=== PATIENT | female | born 1965 | race Two or more races ===

== ENCOUNTER → 2018-06-10 11:04 | Outpatient (CLI) | payer MEDICARE, BC, SELFPAY ==
[2018-06-10 11:26] LABS: Absolute Basophil Count 0.03 k/cumm (0.0-0.2); Absolute Eosinophil Count 0.08 k/cumm (0.0-0.7); Absolute Lymphocyte Count 1.63 k/cumm (1.2-3.4); Absolute Monocyte Count 0.35 k/cumm (0.11-0.7); Absolute Neutrophil Count 4.89 k/cumm (1.2-6.7); Basophils % 0.4; Eosinophils % 1.1; HGB 13.9 g/dL (12.0-15.5); Lymphocytes % 23.4; Mean Corp. HGB Concentration 33.1 g/dL (32.0-36.0); Mean Corpuscular Hemoglobin 28.9 pg (27.0-33.0); Mean Corpuscular Volume 87.3 fL (80-95); Mean Platelet Volume 11.4 fL (8.0-11.0); Neutrophils % 70.1; Platelet Count 198 x1000/uL (130-400); RBC 4.81 m/cumm (4.00-5.20); RBC Distribution Width 14.1 % (11.7-14.6); White Blood Cell Count 6.98 k/cumm (4.4-10.8)
== END ==
PROVIDERS: Visit Provider Nurse Practitioner Psychiatric/Mental Health
DX: F20.9 Schizophrenia, unspecified (principal); Z79.899 Other long term (current) drug therapy
CPT/HCPCS: 36415; 85025

== ENCOUNTER → 2018-06-21 17:38 | Outpatient (REF) | payer MEDICARE, BC, SELFPAY ==
[2018-06-21 22:21] LABS: Anion Gap 10.3 mmol/L (3-11); BUN 14 mg/dL (7-18); CO2 27.7 mmol/L (21.0-32.0); CREATININE 1.06 mg/dL (0.55-1.02); Calcium 8.4 mg/dL (8.5-10.1); Chloride 105 mmol/L (98-107); Cholesterol 243 mg/dL (50-200); Estimated GFR 54.23 (mL/min/1.73m2); Glucose 129 mg/dL (70-100); HDL Cholesterol 50 mg/dL (40-60); LDL CHOLESTEROL 166 mg/dL (<100); Potassium 3.7 mmol/L (3.5-5.1); Sodium 143 mmol/L (136-145); TSH (W/Ref FT4) 1.62 uIU/mL (0.358-3.74); Triglyceride 121 mg/dL (30-150)
[2018-06-23 19:17] LABS: FSH 88.5 mIU/ml
== END ==
LOC: NCHCN 17:38
PROVIDERS: Visit Provider Specialist/Technologist Athletic Trainer
DX: Z00.00 Encounter for general adult medical examination without abnormal findings (principal); Z79.899 Other long term (current) drug therapy
CPT/HCPCS: 80048; 80061; 83721; 83001; 84443

== ENCOUNTER 2018-07-06 00:33 | Outpatient (CLI) | payer MEDICARE, SELFPAY ==
--- NOTE | 2018-07-06 15:45 | DI.MAMMO_ITS ---
SYMPTOMS/DIAGNOSIS: SCREENING, Z12.31, PREVENTATIVE CARE, Z00.00 MAMMOGRAM: Mammograms were interpreted according to the usual protocol including computer analysis with CAD system, tomosynthesis and C view imaging. Comparison with prior examinations. Breast density B. No masses or microcalcifications are seen. There is nothing to suggest malignancy. IMPRESSION: Negative mammogram. Routine screening is recommended. Category I. MQSA ASSESSMENT OF FINDINGS: Negative. Category 1. Patient will receive a letter notifying them of these results. BI-RADS category B. There are scattered areas of fibroglandular density.
== END 2018-07-06 00:53 ==
PROVIDERS: PCP Specialist/Technologist Athletic Trainer; Visit Provider Specialist/Technologist Athletic Trainer
DX: Z12.31 Encounter for screening mammogram for malignant neoplasm of breast (principal)
CPT/HCPCS: 77063; 77067

== ENCOUNTER 2018-07-08 10:27 | Outpatient (CLI) | payer MEDICARE, SELFPAY ==
[2018-07-08 10:47] LABS: Abs Immature Grans 0.01 k/cumm (0.0-0.09); Absolute Basophil Count 0.03 k/cumm (0.0-0.2); Absolute Eosinophil Count 0.13 k/cumm (0.0-0.7); Absolute Lymphocyte Count 1.65 k/cumm (1.2-3.4); Absolute Monocyte Count 0.36 k/cumm (0.11-0.7); Absolute Neutrophil Count 4.51 k/cumm (1.2-6.7); Basophils % 0.4; Eosinophils % 1.9; HCT 41.5 % (36.0-46.0); HGB 13.7 g/dL (12.0-15.5); Immature Grans % 0.1; Lymphocytes % 24.7; Mean Corpuscular Hemoglobin 28.7 pg (27.0-33.0); Mean Platelet Volume 11.5 fL (8.0-11.0); Monocytes % 5.4; Neutrophils % 67.5; Platelet Count 167 x1000/uL (130-400); RBC 4.77 m/cumm (4.00-5.20); RBC Distribution Width 14.1 % (11.7-14.6); White Blood Cell Count 6.69 k/cumm (4.4-10.8)
== END 2018-07-08 10:47 ==
PROVIDERS: PCP Specialist/Technologist Athletic Trainer; Visit Provider Nurse Practitioner Psychiatric/Mental Health
DX: F20.9 Schizophrenia, unspecified (principal); Z79.899 Other long term (current) drug therapy
CPT/HCPCS: 36415; 85025

== ENCOUNTER 2018-07-26 12:20 | Outpatient (REF) | payer MEDICARE, BC, SELFPAY ==
--- NOTE | 2018-07-26 08:30 | PAPFT_PTH ---
PATIENT: Aubree Katz LOC: [facility] U#:[id number] AGE/SX: 52/F ROOM: RE07/26/[address]: ZACHERY Cervantes : 1965 BED: DIS: 07/26/2018 SPEC #: [id number] RECD: 07/26/18 13:06 STATUS: RAMESH REMichelle #: [id number] CHUY: 07/26/18 08:[address]: Krysta Yan DEPT: [facility] Cytology RECD BY: Amberly George ENTERED: 07/26/18 13:06 SP TYPE: PAPFT OTHR DR: Fernando Lakhani Tissues: 1 - CX/ENDOCX FOR PAP SMEARS Procedures: PAP THIN PREP/UVM Screening HPV DNA PROBE Comments: [id number]
== END 2018-07-26 12:40 ==
LOC: LBN 12:20
PROVIDERS: PCP Specialist/Technologist Athletic Trainer; Visit Provider Nurse Practitioner Family
DX: Z12.4 Encounter for screening for malignant neoplasm of cervix (principal); Z11.51 Encounter for screening for human papillomavirus (HPV)
CPT/HCPCS: 88142; 87624

== ENCOUNTER 2018-08-11 12:25 | Outpatient (CLI) | payer MEDICARE, BC, SELFPAY ==
[2018-08-11 12:45] LABS: Abs Immature Grans 0.01 k/cumm (0.0-0.09); Absolute Basophil Count 0.03 k/cumm (0.0-0.2); Absolute Eosinophil Count 0.11 k/cumm (0.0-0.7); Absolute Lymphocyte Count 1.41 k/cumm (1.2-3.4); Absolute Monocyte Count 0.42 k/cumm (0.11-0.7); Absolute Neutrophil Count 7.03 k/cumm (1.2-6.7); Basophils % 0.3; Eosinophils % 1.2; HCT 40.4 % (36.0-46.0); HGB 13.3 g/dL (12.0-15.5); Immature Grans % 0.1; Lymphocytes % 15.6; Mean Corp. HGB Concentration 32.9 g/dL (32.0-36.0); Mean Corpuscular Hemoglobin 28.8 pg (27.0-33.0); Mean Corpuscular Volume 87.4 fL (80-95); Mean Platelet Volume 11.4 fL (8.0-11.0); Monocytes % 4.7; Neutrophils % 78.1; Platelet Count 187 x1000/uL (130-400); RBC 4.62 m/cumm (4.00-5.20); RBC Distribution Width 13.8 % (11.7-14.6); White Blood Cell Count 9.01 k/cumm (4.4-10.8)
== END 2018-08-11 12:45 ==
PROVIDERS: PCP Specialist/Technologist Athletic Trainer; Visit Provider Nurse Practitioner Psychiatric/Mental Health
DX: F20.9 Schizophrenia, unspecified (principal); Z79.899 Other long term (current) drug therapy
CPT/HCPCS: 36415; 85025

== ENCOUNTER 2018-09-09 08:46 | Outpatient (CLI) | payer MEDICARE, BC, SELFPAY ==
[2018-09-09 09:11] LABS: Abs Immature Grans 0.01 k/cumm (0.0-0.09); Absolute Basophil Count 0.02 k/cumm (0.0-0.2); Absolute Eosinophil Count 0.16 k/cumm (0.0-0.7); Absolute Lymphocyte Count 1.47 k/cumm (1.2-3.4); Absolute Neutrophil Count 3.89 k/cumm (1.2-6.7); Basophils % 0.3; Eosinophils % 2.7; HCT 42.8 % (36.0-46.0); Immature Grans % 0.2; Lymphocytes % 24.7; Mean Corp. HGB Concentration 32.7 g/dL (32.0-36.0); Mean Corpuscular Hemoglobin 28.9 pg (27.0-33.0); Mean Corpuscular Volume 88.4 fL (80-95); Mean Platelet Volume 11.4 fL (8.0-11.0); Monocytes % 6.7; Neutrophils % 65.4; Platelet Count 185 x1000/uL (130-400); RBC 4.84 m/cumm (4.00-5.20); RBC Distribution Width 14.2 % (11.7-14.6); White Blood Cell Count 5.95 k/cumm (4.4-10.8)
== END 2018-09-09 09:06 ==
PROVIDERS: PCP Specialist/Technologist Athletic Trainer; Visit Provider Nurse Practitioner Psychiatric/Mental Health
DX: F20.9 Schizophrenia, unspecified (principal); Z79.899 Other long term (current) drug therapy
CPT/HCPCS: 36415; 85025

== ENCOUNTER 2018-10-08 13:15 | Outpatient (CLI) | payer MEDICARE, BC, SELFPAY ==
[2018-10-08 13:57] LABS: Abs Immature Grans 0.02 k/cumm (0.0-0.09); Absolute Basophil Count 0.02 k/cumm (0.0-0.2); Absolute Eosinophil Count 0.11 k/cumm (0.0-0.7); Absolute Lymphocyte Count 1.55 k/cumm (1.2-3.4); Absolute Monocyte Count 0.29 k/cumm (0.11-0.7); Absolute Neutrophil Count 5.87 k/cumm (1.2-6.7); Basophils % 0.3; Eosinophils % 1.4; HCT 41.9 % (36.0-46.0); HGB 13.7 g/dL (12.0-15.5); Immature Grans % 0.3; Lymphocytes % 19.7; Mean Corp. HGB Concentration 32.7 g/dL (32.0-36.0); Mean Corpuscular Hemoglobin 28.9 pg (27.0-33.0); Mean Corpuscular Volume 88.4 fL (80-95); Mean Platelet Volume 11.3 fL (8.0-11.0); Monocytes % 3.7; Neutrophils % 74.6; Platelet Count 201 x1000/uL (130-400); RBC 4.74 m/cumm (4.00-5.20); RBC Distribution Width 14.1 % (11.7-14.6); White Blood Cell Count 7.86 k/cumm (4.4-10.8)
== END 2018-10-08 13:35 ==
PROVIDERS: PCP Specialist/Technologist Athletic Trainer; Visit Provider Nurse Practitioner Psychiatric/Mental Health
DX: F20.9 Schizophrenia, unspecified (principal); Z79.899 Other long term (current) drug therapy
CPT/HCPCS: 36415; 85025

== ENCOUNTER 2018-11-08 10:57 | Outpatient (CLI) | payer MEDICARE, BC, SELFPAY ==
[2018-11-08 11:28] LABS: Abs Immature Grans 0.02 k/cumm (0.0-0.09); Absolute Basophil Count 0.02 k/cumm (0.0-0.2); Absolute Eosinophil Count 0.09 k/cumm (0.0-0.7); Absolute Lymphocyte Count 1.71 k/cumm (1.2-3.4); Absolute Monocyte Count 0.46 k/cumm (0.11-0.7); Absolute Neutrophil Count 5.15 k/cumm (1.2-6.7); Basophils % 0.3; Eosinophils % 1.2; HCT 40.8 % (36.0-46.0); HGB 13.4 g/dL (12.0-15.5); Immature Grans % 0.3; Mean Corp. HGB Concentration 32.8 g/dL (32.0-36.0); Mean Corpuscular Hemoglobin 29.1 pg (27.0-33.0); Mean Corpuscular Volume 88.5 fL (80-95); Mean Platelet Volume 11.3 fL (8.0-11.0); Monocytes % 6.2; Platelet Count 191 x1000/uL (130-400); RBC 4.61 m/cumm (4.00-5.20); RBC Distribution Width 13.9 % (11.7-14.6); White Blood Cell Count 7.45 k/cumm (4.4-10.8)
== END 2018-11-08 11:17 ==
PROVIDERS: PCP Specialist/Technologist Athletic Trainer; Visit Provider Nurse Practitioner Psychiatric/Mental Health
DX: F20.9 Schizophrenia, unspecified (principal); Z79.899 Other long term (current) drug therapy
CPT/HCPCS: 36415; 85025

== ENCOUNTER 2018-12-06 10:28 | Outpatient (CLI) | payer MEDICARE, BC, SELFPAY ==
[2018-12-06 11:58] LABS: Abs Immature Grans 0.01 k/cumm (0.0-0.09); Absolute Basophil Count 0.02 k/cumm (0.0-0.2); Absolute Lymphocyte Count 1.74 k/cumm (1.2-3.4); Absolute Monocyte Count 0.34 k/cumm (0.11-0.7); Basophils % 0.3; Eosinophils % 1.6; HCT 41.9 % (36.0-46.0); HGB 13.6 g/dL (12.0-15.5); Immature Grans % 0.2; Lymphocytes % 27.6; Mean Corp. HGB Concentration 32.5 g/dL (32.0-36.0); Mean Corpuscular Hemoglobin 28.6 pg (27.0-33.0); Mean Corpuscular Volume 88.2 fL (80-95); Mean Platelet Volume 11.7 fL (8.0-11.0); Monocytes % 5.4; Neutrophils % 64.9; Platelet Count 198 x1000/uL (130-400); RBC 4.75 m/cumm (4.00-5.20); RBC Distribution Width 14.1 % (11.7-14.6); White Blood Cell Count 6.31 k/cumm (4.4-10.8)
== END 2018-12-06 10:48 ==
PROVIDERS: PCP Specialist/Technologist Athletic Trainer; Visit Provider Nurse Practitioner Psychiatric/Mental Health
DX: F20.9 Schizophrenia, unspecified (principal); Z79.899 Other long term (current) drug therapy
CPT/HCPCS: 36415; 85025

== ENCOUNTER 2019-01-03 10:48 | Outpatient (CLI) | payer MEDICARE, BC, SELFPAY ==
[2019-01-03 11:33] LABS: Abs Immature Grans 0.02 k/cumm (0.0-0.09); Absolute Basophil Count 0.02 k/cumm (0.0-0.2); Absolute Eosinophil Count 0.05 k/cumm (0.0-0.7); Absolute Lymphocyte Count 1.94 k/cumm (1.2-3.4); Absolute Monocyte Count 0.47 k/cumm (0.11-0.7); Absolute Neutrophil Count 4.74 k/cumm (1.2-6.7); Basophils % 0.3; Eosinophils % 0.7; HCT 42.2 % (36.0-46.0); HGB 13.7 g/dL (12.0-15.5); Immature Grans % 0.3; Lymphocytes % 26.8; Mean Corp. HGB Concentration 32.5 g/dL (32.0-36.0); Mean Corpuscular Hemoglobin 28.4 pg (27.0-33.0); Mean Corpuscular Volume 87.4 fL (80-95); Mean Platelet Volume 11.7 fL (8.0-11.0); Monocytes % 6.5; Neutrophils % 65.4; Platelet Count 227 x1000/uL (130-400); RBC 4.83 m/cumm (4.00-5.20); RBC Distribution Width 13.6 % (11.7-14.6); White Blood Cell Count 7.24 k/cumm (4.4-10.8)
== END 2019-01-03 11:08 ==
PROVIDERS: PCP Specialist/Technologist Athletic Trainer; Visit Provider Nurse Practitioner Psychiatric/Mental Health
DX: F20.9 Schizophrenia, unspecified (principal); Z79.899 Other long term (current) drug therapy
CPT/HCPCS: 36415; 85025

== ENCOUNTER 2019-02-01 11:09 | Outpatient (CLI) | payer MEDICARE, BC, SELFPAY ==
[2019-02-01 11:55] LABS: Abs Immature Grans 0.01 k/cumm (0.0-0.09); Absolute Basophil Count 0.02 k/cumm (0.0-0.2); Absolute Eosinophil Count 0.06 k/cumm (0.0-0.7); Absolute Lymphocyte Count 1.56 k/cumm (1.2-3.4); Absolute Monocyte Count 0.42 k/cumm (0.11-0.7); Basophils % 0.3; Eosinophils % 0.9; HCT 42.4 % (36.0-46.0); HGB 13.7 g/dL (12.0-15.5); Immature Grans % 0.1; Lymphocytes % 22.4; Mean Corp. HGB Concentration 32.3 g/dL (32.0-36.0); Mean Corpuscular Hemoglobin 28.4 pg (27.0-33.0); Mean Platelet Volume 11.8 fL (8.0-11.0); Neutrophils % 70.3; Platelet Count 206 x1000/uL (130-400); RBC 4.82 m/cumm (4.00-5.20); RBC Distribution Width 13.9 % (11.7-14.6); White Blood Cell Count 6.97 k/cumm (4.4-10.8)
== END 2019-02-01 11:29 ==
PROVIDERS: PCP Family Medicine; Visit Provider Nurse Practitioner Psychiatric/Mental Health
DX: F20.9 Schizophrenia, unspecified (principal); Z79.899 Other long term (current) drug therapy
CPT/HCPCS: 36415; 85025

== ENCOUNTER 2019-03-01 12:17 | Outpatient (CLI) | payer MEDICARE, BC, SELFPAY ==
[2019-03-01 12:51] LABS: Abs Immature Grans 0.02 k/cumm (0.0-0.09); Absolute Basophil Count 0.02 k/cumm (0.0-0.2); Absolute Eosinophil Count 0.03 k/cumm (0.0-0.7); Absolute Lymphocyte Count 1.57 k/cumm (1.2-3.4); Absolute Monocyte Count 0.31 k/cumm (0.11-0.7); Absolute Neutrophil Count 6.18 k/cumm (1.2-6.7); Basophils % 0.2; Eosinophils % 0.4; HCT 43.1 % (36.0-46.0); HGB 14.1 g/dL (12.0-15.5); Immature Grans % 0.2; Lymphocytes % 19.3; Mean Corp. HGB Concentration 32.7 g/dL (32.0-36.0); Mean Corpuscular Hemoglobin 28.1 pg (27.0-33.0); Mean Platelet Volume 11.6 fL (8.0-11.0); Monocytes % 3.8; Neutrophils % 76.1; Platelet Count 208 x1000/uL (130-400); RBC 5.01 m/cumm (4.00-5.20); RBC Distribution Width 13.9 % (11.7-14.6); White Blood Cell Count 8.13 k/cumm (4.4-10.8)
== END 2019-03-01 12:37 ==
PROVIDERS: PCP Family Medicine; Visit Provider Nurse Practitioner Psychiatric/Mental Health
DX: F20.9 Schizophrenia, unspecified (principal); Z79.899 Other long term (current) drug therapy
CPT/HCPCS: 36415; 85025

== ENCOUNTER 2019-03-29 09:59 | Outpatient (CLI) | payer MEDICARE, BC, SELFPAY ==
[2019-03-29 10:33] LABS: Abs Immature Grans 0.02 k/cumm (0.0-0.09); Absolute Basophil Count 0.01 k/cumm (0.0-0.2); Absolute Eosinophil Count 0.01 k/cumm (0.0-0.7); Absolute Lymphocyte Count 1.36 k/cumm (1.2-3.4); Absolute Neutrophil Count 3.73 k/cumm (1.2-6.7); Basophils % 0.2; Eosinophils % 0.2; HCT 43.3 % (36.0-46.0); HGB 13.9 g/dL (12.0-15.5); Immature Grans % 0.4; Mean Corp. HGB Concentration 32.1 g/dL (32.0-36.0); Mean Corpuscular Hemoglobin 27.6 pg (27.0-33.0); Mean Corpuscular Volume 86.1 fL (80-95); Mean Platelet Volume 11.3 fL (8.0-11.0); Monocytes % 5.5; Neutrophils % 68.7; Platelet Count 185 x1000/uL (130-400); RBC 5.03 m/cumm (4.00-5.20); RBC Distribution Width 14.4 % (11.7-14.6); White Blood Cell Count 5.43 k/cumm (4.4-10.8)
== END 2019-03-29 10:19 ==
PROVIDERS: PCP Family Medicine; Visit Provider Nurse Practitioner Psychiatric/Mental Health
DX: F20.9 Schizophrenia, unspecified (principal); Z79.899 Other long term (current) drug therapy
CPT/HCPCS: 36415; 85025

== ENCOUNTER 2019-04-25 09:15 | Outpatient (CLI) | payer MEDICARE, BC, SELFPAY ==
[2019-04-25 09:55] LABS: Abs Immature Grans 0.01 k/cumm (0.0-0.09); Absolute Basophil Count 0.01 k/cumm (0.0-0.2); Absolute Lymphocyte Count 1.53 k/cumm (1.2-3.4); Absolute Neutrophil Count 3.51 k/cumm (1.2-6.7); Basophils % 0.2; HCT 42.8 % (36.0-46.0); Immature Grans % 0.2; Lymphocytes % 28.5; Mean Corp. HGB Concentration 32.7 g/dL (32.0-36.0); Mean Corpuscular Hemoglobin 27.9 pg (27.0-33.0); Mean Corpuscular Volume 85.4 fL (80-95); Mean Platelet Volume 11.6 fL (8.0-11.0); Monocytes % 5.6; Neutrophils % 65.5; Platelet Count 185 x1000/uL (130-400); RBC 5.01 m/cumm (4.00-5.20); RBC Distribution Width 14.7 % (11.7-14.6); White Blood Cell Count 5.36 k/cumm (4.4-10.8)
== END 2019-04-25 09:35 ==
PROVIDERS: PCP Family Medicine; Visit Provider Nurse Practitioner Psychiatric/Mental Health
DX: F20.9 Schizophrenia, unspecified (principal); Z79.899 Other long term (current) drug therapy
CPT/HCPCS: 36415; 85025

== ENCOUNTER 2019-05-23 09:27 | Outpatient (CLI) | payer MEDICARE, BC, SELFPAY ==
[2019-05-23 09:58] LABS: Abs Immature Grans 0.01 k/cumm (0.0-0.09); Absolute Basophil Count 0.02 k/cumm (0.0-0.2); Absolute Eosinophil Count 0.01 k/cumm (0.0-0.7); Absolute Lymphocyte Count 1.64 k/cumm (1.2-3.4); Absolute Monocyte Count 0.37 k/cumm (0.11-0.7); Absolute Neutrophil Count 4.23 k/cumm (1.2-6.7); Basophils % 0.3; Eosinophils % 0.2; HCT 42.4 % (36.0-46.0); HGB 13.9 g/dL (12.0-15.5); Immature Grans % 0.2; Lymphocytes % 26.1; Mean Corp. HGB Concentration 32.8 g/dL (32.0-36.0); Mean Corpuscular Hemoglobin 28.1 pg (27.0-33.0); Mean Corpuscular Volume 85.7 fL (80-95); Mean Platelet Volume 11.7 fL (8.0-11.0); Monocytes % 5.9; Neutrophils % 67.3; Platelet Count 189 x1000/uL (130-400); RBC 4.95 m/cumm (4.00-5.20); RBC Distribution Width 14.8 % (11.7-14.6); White Blood Cell Count 6.28 k/cumm (4.4-10.8)
== END 2019-05-23 09:47 ==
PROVIDERS: PCP Family Medicine; Visit Provider Nurse Practitioner Psychiatric/Mental Health
DX: F20.9 Schizophrenia, unspecified (principal); Z79.899 Other long term (current) drug therapy
CPT/HCPCS: 36415; 85025

== ENCOUNTER 2019-06-20 10:38 | Outpatient (CLI) | payer MEDICARE, BC, SELFPAY ==
[2019-06-20 11:19] LABS: Abs Immature Grans 0.01 k/cumm (0.0-0.09); Absolute Basophil Count 0.02 k/cumm (0.0-0.2); Absolute Lymphocyte Count 1.75 k/cumm (1.2-3.4); Absolute Monocyte Count 0.38 k/cumm (0.11-0.7); Absolute Neutrophil Count 4.99 k/cumm (1.2-6.7); Basophils % 0.3; HGB 13.8 g/dL (12.0-15.5); Immature Grans % 0.1; Lymphocytes % 24.5; Mean Corp. HGB Concentration 32.9 g/dL (32.0-36.0); Mean Corpuscular Hemoglobin 28.3 pg (27.0-33.0); Mean Corpuscular Volume 86.2 fL (80-95); Mean Platelet Volume 11.8 fL (8.0-11.0); Monocytes % 5.3; Neutrophils % 69.8; Platelet Count 220 x1000/uL (130-400); RBC 4.87 m/cumm (4.00-5.20); RBC Distribution Width 14.8 % (11.7-14.6); White Blood Cell Count 7.15 k/cumm (4.4-10.8)
== END 2019-06-20 10:58 ==
PROVIDERS: PCP Family Medicine; Visit Provider Nurse Practitioner Psychiatric/Mental Health
DX: F20.9 Schizophrenia, unspecified (principal); Z79.899 Other long term (current) drug therapy
CPT/HCPCS: 36415; 85025

== ENCOUNTER 2019-07-18 08:40 | Outpatient (CLI) | payer MEDICARE, BC, SELFPAY ==
[2019-07-18 09:13] LABS: Abs Immature Grans 0.01 k/cumm (0.0-0.09); Absolute Basophil Count 0.01 k/cumm (0.0-0.2); Absolute Eosinophil Count 0.01 k/cumm (0.0-0.7); Absolute Lymphocyte Count 1.64 k/cumm (1.2-3.4); Absolute Monocyte Count 0.39 k/cumm (0.11-0.7); Absolute Neutrophil Count 3.74 k/cumm (1.2-6.7); Basophils % 0.2; Eosinophils % 0.2; HCT 41.7 % (36.0-46.0); HGB 13.5 g/dL (12.0-15.5); Immature Grans % 0.2; Lymphocytes % 28.3; Mean Corp. HGB Concentration 32.4 g/dL (32.0-36.0); Mean Corpuscular Hemoglobin 28.2 pg (27.0-33.0); Mean Corpuscular Volume 87.1 fL (80-95); Mean Platelet Volume 11.7 fL (8.0-11.0); Monocytes % 6.7; Neutrophils % 64.4; Platelet Count 195 x1000/uL (130-400); RBC 4.79 m/cumm (4.00-5.20); RBC Distribution Width 14.4 % (11.7-14.6)
== END 2019-07-18 09:00 ==
PROVIDERS: PCP Family Medicine; Visit Provider Nurse Practitioner Psychiatric/Mental Health
DX: F20.9 Schizophrenia, unspecified (principal); Z79.899 Other long term (current) drug therapy
CPT/HCPCS: 36415; 85025

== ENCOUNTER 2019-08-19 12:43 | Outpatient (CLI) | payer MEDICARE, BC, SELFPAY ==
[2019-08-19 13:15] LABS: Abs Immature Grans 0.02 k/cumm (0.0-0.09); Absolute Basophil Count 0.01 k/cumm (0.0-0.2); Absolute Monocyte Count 0.34 k/cumm (0.11-0.7); Basophils % 0.1; HCT 42.3 % (36.0-46.0); HGB 13.9 g/dL (12.0-15.5); Immature Grans % 0.3; Lymphocytes % 21.6; Mean Corp. HGB Concentration 32.9 g/dL (32.0-36.0); Mean Corpuscular Hemoglobin 28.6 pg (27.0-33.0); Mean Platelet Volume 11.5 fL (8.0-11.0); Monocytes % 4.3; Neutrophils % 73.7; Platelet Count 215 x1000/uL (130-400); RBC 4.86 m/cumm (4.00-5.20); RBC Distribution Width 14.4 % (11.7-14.6); White Blood Cell Count 7.87 k/cumm (4.4-10.8)
== END 2019-08-19 13:03 ==
PROVIDERS: PCP Family Medicine; Visit Provider Nurse Practitioner Psychiatric/Mental Health
DX: F20.9 Schizophrenia, unspecified (principal); Z79.899 Other long term (current) drug therapy
CPT/HCPCS: 36415; 85025

== ENCOUNTER 2019-09-14 09:31 | Outpatient (CLI) | payer MEDICARE, BC, SELFPAY ==
[2019-09-14 10:07] LABS: Abs Immature Grans 0.01 k/cumm (0.0-0.09); Absolute Basophil Count 0.01 k/cumm (0.0-0.2); Absolute Lymphocyte Count 1.34 k/cumm (1.2-3.4); Absolute Monocyte Count 0.28 k/cumm (0.11-0.7); Absolute Neutrophil Count 4.47 k/cumm (1.2-6.7); Basophils % 0.2; HCT 42.6 % (36.0-46.0); HGB 13.7 g/dL (12.0-15.5); Immature Grans % 0.2; Lymphocytes % 21.9; Mean Corp. HGB Concentration 32.2 g/dL (32.0-36.0); Mean Corpuscular Hemoglobin 27.8 pg (27.0-33.0); Mean Corpuscular Volume 86.6 fL (80-95); Mean Platelet Volume 11.3 fL (8.0-11.0); Monocytes % 4.6; Neutrophils % 73.1; Platelet Count 191 x1000/uL (130-400); RBC 4.92 m/cumm (4.00-5.20); White Blood Cell Count 6.11 k/cumm (4.4-10.8)
== END 2019-09-14 09:51 ==
PROVIDERS: PCP Family Medicine; Visit Provider Nurse Practitioner Psychiatric/Mental Health
DX: F20.9 Schizophrenia, unspecified (principal); Z79.899 Other long term (current) drug therapy
CPT/HCPCS: 36415; 85025

== ENCOUNTER 2019-10-14 10:08 | Outpatient (CLI) | payer MEDICARE, BC, SELFPAY ==
[2019-10-14 10:42] LABS: Abs Immature Grans 0.01 k/cumm (0.0-0.09); Absolute Basophil Count 0.01 k/cumm (0.0-0.2); Absolute Eosinophil Count 0.01 k/cumm (0.0-0.7); Absolute Lymphocyte Count 1.31 k/cumm (1.2-3.4); Absolute Monocyte Count 0.41 k/cumm (0.11-0.7); Absolute Neutrophil Count 4.73 k/cumm (1.2-6.7); Basophils % 0.2; Eosinophils % 0.2; HCT 42.4 % (36.0-46.0); HGB 13.6 g/dL (12.0-15.5); Immature Grans % 0.2; Lymphocytes % 20.2; Mean Corp. HGB Concentration 32.1 g/dL (32.0-36.0); Mean Corpuscular Hemoglobin 27.8 pg (27.0-33.0); Mean Corpuscular Volume 86.7 fL (80-95); Monocytes % 6.3; Neutrophils % 72.9; Platelet Count 220 x1000/uL (130-400); RBC 4.89 m/cumm (4.00-5.20); White Blood Cell Count 6.48 k/cumm (4.4-10.8)
== END 2019-10-14 10:28 ==
LOC: NCHCO 10:10 → LBO 10:17
PROVIDERS: PCP Family Medicine; Visit Provider Nurse Practitioner Psychiatric/Mental Health
DX: F20.9 Schizophrenia, unspecified (principal); Z79.899 Other long term (current) drug therapy
CPT/HCPCS: 36415; 85025

== ENCOUNTER 2019-10-28 13:24 | Outpatient (REF) | payer MEDICARE, BC, SELFPAY ==
[2019-10-28 19:11] LABS: ALT 19 U/L (14-59); AST 12 U/L (15-37); Alkaline Phosphatase 133 U/L (46-116); Anion Gap 8.2 mmol/L (3-11); BUN 16 mg/dL (7-18); Bilirubin, Total 0.3 mg/dL (0.2-1.0); CO2 30.8 mmol/L (21.0-32.0); Calculated LDL 162 mg/dL; Chloride 103 mmol/L (98-107); Cholesterol 233 mg/dL (<200); Glucose 89 mg/dL (74-106); HDL Cholesterol 52 mg/dL (40-60); Potassium 4.5 mmol/L (3.5-5.1); Sodium 142 mmol/L (136-145); Total Protein 7.2 g/dL (6.4-8.2); Triglyceride 98 mg/dL (<150)
[2019-10-28 19:31] LABS: Hemoglobin A1C 5.7 % (3.8-5.6)
== END 2019-10-28 13:44 ==
LOC: NCHCN 13:24
PROVIDERS: PCP Family Medicine; Visit Provider Specialist/Technologist Athletic Trainer
DX: E78.5 Hyperlipidemia, unspecified; R73.9 Hyperglycemia, unspecified
CPT/HCPCS: 80053; 80061; 83036; 83735

== ENCOUNTER 2019-11-14 08:59 | Outpatient (CLI) | payer MEDICARE, BC, SELFPAY ==
[2019-11-14 09:42] LABS: Abs Immature Grans 0.01 k/cumm (0.0-0.09); Absolute Basophil Count 0.02 k/cumm (0.0-0.2); Absolute Eosinophil Count 0.01 k/cumm (0.0-0.7); Absolute Lymphocyte Count 1.77 k/cumm (1.2-3.4); Absolute Monocyte Count 0.38 k/cumm (0.11-0.7); Absolute Neutrophil Count 3.97 k/cumm (1.2-6.7); Basophils % 0.3; Eosinophils % 0.2; HCT 43.9 % (36.0-46.0); Immature Grans % 0.2 %; Lymphocytes % 28.7; Mean Corp. HGB Concentration 31.9 g/dL (32.0-36.0); Mean Corpuscular Hemoglobin 27.6 pg (27.0-33.0); Mean Corpuscular Volume 86.6 fL (80-95); Mean Platelet Volume 11.5 fL (8.0-11.0); Monocytes % 6.2; Neutrophils % 64.4; Platelet Count 215 x1000/uL (130-400); RBC 5.07 m/cumm (4.00-5.20); RBC Distribution Width 14.2 % (11.7-14.6); White Blood Cell Count 6.16 k/cumm (4.4-10.8)
== END 2019-11-14 09:19 ==
PROVIDERS: PCP Family Medicine; Visit Provider Nurse Practitioner Psychiatric/Mental Health
DX: F20.9 Schizophrenia, unspecified (principal); Z79.899 Other long term (current) drug therapy
CPT/HCPCS: 36415; 85025

== ENCOUNTER 2019-11-28 01:44 | Outpatient (CLI) | payer MEDICARE, BC, SELFPAY ==
--- NOTE | 2019-11-28 12:17 | DI.MAMMO_ITS ---
EXAM: MAMMO SCREENING CLINICAL HISTORY: SCREENING, Z12.31, PREVENTATIVE HEALTH CARE, Z00.00. TECHNIQUE: Full field digital CC and MLO mammographic images were obtained with 3D tomosynthesis and utilizing computer aided detection (CAD). COMPARISON: 2018 FINDINGS: Breast Density - Category B - Scattered areas of fibroglandular density Masses/Architectural Distortion: None seen. Microcalcifications: No suspicious pleomorphic-type calcifications are seen. Skin Thickening/Nipple Retraction: None. Axilla: Unremarkable. IMPRESSION: 1. BI-RADS category 1, negative. No significant interval change with no specific features of maligna ncy noted. 2. Unless there is more urgent need, screening mammography is recommended, as per [employer] guidelines. A negative radiographic report should not delay biopsy if a dominant or clinically suspicious mass is present. Up to ten percent of cancers are not identified on mammography. A negative report may reinforce clinical impression. Adenosis and dense breasts may obscure an underlying neoplasm. False positive reports average 6 to 10%. Patient will receive a letter notifying them of these results.
== END 2019-11-28 02:04 ==
PROVIDERS: PCP Family Medicine; Visit Provider Specialist/Technologist Athletic Trainer
DX: Z12.31 Encounter for screening mammogram for malignant neoplasm of breast (principal)
CPT/HCPCS: 77063; 77067

== ENCOUNTER 2019-12-13 12:27 | Outpatient (CLI) | payer MEDICARE, BC, SELFPAY ==
[2019-12-13 12:53] LABS: Abs Immature Grans 0.01 k/cumm (0.0-0.09); Absolute Basophil Count 0.01 k/cumm (0.0-0.2); Absolute Lymphocyte Count 1.44 k/cumm (1.2-3.4); Absolute Monocyte Count 0.36 k/cumm (0.11-0.7); Absolute Neutrophil Count 6.41 k/cumm (1.2-6.7); Basophils % 0.1; HGB 13.7 g/dL (12.0-15.5); Immature Grans % 0.1 %; Lymphocytes % 17.5; Mean Corp. HGB Concentration 32.6 g/dL (32.0-36.0); Mean Corpuscular Hemoglobin 28.1 pg (27.0-33.0); Mean Corpuscular Volume 86.2 fL (80-95); Mean Platelet Volume 10.8 fL (8.0-11.0); Monocytes % 4.4; Neutrophils % 77.9; Platelet Count 206 x1000/uL (130-400); RBC 4.87 m/cumm (4.00-5.20); RBC Distribution Width 14.3 % (11.7-14.6); White Blood Cell Count 8.23 k/cumm (4.4-10.8)
== END 2019-12-13 12:47 ==
PROVIDERS: PCP Family Medicine; Visit Provider Nurse Practitioner Psychiatric/Mental Health
DX: F20.9 Schizophrenia, unspecified (principal); Z79.899 Other long term (current) drug therapy
CPT/HCPCS: 36415; 85025

== ENCOUNTER 2020-01-10 09:34 | Outpatient (CLI) | payer MEDICARE, BC, SELFPAY ==
[2020-01-10 10:01] LABS: Abs Immature Grans 0.02 k/cumm (0.0-0.09); Absolute Basophil Count 0.02 k/cumm (0.0-0.2); Absolute Lymphocyte Count 1.83 k/cumm (1.2-3.4); Absolute Monocyte Count 0.42 k/cumm (0.11-0.7); Absolute Neutrophil Count 3.95 k/cumm (1.2-6.7); Basophils % 0.3; HCT 42.7 % (36.0-46.0); HGB 13.9 g/dL (12.0-15.5); Immature Grans % 0.3 %; Lymphocytes % 29.3; Mean Corp. HGB Concentration 32.6 g/dL (32.0-36.0); Mean Corpuscular Hemoglobin 28.1 pg (27.0-33.0); Mean Corpuscular Volume 86.3 fL (80-95); Monocytes % 6.7; Neutrophils % 63.4; Platelet Count 213 x1000/uL (130-400); RBC 4.95 m/cumm (4.00-5.20); RBC Distribution Width 14.6 % (11.7-14.6); White Blood Cell Count 6.24 k/cumm (4.4-10.8)
== END 2020-01-10 09:54 ==
PROVIDERS: PCP Family Medicine; Visit Provider Nurse Practitioner Psychiatric/Mental Health
DX: F20.9 Schizophrenia, unspecified (principal); Z79.899 Other long term (current) drug therapy
CPT/HCPCS: 36415; 85025

== ENCOUNTER 2020-03-15 07:53 | Outpatient (CLI) | payer MEDICARE, BC, SELFPAY ==
[2020-03-15 11:40] LABS: Abs Immature Grans 0.01 k/cumm (0.0-0.09); Absolute Basophil Count 0.01 k/cumm (0.0-0.2); Absolute Lymphocyte Count 1.57 k/cumm (1.2-3.4); Absolute Monocyte Count 0.41 k/cumm (0.11-0.7); Absolute Neutrophil Count 7.64 k/cumm (1.2-6.7); Basophils % 0.1; HCT 42.3 % (36.0-46.0); HGB 13.9 g/dL (12.0-15.5); Immature Grans % 0.1 %; Lymphocytes % 16.3; Mean Corp. HGB Concentration 32.9 g/dL (32.0-36.0); Mean Corpuscular Hemoglobin 28.3 pg (27.0-33.0); Mean Corpuscular Volume 86.2 fL (80-95); Mean Platelet Volume 11.2 fL (8.0-11.0); Monocytes % 4.3; Neutrophils % 79.2; Platelet Count 218 x1000/uL (130-400); RBC 4.91 m/cumm (4.00-5.20); RBC Distribution Width 14.2 % (11.7-14.6); White Blood Cell Count 9.64 k/cumm (4.4-10.8)
== END 2020-03-15 08:13 ==
PROVIDERS: PCP Family Medicine; Visit Provider Nurse Practitioner Psychiatric/Mental Health
DX: F20.9 Schizophrenia, unspecified (principal); Z79.899 Other long term (current) drug therapy
CPT/HCPCS: 36415; 85025

== ENCOUNTER 2020-04-05 04:11 | Outpatient (CLI) | payer MEDICARE, BC, SELFPAY ==
[2020-04-05 13:03] LABS: Abs Immature Grans 0.01 k/cumm (0.0-0.09); Absolute Basophil Count 0.01 k/cumm (0.0-0.2); Absolute Lymphocyte Count 1.93 k/cumm (1.2-3.4); Absolute Monocyte Count 0.34 k/cumm (0.11-0.7); Basophils % 0.1; HCT 42.3 % (36.0-46.0); HGB 13.8 g/dL (12.0-15.5); Immature Grans % 0.1 %; Lymphocytes % 25.8; Mean Corp. HGB Concentration 32.6 g/dL (32.0-36.0); Mean Corpuscular Hemoglobin 28.2 pg (27.0-33.0); Mean Corpuscular Volume 86.5 fL (80-95); Mean Platelet Volume 11.2 fL (8.0-11.0); Monocytes % 4.5; Neutrophils % 69.5; Platelet Count 216 x1000/uL (130-400); RBC 4.89 m/cumm (4.00-5.20); RBC Distribution Width 14.1 % (11.7-14.6); White Blood Cell Count 7.49 k/cumm (4.4-10.8)
== END 2020-04-05 04:31 ==
PROVIDERS: PCP Family Medicine; Visit Provider Nurse Practitioner Psychiatric/Mental Health
DX: F20.9 Schizophrenia, unspecified (principal); Z79.899 Other long term (current) drug therapy
CPT/HCPCS: 36415; 85025

== ENCOUNTER 2020-05-02 04:17 | Outpatient (CLI) | payer MEDICARE, BC, SELFPAY ==
[2020-05-02 11:14] LABS: Abs Immature Grans 0.02 k/cumm (0.0-0.09); Absolute Basophil Count 0.02 k/cumm (0.0-0.2); Absolute Eosinophil Count 0.01 k/cumm (0.0-0.7); Absolute Lymphocyte Count 1.87 k/cumm (1.2-3.4); Absolute Monocyte Count 0.32 k/cumm (0.11-0.7); Absolute Neutrophil Count 5.09 k/cumm (1.2-6.7); Basophils % 0.3; Eosinophils % 0.1; HCT 43.4 % (36.0-46.0); HGB 14.1 g/dL (12.0-15.5); Immature Grans % 0.3 %; Lymphocytes % 25.5; Mean Corp. HGB Concentration 32.5 g/dL (32.0-36.0); Mean Corpuscular Hemoglobin 28.2 pg (27.0-33.0); Mean Corpuscular Volume 86.8 fL (80-95); Mean Platelet Volume 11.3 fL (8.0-11.0); Monocytes % 4.4; Neutrophils % 69.4; Platelet Count 229 x1000/uL (130-400); RBC Distribution Width 14.7 % (11.7-14.6); White Blood Cell Count 7.33 k/cumm (4.4-10.8)
== END 2020-05-02 04:37 ==
PROVIDERS: PCP Family Medicine; Visit Provider Nurse Practitioner Family
DX: F20.9 Schizophrenia, unspecified (principal); Z79.899 Other long term (current) drug therapy
CPT/HCPCS: 36415; 85025

== ENCOUNTER 2020-05-31 03:05 | Outpatient (CLI) | payer MEDICARE, BC, SELFPAY ==
[2020-05-31 10:37] LABS: Abs Immature Grans 0.03 10^3/uL (0.0-0.06); Absolute Basophil Count 0.02 10^3/uL (0.0-0.2); Absolute Eosinophil Count 0.19 10^3/uL (0.0-0.7); Absolute Lymphocyte Count 1.47 10^3/uL (1.2-3.4); Absolute Monocyte Count 0.51 10^3/uL (0.1-0.8); Absolute Neutrophil Count 4.96 10^3/uL (1.2-6.7); Basophils % 0.3; Eosinophils % 2.6; HGB 13.5 g/dL (11.2-15.7); Immature Grans % 0.4; Lymphocytes % 20.5; MCH 27.8 pg (27.0-33.0); MCHC 32.1 % (32.0-36.0); MCV 86.6 fL (80-95); Monocytes % 7.1; Neutrophils % 69.1; Platelet Count 210 10^3/uL (130-400); RBC 4.85 10^6/uL (3.93-5.22); RDW 13.7 % (11.7-14.6); RDW-SD 43.8 fL; WBC 7.18 10^3/uL (4.4-10.8)
== END 2020-05-31 03:25 ==
PROVIDERS: PCP Family Medicine; Visit Provider Nurse Practitioner Family
DX: F20.9 Schizophrenia, unspecified (principal); Z79.899 Other long term (current) drug therapy
CPT/HCPCS: 36415; 85025

== ENCOUNTER 2020-06-26 03:23 | Outpatient (CLI) | payer MEDICARE, BC, SELFPAY ==
[2020-06-26 10:10] LABS: Abs Immature Grans 0.02 10^3/uL (0.0-0.06); Absolute Basophil Count 0.03 10^3/uL (0.0-0.2); Absolute Monocyte Count 0.42 10^3/uL (0.1-0.8); Absolute Neutrophil Count 4.13 10^3/uL (1.2-6.7); Basophils % 0.5; HCT 41.1 % (36.0-46.0); HGB 13.4 g/dL (11.2-15.7); Immature Grans % 0.3; Lymphocytes % 28.1; MCH 28.3 pg (27.0-33.0); MCHC 32.6 % (32.0-36.0); MCV 86.7 fL (80-95); MPV 11.2 fL (8.0-11.0); Monocytes % 6.6; Neutrophils % 64.5; Nucleated RBC 0 %; Platelet Count 195 10^3/uL (130-400); RBC 4.74 10^6/uL (3.93-5.22); RDW 13.9 % (11.7-14.6); RDW-SD 44.8 fL
== END 2020-06-26 03:43 ==
PROVIDERS: Nurse Practitioner Family; PCP Family Medicine; Visit Provider Nurse Practitioner Psychiatric/Mental Health
DX: F20.9 Schizophrenia, unspecified (principal); Z79.899 Other long term (current) drug therapy
CPT/HCPCS: 36415; 85025

== ENCOUNTER 2020-07-26 04:40 | Outpatient (CLI) | payer MEDICARE, BC, SELFPAY ==
[2020-07-26 10:17] LABS: Abs Immature Grans 0.02 10^3/uL (0.0-0.06); Absolute Basophil Count 0.02 10^3/uL (0.0-0.2); Absolute Eosinophil Count 0.01 10^3/uL (0.0-0.7); Absolute Lymphocyte Count 1.71 10^3/uL (1.2-3.4); Absolute Monocyte Count 0.43 10^3/uL (0.1-0.8); Absolute Neutrophil Count 4.29 10^3/uL (1.2-6.7); Basophils % 0.3; Eosinophils % 0.2; HCT 42.9 % (36.0-46.0); HGB 13.7 g/dL (11.2-15.7); Immature Grans % 0.3; Lymphocytes % 26.4; MCH 28.1 pg (27.0-33.0); MCHC 31.9 % (32.0-36.0); MCV 87.9 fL (80-95); MPV 11.3 fL (8.0-11.0); Monocytes % 6.6; Neutrophils % 66.2; Nucleated RBC 0 %; Platelet Count 184 10^3/uL (130-400); RBC 4.88 10^6/uL (3.93-5.22); RDW 13.7 % (11.7-14.6); RDW-SD 44.1 fL; WBC 6.48 10^3/uL (4.4-10.8)
== END 2020-07-26 05:00 ==
PROVIDERS: PCP Family Medicine; Visit Provider Nurse Practitioner Family
DX: F20.9 Schizophrenia, unspecified (principal); Z79.899 Other long term (current) drug therapy
CPT/HCPCS: 36415; 85025

== ENCOUNTER 2020-08-22 03:12 | Outpatient (CLI) | payer MEDICARE, BC, SELFPAY ==
[2020-08-22 10:22] LABS: Abs Immature Grans 0.02 10^3/uL (0.0-0.06); Absolute Basophil Count 0.02 10^3/uL (0.0-0.2); Absolute Eosinophil Count 0.16 10^3/uL (0.0-0.7); Absolute Lymphocyte Count 1.46 10^3/uL (1.2-3.4); Absolute Neutrophil Count 4.75 10^3/uL (1.2-6.7); Basophils % 0.3; Eosinophils % 2.3; HCT 41.4 % (36.0-46.0); HGB 13.5 g/dL (11.2-15.7); Immature Grans % 0.3; Lymphocytes % 21.4; MCH 28.8 pg (27.0-33.0); MCHC 32.6 % (32.0-36.0); MCV 88.3 fL (80-95); MPV 11.2 fL (8.0-11.0); Monocytes % 5.9; Neutrophils % 69.8; Nucleated RBC 0 %; Platelet Count 193 10^3/uL (130-400); RBC 4.69 10^6/uL (3.93-5.22); RDW 13.9 % (11.7-14.6); RDW-SD 44.7 fL; WBC 6.81 10^3/uL (4.4-10.8)
== END 2020-08-22 03:32 ==
PROVIDERS: PCP Family Medicine; Visit Provider Family Medicine
DX: F20.9 Schizophrenia, unspecified (principal); Z79.899 Other long term (current) drug therapy
CPT/HCPCS: 36415; 85025

== ENCOUNTER 2020-09-19 02:55 | Outpatient (CLI) | payer MEDICARE, BC, SELFPAY ==
[2020-09-19 10:37] LABS: Abs Immature Grans 0.02 10^3/uL (0.0-0.06); Absolute Basophil Count 0.03 10^3/uL (0.0-0.2); Absolute Eosinophil Count 0.01 10^3/uL (0.0-0.7); Absolute Lymphocyte Count 1.69 10^3/uL (1.2-3.4); Absolute Monocyte Count 0.46 10^3/uL (0.1-0.8); Absolute Neutrophil Count 5.67 10^3/uL (1.2-6.7); Basophils % 0.4; Eosinophils % 0.1; HGB 13.6 g/dL (11.2-15.7); Immature Grans % 0.3; Lymphocytes % 21.4; MCH 28.3 pg (27.0-33.0); MCHC 32.4 % (32.0-36.0); MCV 87.3 fL (80-95); MPV 11.6 fL (8.0-11.0); Monocytes % 5.8; Nucleated RBC 0 %; Platelet Count 210 10^3/uL (130-400); RBC 4.81 10^6/uL (3.93-5.22); RDW 13.8 % (11.7-14.6); RDW-SD 44.4 fL; WBC 7.88 10^3/uL (4.4-10.8)
== END 2020-09-19 03:15 ==
PROVIDERS: PCP Family Medicine; Visit Provider Nurse Practitioner Psychiatric/Mental Health
DX: F20.9 Schizophrenia, unspecified (principal); Z79.899 Other long term (current) drug therapy
CPT/HCPCS: 36415; 85025

== ENCOUNTER 2020-10-19 03:03 | Outpatient (CLI) | payer MEDICARE, BC, SELFPAY ==
[2020-10-19 08:57] LABS: Abs Immature Grans 0.02 10^3/uL (0.0-0.06); Absolute Basophil Count 0.03 10^3/uL (0.0-0.2); Absolute Monocyte Count 0.45 10^3/uL (0.1-0.8); Absolute Neutrophil Count 4.92 10^3/uL (1.2-6.7); Basophils % 0.4; HCT 43.4 % (36.0-46.0); HGB 13.8 g/dL (11.2-15.7); Immature Grans % 0.3; Lymphocytes % 23.9; MCH 27.9 pg (27.0-33.0); MCHC 31.8 % (32.0-36.0); MCV 87.9 fL (80-95); MPV 11.2 fL (8.0-11.0); Monocytes % 6.3; Neutrophils % 69.1; Nucleated RBC 0 %; Platelet Count 199 10^3/uL (130-400); RBC 4.94 10^6/uL (3.93-5.22); RDW 13.8 % (11.7-14.6); RDW-SD 44.4 fL; WBC 7.12 10^3/uL (4.4-10.8)
== END 2020-10-19 03:23 ==
PROVIDERS: PCP Family Medicine; Visit Provider Nurse Practitioner Family
DX: F20.9 Schizophrenia, unspecified (principal); Z79.899 Other long term (current) drug therapy
CPT/HCPCS: 36415; 85025

== ENCOUNTER 2020-11-05 16:08 | Outpatient (REF) | payer MEDICARE, BC, SELFPAY ==
[2020-11-05 17:32] LABS: Anion Gap 7.6 mmol/L (3-11); BUN 18 mg/dL (7-18); CO2 27.4 mmol/L (21.0-32.0); CREATININE 0.95 mg/dL (0.55-1.02); Calcium 8.4 mg/dL (8.5-10.1); Calculated LDL 140 mg/dL (<100); Chloride 106 mmol/L (98-107); Cholesterol 213 mg/dL (<200); Glucose 104 mg/dL (74-106); HDL Cholesterol 55 mg/dL (40-60); Sodium 141 mmol/L (136-145); Triglyceride 93 mg/dL (<150)
== END 2020-11-05 16:28 ==
LOC: NCHCN 16:08
PROVIDERS: PCP Family Medicine; Visit Provider Nurse Practitioner Family
DX: E78.5 Hyperlipidemia, unspecified (principal); Z51.81 Encounter for therapeutic drug level monitoring
CPT/HCPCS: 80048; 80061; 83735

== ENCOUNTER 2020-11-20 03:33 | Outpatient (CLI) | payer MEDICARE, BC, SELFPAY ==
[2020-11-20 10:25] LABS: Abs Immature Grans 0.04 10^3/uL (0.0-0.06); Absolute Basophil Count 0.04 10^3/uL (0.0-0.2); Absolute Lymphocyte Count 1.59 10^3/uL (1.2-3.4); Absolute Monocyte Count 0.42 10^3/uL (0.1-0.8); Absolute Neutrophil Count 5.57 10^3/uL (1.2-6.7); Basophils % 0.5; HCT 44.1 % (36.0-46.0); Immature Grans % 0.5; Lymphocytes % 20.8; MCH 27.9 pg (27.0-33.0); MCHC 31.7 % (32.0-36.0); MCV 87.8 fL (80-95); Monocytes % 5.5; Neutrophils % 72.7; Nucleated RBC 0 %; Platelet Count 206 10^3/uL (130-400); RBC 5.02 10^6/uL (3.93-5.22); RDW 13.7 % (11.7-14.6); RDW-SD 44.2 fL; WBC 7.66 10^3/uL (4.4-10.8)
== END 2020-11-20 03:53 ==
PROVIDERS: PCP Family Medicine; Visit Provider Nurse Practitioner Family
DX: F20.9 Schizophrenia, unspecified (principal); Z79.899 Other long term (current) drug therapy
CPT/HCPCS: 36415; 85025

== ENCOUNTER 2020-12-17 01:52 | Outpatient (CLI) | payer MEDICARE, BC, SELFPAY ==
[2020-12-17 09:50] LABS: Abs Immature Grans 0.04 10^3/uL (0.0-0.06); Absolute Basophil Count 0.04 10^3/uL (0.0-0.2); Absolute Eosinophil Count 0.01 10^3/uL (0.0-0.7); Absolute Lymphocyte Count 2.11 10^3/uL (1.2-3.4); Absolute Neutrophil Count 4.75 10^3/uL (1.2-6.7); Basophils % 0.5; Eosinophils % 0.1; HCT 42.8 % (36.0-46.0); HGB 13.8 g/dL (11.2-15.7); Immature Grans % 0.5; Lymphocytes % 28.3; MCH 28.5 pg (27.0-33.0); MCHC 32.2 % (32.0-36.0); MCV 88.2 fL (80-95); MPV 11.8 fL (8.0-11.0); Monocytes % 6.7; Neutrophils % 63.9; Nucleated RBC 0 %; Platelet Count 214 10^3/uL (130-400); RBC 4.85 10^6/uL (3.93-5.22); RDW 13.8 % (11.7-14.6); RDW-SD 44.8 fL; WBC 7.45 10^3/uL (4.4-10.8)
== END 2020-12-17 01:53 | disposition home or self-care (01) ==
PROVIDERS: Psychiatry & Neurology Psychiatry; PCP Family Medicine; Visit Provider Family Medicine
DX: F25.0 Schizoaffective disorder, bipolar type (principal); Z79.899 Other long term (current) drug therapy
CPT/HCPCS: 36415; 85025

== ENCOUNTER 2021-01-14 03:16 | Outpatient (CLI) | payer MEDICARE, BC, SELFPAY ==
[2021-01-14 12:02] LABS: Abs Immature Grans 0.02 10^3/uL (0.0-0.06); Absolute Basophil Count 0.03 10^3/uL (0.0-0.2); Absolute Neutrophil Count 3.36 10^3/uL (1.2-6.7); Basophils % 0.6; HGB 13.1 g/dL (11.2-15.7); Immature Grans % 0.4; Lymphocytes % 28.8; MCH 27.9 pg (27.0-33.0); MCV 87.4 fL (80-95); MPV 11.3 fL (8.0-11.0); Monocytes % 5.8; Neutrophils % 64.4; Nucleated RBC 0 %; Platelet Count 197 10^3/uL (130-400); RBC 4.69 10^6/uL (3.93-5.22); RDW 14.1 % (11.7-14.6); RDW-SD 45.1 fL; WBC 5.21 10^3/uL (4.4-10.8)
== END 2021-01-14 03:17 | disposition home or self-care (01) ==
LOC: LBO 03:16
PROVIDERS: PCP Family Medicine; Visit Provider Psychiatry & Neurology Psychiatry
DX: F20.9 Schizophrenia, unspecified (principal); Z79.899 Other long term (current) drug therapy
CPT/HCPCS: 36415; 85025

== ENCOUNTER 2021-02-12 03:41 | Outpatient (CLI) | payer MEDICARE, BC, SELFPAY ==
[2021-02-12 09:24] LABS: Abs Immature Grans 0.02 10^3/uL (0.0-0.06); Absolute Basophil Count 0.04 10^3/uL (0.0-0.2); Absolute Eosinophil Count 0.01 10^3/uL (0.0-0.7); Absolute Lymphocyte Count 1.88 10^3/uL (1.2-3.4); Absolute Monocyte Count 0.49 10^3/uL (0.1-0.8); Absolute Neutrophil Count 5.04 10^3/uL (1.2-6.7); Basophils % 0.5; Eosinophils % 0.1; HCT 42.9 % (36.0-46.0); HGB 13.7 g/dL (11.2-15.7); Immature Grans % 0.3; Lymphocytes % 25.1; MCH 28.2 pg (27.0-33.0); MCHC 31.9 % (32.0-36.0); MCV 88.5 fL (80-95); MPV 11.4 fL (8.0-11.0); Monocytes % 6.6; Neutrophils % 67.4; Nucleated RBC 0 %; Platelet Count 199 10^3/uL (130-400); RBC 4.85 10^6/uL (3.93-5.22); RDW 13.6 % (11.7-14.6); RDW-SD 44.1 fL; WBC 7.48 10^3/uL (4.4-10.8)
== END 2021-02-12 03:42 | disposition home or self-care (01) ==
LOC: LBO 03:41
PROVIDERS: PCP Family Medicine; Visit Provider Psychiatry & Neurology Psychiatry
DX: F20.9 Schizophrenia, unspecified (principal); Z79.899 Other long term (current) drug therapy
CPT/HCPCS: 36415; 85025

== ENCOUNTER 2021-03-08 01:17 | Outpatient (CLI) | payer MEDICARE, BC, SELFPAY ==
[2021-03-08 10:12] LABS: Abs Immature Grans 0.01 10^3/uL (0.0-0.06); Absolute Basophil Count 0.02 10^3/uL (0.0-0.2); Absolute Eosinophil Count 0.01 10^3/uL (0.0-0.7); Absolute Lymphocyte Count 1.48 10^3/uL (1.2-3.4); Absolute Monocyte Count 0.47 10^3/uL (0.1-0.8); Absolute Neutrophil Count 4.44 10^3/uL (1.2-6.7); Basophils % 0.3; Eosinophils % 0.2; HCT 41.8 % (36.0-46.0); HGB 13.4 g/dL (11.2-15.7); Immature Grans % 0.2; MCH 28.1 pg (27.0-33.0); MCHC 32.1 % (32.0-36.0); MCV 87.6 fL (80-95); MPV 11.5 fL (8.0-11.0); Monocytes % 7.3; Nucleated RBC 0 %; Platelet Count 187 10^3/uL (130-400); RBC 4.77 10^6/uL (3.93-5.22); RDW 13.5 % (11.7-14.6); RDW-SD 43.2 fL; WBC 6.43 10^3/uL (4.4-10.8)
== END 2021-03-08 01:18 | disposition home or self-care (01) ==
LOC: LBO 01:17
PROVIDERS: PCP Family Medicine; Visit Provider Psychiatry & Neurology Psychiatry
DX: F20.9 Schizophrenia, unspecified (principal); Z79.899 Other long term (current) drug therapy
CPT/HCPCS: 36415; 85025

== ENCOUNTER 2021-04-03 03:26 | Outpatient (CLI) | payer MEDICARE, BC, SELFPAY ==
[2021-04-03 10:18] LABS: Abs Immature Grans 0.05 10^3/uL (0.0-0.06); Absolute Basophil Count 0.04 10^3/uL (0.0-0.2); Absolute Eosinophil Count 0.21 10^3/uL (0.0-0.7); Absolute Lymphocyte Count 2.03 10^3/uL (1.2-3.4); Absolute Monocyte Count 0.43 10^3/uL (0.1-0.8); Absolute Neutrophil Count 5.01 10^3/uL (1.2-6.7); Basophils % 0.5; Eosinophils % 2.7; HCT 41.2 % (36.0-46.0); HGB 13.3 g/dL (11.2-15.7); Immature Grans % 0.6; Lymphocytes % 26.1; MCH 27.8 pg (27.0-33.0); MCHC 32.3 % (32.0-36.0); MPV 10.9 fL (8.0-11.0); Monocytes % 5.5; Neutrophils % 64.6; Nucleated RBC 0 %; Platelet Count 242 10^3/uL (130-400); RBC 4.79 10^6/uL (3.93-5.22); RDW 13.5 % (11.7-14.6); RDW-SD 42.8 fL; WBC 7.77 10^3/uL (4.4-10.8)
== END 2021-04-03 03:27 | disposition home or self-care (01) ==
LOC: LBO 03:26
PROVIDERS: PCP Family Medicine; Visit Provider Psychiatry & Neurology Psychiatry
DX: F20.9 Schizophrenia, unspecified (principal); Z79.899 Other long term (current) drug therapy
CPT/HCPCS: 36415; 85025

== ENCOUNTER 2021-04-29 03:39 | Outpatient (CLI) | payer MEDICARE, BC, SELFPAY ==
[2021-04-29 12:12] LABS: Abs Immature Grans 0.01 10^3/uL (0.0-0.06); Absolute Basophil Count 0.04 10^3/uL (0.0-0.2); Absolute Monocyte Count 0.42 10^3/uL (0.1-0.8); Absolute Neutrophil Count 4.84 10^3/uL (1.2-6.7); Basophils % 0.6; HCT 41.1 % (36.0-46.0); HGB 13.2 g/dL (11.2-15.7); Immature Grans % 0.1; Lymphocytes % 25.3; MCH 27.4 pg (27.0-33.0); MCHC 32.1 % (32.0-36.0); MCV 85.4 fL (80-95); MPV 11.1 fL (8.0-11.0); Monocytes % 5.9; Neutrophils % 68.1; Nucleated RBC 0 %; Platelet Count 198 10^3/uL (130-400); RBC 4.81 10^6/uL (3.93-5.22); RDW 14.3 % (11.7-14.6); RDW-SD 45.1 fL; WBC 7.11 10^3/uL (4.4-10.8)
== END 2021-04-29 03:40 | disposition home or self-care (01) ==
LOC: LBO 03:42
PROVIDERS: PCP Family Medicine; Visit Provider Psychiatry & Neurology Psychiatry
DX: F20.9 Schizophrenia, unspecified (principal); Z79.899 Other long term (current) drug therapy
CPT/HCPCS: 36415; 85025

== ENCOUNTER 2021-05-29 09:03 | Outpatient (CLI) | payer MEDICARE, BC, SELFPAY ==
[2021-05-29 12:09] LABS: Abs Immature Grans 0.03 10^3/uL (0.0-0.06); Absolute Basophil Count 0.04 10^3/uL (0.0-0.2); Absolute Eosinophil Count 0.01 10^3/uL (0.0-0.7); Absolute Lymphocyte Count 1.92 10^3/uL (1.2-3.4); Absolute Monocyte Count 0.42 10^3/uL (0.1-0.8); Absolute Neutrophil Count 5.74 10^3/uL (1.2-6.7); Basophils % 0.5; Eosinophils % 0.1; HCT 42.3 % (36.0-46.0); HGB 13.5 g/dL (11.2-15.7); Immature Grans % 0.4; Lymphocytes % 23.5; MCH 27.4 pg (27.0-33.0); MCHC 31.9 % (32.0-36.0); MPV 11.1 fL (8.0-11.0); Monocytes % 5.1; Neutrophils % 70.4; Nucleated RBC 0 %; Platelet Count 227 10^3/uL (130-400); RBC 4.92 10^6/uL (3.93-5.22); RDW 14.2 % (11.7-14.6); RDW-SD 45.5 fL; WBC 8.16 10^3/uL (4.4-10.8)
== END 2021-05-29 09:04 | disposition home or self-care (01) ==
PROVIDERS: PCP Family Medicine; Visit Provider Psychiatry & Neurology Psychiatry
DX: F20.9 Schizophrenia, unspecified (principal); Z79.899 Other long term (current) drug therapy
CPT/HCPCS: 36415; 85025

== ENCOUNTER 2021-06-28 02:05 | Outpatient (CLI) | payer MEDICARE, BC, SELFPAY ==
[2021-06-28 14:18] LABS: Abs Immature Grans 0.02 10^3/uL (0.0-0.06); Absolute Basophil Count 0.02 10^3/uL (0.0-0.2); Absolute Eosinophil Count 0.01 10^3/uL (0.0-0.7); Absolute Lymphocyte Count 2.24 10^3/uL (1.2-3.4); Absolute Monocyte Count 0.46 10^3/uL (0.1-0.8); Basophils % 0.3; Eosinophils % 0.1; HCT 40.3 % (36.0-46.0); HGB 12.9 g/dL (11.2-15.7); Immature Grans % 0.3; Lymphocytes % 28.9; MCH 27.6 pg (27.0-33.0); MCV 86.3 fL (80-95); MPV 11.4 fL (8.0-11.0); Monocytes % 5.9; Neutrophils % 64.5; Nucleated RBC 0 %; Platelet Count 223 10^3/uL (130-400); RBC 4.67 10^6/uL (3.93-5.22); RDW 14.3 % (11.7-14.6); RDW-SD 45.1 fL; WBC 7.75 10^3/uL (4.4-10.8)
== END 2021-06-28 02:06 | disposition home or self-care (01) ==
LOC: LBO 02:05
PROVIDERS: PCP Family Medicine; Visit Provider Psychiatry & Neurology Psychiatry
DX: F20.9 Schizophrenia, unspecified (principal); Z79.899 Other long term (current) drug therapy
CPT/HCPCS: 36415; 85025

== ENCOUNTER 2021-07-29 03:29 | Outpatient (CLI) | payer MEDICARE, BC, SELFPAY ==
[2021-07-29 09:25] LABS: Abs Immature Grans 0.02 10^3/uL (0.0-0.06); Absolute Basophil Count 0.03 10^3/uL (0.0-0.2); Absolute Lymphocyte Count 1.98 10^3/uL (1.2-3.4); Absolute Neutrophil Count 4.44 10^3/uL (1.2-6.7); Basophils % 0.4; HCT 42.8 % (36.0-46.0); HGB 13.6 g/dL (11.2-15.7); Immature Grans % 0.3; Lymphocytes % 28.8; MCH 27.5 pg (27.0-33.0); MCHC 31.8 % (32.0-36.0); MCV 86.5 fL (80-95); MPV 11.5 fL (8.0-11.0); Monocytes % 5.8; Neutrophils % 64.7; Nucleated RBC 0 %; Platelet Count 189 10^3/uL (130-400); RBC 4.95 10^6/uL (3.93-5.22); RDW 14.1 % (11.7-14.6); RDW-SD 45.3 fL; WBC 6.87 10^3/uL (4.4-10.8)
== END 2021-07-29 03:30 | disposition home or self-care (01) ==
LOC: LBO 03:29
PROVIDERS: PCP Family Medicine; Visit Provider Psychiatry & Neurology Psychiatry
DX: F20.9 Schizophrenia, unspecified (principal); Z79.899 Other long term (current) drug therapy
CPT/HCPCS: 36415; 85025

== ENCOUNTER 2021-09-03 02:06 | Outpatient (CLI) | payer MEDICARE, BC, SELFPAY ==
[2021-09-03 12:14] LABS: Abs Immature Grans 0.02 10^3/uL (0.0-0.06); Absolute Basophil Count 0.03 10^3/uL (0.0-0.2); Absolute Lymphocyte Count 1.42 10^3/uL (1.2-3.4); Absolute Monocyte Count 0.39 10^3/uL (0.1-0.8); Absolute Neutrophil Count 5.12 10^3/uL (1.2-6.7); Basophils % 0.4; HCT 42.1 % (36.0-46.0); HGB 13.3 g/dL (11.2-15.7); Immature Grans % 0.3; Lymphocytes % 20.3; MCH 27.4 pg (27.0-33.0); MCHC 31.6 % (32.0-36.0); MCV 86.8 fL (80-95); Monocytes % 5.6; Neutrophils % 73.4; Nucleated RBC 0 %; Platelet Count 197 10^3/uL (130-400); RBC 4.85 10^6/uL (3.93-5.22); WBC 6.98 10^3/uL (4.4-10.8)
[2021-09-03 12:37] LABS: Hemoglobin A1C 5.5 % (<5.7)
[2021-09-03 12:52] LABS: ALT 29 U/L (14-59); AST 18 U/L (15-37); Alkaline Phosphatase 126 U/L (46-116); Anion Gap 6.3 mmol/L (3-11); BUN 13 mg/dL (7-18); Bilirubin, Total 0.4 mg/dL (0.2-1.0); CO2 29.7 mmol/L (21.0-32.0); CREATININE 0.9 mg/dL (0.55-1.02); Calcium 8.6 mg/dL (8.5-10.1); Calculated LDL 148 mg/dL (<100); Chloride 105 mmol/L (98-107); Cholesterol 230 mg/dL (<200); Ferritin 49 ng/mL (8-252); Folate 17.6 ng/mL (8.6-20.0); Glucose 86 mg/dL (74-106); HDL Cholesterol 51 mg/dL (40-60); Magnesium 2.1 mg/dL (1.8-2.4); Potassium 4.2 mmol/L (3.5-5.1); Sodium 141 mmol/L (136-145); TSH 1.53 uIU/mL (0.36-3.74); Total Protein 6.9 g/dL (6.4-8.2); Triglyceride 157 mg/dL (<150); Vitamin B12 632 pg/mL (193-986)
[2021-09-03 13:12] LABS: C-Reactive Protein 0.87 mg/dL (0.0-0.3); FREE T4 0.94 ng/dL (0.76-1.46)
[2021-09-03 17:15] LABS: T3,Free 2.9 pg/mL (2.8-5.3)
[2021-09-05 01:34] LABS: Vitamin D 25 Total 20.2 ng/mL (30-100)
== END 2021-09-03 02:07 | disposition home or self-care (01) ==
LOC: LOS 02:07
PROVIDERS: PCP Family Medicine; Visit Provider Psychiatry & Neurology Psychiatry
DX: Z79.899 Other long term (current) drug therapy (principal); F20.9 Schizophrenia, unspecified
CPT/HCPCS: 36415; 80053; 80061; 82306; 82607; 82728; 82746; 83036; 83735; 84439; 84443; 84481; 85025; 86140

== ENCOUNTER 2021-09-25 02:29 | Outpatient (CLI) | payer MEDICARE, BC, SELFPAY ==
[2021-09-25 10:18] LABS: Abs Immature Grans 0.02 10^3/uL (0.0-0.06); Absolute Basophil Count 0.03 10^3/uL (0.0-0.2); Absolute Lymphocyte Count 1.49 10^3/uL (1.2-3.4); Absolute Monocyte Count 0.39 10^3/uL (0.1-0.8); Basophils % 0.5; HCT 42.6 % (36.0-46.0); HGB 13.5 g/dL (11.2-15.7); Immature Grans % 0.3; Lymphocytes % 23.5; MCH 27.7 pg (27.0-33.0); MCHC 31.7 % (32.0-36.0); MCV 87.5 fL (80-95); MPV 11.5 fL (8.0-11.0); Monocytes % 6.2; Neutrophils % 69.5; Nucleated RBC 0 %; Platelet Count 201 10^3/uL (130-400); RBC 4.87 10^6/uL (3.93-5.22); RDW 13.9 % (11.7-14.6); RDW-SD 44.9 fL; WBC 6.33 10^3/uL (4.4-10.8)
== END 2021-09-25 02:30 | disposition home or self-care (01) ==
PROVIDERS: PCP Family Medicine; Visit Provider Psychiatry & Neurology Psychiatry
DX: Z79.899 Other long term (current) drug therapy (principal); F20.9 Schizophrenia, unspecified
CPT/HCPCS: 36415; 85025

== ENCOUNTER 2021-10-21 03:27 | Outpatient (CLI) | payer MEDICARE, BC, SELFPAY ==
[2021-10-21 11:19] LABS: Abs Immature Grans 0.02 10^3/uL (0.0-0.06); Absolute Basophil Count 0.03 10^3/uL (0.0-0.2); Absolute Lymphocyte Count 1.79 10^3/uL (1.2-3.4); Absolute Monocyte Count 0.48 10^3/uL (0.1-0.8); Absolute Neutrophil Count 6.44 10^3/uL (1.2-6.7); Basophils % 0.3; HCT 42.8 % (36.0-46.0); HGB 13.6 g/dL (11.2-15.7); Immature Grans % 0.2; Lymphocytes % 20.4; MCHC 31.8 % (32.0-36.0); MCV 88.2 fL (80-95); MPV 10.9 fL (8.0-11.0); Monocytes % 5.5; Neutrophils % 73.6; Nucleated RBC 0 %; Platelet Count 220 10^3/uL (130-400); RBC 4.85 10^6/uL (3.93-5.22); RDW 13.6 % (11.7-14.6); RDW-SD 44.6 fL; WBC 8.76 10^3/uL (4.4-10.8)
== END 2021-10-21 03:28 | disposition home or self-care (01) ==
LOC: LBO 03:27
PROVIDERS: PCP Family Medicine; Visit Provider Psychiatry & Neurology Psychiatry
DX: F20.9 Schizophrenia, unspecified (principal); Z79.899 Other long term (current) drug therapy
CPT/HCPCS: 36415; 85025

== ENCOUNTER 2021-11-22 02:04 | Outpatient (CLI) | payer MEDICARE, BC, SELFPAY ==
[2021-11-22 11:55] LABS: Abs Immature Grans 0.02 10^3/uL (0.0-0.06); Absolute Basophil Count 0.02 10^3/uL (0.0-0.2); Absolute Lymphocyte Count 1.52 10^3/uL (1.2-3.4); Absolute Monocyte Count 0.35 10^3/uL (0.1-0.8); Absolute Neutrophil Count 4.57 10^3/uL (1.2-6.7); Basophils % 0.3; HCT 43.2 % (36.0-46.0); HGB 13.8 g/dL (11.2-15.7); Immature Grans % 0.3; Lymphocytes % 23.5; MCH 27.6 pg (27.0-33.0); MCHC 31.9 % (32.0-36.0); MCV 86.4 fL (80-95); MPV 11.6 fL (8.0-11.0); Monocytes % 5.4; Neutrophils % 70.5; Nucleated RBC 0 %; Platelet Count 212 10^3/uL (130-400); RDW 13.4 % (11.7-14.6); RDW-SD 42.2 fL; WBC 6.48 10^3/uL (4.4-10.8)
== END 2021-11-22 02:05 | disposition home or self-care (01) ==
LOC: LBO 02:04
PROVIDERS: PCP Family Medicine; Visit Provider Psychiatry & Neurology Psychiatry
DX: Z79.899 Other long term (current) drug therapy (principal); F20.9 Schizophrenia, unspecified
CPT/HCPCS: 36415; 85025

== ENCOUNTER 2021-12-17 02:21 | Outpatient (CLI) | payer MEDICARE, BC, SELFPAY ==
[2021-12-17 09:40] LABS: Abs Immature Grans 0.02 10^3/uL (0.0-0.06); Absolute Basophil Count 0.04 10^3/uL (0.0-0.2); Absolute Eosinophil Count 0.01 10^3/uL (0.0-0.7); Absolute Lymphocyte Count 1.86 10^3/uL (1.2-3.4); Absolute Monocyte Count 0.38 10^3/uL (0.1-0.8); Basophils % 0.6; Eosinophils % 0.1; HCT 43.1 % (36.0-46.0); HGB 13.7 g/dL (11.2-15.7); Immature Grans % 0.3; Lymphocytes % 27.3; MCH 27.5 pg (27.0-33.0); MCHC 31.8 % (32.0-36.0); MCV 86.5 fL (80-95); MPV 11.3 fL (8.0-11.0); Monocytes % 5.6; Neutrophils % 66.1; Nucleated RBC 0 %; Platelet Count 202 10^3/uL (130-400); RBC 4.98 10^6/uL (3.93-5.22); RDW 13.7 % (11.7-14.6); RDW-SD 43.4 fL; WBC 6.81 10^3/uL (4.4-10.8)
== END 2021-12-17 02:22 | disposition home or self-care (01) ==
LOC: LBO 02:21
PROVIDERS: PCP Family Medicine; Visit Provider Psychiatry & Neurology Psychiatry
DX: Z79.899 Other long term (current) drug therapy (principal); F20.9 Schizophrenia, unspecified
CPT/HCPCS: 36415; 85025

== ENCOUNTER 2022-01-15 02:42 | Outpatient (CLI) | payer MEDICARE, BC, SELFPAY ==
[2022-01-15 13:29] LABS: Abs Immature Grans 0.02 10^3/uL (0.0-0.06); Absolute Basophil Count 0.04 10^3/uL (0.0-0.2); Absolute Eosinophil Count 0.01 10^3/uL (0.0-0.7); Absolute Lymphocyte Count 2.07 10^3/uL (1.2-3.4); Absolute Monocyte Count 0.47 10^3/uL (0.1-0.8); Absolute Neutrophil Count 5.59 10^3/uL (1.2-6.7); Basophils % 0.5; Eosinophils % 0.1; HCT 41.5 % (36.0-46.0); HGB 13.3 g/dL (11.2-15.7); Immature Grans % 0.2; Lymphocytes % 25.2; MCH 27.9 pg (27.0-33.0); MPV 11.5 fL (8.0-11.0); Monocytes % 5.7; Neutrophils % 68.3; Nucleated RBC 0 %; Platelet Count 205 10^3/uL (130-400); RBC 4.77 10^6/uL (3.93-5.22); RDW 13.7 % (11.7-14.6)
== END 2022-01-15 02:43 | disposition home or self-care (01) ==
LOC: LBO 02:42
PROVIDERS: PCP Family Medicine; Visit Provider Psychiatry & Neurology Psychiatry
DX: F20.9 Schizophrenia, unspecified (principal); Z79.899 Other long term (current) drug therapy
CPT/HCPCS: 36415; 85025

== ENCOUNTER 2022-02-13 01:41 | Outpatient (CLI) | payer MEDICARE, BC, SELFPAY ==
--- NOTE | 2022-02-13 | DI.DEXA_ITS ---
Exam(s) XR DEXA BONE DENSITY W/WO MARU EXAM: XR DEXA BONE DENSITY W/WO MARU CLINICAL HISTORY: POSTMENOPAUSAL, Z78.0 TECHNIQUE: COMPARISON: No exams were available for comparison FINDINGS: DEXA scan was performed according to the usual protocol. Please see the accompanying data sheets. Findings for left hip scanning are T-score 0.5 with left femoral neck T-score 0.8. Findings for lumbar spine scanning are T-score 0.5. Findings for left forearm scanning are T-score -0.2. IMPRESSION: Findings are consistent with normal bone density according to the WHO criteria. The lateral vertebra l scanogram shows no evidence of vertebral compression fracture. RADIATION DOSE DELIVERED: Total DLP
== END 2022-02-13 02:01 ==
PROVIDERS: PCP Family Medicine; Visit Provider Nurse Practitioner Family
DX: Z78.0 Asymptomatic menopausal state (principal)
CPT/HCPCS: 77080

== ENCOUNTER 2022-02-14 02:09 | Outpatient (CLI) | payer MEDICARE, BC, SELFPAY ==
[2022-02-14 09:44] LABS: Abs Immature Grans 0.02 10^3/uL (0.0-0.06); Absolute Basophil Count 0.04 10^3/uL (0.0-0.2); Absolute Eosinophil Count 0.01 10^3/uL (0.0-0.7); Absolute Lymphocyte Count 1.76 10^3/uL (1.2-3.4); Absolute Monocyte Count 0.44 10^3/uL (0.1-0.8); Absolute Neutrophil Count 4.73 10^3/uL (1.2-6.7); Basophils % 0.6; Eosinophils % 0.1; HCT 43.9 % (36.0-46.0); Immature Grans % 0.3; Lymphocytes % 25.1; MCH 27.8 pg (27.0-33.0); MCHC 31.9 % (32.0-36.0); MCV 87.3 fL (80-95); MPV 11.3 fL (8.0-11.0); Monocytes % 6.3; Neutrophils % 67.6; Platelet Count 189 10^3/uL (130-400); RBC 5.03 10^6/uL (3.93-5.22); RDW 13.9 % (11.7-14.6)
== END 2022-02-14 02:10 | disposition home or self-care (01) ==
LOC: LBO 02:09
PROVIDERS: PCP Family Medicine; Visit Provider Psychiatry & Neurology Psychiatry
DX: F20.9 Schizophrenia, unspecified (principal); Z79.899 Other long term (current) drug therapy
CPT/HCPCS: 36415; 85025

== ENCOUNTER 2022-03-11 01:35 | Outpatient (CLI) | payer MEDICARE, BC, SELFPAY ==
[2022-03-11 10:14] LABS: Abs Immature Grans 0.02 10^3/uL (0.0-0.06); Absolute Basophil Count 0.04 10^3/uL (0.0-0.2); Absolute Eosinophil Count 0.01 10^3/uL (0.0-0.7); Absolute Lymphocyte Count 1.76 10^3/uL (1.2-3.4); Absolute Monocyte Count 0.44 10^3/uL (0.1-0.8); Absolute Neutrophil Count 4.89 10^3/uL (1.2-6.7); Basophils % 0.6; Eosinophils % 0.1; HCT 43.4 % (36.0-46.0); HGB 13.6 g/dL (11.2-15.7); Immature Grans % 0.3; Lymphocytes % 24.6; MCH 27.6 pg (27.0-33.0); MCHC 31.3 % (32.0-36.0); MCV 88 fL (80-95); MPV 11.7 fL (8.0-11.0); Monocytes % 6.1; Neutrophils % 68.3; Platelet Count 213 10^3/uL (130-400); RBC 4.93 10^6/uL (3.93-5.22); RDW 14.1 % (11.7-14.6); RDW-SD 45.5 fL; WBC 7.16 10^3/uL (4.4-10.8)
== END 2022-03-11 01:36 | disposition home or self-care (01) ==
PROVIDERS: PCP Family Medicine; Visit Provider Psychiatry & Neurology Psychiatry
DX: F20.9 Schizophrenia, unspecified (principal); Z79.899 Other long term (current) drug therapy
CPT/HCPCS: 36415; 85025

== ENCOUNTER 2022-04-11 01:48 | Outpatient (CLI) | payer MEDICARE, BC, SELFPAY ==
[2022-04-11 11:28] LABS: Abs Immature Grans 0.03 10^3/uL (0.0-0.06); Absolute Basophil Count 0.04 10^3/uL (0.0-0.2); Absolute Eosinophil Count 0.02 10^3/uL (0.0-0.7); Absolute Monocyte Count 0.41 10^3/uL (0.1-0.8); Absolute Neutrophil Count 5.33 10^3/uL (1.2-6.7); Basophils % 0.5; Eosinophils % 0.3; HCT 42.6 % (36.0-46.0); Immature Grans % 0.4; Lymphocytes % 22.6; MCH 28.4 pg (27.0-33.0); MCHC 32.9 % (32.0-36.0); MCV 86 fL (80-95); MPV 11.4 fL (8.0-11.0); Monocytes % 5.4; Neutrophils % 70.8; Platelet Count 206 10^3/uL (130-400); RBC 4.93 10^6/uL (3.93-5.22); RDW 13.7 % (11.7-14.6); RDW-SD 43.3 fL; WBC 7.53 10^3/uL (4.4-10.8)
== END 2022-04-11 01:49 | disposition home or self-care (01) ==
LOC: LBO 01:48
PROVIDERS: PCP Family Medicine; Visit Provider Psychiatry & Neurology Psychiatry
DX: F20.9 Schizophrenia, unspecified (principal); Z79.899 Other long term (current) drug therapy
CPT/HCPCS: 36415; 85025

== ENCOUNTER 2022-05-12 03:00 | Outpatient (CLI) | payer MEDICARE, BC, SELFPAY ==
[2022-05-12 12:42] LABS: Abs Immature Grans 0.01 10^3/uL (0.0-0.06); Absolute Basophil Count 0.03 10^3/uL (0.0-0.2); Absolute Lymphocyte Count 1.65 10^3/uL (1.2-3.4); Absolute Monocyte Count 0.28 10^3/uL (0.1-0.8); Basophils % 0.4; HCT 41.4 % (36.0-46.0); HGB 13.8 g/dL (11.2-15.7); Immature Grans % 0.1; Lymphocytes % 24.7; MCH 28.3 pg (27.0-33.0); MCHC 33.3 % (32.0-36.0); MCV 85 fL (80-95); MPV 11.4 fL (8.0-11.0); Monocytes % 4.2; Neutrophils % 70.6; Platelet Count 213 10^3/uL (130-400); RBC 4.87 10^6/uL (3.93-5.22); RDW 13.9 % (11.7-14.6); RDW-SD 43.1 fL; WBC 6.67 10^3/uL (4.4-10.8)
== END 2022-05-12 03:01 | disposition home or self-care (01) ==
LOC: LBO 03:00
PROVIDERS: PCP Family Medicine; Visit Provider Psychiatry & Neurology Psychiatry
DX: F20.9 Schizophrenia, unspecified (principal); Z79.899 Other long term (current) drug therapy
CPT/HCPCS: 36415; 85025

== ENCOUNTER 2022-06-11 03:21 | Outpatient (CLI) | payer MEDICARE, BC, SELFPAY ==
[2022-06-11 10:30] LABS: Abs Immature Grans 0.02 10^3/uL (0.0-0.06); Absolute Basophil Count 0.04 10^3/uL (0.0-0.2); Absolute Lymphocyte Count 1.62 10^3/uL (1.2-3.4); Absolute Monocyte Count 0.37 10^3/uL (0.1-0.8); Absolute Neutrophil Count 5.16 10^3/uL (1.2-6.7); Basophils % 0.6; HCT 42.4 % (36.0-46.0); HGB 13.8 g/dL (11.2-15.7); Immature Grans % 0.3; Lymphocytes % 22.5; MCH 28.1 pg (27.0-33.0); MCHC 32.5 % (32.0-36.0); MCV 86 fL (80-95); MPV 11.4 fL (8.0-11.0); Monocytes % 5.1; Neutrophils % 71.5; Platelet Count 200 10^3/uL (130-400); RBC 4.91 10^6/uL (3.93-5.22); RDW 13.7 % (11.7-14.6); RDW-SD 43.7 fL; WBC 7.21 10^3/uL (4.4-10.8)
== END 2022-06-11 03:22 | disposition home or self-care (01) ==
LOC: LBO 03:21
PROVIDERS: PCP Family Medicine; Visit Provider Psychiatry & Neurology Psychiatry
DX: F20.9 Schizophrenia, unspecified (principal); Z79.899 Other long term (current) drug therapy
CPT/HCPCS: 36415; 85025

== ENCOUNTER 2022-07-11 01:50 | Outpatient (CLI) | payer MEDICARE, BC, SELFPAY ==
--- OUTSIDE RECORDS SUMMARY | 2022-07-11 01:58 | XMS_ITS | Encounter Summary ---
:1965 Author Organization [facility] Address [address] [place] [address] Care Team Providers Name Role Phone Unavailable Primary Care Provider Unavailable Encounter Details Date Type Department Care Team Description 11/21/2009 Orders Only [facility] Jeancarlos Ely MD Laboratory Services - [facility] [address] [place] [address] [place], [place] [id number] [phone] Social History Tobacco Use Types Packs/Day Years Used Date Never Assessed Sex Assigned at Date Recorded Not on file documented as of this encounter Plan of Treatment Not on filedocumented as of this encounter Procedures Procedure Name Priority Date/Time Associated Comments Diagnosis HPV DETECTION, HIGH Routine 11/21/2009 14:52 Resu lts for this RISK TYPES EST procedure are i n the results section. CYTOPATHOLOGY Routine 11/21/2009 0:00 Results for this EST procedure are i n the results section. documented in this encounter Results HUMAN PAPILLOMA VIRUS DNA TEST (11/21/2009 14:52 EST) Specimen Description Cervix, ThinPrep [facility] AB vial Result Negative for HPV [facility] types 16, 18, 31, 33, 35, 39, 45, 51, 52, 56, 58, 59, and 68. Report Status Final [facility] 11/27/2009 Specimen Performing Organization Address City/State/ZIP Code Phon e Number [facility] [address] [place] [address] SERVICES [facility] [address] [place] [address] CYTOPATHOLOGY (11/21/2009 0:00 EST) Pathology Report: CYTOPATHOLOGY REPORT ? PAN ALL EN ? LAB Reports generated via electr [employer] interface contain original data; ? however they are lacking the format of the original report. ? Caution should be taken when reading/interpreting unformatted reports. ? Name: ? MCHARG, MAYCO ? Accession #: ? [id number] ? : ? 1965 (Age: 44) ??F ?Collect Date: ? 11/21/2009 ? Location: ? [facility] ? Receive Date: ? 11/22/2009 ? Provider: ?JEANCARLOS READY MD ? Copy to: ? Specimen/Source: ? Pap Test, Cervix/Endocervix, ThinPrep Imaging System ? with manual evaluation ? Last Menstrual Period: ? 12/20/09 ? Hormonal/Contraceptive Statu s: ? Tubal ligation ? Other: ? HPVDX - HPV testing requeste d regardless of diagnosis on current ThinPrep Pap ?? test. ? SPECIMEN ADEQUACY ? Satisfactory for Eval uation ? - transformation zone compon ent present ? GENERAL CATEGORIZATION ? Negative for Intraepi thelial Lesion or Malignancy ? Document reviewed and electr onically signed by: ? Lynan Rob, CT(ASCP) ? Report Date: ??01/22/ 2010 11:40 ? End of Report ? Specimen Performing Organization Address City/State/ZIP Code Phon e Number [facility] [address] [place] [phone] SERVICES [facility] [address] [place] [address] documented in this encounter Visit Diagnoses Not on filedocumented in this encounter
--- OUTSIDE RECORDS SUMMARY | 2022-07-11 01:58 | XMS_ITS | Clinical Summary ---
:1965 Author Organization [facility] Address [address] [place] [address] Care Team Providers Name Role Phone Sara Ely MD Primary Care Provider Social History Tobacco Use Types Packs/Day Years Used Date Never Assessed Sex Assigned at Date Recorded Not on file Plan of Treatment Health Maintenance Due Date Last Done Comments Hepatitis C Screen 1965 COVID-19 Vaccine (1) 1976 Care Teams Payroll Examiner Relationship Specialty Start Date End Date Sara Ely MD PCP - General 09/05/15 [facility] [address] [place], [place] [address]
--- OUTSIDE RECORDS SUMMARY | 2022-07-11 01:59 | XMS_ITS | Encounter Summary ---
:1965 Author Organization [facility] Address [address] [place] [address] Care Team Providers Name Role Phone Unavailable Primary Care Provider Unavailable Encounter Details Date Type Department Care Team Description 03/20/2006 Results Only [facility] - Shelbie Arce, Chr istopher, conversion DO [address] [facility] [address] [facility] SUZANNE CURTIS [address] [place] [address] [place] [address] (Wo rk) Social History Tobacco Use Types Packs/Day Years Used Date Never Assessed Sex Assigned at Date Recorded Not on file documented as of this encounter Plan of Treatment Not on filedocumented as of this encounter Procedures Procedure Name Priority Date/Time Associated Diagnosis Comme [facility] SURGICAL PATHOLOGY Routine 03/20/2006 0:00 EDT Re sults for this procedure are i n the results section. documented in this encounter Results SURGICAL PATHOLOGY (03/20/2006 0:00 EDT) Pathology Report: SURGICAL PATHOLOGY REPORT [facility] Reports generated via electronic interface contain bryant ginal data; LAB however they are lacking the format of the original re port. Caution should be taken when reading/interpreting unfo rmatted reports. Name: ? MAYCO NEWBY ? Accession #: ? [id number] ? : ? 1965 (Age: 40) ??F ? Collect Date: ? 03/20/2006 ? Location: ? [facility] ? Receive Date: ? 006 ? Provider: GEORGI ARCE DO Copy to: MARIO INGRAM MD ? Final Pathologic Diagnosis: A. ?Colon, ascending, biopsy: 1. ?Melanosis coli. B. ?Colon, transverse, biopsy: 1. ?Melanosis coli. C. ?Colon, sigmoid, biopsies: 1. ?Melanosis coli. D. ?Colon, rectum, biopsy: 1. ?Melanosis coli. Document reviewed and electronically signed by: CHANO ABDALLA MD Report ??Date: 03/24/2006 16:04 By the signature above, the attending physician certif ies that he/she has personally conducted a gross and/or microscopic examin ation of the described specimens and rendered or confirmed the above diagnosi s. Specimen(s) Received: ? A. Bx ascending colon (#1) B. Bx transverse colon (#2) C. Bx sigmoid (#3) D. Bx rectum (#4) Clinical History: ? Change in bowel habits. Gross Description: ? Received in [employer]' s labelled Mc[place]arg and 1. Bx ascending colon is an irregular piece of soft tissue measuring 0.3 x 0.2 x 0.2 cm, which is entirely submitted as (A). Received in [employer]'s label led McHarg and 2. Bx transverse colon is a 0.3 x 0.3 x 0.2 cm fragment of soft tissue, which is entirel y submitted as (B). Received in [employer]'s label led Mc[place]arg and 3. Bx sigmoid are three fragments of soft tissue ranging in size from 0.3 x 0.2 x 0.2 cm to less than 0.1 cm in all dimensions. ??They are entirely submitted as (C). Received in [employer]'s label led Gianna and Enmanuel. Bx rectum is a 0.3 x 0.3 x 0.3 cm fragment of soft tissue, which is entirely submitte d as (D). ??(Stephy Bruno/minal End of Report Specimen Performing Organization Address City/State/ZIP Code Phon e Number [facility] [address] [place] [address] SERVICES [facility] [address] [place] [address] documented in this encounter Visit Diagnoses Not on filedocumented in this encounter
--- OUTSIDE RECORDS SUMMARY | 2022-07-11 01:59 | XMS_ITS | Encounter Summary ---
:1965 Author Organization [facility] Address [address] [place] [address] Care Team Providers Name Role Phone Unavailable Primary Care Provider Unavailable Encounter Details Date Type Department Care Team Description 10/21/1999 - Hospital Encounter [facility] - Mayra Toro MD 10/31/1999 [facility] [address] [facility] [address] [place] [address] [place] [address] (Wo rk) Social History Tobacco Use Types Packs/Day Years Used Date Never Assessed Sex Assigned at Date Recorded Not on file documented as of this encounter Discharge Disposition Disposition Code Departure Means Destination Left Against Medical Advice documented in this encounter Plan of Treatment Not on filedocumented as of this encounter Procedures Procedure Name Priority Date/Time Associated Comments Diagnosis CARBAMAZEPINE Routine 10/30/1999 8:30 Results for this EST procedure are i n the results section. URINALYSIS WITH Routine 10/24/1999 10:10 Results for this MICROSCOPIC IF EST procedure are in POSITIVE the results section. DRUG SCREEN 6 Routine 10/24/1999 10:10 Results fo r this EST procedure are i n the results section. TEST, URINE Routine 10/24/1999 10:10 Re sults for this EST procedure are i n the results section. CREATININE Routine 10/22/1999 7:30 Results for this EST procedure are i n the results section. HEMAGRAM & DIFF Routine 10/22/1999 7:30 Results f or this EST procedure are i n the results section. GLUCOSE, PLASMA Routine 10/22/1999 7:30 Results f or this EST procedure are i n the results section. BUN Routine 10/22/1999 7:30 Results for this EST procedure are i n the results section. TSH Routine 10/22/1999 7:30 Results for this EST procedure are i n the results section. T4 FREE Routine 10/22/1999 7:30 Results for this EST procedure are i n the results section. ELECTROLYTES Routine 10/22/1999 7:30 Results for this EST procedure are i n the results section. documented in this encounter Results CARBAMAZEPINE (10/30/1999 8:30 EST) Pathologist Sig nature Carbamazepine 4.1 4.0 - 10.0 ug/ml [facility] Specimen Performing Organization Address [facility] Phon e Number [facility] [address] [place] [address] SERVICES [facility] [address] [place] [address] TEST, URINE (10/24/1999 10:10 EST) Pathologist Sig nature Result- Test, Ur Neg [facility] Specific [place] 1.010 [facility] Specimen Performing Organization Address [facility] Phon e Number [facility] [address] [place] [address] SERVICES [facility] [address] [place] [address] (ABNORMAL) URINALYSIS (10/24/1999 10:10 EST) Pathologist Sig nature Color, UA Yellow [facility] Clarity, UA Clear [facility] Glucose, UA Norm NORM [facility] Bilirubin, UA Neg NEG [facility] Ketones, UA Neg NEG [facility] Specific [place], 1.010 1.005 - 1.02 [facility] Urine Blood, UA Neg NEG [facility] pH, UA 7.0 5.0 - 9.0 [facility] Protein, UA Trace (A) NEG [facility] Urobilinogen, UA Norm NORM mg/dL [facility] Nitrite, UA Neg NEG [facility] Leuk Esterase Neg NEG [facility] Specimen Performing Organization Address [facility] Phon e Number [facility] [address] [place] [address] SERVICES [facility] [address] [place] [address] DRUG SCREEN 6 (10/24/1999 10:10 EST) Amphetamine Screen, Negative drug screen reporting FLE T[facility] Urine Suitable for medical purposes only. LAB Will not detect all drugs within class. Cutoff = 1000 ng/ml Barbiturate Screen, Negative drug screen reporting FLE TCHER [facility] Urine Suitable for medical purposes only. LAB Will not detect all drugs within class. Cutoff = 200 ng/ml Benzodiazepine Screen, Negative drug screen reporting [facility] Urine Suitable for medical purposes only. LAB Will not detect all drugs within class. Cutoff = 200 ng/ml Cannabinoid Scrn, Ur Negative drug screen reporting FL ETCHER [facility] Suitable for medical purposes only. LAB Will not detect all drugs within class. Cutoff = 50 ng/ml Cocaine Metabolites, Negative drug screen reporting FL ETCHER [facility] Ur Suitable for medical purposes only. LAB Will not detect all drugs within class. Cutoff = 300 ng/ml Opiate Scrn, Ur Negative drug screen reporting FLETCHE R [facility] Suitable for medical purposes only. LAB Will not detect all drugs within class. Cutoff = 2000 ng/ml Specimen Performing Organization Address [facility] e Number [facility] [address] [place] [address] SERVICES [facility] [address] [place] [address] TSH (10/22/1999 7:30 EST) Pathologist Sig nature TSH 0.95 0.35 - 5.50 uIU/ml [facility] Specimen Performing Organization Address [facility] e Number [facility] [address] [place] [address] SERVICES [facility] [address] [place] [address] ELECTROLYTES (10/22/1999 7:30 EST) Pathologist Sig nature Sodium 142 136 - 145 mEq/L [facility] Potassium 4.4 3.5 - 5.0 mEq/L [facility] Chloride 107 96 - 110 mEq/L [facility] CO2 28 24 - 30 mEq/L [facility] Specimen Performing Organization Address [facility] e Number [facility] [address] [place] [address] SERVICES [facility] [address] [place] [address] GLUCOSE, PLASMA (10/22/1999 7:30 EST) Pathologist Sig nature Glucose, Plasma 89 70 - 110 mg/dl [facility] Specimen Performing Organization Address [facility] e Number [facility] [address] [place] [address] SERVICES [facility] [address] [place] [address] (ABNORMAL) T4 FREE (10/22/1999 7:30 EST) Pathologist Sig nature Free T4 0.7 (L) 0.8 - 1.8 ng/dl [facility] Specimen Performing Organization Address City/[facility]/ZIP Code Phon e Number [facility] [address] [place] [address] SERVICES [facility] [address] [place] [address] CREATININE (10/22/1999 7:30 EST) Pathologist Sig nature Creatinine 0.8 0.7 - 1.5 mg/dl [facility] Specimen Performing Organization Address City/[facility] Code Phon e Number [facility] [address] [place] [address] SERVICES [facility] [address] [place] [address] (ABNORMAL) HEMAGRAM & DIFF (10/22/1999 7:30 EST) Pathologist Sig nature WBC 4.02 4.0 - 12.4 K/cmm [facility] RBC 4.13 3.86 - 5.04 M/cmm [facility] Hemoglobin 13.1 11.6 - 15.2 gm/dl [facility] HCT 37.9 34.9 - 44.4 % [facility] MCV 92 81 - 98 fl [facility] MCH 31.7 26.7 - 33.3 pg [facility] MCHC 34.6 32.1 - 35.9 gm/dl [facility] PLT 123 (L) 141 - 320 K/cmm [facility] RDW-CV 11.8 11.7 - 14.6 % [facility] Neutrophils 50.6 45.5 - 79.7 % [facility] Lymphocytes 36.4 15.0 - 46.8 % [facility] Monocytes 7.9 1.8 - 12.0 % [facility] Eosinophils 4.6 0.6 - 6.9 % [facility] Basophils 0.5 0.2 - 1.4 % [facility] ABS Neutrophils 2.03 (L) 2.20 - 8.85 K/cmm [facility] ABS Lymphs 1.46 1.09 - 3.30 K/cmm [facility] ABS Monocytes 0.32 0.1 - 0.8 K/cmm [facility] ABS Eosinophils 0.19 0.03 - 0.61 K/cmm [facility] ABS Basophils 0.02 0.01 - 0.11 K/cmm [facility] Type of Diff: Automated [facility] Specimen Performing Organization Address City/State/ZIP Code Phon e Number [facility] [address] [place] [address] SERVICES [facility] [address] [place] [address] BUN (10/22/1999 7:30 EST) Pathologist Sig nature BUN 17 10 - 26 mg/dl [facility] Specimen Performing Organization Address City/[facility]/ZIP Code Phon e Number [facility] [address] [place] [address] SERVICES [facility] [address] [place] [address] documented in this encounter Visit Diagnoses Not on filedocumented in this encounter
--- OUTSIDE RECORDS SUMMARY | 2022-07-11 01:59 | XMS_ITS | Encounter Summary ---
:1965 Author Organization [facility] Address [address] [place] [address] Care Team Providers Name Role Phone Unavailable Primary Care Provider Unavailable Encounter Details Date Type Department Care Team Description 08/22/1999 - Hospital Encounter [facility] - Mayra Toro MD 09/19/1999 Maple conversion [facility] [address] [place] [address] [place] [address] (Wo rk) Social History Tobacco Use Types Packs/Day Years Used Date Never Assessed Sex Assigned at Date Recorded Not on file documented as of this encounter Discharge Disposition Disposition Code Departure Means Destination Left Against Medical Advice documented in this encounter Plan of Treatment Not on filedocumented as of this encounter Procedures Procedure Name Priority Date/Time Associated Comments Diagnosis HEMAGRAM & DIFF Routine 09/13/1999 7:35 Results f or this EST procedure are i n the results section. CARBAMAZEPINE Routine 09/13/1999 7:35 Results for this EST procedure are i n the results section. URINALYSIS WITH Routine 08/27/1999 15:00 Results for this MICROSCOPIC IF EDT procedure are in POSITIVE the results section. DRUG SCREEN 6 Routine 08/27/1999 15:00 Results fo r this EDT procedure are i n the results section. TEST, URINE Routine 08/27/1999 15:00 Re sults for this EDT procedure are i n the results section. BACTERIAL CULTURE, Routine 08/27/1999 15:00 Resul ts for this URINE EDT procedure are i n the results section. CREATININE Routine 08/23/1999 12:10 Results for this EDT procedure are i n the results section. HEMAGRAM & DIFF Routine 08/23/1999 12:10 Results for this EDT procedure are i n the results section. GLUCOSE, PLASMA Routine 08/23/1999 12:10 Results for this EDT procedure are i n the results section. BUN Routine 08/23/1999 12:10 Results for this EDT procedure are i n the results section. TSH Routine 08/23/1999 12:10 Results for this EDT procedure are i n the results section. T4 FREE Routine 08/23/1999 12:10 Results for this EDT procedure are i n the results section. MAGNESIUM Routine 08/23/1999 12:10 Results for this EDT procedure are i n the results section. CALCIUM Routine 08/23/1999 12:10 Results for this EDT procedure are i n the results section. CARBAMAZEPINE Routine 08/23/1999 12:10 Results fo r this EDT procedure are i n the results section. HEPATIC FUNCTION PANEL Routine 08/23/1999 12:10 R esults for this (ALB,ALK EDT procedure are i n PHOS,ALT,AST,DBIL,TOT the re sults DILAN,TOT PROT) section. ELECTROLYTES Routine 08/23/1999 12:10 Results for this EDT procedure are i n the results section. documented in this encounter Results HEMAGRAM & DIFF (09/13/1999 7:35 EST) Pathologist Sig nature WBC 5.35 4.0 - 12.4 K/cmm [facility] RBC 3.89 3.86 - 5.04 M/cmm [facility] Hemoglobin 12.3 11.6 - 15.2 gm/dl [facility] HCT 35.9 34.9 - 44.4 % [facility] MCV 92 81 - 98 fl [facility] MCH 31.6 26.7 - 33.3 pg [facility] MCHC 34.3 32.1 - 35.9 gm/dl [facility] PLT 162 141 - 320 K/cmm [facility] RDW-CV 12.9 11.7 - 14.6 % [facility] Neutrophils 59.8 45.5 - 79.7 % [facility] Lymphocytes 31.0 15.0 - 46.8 % [facility] Monocytes 6.9 1.8 - 12.0 % [facility] Eosinophils 1.9 0.6 - 6.9 % [facility] Basophils 0.4 0.2 - 1.4 % [facility] ABS Neutrophils 3.20 2.20 - 8.85 K/cmm [facility] ABS Lymphs 1.66 1.09 - 3.30 K/cmm [facility] ABS Monocytes 0.37 0.1 - 0.8 K/cmm [facility] ABS Eosinophils 0.10 0.03 - 0.61 K/cmm [facility] ABS Basophils 0.02 0.01 - 0.11 K/cmm [facility] Type of Diff: Automated [facility] Specimen Performing Organization Address City/State/ZIP Code Phon e Number [facility] [address] [place] [address] SERVICES [facility] [address] [place] [address] CARBAMAZEPINE (09/13/1999 7:35 EST) Pathologist Sig nature Carbamazepine 5.9 4.0 - 10.0 ug/ml [facility] Specimen Performing Organization Address City/[facility]/ZIP Code Phon e Number [facility] [address] [place] [address] SERVICES [facility] [address] [place] [address] BACTERIAL CULTURE, URINE (08/27/1999 15:00 EDT) Specimen Description Urine [facility] Result 10,000 to 100,000 CFU/ml [facility] ESCHERICHIA [facility]I [facility] Less than 10,000 CFU/ml Mixed gram positive growth Report Status Final [facility] [id number] [facility] Specimen Organism Antibiotic Method Susceptibility 10,000 to 100,000 Ampicillin SUSCEPTIBILITY (ALFREDITO) >=32 Resi stant cfu/ml escherichia coli 10,000 to 100,000 Cefazolin SUSCEPTIBILITY (ALFREDITO) <=8 Susce ptible cfu/ml escherichia coli 10,000 to 100,000 Gentamicin SUSCEPTIBILITY (ALFREDITO) 1 Suscept ible cfu/ml escherichia coli 10,000 to 100,000 Trimethoprim-Sulfametho SUSCEPTIBILITY (ALFREDITO) < =.5/9.5 Susceptible cfu/ml escherichia xazole coli 10,000 to 100,000 Nitrofurantoin SUSCEPTIBILITY (ALFREDITO) <=32 Susc eptible cfu/ml escherichia coli 10,000 to 100,000 Tobramycin SUSCEPTIBILITY (ALFREDIT[place]) 1 Suscept ible cfu/ml escherichia coli 10,000 to 100,000 Amikacin SUSCEPTIBILITY (ALFREDIT[place]) <=2 Susce ptible cfu/ml escherichia coli 10,000 to 100,000 Imipenem SUSCEPTIBILITY (ALFREDITO) <=4 Susce ptible cfu/ml escherichia coli 10,000 to 100,000 Piperacillin SUSCEPTIBILITY (ALFREDITO) >=256 Res istant cfu/ml escherichia coli 10,000 to 100,000 Ciprofloxacin SUSCEPTIBILITY (ALFREDITO) <=0.5 Kandy ceptible cfu/ml escherichia coli Performing Organization Address [facility] Phon e Number [facility] [address] [place] [address] SERVICES [facility] [address] [place] [address] TEST, URINE (08/27/1999 15:00 EDT) Pathologist Sig nature Result- Test, Ur Neg [facility] Specific [place] 1.015 [facility] Specimen Performing Organization Address [facility] Phon e Number [facility] [address] [place] [address] SERVICES [facility] [address] [place] [address] URINALYSIS (08/27/1999 15:00 EDT) Pathologist Sig nature Color, UA Yellow [facility] Clarity, UA Hazy [facility] Glucose, UA Norm NORM [facility] Bilirubin, UA Neg NEG [facility] Ketones, UA Neg NEG [facility] Specific [place], Urine 1.015 1.005 - 1.02 [facility] Blood, UA Neg NEG [facility] pH, UA 7.0 5.0 - 9.0 [facility] Protein, UA Neg NEG [facility] Urobilinogen, UA Norm NORM mg/dL [facility] Nitrite, UA Neg NEG [facility] Leuk Esterase Neg NEG [facility] Specimen Performing Organization Address [facility] Phon e Number [facility] [address] [place] [phone] SERVICES [facility] [address] [place] [address] DRUG SCREEN 6 (08/27/1999 15:00 EDT) Amphetamine Screen, Negative drug screen reporting [facility] Urine Suitable for medical purposes only. LAB [...] = 2000 ng/ml Specimen Performing Organization Address [facility] Phon e Number [facility] [address] [place] [address] SERVICES [facility] [address] [place] [address] TSH (08/23/1999 12:10 EDT) Pathologist Sig nature TSH 0.78 0.35 - 5.50 uIU/ml [facility] Specimen Performing Organization Address [facility] Phon e [facility] [address] [place] [address] SERVICES [facility] [address] [place] [address] MAGNESIUM (08/23/1999 12:10 EDT) Pathologist Sig nature Magnesium 1.7 1.4 - 2.3 meq/L [facility] Specimen Performing Organization Address [facility] Phon e Number [facility] [address] [place] [address] SERVICES [facility] [address] [place] [address] ELECTROLYTES (08/23/1999 12:10 EDT) Pathologist Sig nature Sodium 144 136 - 145 mEq/L [facility] Potassium 4.2 3.5 - 5.0 mEq/L [facility] Chloride 107 96 - 110 mEq/L [facility] CO2 29 24 - 30 mEq/L [facility] Specimen Performing Organization Address [facility]/State/ZIP Code Phon e Number [facility] [address] [place] [address] SERVICES [facility] [address] [place] [address] LIVER FUNCTION TESTS (08/23/1999 12:10 EDT) Pathologist Sig nature Albumin 3.9 3.0 - 5.5 g/dl [facility] Total Alkaline 56 38 - 126 U/L [facility] Phosphatase ALT 48 15 - 75 U/L [facility] AST 29 8 - 50 U/L [facility] Unconjugated Bilirubin 0.1 0.1 - 1.1 mg/dl [facility] Conjugated Bilirubin 0.0 0.0 - 0.3 mg/dl [facility] Bilirubin, Total 0.4 0.2 - 1.3 mg/dl [facility] Specimen Performing Organization Address [facility]/ZIP [facility] Phon e Number [facility] [address] [place] [address] SERVICES [facility] [address] [place] [address] (ABNORMAL) GLUCOSE, PLASMA (08/23/1999 12:10 EDT) Pathologist Sig nature Glucose, Plasma 59 (L) 70 - 110 mg/dl [facility] Specimen Performing Organization Address [facility]/ZIP Code Phon e Number [facility] [address] [place] [address] SERVICES [facility] [address] [place] [address] T4 FREE (08/23/1999 12:10 EDT) Pathologist Sig nature Free T4 1.3 0.8 - 1.8 ng/dl [facility] Specimen Performing Organization Address City/State/ZIP Code Phon e Number [facility] [address] [place] [address] SERVICES [facility] [address] [place] [address] CREATININE (08/23/1999 12:10 EDT) Pathologist Sig nature Creatinine 0.8 0.7 - 1.5 mg/dl [facility] Specimen Performing Organization Address City/[facility]/ZIP Code Phon e Number [facility] [address] [place] [address] SERVICES [facility] [address] [place] [address] (ABNORMAL) HEMAGRAM & DIFF (08/23/1999 12:10 EDT) Pathologist Sig nature WBC 4.24 4.0 - 12.4 K/cmm [facility] RBC 3.87 3.86 - 5.04 M/cmm [facility] Hemoglobin 12.3 11.6 - 15.2 gm/dl [facility] HCT 35.2 34.9 - 44.4 % [facility] MCV 91 81 - 98 fl [facility] MCH 31.8 26.7 - 33.3 pg [facility] MCHC 35.0 32.1 - 35.9 gm/dl [facility] PLT 137 (L) 141 - 320 K/cmm [facility] RDW-CV 12.6 11.7 - 14.6 % [facility] Neutrophils 57.8 45.5 - 79.7 % [facility] Lymphocytes 32.5 15.0 - 46.8 % [facility] Monocytes 7.8 1.8 - 12.0 % [facility] Eosinophils 1.3 0.6 - 6.9 % [facility] Basophils 0.6 0.2 - 1.4 % [facility] ABS Neutrophils 2.45 2.20 - 8.85 K/cmm [facility] ABS Lymphs 1.38 1.09 - 3.30 K/cmm [facility] ABS Monocytes 0.33 0.1 - 0.8 K/cmm [facility] ABS Eosinophils 0.06 0.03 - 0.61 K/cmm [facility] ABS Basophils 0.02 0.01 - 0.11 K/cmm [facility] Type of Diff: Automated [facility] Specimen Performing Organization Address City/State/ZIP Code Phon e Number [facility] [address] [place] [address] SERVICES [facility] [address] [place] [address] (ABNORMAL) CARBAMAZEPINE (08/23/1999 12:10 EDT) Pathologist Sig nature Carbamazepine 1.3 (L) 4.0 - 10.0 ug/ml [facility] Specimen Performing Organization Address City/[facility]/ZIP Code Phon e Number [facility] [address] [place] [address] SERVICES [facility] [address] [place] [address] CALCIUM (08/23/1999 12:10 EDT) Pathologist Sig nature Calcium 9.0 8.5 - 10.5 mg/dl [facility] Albumin 3.9 3.0 - 5.5 g/dl [facility] Calculated Calcium 9.5 8.5 - 10.5 mg/dl [facility] Specimen Performing Organization Address City/[facility] Phon e Number [facility] [address] [place] [address] SERVICES [facility] [address] [place] [address] BUN (08/23/1999 12:10 EDT) Pathologist Sig nature BUN 16 10 - 26 mg/dl [facility] Specimen Performing Organization Address [facility] Phon e Number [facility] [address] [place] [address] SERVICES [facility] [address] [place] [address] documented in this encounter Visit Diagnoses Not on filedocumented in this encounter
--- OUTSIDE RECORDS SUMMARY | 2022-07-11 01:59 | XMS_ITS | Encounter Summary ---
:1965 Author Organization [facility] Address [address] [place] [address] Care Team Providers Name Role Phone Unavailable Primary Care Provider Unavailable Encounter Details Date Type Department Care Team Description 05/09/2002 Results Only [facility] - Jase Do MD conversion [address] [place] [address] Social History Tobacco Use Types Packs/Day Years Used Date Never Assessed Sex Assigned at Date Recorded Not on file documented as of this encounter Plan of Treatment Not on filedocumented as of this encounter Procedures Procedure Name Priority Date/Time Associated Diagnosis Comme nts CYTOPATHOLOGY Routine 05/09/2002 0:00 EDT Results for this procedure are i n the results section . documented in this encounter Results CYTOPATHOLOGY (05/09/2002 0:00 EDT) Pathology Report: CYTOPATHOLOGY REPORT [facility] Reports generated via electronic interface contain bryant ginal data; however they are lacking the format of the original re port. Caution should be taken when reading/interpreting unfo rmatted reports. Name: ? MAYCO NEWBY ? Accession #: ? [id number] : ? 1965 (Age: 36) ??F ?Collect Date: ? 06/2002 Location: ? [facility] ? Receive Date : ? 05/11/2002 Provider: ?JASE MARTINEZ MD Copy to: ? Specimen/Source: ?Conventional Pap Test, Cer vix/Endocervix Last Menstrual Period: ? 04/29/02 Menstrual/ Status: ? Irregular ? SPECIMEN ADEQUACY ? Satisfactory for Evaluation - transformation zone component present - obscuring inflammation GENERAL CATEGORIZATION ? Negative for Intraepithelial Lesion or Malignan cy ? Document reviewed and electronically signed by: ? MONTSERRAT Desir(ASCP) ? Report Date: ??05/12/2002 13:35 End of Report Specimen Performing Organization Address City/State/ZIP Code Phon e Number [facility] [address] [place] [address] SERVICES [facility] [address] [place] [address] documented in this encounter Visit Diagnoses Not on filedocumented in this encounter
--- OUTSIDE RECORDS SUMMARY | 2022-07-11 01:59 | XMS_ITS | Encounter Summary ---
:1965 Author Organization [facility] Address [address] [place] [address] Care Team Providers Name Role Phone Unavailable Primary Care Provider Unavailable Encounter Details Date Type Department Care Team Description 04/21/2001 Results Only [facility] - Jase Do MD conversion [address] [place] [address] Social History Tobacco Use Types Packs/Day Years Used Date Never Assessed Sex Assigned at Date Recorded Not on file documented as of this encounter Plan of Treatment Not on filedocumented as of this encounter Procedures Procedure Name Priority Date/Time Associated Diagnosis Comme nts CYTOPATHOLOGY Routine 04/21/2001 0:00 EDT Results for this procedure are i n the results section . documented in this encounter Results CYTOPATHOLOGY (04/21/2001 0:00 EDT) Pathology Report: CYTOPATHOLOGY REPORT [facility] Reports generated via electronic interface contain bryant ginal data; however they are lacking the format of the original re port. Caution should be taken when reading/interpreting unfo rmatted reports. Name: ? MAYCO NEWBY ? Accession #: ? [id number] : ? 1965 (Age: 35) ??F ?Collect Date: ? 04/03 Location: ? [facility] ? Receive Date : ? 04/26/2001 Provider: ?JASE MARTINEZ MD Copy to: ? Specimen/Source: ?Conventional Pap Test, Cer vix/Endocervix Last Menstrual Period: ? 04/05/01 Menstrual/ Status: ? Irregular ? SPECIMEN ADEQUACY ? Satisfactory for evaluation. GENERAL CATEGORIZATION ? Within Normal Limits ? Document reviewed and electronically signed by: ? Karely Poole, ??CT(ASCP) ? Report Date: ??04/27/2001 13:38 End of Report Specimen Performing Organization Address City/State/ZIP Code Phon e Number [facility] [address] [place] [phone] SERVICES [facility] [address] [place] [address] documented in this encounter Visit Diagnoses Not on filedocumented in this encounter
--- OUTSIDE RECORDS SUMMARY | 2022-07-11 01:59 | XMS_ITS | Encounter Summary ---
:1965 Author Organization [facility] Address [address] [place] [address] Care Team Providers Name Role Phone Unavailable Primary Care Provider Unavailable Encounter Details Date Type Department Care Team Description 04/27/2000 Results Only [facility] - Jase Do MD conversion [address] [place] [address] Social History Tobacco Use Types Packs/Day Years Used Date Never Assessed Sex Assigned at Date Recorded Not on file documented as of this encounter Plan of Treatment Not on filedocumented as of this encounter Procedures Procedure Name Priority Date/Time Associated Diagnosis Comme nts CYTOPATHOLOGY Routine 04/27/2000 0:00 EDT Results for this procedure are i n the results section . documented in this encounter Results CYTOPATHOLOGY (04/27/2000 0:00 EDT) Pathology Report: CYTOPATHOLOGY REPORT [facility] Reports generated via electronic interface contain bryant ginal data; however they are lacking the format of the original re port. Caution should be taken when reading/interpreting unfo rmatted reports. Name: ? MAYCO NEWBY ? Accession #: ? [id number] : ? 1965 (Age: 34) ??F ?Collect Date: ? 04/03 Location: ? [facility] ? Receive Date : ? 04/28/2000 Provider: ?JASE MARTINEZ MD Copy to: ? Specimen/Source: ?Conventional Pap Test, Cer vix/Endocervix Last Menstrual Period: ? 03/25/00 Other: ? Additional clinical information: Normal cycle, dysmeno rrhea ? SPECIMEN ADEQUACY ? Satisfactory for evaluation but limited by obsc uring inflammation. GENERAL CATEGORIZATION ? Benign Cellular Changes DESCRIPTIVE DIAGNOSIS ? Reactive cellular lalitha nges associated with inflammation present (includes repair). ? Document reviewed and electronically signed by: ? HELEN VICENTE MD ? Report Date: ??05/04/2000 12:29 End of Report Specimen Performing Organization Address City/State/ZIP Code Phon e Number [facility] [address] [place] [address] SERVICES [facility] [address] [place] [address] documented in this encounter Visit Diagnoses Not on filedocumented in this encounter
--- OUTSIDE RECORDS SUMMARY | 2022-07-11 01:59 | XMS_ITS | Encounter Summary ---
:1965 Author Organization [facility] Address [address] [place] [address] Care Team Providers Name Role Phone Unavailable Primary Care Provider Unavailable Encounter Details Date Type Department Care Team Description 04/28/2007 Results Only [facility] - Jeancarlos Samuel MD [facility] [address] [facility] [address] [place] [address] [place] [address] (Wo rk) Social History Tobacco Use Types Packs/Day Years Used Date Never Assessed Sex Assigned at Date Recorded Not on file documented as of this encounter Plan of Treatment Not on filedocumented as of this encounter Procedures Procedure Name Priority Date/Time Associated Diagnosis Comme nts CYTOPATHOLOGY Routine 04/28/2007 0:00 EDT Result s for this procedure are i n the results section . documented in this encounter Results CYTOPATHOLOGY (04/28/2007 0:00 EDT) Pathology Report: CYTOPATHOLOGY REPORT [facility] Reports generated via electronic interface contain bryant ginal data; however they are lacking the format of the original re port. Caution should be taken when reading/interpreting unfo rmatted reports. Name: ? MAYCO NEWBY ? Accession #: ? [id number] : ? 1965 (Age: 41) ??F ?Collect Date: ? 04/03 Location: ? [facility] ? Receive Date : ? 04/30/2007 Provider: ?JEANCARLOS GROSSMAN MD Copy to: ? Specimen/Source: ? ThinPrep Pap Test, Cervix/Endocervix, processed on [employer] ThinPrep Imaging System, with manual evaluation Last Menstrual Period: ? 04/08/07 Other: ? HPVA - HPV testing requested if ASC-US on the current ThinPrep Pap test. ? SPECIMEN ADEQUACY ? Satisfactory for Evaluation - transformation zone component present GENERAL CATEGORIZATION ? Negative for Intraepithelial Lesion or Malignan cy INTERPRETATION ? Fungal organisms pres ent morphologically consistent with Carina species. ? Document reviewed and electronically signed by: ? TUYET Pederson(ASCP) ? Report Date: ??05/10/2007 16:31 End of Report Specimen Performing Organization Address City/State/ZIP Code Phon e Number [facility] [address] [place] [address] SERVICES [facility] [address] [place] [address] documented in this encounter Visit Diagnoses Not on filedocumented in this encounter
--- OUTSIDE RECORDS SUMMARY | 2022-07-11 01:59 | XMS_ITS | Encounter Summary ---
:[address] [facility] Address [address] [place] [address] Care Team Providers Name Role Phone Unavailable Primary Care Provider Unavailable Encounter Details Date Type Department Care Team Description 01/21/2005 Results Only [facility] - Jase Do MD conversion [address] [place] [address] Social History Tobacco Use Types Packs/Day Years Used Date Never Assessed Sex Assigned at Date Recorded Not on file documented as of this encounter Plan of Treatment Not on filedocumented as of this encounter Procedures Procedure Name Priority Date/Time Associated Diagnosis Comme nts CYTOPATHOLOGY Routine 01/21/2005 0:00 EST Results for this procedure are i n the results section . documented in this encounter Results CYTOPATHOLOGY (01/21/2005 0:00 EST) Pathology Report: CYTOPATHOLOGY REPORT [facility] Reports generated via electronic interface contain bryant ginal data; however they are lacking the format of the original re port. Caution should be taken when reading/interpreting unfo rmatted reports. Name: ? MAYCO NEWBY ? Accession #: ? [id number] : ? 1965 (Age: 39) ??F ?Collect Date: ? 01/01 Location: ? [facility] ? Receive Date : ? 01/22/2005 Provider: ?JASE MARTINEZ MD Copy to: ? Specimen/Source: ?ThinPrep Pap Test, Cervix/ Endocervix Last Menstrual Period: ? 01/10/05 ? SPECIMEN ADEQUACY ? Satisfactory for Evaluation - transformation zone component present GENERAL CATEGORIZATION ? Negative for Intraepithelial Lesion or Malignan cy ? Document reviewed and electronically signed by: ? Lala Young, SCT(ASCP) ? Report Date: ??01/23/2005 16:02 End of Report Specimen Performing Organization Address City/State/ZIP Code Phon e Number [facility] [address] [place] [address] SERVICES [facility] [address] [place] [address] documented in this encounter Visit Diagnoses Not on filedocumented in this encounter
--- OUTSIDE RECORDS SUMMARY | 2022-07-11 01:59 | XMS_ITS | Encounter Summary ---
:1965 Author Organization [facility] Address [address] [place] [address] Care Team Providers Name Role Phone Unavailable Primary Care Provider Unavailable Encounter Details Date Type Department Care Team Description 09/21/1999 - Hospital Encounter [facility] - Mayra Toro MD 10/01/1999 Maple conversion [facility] [address] [facility] [address] [place] [address] [place] [address] (Wo rk) Social History Tobacco Use Types Packs/Day Years Used Date Never Assessed Sex Assigned at Date Recorded Not on file documented as of this encounter Discharge Disposition Disposition Code Departure Means Destination Home or Self Care documented in this encounter Plan of Treatment Not on filedocumented as of this encounter Procedures Procedure Name Priority Date/Time Associated Comments Diagnosis DRUG SCREEN 6 Routine 1999 19:30 Results fo r this EST procedure are i n the results section. TEST, URINE Routine 1999 19:30 Re sults for this EST procedure are i n the results section. CREATININE Routine 09/22/1999 11:23 Results for this EST procedure are i n the results section. HEMAGRAM & DIFF Routine 09/22/1999 11:23 Results for this EST procedure are i n the results section. GLUCOSE, PLASMA Routine 09/22/1999 11:23 Results for this EST procedure are i n the results section. BUN Routine 09/22/1999 11:23 Results for this EST procedure are i n the results section. ELECTROLYTES Routine 09/22/1999 11:23 Results for this EST procedure are i n the results section. documented in this encounter Results TEST, URINE (1999 19:30 EST) Pathologist Sig nature Result- Test, Ur Neg [facility] Specific [place] 1.020 [facility] Specimen Performing Organization Address [facility] Phon e Number [facility] [address] [place] [address] SERVICES [facility] [address] [place] [address] DRUG SCREEN 6 (1999 19:30 EST) Amphetamine Screen, Negative drug screen reporting [...] = 2000 ng/ml Specimen Performing Organization Address [facility] Phon e Number [facility] [address] [place] [address] SERVICES [facility] [address] [place] [address] (ABNORMAL) ELECTROLYTES (09/22/1999 11:23 EST) Pathologist Sig nature Sodium 140 136 - 145 mEq/L [facility] Potassium 3.9 3.5 - 5.0 mEq/L [facility] Chloride 107 96 - 110 mEq/L [facility] CO2 22 (L) 24 - 30 mEq/L [facility] Specimen Performing Organization Address [facility] Phon e Number [facility] [address] [place] [address] SERVICES [facility] [address] [place] [address] GLUCOSE, PLASMA (09/22/1999 11:23 EST) Pathologist Sig nature Glucose, Plasma 109 70 - 110 mg/dl [facility] Specimen Performing Organization Address City/State/ZIP Code Phon e Number [facility] [address] [place] [address] SERVICES [facility] [address] [place] [address] CREATININE (09/22/1999 11:23 EST) Pathologist Sig nature Creatinine 0.7 0.7 - 1.5 mg/dl [facility] Specimen Performing Organization Address City/State/ZIP Code Phon e Number [facility] [address] [place] [address] SERVICES [facility] [address] [place] [address] HEMAGRAM & DIFF (09/22/1999 11:23 EST) Pathologist Sig nature WBC 4.37 4.0 - 12.4 K/cmm [facility] RBC 4.37 3.86 - 5.04 M/cmm [facility] Hemoglobin 13.7 11.6 - 15.2 gm/dl [facility] HCT 40.7 34.9 - 44.4 % [facility] MCV 93 81 - 98 fl [facility] MCH 31.4 26.7 - 33.3 pg [facility] MCHC 33.7 32.1 - 35.9 gm/dl [facility] PLT 188 141 - 320 K/cmm [facility] RDW-CV 13.1 11.7 - 14.6 % [facility] Neutrophils 62.3 45.5 - 79.7 % [facility] Lymphocytes 30.0 15.0 - 46.8 % [facility] Monocytes 6.3 1.8 - 12.0 % [facility] Eosinophils 0.9 0.6 - 6.9 % [facility] Basophils 0.5 0.2 - 1.4 % [facility] ABS Neutrophils 2.73 2.20 - 8.85 K/cmm [facility] ABS Lymphs 1.31 1.09 - 3.30 K/cmm [facility] ABS Monocytes 0.27 0.1 - 0.8 K/cmm [facility] ABS Eosinophils 0.04 0.03 - 0.61 K/cmm [facility] ABS Basophils 0.02 0.01 - 0.11 K/cmm [facility] Type of Diff: Automated [facility] Specimen Performing Organization Address City/State/ZIP Code Phon e Number [facility] [address] [place] [address] SERVICES [facility] [address] [place] [address] BUN (09/22/1999 11:23 EST) Pathologist Sig nature BUN 18 10 - 26 mg/dl [facility] Specimen Performing Organization Address City/[facility]/ZIP Code Phon e Number [facility] [address] [place] [address] SERVICES [facility] [address] [place] [address] documented in this encounter Visit Diagnoses Not on filedocumented in this encounter
[2022-07-11 09:40] LABS: Abs Immature Grans 0.03 10^3/uL (0.0-0.06); Absolute Basophil Count 0.02 10^3/uL (0.0-0.2); Absolute Lymphocyte Count 1.88 10^3/uL (1.2-3.4); Absolute Monocyte Count 0.57 10^3/uL (0.1-0.8); Absolute Neutrophil Count 5.73 10^3/uL (1.2-6.7); Basophils % 0.2; HCT 43.6 % (36.0-46.0); HGB 14.1 g/dL (11.2-15.7); Immature Grans % 0.4; Lymphocytes % 22.8; MCH 28.1 pg (27.0-33.0); MCHC 32.3 % (32.0-36.0); MCV 87 fL (80-95); MPV 11.4 fL (8.0-11.0); Monocytes % 6.9; Neutrophils % 69.7; Platelet Count 198 10^3/uL (130-400); RBC 5.01 10^6/uL (3.93-5.22); RDW 13.7 % (11.7-14.6); RDW-SD 43.7 fL; WBC 8.23 10^3/uL (4.4-10.8)
== END 2022-07-11 01:51 | disposition home or self-care (01) ==
LOC: LBO 01:50
PROVIDERS: PCP Family Medicine; Visit Provider Psychiatry & Neurology Psychiatry
DX: F20.9 Schizophrenia, unspecified (principal); Z79.899 Other long term (current) drug therapy
CPT/HCPCS: 36415; 85025

== ENCOUNTER 2022-08-11 02:51 | Outpatient (CLI) | payer MEDICARE, BC, SELFPAY ==
[2022-08-11 13:07] LABS: Abs Immature Grans 0.02 10^3/uL (0.0-0.06); Absolute Basophil Count 0.04 10^3/uL (0.0-0.2); Absolute Lymphocyte Count 1.73 10^3/uL (1.2-3.4); Absolute Monocyte Count 0.34 10^3/uL (0.1-0.8); Absolute Neutrophil Count 4.72 10^3/uL (1.2-6.7); Basophils % 0.6; HCT 43.6 % (36.0-46.0); HGB 13.9 g/dL (11.2-15.7); Immature Grans % 0.3; Lymphocytes % 25.3; MCHC 31.9 % (32.0-36.0); MCV 88 fL (80-95); MPV 11.8 fL (8.0-11.0); Neutrophils % 68.8; Platelet Count 204 10^3/uL (130-400); RBC 4.96 10^6/uL (3.93-5.22); RDW 13.8 % (11.7-14.6); RDW-SD 44.3 fL; WBC 6.85 10^3/uL (4.4-10.8)
== END 2022-08-11 02:52 | disposition home or self-care (01) ==
LOC: LBO 02:51
PROVIDERS: PCP Family Medicine; Visit Provider Psychiatry & Neurology Psychiatry
DX: F25.0 Schizoaffective disorder, bipolar type (principal); Z79.899 Other long term (current) drug therapy
CPT/HCPCS: 36415; 85025

== ENCOUNTER 2022-09-11 04:47 | Outpatient (CLI) | payer MEDICARE, BC, SELFPAY ==
[2022-09-11 11:07] LABS: Abs Immature Grans 0.03 10^3/uL (0.0-0.06); Absolute Basophil Count 0.05 10^3/uL (0.0-0.2); Absolute Lymphocyte Count 1.98 10^3/uL (1.2-3.4); Absolute Monocyte Count 0.39 10^3/uL (0.1-0.8); Absolute Neutrophil Count 4.66 10^3/uL (1.2-6.7); Basophils % 0.7; HCT 43.3 % (36.0-46.0); HGB 13.9 g/dL (11.2-15.7); Immature Grans % 0.4; Lymphocytes % 27.8; MCH 28.1 pg (27.0-33.0); MCHC 32.1 % (32.0-36.0); MCV 88 fL (80-95); MPV 11.3 fL (8.0-11.0); Monocytes % 5.5; Neutrophils % 65.6; Platelet Count 245 10^3/uL (130-400); RBC 4.94 10^6/uL (3.93-5.22); RDW 13.4 % (11.7-14.6); WBC 7.11 10^3/uL (4.4-10.8)
== END 2022-09-11 04:48 | disposition home or self-care (01) ==
LOC: LBO 04:47
PROVIDERS: PCP Family Medicine; Visit Provider Psychiatry & Neurology Psychiatry
DX: Z79.899 Other long term (current) drug therapy (principal); F20.9 Schizophrenia, unspecified
CPT/HCPCS: 36415; 85025

== ENCOUNTER 2022-10-07 17:09 | Outpatient (REF) | payer MEDICARE, BC, SELFPAY ==
[2022-10-07 19:45] LABS: Anion Gap 8.5 mmol/L (3-11); BUN 14 mg/dL (7-18); CO2 30.5 mmol/L (21.0-32.0); Chloride 102 mmol/L (98-107); Glucose 105 mg/dL (74-106); Sodium 141 mmol/L (136-145)
== END 2022-10-07 17:10 | disposition home or self-care (01) ==
LOC: NCHCN 17:09
PROVIDERS: PCP Family Medicine; Visit Provider Nurse Practitioner Family
DX: Z51.81 Encounter for therapeutic drug level monitoring (principal)
CPT/HCPCS: 80048

== ENCOUNTER 2022-10-14 02:46 | Outpatient (CLI) | payer MEDICARE, BC, SELFPAY ==
[2022-10-14 12:30] LABS: Abs Immature Grans 0.02 10^3/uL (0.0-0.06); Absolute Basophil Count 0.02 10^3/uL (0.0-0.2); Absolute Eosinophil Count 0.01 10^3/uL (0.0-0.7); Absolute Lymphocyte Count 2.04 10^3/uL (1.2-3.4); Absolute Monocyte Count 0.42 10^3/uL (0.1-0.8); Absolute Neutrophil Count 5.25 10^3/uL (1.2-6.7); Basophils % 0.3; Eosinophils % 0.1; HCT 43.1 % (36.0-46.0); HGB 13.9 g/dL (11.2-15.7); Immature Grans % 0.3; Lymphocytes % 26.3; MCH 28.1 pg (27.0-33.0); MCHC 32.3 % (32.0-36.0); MCV 87 fL (80-95); MPV 11.9 fL (8.0-11.0); Monocytes % 5.4; Neutrophils % 67.6; Platelet Count 219 10^3/uL (130-400); RBC 4.94 10^6/uL (3.93-5.22); RDW 13.3 % (11.7-14.6); RDW-SD 42.2 fL; WBC 7.76 10^3/uL (4.4-10.8)
== END 2022-10-14 02:47 | disposition home or self-care (01) ==
LOC: LOS 02:46
PROVIDERS: PCP Family Medicine; Visit Provider Psychiatry & Neurology Psychiatry
DX: F20.9 Schizophrenia, unspecified (principal)
CPT/HCPCS: 36415; 85025

== ENCOUNTER 2022-11-12 03:07 | Outpatient (CLI) | payer MEDICARE, BC, SELFPAY ==
[2022-11-12 10:38] LABS: Abs Immature Grans 0.01 10^3/uL (0.0-0.06); Absolute Basophil Count 0.02 10^3/uL (0.0-0.2); Absolute Eosinophil Count 0.01 10^3/uL (0.0-0.7); Absolute Monocyte Count 0.38 10^3/uL (0.1-0.8); Basophils % 0.3; Eosinophils % 0.2; HCT 41.2 % (36.0-46.0); HGB 13.4 g/dL (11.2-15.7); Immature Grans % 0.2; Lymphocytes % 28.7; MCH 28.2 pg (27.0-33.0); MCHC 32.5 % (32.0-36.0); MCV 87 fL (80-95); MPV 11.4 fL (8.0-11.0); Monocytes % 6.4; Neutrophils % 64.2; Platelet Count 198 10^3/uL (130-400); RBC 4.75 10^6/uL (3.93-5.22); RDW 13.6 % (11.7-14.6); RDW-SD 43.2 fL; WBC 5.92 10^3/uL (4.4-10.8)
== END 2022-11-12 03:08 | disposition home or self-care (01) ==
LOC: LBO 03:07
PROVIDERS: PCP Family Medicine; Visit Provider Psychiatry & Neurology Psychiatry
DX: F20.9 Schizophrenia, unspecified (principal); Z79.899 Other long term (current) drug therapy
CPT/HCPCS: 36415; 85025

== ENCOUNTER 2022-12-12 01:48 | Outpatient (CLI) | payer MEDICARE, BC, SELFPAY ==
[2022-12-12 09:11] LABS: Abs Immature Grans 0.02 10^3/uL (0.0-0.06); Absolute Basophil Count 0.02 10^3/uL (0.0-0.2); Absolute Lymphocyte Count 1.77 10^3/uL (1.2-3.4); Absolute Monocyte Count 0.41 10^3/uL (0.1-0.8); Absolute Neutrophil Count 5.66 10^3/uL (1.2-6.7); Basophils % 0.3; Immature Grans % 0.3; Lymphocytes % 22.5; MCH 28.1 pg (27.0-33.0); MCHC 32.6 % (32.0-36.0); MCV 86 fL (80-95); Monocytes % 5.2; Neutrophils % 71.7; Platelet Count 210 10^3/uL (130-400); RBC 4.99 10^6/uL (3.93-5.22); RDW 13.7 % (11.7-14.6); RDW-SD 43.3 fL; WBC 7.88 10^3/uL (4.4-10.8)
== END 2022-12-12 01:49 | disposition home or self-care (01) ==
LOC: LBO 01:48
PROVIDERS: PCP Family Medicine; Visit Provider Psychiatry & Neurology Psychiatry
DX: Z79.899 Other long term (current) drug therapy (principal); F20.9 Schizophrenia, unspecified
CPT/HCPCS: 36415; 85025

== ENCOUNTER 2023-01-09 02:46 | Outpatient (CLI) | payer MEDICARE, BC, SELFPAY ==
[2023-01-09 09:11] LABS: Abs Immature Grans 0.02 10^3/uL (0.0-0.06); Absolute Basophil Count 0.04 10^3/uL (0.0-0.2); Absolute Lymphocyte Count 1.81 10^3/uL (1.2-3.4); Absolute Monocyte Count 0.49 10^3/uL (0.1-0.8); Basophils % 0.6; HGB 14.1 g/dL (11.2-15.7); Immature Grans % 0.3; Lymphocytes % 25.3; MCH 28.4 pg (27.0-33.0); MCHC 32.8 % (32.0-36.0); MCV 87 fL (80-95); MPV 11.1 fL (8.0-11.0); Monocytes % 6.8; Platelet Count 196 10^3/uL (130-400); RBC 4.97 10^6/uL (3.93-5.22); RDW 14.1 % (11.7-14.6); RDW-SD 44.6 fL; WBC 7.16 10^3/uL (4.4-10.8)
== END 2023-01-09 02:47 | disposition home or self-care (01) ==
LOC: LBO 02:47
PROVIDERS: PCP Family Medicine; Visit Provider Psychiatry & Neurology Psychiatry
DX: F20.9 Schizophrenia, unspecified (principal); Z79.899 Other long term (current) drug therapy
CPT/HCPCS: 36415; 85025

== ENCOUNTER 2023-02-09 01:54 | Outpatient (CLI) | payer MEDICARE, BC, SELFPAY ==
[2023-02-09 10:35] LABS: Abs Immature Grans 0.01 10^3/uL (0.0-0.06); Absolute Basophil Count 0.03 10^3/uL (0.0-0.2); Absolute Eosinophil Count 0.01 10^3/uL (0.0-0.7); Absolute Lymphocyte Count 1.89 10^3/uL (1.2-3.4); Absolute Monocyte Count 0.45 10^3/uL (0.1-0.8); Absolute Neutrophil Count 4.33 10^3/uL (1.2-6.7); Basophils % 0.4; Eosinophils % 0.1; HCT 42.8 % (36.0-46.0); HGB 14.1 g/dL (11.2-15.7); Immature Grans % 0.1; Lymphocytes % 28.1; MCH 28.4 pg (27.0-33.0); MCHC 32.9 % (32.0-36.0); MCV 86 fL (80-95); MPV 11.2 fL (8.0-11.0); Monocytes % 6.7; Neutrophils % 64.6; Platelet Count 206 10^3/uL (130-400); RBC 4.96 10^6/uL (3.93-5.22); RDW-SD 44.1 fL; WBC 6.72 10^3/uL (4.4-10.8)
== END 2023-02-09 01:55 | disposition home or self-care (01) ==
LOC: LBO 01:54
PROVIDERS: PCP Family Medicine; Visit Provider Psychiatry & Neurology Psychiatry
DX: F20.9 Schizophrenia, unspecified (principal); Z79.899 Other long term (current) drug therapy
CPT/HCPCS: 36415; 85025

== ENCOUNTER 2023-03-11 02:14 | Outpatient (CLI) | payer MEDICARE, BC, SELFPAY ==
[2023-03-11 09:53] LABS: Abs Immature Grans 0.01 10^3/uL (0.0-0.06); Absolute Basophil Count 0.03 10^3/uL (0.0-0.2); Absolute Eosinophil Count 0.01 10^3/uL (0.0-0.7); Absolute Lymphocyte Count 1.73 10^3/uL (1.2-3.4); Absolute Monocyte Count 0.36 10^3/uL (0.1-0.8); Absolute Neutrophil Count 4.99 10^3/uL (1.2-6.7); Basophils % 0.4; Eosinophils % 0.1; HCT 41.9 % (36.0-46.0); HGB 13.7 g/dL (11.2-15.7); Immature Grans % 0.1; Lymphocytes % 24.3; MCH 28.3 pg (27.0-33.0); MCHC 32.7 % (32.0-36.0); MCV 87 fL (80-95); MPV 10.7 fL (8.0-11.0); Neutrophils % 70.1; Platelet Count 196 10^3/uL (130-400); RBC 4.84 10^6/uL (3.93-5.22); RDW 13.6 % (11.7-14.6); RDW-SD 43.3 fL; WBC 7.13 10^3/uL (4.4-10.8)
== END 2023-03-11 02:15 | disposition home or self-care (01) ==
LOC: LBO 02:14
PROVIDERS: PCP Family Medicine; Visit Provider Psychiatry & Neurology Psychiatry
DX: F20.89 Other schizophrenia (principal); Z79.899 Other long term (current) drug therapy
CPT/HCPCS: 36415; 85025

== ENCOUNTER 2023-04-10 02:07 | Outpatient (CLI) | payer MEDICARE, BC, SELFPAY ==
[2023-04-10 12:53] LABS: Abs Immature Grans 0.01 10^3/uL (0.0-0.06); Absolute Basophil Count 0.05 10^3/uL (0.0-0.2); Absolute Eosinophil Count 0.01 10^3/uL (0.0-0.7); Absolute Lymphocyte Count 1.74 10^3/uL (1.2-3.4); Absolute Neutrophil Count 4.41 10^3/uL (1.2-6.7); Basophils % 0.8; Eosinophils % 0.2; HGB 14.4 g/dL (11.2-15.7); Immature Grans % 0.2; Lymphocytes % 26.3; MCH 28.9 pg (27.0-33.0); MCHC 32.7 % (32.0-36.0); MCV 88 fL (80-95); MPV 11.3 fL (8.0-11.0); Neutrophils % 66.5; Platelet Count 205 10^3/uL (130-400); RBC 4.99 10^6/uL (3.93-5.22); RDW 13.5 % (11.7-14.6); RDW-SD 44.1 fL; WBC 6.62 10^3/uL (4.4-10.8)
== END 2023-04-10 02:08 | disposition home or self-care (01) ==
PROVIDERS: Nurse Practitioner Family; PCP Family Medicine; Visit Provider Counselor Addiction (Substance Use Disorder)
DX: F20.89 Other schizophrenia (principal); Z79.899 Other long term (current) drug therapy
CPT/HCPCS: 36415; 85025

== ENCOUNTER 2023-05-11 02:50 | Outpatient (CLI) | payer MEDICARE, BC, SELFPAY ==
[2023-05-11 11:29] LABS: Abs Immature Grans 0.01 10^3/uL (0.0-0.06); Absolute Basophil Count 0.03 10^3/uL (0.0-0.2); Absolute Eosinophil Count 0.01 10^3/uL (0.0-0.7); Absolute Lymphocyte Count 1.68 10^3/uL (1.2-3.4); Absolute Monocyte Count 0.34 10^3/uL (0.1-0.8); Absolute Neutrophil Count 4.02 10^3/uL (1.2-6.7); Basophils % 0.5; Eosinophils % 0.2; HCT 42.7 % (36.0-46.0); Immature Grans % 0.2; Lymphocytes % 27.6; MCH 28.5 pg (27.0-33.0); MCHC 32.8 % (32.0-36.0); MCV 87 fL (80-95); MPV 11.1 fL (8.0-11.0); Monocytes % 5.6; Neutrophils % 65.9; Platelet Count 178 10^3/uL (130-400); RBC 4.91 10^6/uL (3.93-5.22); RDW 13.4 % (11.7-14.6); RDW-SD 42.8 fL; WBC 6.09 10^3/uL (4.4-10.8)
== END 2023-05-11 02:51 | disposition home or self-care (01) ==
PROVIDERS: Counselor Addiction (Substance Use Disorder); PCP Family Medicine; Visit Provider Nurse Practitioner Family
DX: F20.89 Other schizophrenia (principal); Z79.899 Other long term (current) drug therapy
CPT/HCPCS: 36415; 85025

== ENCOUNTER 2023-06-11 02:36 | Outpatient (CLI) | payer MEDICARE, BC, SELFPAY ==
[2023-06-11 10:17] LABS: Abs Immature Grans 0.01 10^3/uL (0.0-0.06); Absolute Basophil Count 0.03 10^3/uL (0.0-0.2); Absolute Eosinophil Count 0.01 10^3/uL (0.0-0.7); Absolute Lymphocyte Count 1.94 10^3/uL (1.2-3.4); Absolute Monocyte Count 0.41 10^3/uL (0.1-0.8); Absolute Neutrophil Count 3.84 10^3/uL (1.2-6.7); Basophils % 0.5; Eosinophils % 0.2; HCT 42.8 % (36.0-46.0); Immature Grans % 0.2; Lymphocytes % 31.1; MCH 28.3 pg (27.0-33.0); MCHC 32.7 % (32.0-36.0); MCV 87 fL (80-95); MPV 11.3 fL (8.0-11.0); Monocytes % 6.6; Neutrophils % 61.4; Platelet Count 193 10^3/uL (130-400); RBC 4.94 10^6/uL (3.93-5.22); RDW 13.5 % (11.7-14.6); RDW-SD 42.7 fL; WBC 6.24 10^3/uL (4.4-10.8)
== END 2023-06-11 02:37 | disposition home or self-care (01) ==
LOC: LBO 02:36
PROVIDERS: PCP Family Medicine; Visit Provider Nurse Practitioner Family
DX: F25.0 Schizoaffective disorder, bipolar type (principal); Z79.899 Other long term (current) drug therapy
CPT/HCPCS: 36415; 85025

== ENCOUNTER 2023-07-13 02:06 | Outpatient (CLI) | payer MEDICARE, BC, SELFPAY ==
[2023-07-13 10:54] LABS: Abs Immature Grans 0.02 10^3/uL (0.0-0.06); Absolute Basophil Count 0.04 10^3/uL (0.0-0.2); Absolute Eosinophil Count 0.01 10^3/uL (0.0-0.7); Absolute Lymphocyte Count 1.74 10^3/uL (1.2-3.4); Absolute Monocyte Count 0.38 10^3/uL (0.1-0.8); Absolute Neutrophil Count 5.21 10^3/uL (1.2-6.7); Basophils % 0.5; Eosinophils % 0.1; HCT 42.2 % (36.0-46.0); HGB 14.1 g/dL (11.2-15.7); Immature Grans % 0.3; Lymphocytes % 23.5; MCHC 33.4 % (32.0-36.0); MCV 87 fL (80-95); MPV 11.4 fL (8.0-11.0); Monocytes % 5.1; Neutrophils % 70.5; Platelet Count 203 10^3/uL (130-400); RBC 4.87 10^6/uL (3.93-5.22); RDW 13.4 % (11.7-14.6); RDW-SD 42.6 fL
== END 2023-07-13 02:07 | disposition home or self-care (01) ==
LOC: LBO 02:06
PROVIDERS: PCP Family Medicine; Visit Provider Nurse Practitioner Family
DX: F25.0 Schizoaffective disorder, bipolar type (principal); Z79.899 Other long term (current) drug therapy
CPT/HCPCS: 36415; 85025

== ENCOUNTER 2023-08-11 03:15 | Outpatient (CLI) | payer MEDICARE, BC, SELFPAY ==
[2023-08-11 11:06] LABS: Abs Immature Grans 0.01 10^3/uL (0.0-0.06); Absolute Basophil Count 0.05 10^3/uL (0.0-0.2); Absolute Eosinophil Count 0.01 10^3/uL (0.0-0.7); Absolute Lymphocyte Count 1.58 10^3/uL (1.2-3.4); Absolute Monocyte Count 0.38 10^3/uL (0.1-0.8); Absolute Neutrophil Count 4.91 10^3/uL (1.2-6.7); Basophils % 0.7; Eosinophils % 0.1; HCT 42.5 % (36.0-46.0); HGB 14.2 g/dL (11.2-15.7); Immature Grans % 0.1; Lymphocytes % 22.8; MCH 28.9 pg (27.0-33.0); MCHC 33.4 % (32.0-36.0); MCV 87 fL (80-95); MPV 11.4 fL (8.0-11.0); Monocytes % 5.5; Neutrophils % 70.8; Platelet Count 221 10^3/uL (130-400); RBC 4.91 10^6/uL (3.93-5.22); RDW 13.5 % (11.7-14.6); RDW-SD 42.5 fL; WBC 6.94 10^3/uL (4.4-10.8)
== END 2023-08-11 03:16 | disposition home or self-care (01) ==
PROVIDERS: PCP Family Medicine; Visit Provider Nurse Practitioner Family
DX: Z79.899 Other long term (current) drug therapy (principal)
CPT/HCPCS: 36415; 85025

== ENCOUNTER 2023-09-10 02:27 | Outpatient (CLI) | payer MEDICARE, BC, SELFPAY ==
[2023-09-10 10:33] LABS: Abs Immature Grans 0.02 10^3/uL (0.0-0.06); Absolute Basophil Count 0.04 10^3/uL (0.0-0.2); Absolute Eosinophil Count 0.02 10^3/uL (0.0-0.7); Absolute Lymphocyte Count 2.01 10^3/uL (1.2-3.4); Absolute Monocyte Count 0.39 10^3/uL (0.1-0.8); Absolute Neutrophil Count 4.28 10^3/uL (1.2-6.7); Basophils % 0.6; Eosinophils % 0.3; HCT 41.9 % (36.0-46.0); HGB 13.8 g/dL (11.2-15.7); Immature Grans % 0.3; Lymphocytes % 29.7; MCH 28.8 pg (27.0-33.0); MCHC 32.9 % (32.0-36.0); MCV 88 fL (80-95); MPV 11.4 fL (8.0-11.0); Monocytes % 5.8; Neutrophils % 63.3; Platelet Count 198 10^3/uL (130-400); RBC 4.79 10^6/uL (3.93-5.22); RDW 13.4 % (11.7-14.6); RDW-SD 43.3 fL; WBC 6.76 10^3/uL (4.4-10.8)
== END 2023-09-10 02:28 | disposition home or self-care (01) ==
PROVIDERS: Nurse Practitioner Family; PCP Family Medicine; Visit Provider Nurse Practitioner Family
DX: Z79.899 Other long term (current) drug therapy (principal)
CPT/HCPCS: 36415; 85025

== ENCOUNTER 2023-10-12 05:08 | Outpatient (CLI) | payer MEDICARE, BC, SELFPAY ==
[2023-10-12 10:57] LABS: Abs Immature Grans 0.01 10^3/uL (0.0-0.06); Absolute Basophil Count 0.02 10^3/uL (0.0-0.2); Absolute Eosinophil Count 0.01 10^3/uL (0.0-0.7); Absolute Lymphocyte Count 1.92 10^3/uL (1.2-3.4); Absolute Monocyte Count 0.51 10^3/uL (0.1-0.8); Absolute Neutrophil Count 5.14 10^3/uL (1.2-6.7); Basophils % 0.3; Eosinophils % 0.1; HGB 13.9 g/dL (11.2-15.7); Immature Grans % 0.1; Lymphocytes % 25.2; MCH 29.1 pg (27.0-33.0); MCHC 33.1 % (32.0-36.0); MCV 88 fL (80-95); Monocytes % 6.7; Neutrophils % 67.6; Platelet Count 199 10^3/uL (130-400); RBC 4.78 10^6/uL (3.93-5.22); RDW 13.4 % (11.7-14.6); RDW-SD 43.2 fL; WBC 7.61 10^3/uL (4.4-10.8)
== END 2023-10-12 05:09 | disposition home or self-care (01) ==
PROVIDERS: PCP Family Medicine; Visit Provider Nurse Practitioner Family
DX: Z79.899 Other long term (current) drug therapy (principal)
CPT/HCPCS: 36415; 85025

== ENCOUNTER 2023-11-05 16:38 | Outpatient (REF) | payer MEDICARE, BC, SELFPAY ==
[2023-11-05 16:45] LABS: ALT 27 U/L (14-59); AST 23 U/L (15-37); Albumin 3.9 g/dL (3.4-5.0); Alkaline Phosphatase 110 U/L (46-116); Anion Gap 8.4 mmol/L (3-11); BUN 16 mg/dL (7-18); Bilirubin, Total 0.4 mg/dL (0.2-1.0); CO2 25.6 mmol/L (21.0-32.0); CREATININE 0.9 mg/dL (0.55-1.02); Calcium 9.2 mg/dL (8.5-10.1); Chloride 105 mmol/L (98-107); Estimated GFR 73.64 (mL/min/1.73m2); Glucose 98 mg/dL (74-106); Potassium 4.3 mmol/L (3.5-5.1); Sodium 139 mmol/L (136-145); Total Protein 7.4 g/dL (6.4-8.2)
[2023-11-05 16:52] LABS: Hemoglobin A1C 5.5 % (<5.7)
[2023-11-05 17:38] LABS: Vitamin D 25 Total 20.2 ng/mL (30-100)
== END 2023-11-05 16:39 | disposition home or self-care (01) ==
LOC: NCHCN 16:38
PROVIDERS: PCP Family Medicine; Visit Provider Nurse Practitioner Family
DX: Z00.00 Encounter for general adult medical examination without abnormal findings (principal)
CPT/HCPCS: 80053; 82306; 83036

== ENCOUNTER 2023-11-11 04:27 | Outpatient (CLI) | payer MEDICARE, BC, SELFPAY ==
[2023-11-11 11:49] LABS: Abs Immature Grans 0.02 10^3/uL (0.0-0.06); Absolute Basophil Count 0.03 10^3/uL (0.0-0.2); Absolute Lymphocyte Count 2.06 10^3/uL (1.2-3.4); Absolute Monocyte Count 0.43 10^3/uL (0.1-0.8); Basophils % 0.4; HCT 41.4 % (36.0-46.0); HGB 13.4 g/dL (11.2-15.7); Immature Grans % 0.3; Lymphocytes % 29.7; MCH 28.1 pg (27.0-33.0); MCHC 32.4 % (32.0-36.0); MCV 87 fL (80-95); MPV 10.8 fL (8.0-11.0); Monocytes % 6.2; Neutrophils % 63.4; Platelet Count 193 10^3/uL (130-400); RBC 4.77 10^6/uL (3.93-5.22); RDW 13.3 % (11.7-14.6); WBC 6.94 10^3/uL (4.4-10.8)
== END 2023-11-11 04:28 | disposition home or self-care (01) ==
LOC: LBO 04:27
PROVIDERS: PCP Family Medicine; Visit Provider Nurse Practitioner Family
DX: Z79.899 Other long term (current) drug therapy (principal)
CPT/HCPCS: 36415; 85025

== ENCOUNTER 2023-12-17 04:11 | Outpatient (CLI) | payer MEDICARE, BC, SELFPAY ==
[2023-12-17 08:40] LABS: Abs Immature Grans 0.02 10^3/uL (0.0-0.06); Absolute Basophil Count 0.04 10^3/uL (0.0-0.2); Absolute Eosinophil Count 0.01 10^3/uL (0.0-0.7); Absolute Lymphocyte Count 1.63 10^3/uL (1.2-3.4); Absolute Monocyte Count 0.36 10^3/uL (0.1-0.8); Absolute Neutrophil Count 4.88 10^3/uL (1.2-6.7); Basophils % 0.6; Eosinophils % 0.1; HCT 43.4 % (36.0-46.0); HGB 13.8 g/dL (11.2-15.7); Immature Grans % 0.3; Lymphocytes % 23.5; MCH 27.7 pg (27.0-33.0); MCHC 31.8 % (32.0-36.0); MCV 87 fL (80-95); MPV 10.9 fL (8.0-11.0); Monocytes % 5.2; Neutrophils % 70.3; Platelet Count 208 10^3/uL (130-400); RBC 4.98 10^6/uL (3.93-5.22); RDW 13.3 % (11.7-14.6); RDW-SD 42.5 fL; WBC 6.94 10^3/uL (4.4-10.8)
== END 2023-12-17 04:12 | disposition home or self-care (01) ==
LOC: LBO 04:11
PROVIDERS: PCP Family Medicine; Visit Provider Nurse Practitioner Family
DX: Z79.899 Other long term (current) drug therapy (principal)
CPT/HCPCS: 36415; 85025

== ENCOUNTER 2024-01-11 03:36 | Outpatient (CLI) | payer MEDICARE, BC, SELFPAY ==
[2024-01-11 11:15] LABS: Abs Immature Grans 0.03 10^3/uL (0.0-0.06); Absolute Basophil Count 0.02 10^3/uL (0.0-0.2); Absolute Lymphocyte Count 1.58 10^3/uL (1.2-3.4); Absolute Monocyte Count 0.38 10^3/uL (0.1-0.8); Absolute Neutrophil Count 4.91 10^3/uL (1.2-6.7); Basophils % 0.3; HGB 13.3 g/dL (11.2-15.7); Immature Grans % 0.4; Lymphocytes % 22.8; MCH 28.4 pg (27.0-33.0); MCHC 32.4 % (32.0-36.0); MCV 88 fL (80-95); MPV 11.2 fL (8.0-11.0); Monocytes % 5.5; Platelet Count 191 10^3/uL (130-400); RBC 4.68 10^6/uL (3.93-5.22); RDW 13.5 % (11.7-14.6); RDW-SD 42.8 fL; WBC 6.92 10^3/uL (4.4-10.8)
== END 2024-01-11 03:37 | disposition home or self-care (01) ==
PROVIDERS: Registered Nurse; PCP Family Medicine; Visit Provider Nurse Practitioner Family
DX: F20.89 Other schizophrenia (principal); Z79.899 Other long term (current) drug therapy
CPT/HCPCS: 36415; 85025

== ENCOUNTER 2024-02-10 05:41 | Outpatient (CLI) | payer MEDICARE, BC, SELFPAY ==
[2024-02-10 11:03] LABS: Abs Immature Grans 0.03 10^3/uL (0.0-0.06); Absolute Basophil Count 0.03 10^3/uL (0.0-0.2); Absolute Lymphocyte Count 1.58 10^3/uL (1.2-3.4); Absolute Monocyte Count 0.39 10^3/uL (0.1-0.8); Absolute Neutrophil Count 5.22 10^3/uL (1.2-6.7); Basophils % 0.4; HCT 42.9 % (36.0-46.0); HGB 14.1 g/dL (11.2-15.7); Immature Grans % 0.4; Lymphocytes % 21.8; MCH 28.5 pg (27.0-33.0); MCHC 32.9 % (32.0-36.0); MCV 87 fL (80-95); MPV 11.3 fL (8.0-11.0); Monocytes % 5.4; Platelet Count 224 10^3/uL (130-400); RBC 4.95 10^6/uL (3.93-5.22); RDW 13.3 % (11.7-14.6); RDW-SD 42.2 fL; WBC 7.25 10^3/uL (4.4-10.8)
[2024-02-10 11:25] LABS: Calculated LDL 138 mg/dL (<100); Cholesterol 220 mg/dL (<200); HDL Cholesterol 59 mg/dL (40-60); Triglyceride 118 mg/dL (<150)
== END 2024-02-10 05:42 | disposition home or self-care (01) ==
PROVIDERS: PCP Family Medicine; Visit Provider Nurse Practitioner Family
DX: Z13.6 Encounter for screening for cardiovascular disorders (principal); Z79.899 Other long term (current) drug therapy
CPT/HCPCS: 36415; 80061; 85025

== ENCOUNTER 2024-03-10 01:20 | Outpatient (CLI) | payer MEDICARE, BC, SELFPAY ==
[2024-03-10 11:29] LABS: Abs Immature Grans 0.05 10^3/uL (0.0-0.06); Absolute Basophil Count 0.05 10^3/uL (0.0-0.2); Absolute Eosinophil Count 0.17 10^3/uL (0.0-0.7); Absolute Lymphocyte Count 1.61 10^3/uL (1.2-3.4); Absolute Monocyte Count 0.39 10^3/uL (0.1-0.8); Absolute Neutrophil Count 4.25 10^3/uL (1.2-6.7); Basophils % 0.8 %; Eosinophils % 2.6 %; HCT 43.4 % (36.0-46.0); HGB 14.1 g/dL (11.2-15.7); Immature Grans % 0.8 %; Lymphocytes % 24.7 %; MCH 28.6 pg (27.0-33.0); MCHC 32.5 % (32.0-36.0); MCV 88 fL (80-95); MPV 11.1 fL (8.0-11.0); Neutrophils % 65.1 %; Platelet Count 189 10^3/uL (130-400); RBC 4.93 10^6/uL (3.93-5.22); RDW 13.3 % (11.7-14.6); RDW-SD 43.1 fL; WBC 6.52 10^3/uL (4.4-10.8)
== END 2024-03-10 01:21 | disposition home or self-care (01) ==
PROVIDERS: PCP Family Medicine; Visit Provider Nurse Practitioner Family
DX: Z79.899 Other long term (current) drug therapy (principal)
CPT/HCPCS: 36415; 85025

== ENCOUNTER 2024-04-11 06:00 | Outpatient (CLI) | payer MEDICARE, BC, SELFPAY ==
[2024-04-11 16:05] LABS: Abs Immature Grans 0.02 10^3/uL (0.0-0.06); Absolute Basophil Count 0.04 10^3/uL (0.0-0.2); Absolute Eosinophil Count 0.01 10^3/uL (0.0-0.7); Absolute Lymphocyte Count 2.19 10^3/uL (1.2-3.4); Absolute Monocyte Count 0.44 10^3/uL (0.1-0.8); Absolute Neutrophil Count 5.03 10^3/uL (1.2-6.7); Basophils % 0.5 %; Eosinophils % 0.1 %; HCT 40.7 % (36.0-46.0); Immature Grans % 0.3 %; Lymphocytes % 28.3 %; MCH 28.3 pg (27.0-33.0); MCHC 31.9 % (32.0-36.0); MCV 89 fL (80-95); MPV 11.6 fL (8.0-11.0); Monocytes % 5.7 %; Neutrophils % 65.1 %; Platelet Count 196 10^3/uL (130-400); RDW 13.4 % (11.7-14.6); RDW-SD 43.7 fL; WBC 7.73 10^3/uL (4.4-10.8)
== END 2024-04-11 06:01 | disposition home or self-care (01) ==
PROVIDERS: PCP Family Medicine; Visit Provider Nurse Practitioner Family
DX: Z79.899 Other long term (current) drug therapy (principal)
CPT/HCPCS: 36415; 85025

== ENCOUNTER 2024-05-09 03:21 | Outpatient (CLI) | payer MEDICARE, BC, SELFPAY ==
[2024-05-09 12:39] LABS: Abs Immature Grans 0.02 10^3/uL (0.0-0.06); Absolute Basophil Count 0.04 10^3/uL (0.0-0.2); Absolute Lymphocyte Count 1.55 10^3/uL (1.2-3.4); Absolute Monocyte Count 0.41 10^3/uL (0.1-0.8); Absolute Neutrophil Count 3.75 10^3/uL (1.2-6.7); Basophils % 0.7 %; HCT 42.7 % (36.0-46.0); HGB 14.2 g/dL (11.2-15.7); Immature Grans % 0.3 %; Lymphocytes % 26.9 %; MCHC 33.3 % (32.0-36.0); MCV 87 fL (80-95); MPV 12.6 fL (8.0-11.0); Monocytes % 7.1 %; Platelet Count 190 10^3/uL (130-400); RDW 13.4 % (11.7-14.6); RDW-SD 42.8 fL; WBC 5.77 10^3/uL (4.4-10.8)
[2024-05-09 13:24] LABS: Calculated LDL 141 mg/dL (<100); Cholesterol 222 mg/dL (<200); HDL Cholesterol 48 mg/dL (40-60); Triglyceride 168 mg/dL (<150)
== END 2024-05-09 03:22 | disposition home or self-care (01) ==
LOC: LOS 03:21
PROVIDERS: Nurse Practitioner Family; PCP Family Medicine; Visit Provider Registered Nurse
DX: Z79.899 Other long term (current) drug therapy (principal)
CPT/HCPCS: 36415; 80061; 85025

== ENCOUNTER 2024-06-13 03:44 | Outpatient (CLI) | payer MEDICARE, BC, SELFPAY ==
--- OUTSIDE RECORDS SUMMARY | 2024-06-13 04:03 | XMS_ITS | Encounter Summary ---
Author Organization [facility] Address [address] [place] [address] Care Team Providers Care Distribution Manager Name Role Phone Unavailable Primary Care Provider Unavailabl e Encounter Details Date Type Department Care Team (Late st Contact Info) Description 09/21/1999 16:56 EST - 10/01/1999 11:[address] [facility] - Maple conversion [address] [place] [address] Christopher Toro MD [facility] [address] [place], [place] [address] Discharge Disposition: Home or Self Care Social History Tobacco Use Types Packs/Day Years Used Date Smoking Tobacco: Never Assessed Sex and Gender Information Value Date Recorded Sex Assigned at Not on file Gender Identity Not on file Sexual Orientation Not on file documented as of this encounter Discharge Disposition Disposition Code Departure Means Destination Home or Self Care documented in this encounter Plan of Treatment Not on file documented as of this encounter Procedures Procedure Name Priority Date/Time Associated Diagnosis Comments DRUG SCREEN 6 Routine 1999 19:30 EST TEST, URINE Routine 1999 19:30 EST CREATININE Routine 09/22/1999 11:23 EST HEMAGRAM & DIFF Routine 09/22/1999 11:23 EST GLUCOSE, PLASMA Routine 09/22/1999 11:23 EST BUN Routine 09/22/1999 11:23 EST ELECTROLYTES Routine 09/22/1999 11:23 EST documented in this encounter Results * TEST, URINE (1999 19:30 EST) Result-Pregnanc y Test, Ur Neg [facility] Specific [facility] 1.020 [facility] 1999 19:3 0 EST 1999 19:31 EST Christopher Toro MD URINALYSIS ORDERABLE S Performing Organization Address [facility] de Phone Number [facility] [address] [place] [address] * DRUG SCREEN 6 (1999 19:30 EST) Amphetamine Screen, Urine Negative drug screen reporting Suitable for medical purposes only. Will not detect all drugs within class. Cutoff = 1000 ng/ml [facility] Barbiturate Screen, Urine Negative drug screen reporting Suitable for medical purposes only. Will not detect all drugs within class. Cutoff = 200 ng/ml [facility] Benzodiazepine Screen, Urine Negative drug screen reporting Suitable for medical purposes only. Will not detect all drugs within class. Cutoff = 200 ng/ml [facility] Cannabinoid Scrn, Ur Negative drug screen reporting Suitable for medical purposes only. Will not detect all drugs within class. Cutoff = 50 ng/ml [facility] Cocaine Metabolites, Ur Negative drug screen reporting Suitable for medical purposes only. Will not detect all drugs within class. Cutoff = 300 ng/ml [facility] Opiate Scrn, Ur Negative drug screen reporting Suitable for medical purposes only. Will not detect all drugs within class. Cutoff = 2000 ng/ml [facility] 1999 19:3 0 EST 1999 19:31 EST Christopher Toro MD URINALYSIS ORDERABLE S Performing Organization Address [facility] de Phone Number [facility] [address] [place] [address] * (ABNORMAL) ELECTROLYTES (09/22/1999 11:23 EST) Sodium 140 136 - 145 mEq/L [facility] Potassium 3.9 3.5 - 5.0 mEq/L [facility] Chloride 107 96 - 110 mEq/L [facility] CO2 22(L) 24 - 30 mEq/L [facility] 09/22/1999 11:2 3 EST 09/22/1999 12:01 EST Christopher Toro MD CHEMISTRY & BLOOD GA S ORDERABLES Performing Organization Address [facility] de Phone Number [facility] [address] [place] [address] * GLUCOSE, PLASMA (09/22/1999 11:23 EST) Glucose, Plasma 109 70 - 110 mg/dl [facility] 09/22/1999 11:2 3 EST 09/22/1999 12:01 EST Christopher Toro MD CHEMISTRY & BLOOD GA S ORDERABLES Performing Organization Address [facility] de Phone Number [facility] [address] [place] [address] * CREATININE (09/22/1999 11:23 EST) Creatinine 0.7 0.7 - 1.5 mg/dl [facility] 09/22/1999 11:2 3 EST 09/22/1999 12:01 EST Christopher Toro MD HISTORICAL LAB FOR S Q LOAD Performing Organization Address [facility] de Phone Number [facility] [address] [place] [address] * HEMAGRAM & DIFF (09/22/1999 11:23 EST) WBC 4.37 4.0 - 12.4 K/cmm [facility] RBC 4.37 3.86 - 5.04 M/cmm [facility] Hemoglobin 13.7 11.6 - 15.2 gm/dl [facility] HCT 40.7 34.9 - 44.4 % [facility] MCV 93 81 - 98 fl [facility] MCH 31.4 26.7 - 33.3 pg [facility] MCHC 33.7 32.1 - 35.9 gm/dl [facility] PLT 188 141 - 320 K/cmm [facility] RDW-CV 13.1 11.7 - 14.6 % [facility] % Neutrophils 62.3 45.5 - 79.7 % [facility] % Lymphocytes 30.0 15.0 - 46.8 % [facility] % Monocytes 6.3 1.8 - 12.0 % [facility] % Eosinophils 0.9 0.6 - 6.9 % [facility] % Basophils 0.5 0.2 - 1.4 % [facility] ABS Neutrophils 2.73 2.20 - 8.85 K/cmm [facility] ABS Lymphs 1.31 1.09 - 3.30 K/cmm [facility] ABS Monocytes 0.27 0.1 - 0.8 K/cmm [facility] ABS Eosinophils 0.04 0.03 - 0.61 K/cmm [facility] ABS Basophils 0.02 0.01 - 0.11 K/cmm [facility] Type of Diff: Automated [facility] 09/22/1999 11:2 3 EST 09/22/1999 12:01 EST Christopher Toro MD HISTORICAL LAB FOR S Q LOAD Performing Organization Address City/[facility] Co de Phone Number [facility] [address] [place] [address] * BUN (09/22/1999 11:23 EST) BUN 18 10 - 26 mg/dl [facility] 09/22/1999 11:2 3 EST 09/22/1999 12:01 EST Christopher Toro MD CHEMISTRY & BLOOD GA S ORDERABLES Performing Organization Address City/[facility] Co de Phone Number [facility] [address] [place] [address] documented in this encounter Visit Diagnoses Not on filedocumented in this encounter
--- OUTSIDE RECORDS SUMMARY | 2024-06-13 04:03 | XMS_ITS | Encounter Summary ---
Author Organization [facility] Address [address] [place] [address] Care Team Providers Care Ticket Seller Name Role Phone Unavailable Primary Care Provider Unavailabl e Encounter Details Date Type Department Care Team (Late st Contact Info) Description 04/27/2000 Results Only [facility] - Maple conversion [address] [place] [address] Jase Martinez MD [address] [place] [address] [place] [id number] Social History Tobacco Use Types Packs/Day Years Used Date Smoking Tobacco: Never Assessed Sex and Gender Information Value Date Recorded Sex Assigned at Not on file Gender Identity Not on file Sexual Orientation Not on file documented as of this encounter Plan of Treatment Not on file documented as of this encounter Procedures Procedure Name Priority Date/Time Associated Diagnosis Comments CYTOPATHOLOGY Routine 04/27/2000 0:00 EDT documented in this encounter Results * CYTOPATHOLOGY (04/27/2000 0:00 EDT) Pathology Report: CYTOPATHOLOGY REPORT Reports generated via electronic interface contain original data; however they are lacking the format of the original report. Caution should be taken when reading/interpreti ng unformatted reports. Name: ? MAYCO NEWBY ? Accession #: ? [id number] : ? 1965 (Age: 34) ??F ?Collect Date: ? 04/27/2000 Location: ? [facility] ? Receive Date: ? 04/28/2000 Provider: ?JASE MARTINEZ MD Copy to: ? Specimen/Source: ?Conventional Pap Test, Cervix/Endocervix Last Menstrual Period: ? 03/25/00 Other: ? Additional clinical information: Normal cycle, dysmenorrhea ? SPECIMEN ADEQUACY ? Satisfactory for evaluation but limited by obscuring inflammation. GENERAL CATEGORIZATION ? Benign Cellular Changes DESCRIPTIVE DIAGNOSIS ? Reactive cellular changes associated with inflammation present (includes repair). ? Document reviewed and electronically signed by: ? HELEN VICENTE MD ? Report Date: ??05/04/2000 12:29 End of Report [facility] 04/27/2000 04/28/2000 Jase Martinez MD PATHOLOGY ORDERABLES Performing Organization Address City/State/[facility] Co de Phone Number [facility] [address] [place] [address] documented in this encounter Visit Diagnoses Not on filedocumented in this encounter
--- OUTSIDE RECORDS SUMMARY | 2024-06-13 04:03 | XMS_ITS | Encounter Summary ---
Author Organization [facility] Address [address] [place] [address] Care Team Providers Care Director Financial Systems Name Role Phone Sara Ely MD Primary Care Provider [phone] Encounter Details Date Type Department Care Team (Late st Contact Info) Description 07/26/2018 Results Only [facility] [phone] Krysta Yan, [address] [place] [address] Social History Tobacco Use Types Packs/Day Years Used Date Smoking Tobacco: Never Assessed Sex and Gender Information Value Date Recorded Sex Assigned at Not on file Gender Identity Not on file Sexual Orientation Not on file documented as of this encounter Plan of Treatment Not on file documented as of this encounter Procedures Procedure Name Priority Date/Time Associated Diagnosis Comments PAP TEST- RESULT ONLY Routine 07/26/2018 0:00 EDT documented in this encounter Results * PAP TEST- RESULT ONLY (07/26/2018 0:00 EDT) Pathology Report: CYTOPATHOLOGY REPORT Reports generated via electronic interface contain original data; however they are lacking the format of the original report. Caution should be taken when reading/interpreti ng unformatted reports. Name: ? MAYCO NEWBY ? Accession #: ? [id number] ? : ? 1965 (Age: 52) ??F ?Collect Date: ? 07/26/2018 ? Location: ? [facility] ? Receive Date: ? 07/27/2018 ? Provider: KRYSTA YAN OUTCOME ANALYST Copy to: ANGI BIRD PAC ? Final Report SPECIMEN ADEQUACY ? Satisfactory for Evaluation - transformation zone component present GENERAL CATEGORIZATION ? Negative for Intraepithelial Lesion or Malignancy ?? Last Menstrual Period: 05/21/2018 Specimen/Source: ??Pap Test, Cervix, ThinPrep Imaging System with manual evaluation Document reviewed and electronically signed by: ? Ines El, CT(ASCP) ? Report ??Date: 07/30/2018 09:29 HPV with Pap Test ? Date Ordered: ? 07/30/2018 ? Status: ?? Signed Out ?Date Complete: ? 08/02/2018 ? By: ??System Interface ? Date Reported: ? 08/02/2018 ? Interpretation RESULT: Negative for HPV. No E6 or E7 mRNA is detected from HPV types 16,18,31,33,35, 39,45,51,52,56,58, 59,66, and 68 by line builder mediated amplification. Comments Document reviewed and electronically signed by: ? System Interface ? Report date: 08/02/2018 By the signature above, the attending physician certifies that he/she has personally conducted a gross and/or microscopic examination of the described specimens and rendered or confirmed the above diagnosis. End of Report [facility] 07/26/2018 07/27/2018 Krysta Yan OUTCOME ANALYST PATHOLOGY ORDERABLES [facility] [address] [place] [address] documented in this encounter Visit Diagnoses Not on filedocumented in this encounter Care Teams Director Financial Systems Relationship Specialty Start Date End Date Sara Ely MD [facility] [address] [place], [place] [id number] PCP - General 09/05/15 documented as of this encounter
--- OUTSIDE RECORDS SUMMARY | 2024-06-13 04:03 | XMS_ITS | Encounter Summary ---
Author Organization [facility] Address [address] [place] [address] Care Team Providers Care Oak Tanner Name Role Phone Unavailable Primary Care Provider Unavailabl e Encounter Details Date Type Department Care Team (Late st Contact Info) Description 03/20/2006 Results Only [facility] - Maple conversion [address] [place] [address] Ross Arce, DO [address] [facility] [address] [place], [place] [id number] Social History Tobacco Use Types Packs/Day Years Used Date Smoking Tobacco: Never Assessed Sex and Gender Information Value Date Recorded Sex Assigned at Not on file Gender Identity Not on file Sexual Orientation Not on file documented as of this encounter Plan of Treatment Not on file documented as of this encounter Procedures Procedure Name Priority Date/Time Associated Diagnosis Comments SURGICAL PATHOLOGY Routine 03/20/2006 0:00 EDT documented in this encounter Results * SURGICAL PATHOLOGY (03/20/2006 0:00 EDT) Pathology Report: SURGICAL PATHOLOGY REPORT Reports generated via electronic interface contain original data; however they are lacking the format of the original report. Caution should be taken when reading/interpreti ng unformatted reports. Name: ? MAYCO NEWBY ? Accession #: ? [id number] ? : ? 1965 (Age: 40) ??F ? Collect Date: ? 03/20/2006 ? Location: ? [facility] ? Receive Date: ? 03/20/2006 ? Provider: ROSS ARCE DO Copy to: MARIO INGRAM MD [...] and rendered or confirmed the above diagnosis. Specimen(s) Received: ? A. Bx ascending colon (#1) B. Bx transverse colon (#2) C. Bx sigmoid (#3) D. Bx rectum (#4) Clinical History: ? Change in bowel habits. Gross Description: ? Received in [employer] labelled [place] and 1. Bx ascending colon is an irregular piece of soft tissue measuring 0.3 x 0.2 x 0.2 cm, which is entirely submitted as (A). Received in [employer]'s labelled [place] and 2. Bx transverse colon is a 0.3 x 0.3 x 0.2 cm fragment of soft tissue, which is entirely submitted as (B). Received in [employer] labelled [place] and 3. Bx sigmoid are three fragments of soft tissue ranging in size from 0.3 x 0.2 x 0.2 cm to less than 0.1 cm in all dimensions. ??They are entirely submitted as (C). Received in [facility] labelled [place] and 4. Bx rectum is a 0.3 x 0.3 x 0.3 cm fragment of soft tissue, which is entirely submitted as (D). ??(Stephy White)/charleyk End of Report [facility] 03/20/2006 03/20/2006 15: 29 EDT Ross Arce DO PATHOLOGY ORDER SUN[facility] [address] [place] [address] documented in this encounter Visit Diagnoses Not on filedocumented in this encounter
--- OUTSIDE RECORDS SUMMARY | 2024-06-13 04:03 | XMS_ITS | Encounter Summary ---
Author Organization [facility] Address [address] [place] [address] Care Team Providers Care Stiff Leg Operator Name Role Phone Unavailable Primary Care Provider Unavailabl e Encounter Details Date Type Department Care Team (Late st Contact Info) Description 08/22/1999 19:34 EDT - 09/19/1999 11:59 EST Hospital Encounter [facility] - Maple conversion [address] [place] [address] Christopher Toro MD [facility] [address] [place], [place] [address] Discharge Disposition: Left Against Medical Advice Social History Tobacco Use Types Packs/Day Years [...] Procedure Name Priority Date/Time Associated Diagnosis Comments HEMAGRAM & DIFF Routine 09/13/1999 7:35 EST CARBAMAZEPINE Routine 09/13/1999 7:35 EST URINALYSIS WITH MICROSCOPIC IF POSITIVE Routine 08/27/1999 15:00 EDT DRUG SCREEN 6 Routine 08/27/1999 15:00 EDT TEST, URINE Routine 08/27/1999 15:00 EDT BACTERIAL CULTURE, URINE Routine 08/27/1999 15:00 EDT CREATININE Routine 08/23/1999 12:10 EDT HEMAGRAM & DIFF Routine 08/23/1999 12:10 EDT GLUCOSE, PLASMA Routine 08/23/1999 12:10 EDT BUN Routine 08/23/1999 12:10 EDT TSH Routine 08/23/1999 12:10 EDT T4 FREE Routine 08/23/1999 12:10 EDT MAGNESIUM Routine 08/23/1999 12:10 EDT CALCIUM Routine 08/23/1999 12:10 EDT CARBAMAZEPINE Routine 08/23/1999 12:10 EDT HEPATIC FUNCTION PANEL (ALB,ALK PHOS,ALT,AST,DBIL,TOT DILAN,TOT PROT) Routine 08/23/1999 12:10 EDT ELECTROLYTES Routine 08/23/1999 12:10 EDT documented in this encounter Results * HEMAGRAM & DIFF (09/13/1999 7:35 EST) WBC 5.35 4.0 - 12.4 K/cmm PAN [...] 14.6 % [facility] % Neutrophils 59.8 45.5 - 79.7 % [facility] % Lymphocytes 31.0 15.0 - 46.8 % [facility] % Monocytes 6.9 1.8 - 12.0 % [facility] % Eosinophils 1.9 0.6 - 6.9 % [facility] % Basophils 0.4 0.2 - 1.4 % [facility] ABS Neutrophils 3.20 2.20 - 8.85 K/cmm [facility] ABS Lymphs 1.66 1.09 - 3.30 K/cmm [facility] ABS Monocytes 0.37 0.1 - 0.8 K/cmm [facility] ABS Eosinophils 0.10 0.03 - 0.61 K/cmm [facility] ABS Basophils 0.02 0.01 - 0.11 K/cmm [facility] Type of Diff: Automated [facility] 09/13/1999 7:35 EST 09/13/1999 7:43 EST Christopher Toro MD HISTORICAL LAB FOR S Q LOAD Performing Organization Address City/[facility] de Phone Number [facility] [address] [place] [address] * CARBAMAZEPINE (09/13/1999 7:35 EST) Carbamazepine 5.9 4.0 - 10.0 ug/ml [facility] 09/13/1999 7:35 EST 09/13/1999 7:43 EST Christopher Toro MD CHEMISTRY & BLOOD GA S ORDERABLES Performing Organization Address [facility] Co de Phone Number [facility] [address] [place] [address] * BACTERIAL CULTURE, URINE (08/27/1999 15:00 EDT) Specimen Description Urine [facility] Result 10,000 to 100,000 CFU/ml ESCHERICHIA COLI Less than 10,000 CFU/ml Mixed gram positive growth [facility] Report Status Final [id number] [facility] 08/27/1999 15:0 0 EDT 08/27/1999 20:50 EDT Narrative Organism Antibiotic Method Susceptibility 10,000 to 100,000 cfu/ml escherichia coli Ampicillin SUSCEPTIBILITY (ALFREDITO) >=32 Resistant 10,000 to 100,000 cfu/ml escherichia coli Cefazolin SUSCEPTIBILITY (ALFREDITO) <=8 Susceptible 10,000 to 100,000 cfu/ml escherichia coli Gentamicin SUSCEPTIBILITY (ALFREDITO) 1 Susceptible 10,000 to 100,000 cfu/ml escherichia coli Trimethoprim-Sulfameth oxazole SUSCEPTIBILITY (ALFREDITO) <=.5/9.5 Susceptible 10,000 to 100,000 cfu/ml escherichia coli Nitrofurantoin SUSCEPTIBILITY (ALFREDITO) <=32 Susceptible 10,000 to 100,000 cfu/ml escherichia coli Tobramycin SUSCEPTIBILITY (ALFREDITO) 1 Susceptible 10,000 to 100,000 cfu/ml escherichia coli Amikacin SUSCEPTIBILITY (ALFREDITO) <=2 Susceptible 10,000 to 100,000 cfu/ml escherichia coli Imipenem SUSCEPTIBILITY (ALFREDITO) <=4 Susceptible 10,000 to 100,000 cfu/ml escherichia coli Piperacillin SUSCEPTIBILITY (ALFREDITO) >=256 Resistant 10,000 to 100,000 cfu/ml escherichia coli Ciprofloxacin SUSCEPTIBILITY (ALFREDITO) <=0.5 Susceptible Christopher Toro MD MICROBIOLOGY - GENER AL ORDERABLES Performing Organization Address [facility] de Phone Number [facility] [address] [place] [address] * TEST, URINE (08/27/1999 15:00 EDT) Result-Pregnanc y Test, Ur Neg [facility] Specific [place] 1.015 [facility] 08/27/1999 15:0 0 EDT 08/27/1999 20:50 EDT Christopher Toro MD URINALYSIS ORDERABLE S Performing Organization Address [facility] de Phone Number [facility] [address] [place] [address] * URINALYSIS (08/27/1999 15:00 EDT) Color, UA Yellow [facility] Clarity, UA Hazy [facility] Glucose, UA Norm NORM [facility] Bilirubin, UA Neg NEG FLELC [facility] Ketones, UA Neg NEG [facility] Specific [place], Urine 1.015 1.005 - 1.02 [facility] Blood, UA Neg NEG [facility] pH, UA 7.0 5.0 - 9.0 [facility] Protein, UA Neg NEG [facility] Urobilinogen, UA Norm NORM mg/dL [facility] Nitrite, UA Neg NEG [facility] Leuk Esterase Neg NEG [facility] 08/27/1999 15:0 0 EDT 08/27/1999 20:50 EDT Christopher Toro MD URINALYSIS ORDERABLE S Performing Organization Address [facility] de Phone Number [facility] [address] [place] [address] * DRUG SCREEN 6 (08/27/1999 15:00 EDT) Amphetamine Screen, Urine Negative drug screen reporting [...] drugs within class. Cutoff = 2000 ng/ml [facility] 08/27/1999 15:0 0 EDT 08/27/1999 20:50 EDT Christopher Toro MD URINALYSIS ORDERABLE S Performing Organization Address [facility] Co de Phone Number [facility] [address] [place] [address] * TSH (08/23/1999 12:10 EDT) TSH 0.78 0.35 - 5.50 uIU/ml [facility] 08/23/1999 12:1 0 EDT 08/23/1999 12:15 EDT Christopher Toro MD CHEMISTRY & BLOOD GA S ORDERABLES Performing Organization Address [facility] Phone Number [facility] [address] [place] [address] * MAGNESIUM (08/23/1999 12:10 EDT) Magnesium 1.7 1.4 - 2.3 meq/L [facility] 08/23/1999 12:1 0 EDT 08/23/1999 12:15 EDT Christopher Toro MD CHEMISTRY & BLOOD GA S ORDERABLES Performing Organization Address [facility] Phone Number [facility] [address] [place] [address] * ELECTROLYTES (08/23/1999 12:10 EDT) Sodium 144 136 - 145 mEq/L [facility] Potassium 4.2 3.5 - 5.0 mEq/L [facility] Chloride 107 96 - 110 mEq/L [facility] CO2 29 24 - 30 mEq/L [facility] 08/23/1999 12:1 0 EDT 08/23/1999 12:15 EDT Christopher Toro MD CHEMISTRY & BLOOD GA S ORDERABLES Performing Organization Address [facility] Phone Number [facility] [address] [place] [address] * LIVER FUNCTION TESTS (08/23/1999 12:10 EDT) Albumin 3.9 3.0 - 5.5 g/dl [facility] Total Alkaline Phosphatase 56 38 - 126 U/L [facility] ALT 48 15 - 75 U/L [facility] AST 29 8 - 50 U/L [facility] Unconjugated Bilirubin 0.1 0.1 - 1.1 mg/dl [facility] Conjugated Bilirubin 0.0 0.0 - 0.3 mg/dl [facility] Bilirubin, Total 0.4 0.2 - 1.3 mg/dl [facility] 08/23/1999 12:1 0 EDT 08/23/1999 12:15 EDT Christopher Toro MD CHEMISTRY & BLOOD GA S ORDERABLES Performing Organization Address City/[facility] Co de Phone Number [facility] [address] [place] [address] * (ABNORMAL) GLUCOSE, PLASMA (08/23/1999 12:10 EDT) Glucose, Plasma 59(L) 70 - 110 mg/dl [facility] 08/23/1999 12:1 0 EDT 08/23/1999 12:15 EDT Christopher Toro MD CHEMISTRY & BLOOD GA S ORDERABLES Performing Organization Address [facility] Co de Phone Number [facility] [address] [place] [address] * T4 FREE (08/23/1999 12:10 EDT) Free T4 1.3 0.8 - 1.8 ng/dl [facility] 08/23/1999 12:1 0 EDT 08/23/1999 12:15 EDT Christopher Toro MD CHEMISTRY & BLOOD GA S ORDERABLES Performing Organization Address City/[facility] Co de Phone Number [facility] [address] [place] [address] * CREATININE (08/23/1999 12:10 EDT) Creatinine 0.8 0.7 - 1.5 mg/dl [facility] 08/23/1999 12:1 0 EDT 08/23/1999 12:15 EDT Christopher Toro MD HISTORICAL LAB FOR S Q LOAD [facility] [address] [place] [address] * (ABNORMAL) HEMAGRAM & DIFF (08/23/1999 12:10 EDT) WBC 4.24 4.0 - 12.4 K/cmm PAN [...] - 35.9 gm/dl [facility] PLT 137(L) 141 - 320 K/cmm [facility] RDW-CV 12.6 11.7 - 14.6 % [facility] % Neutrophils 57.8 45.5 - 79.7 % [facility] % Lymphocytes 32.5 15.0 - 46.8 % [facility] % Monocytes 7.8 1.8 - 12.0 % [facility] % Eosinophils 1.3 0.6 - 6.9 % [facility] % Basophils 0.6 0.2 - 1.4 % PAN [...] of Diff: Automated JONATAN NELSON [facility] 08/23/1999 12:1 0 EDT 08/23/1999 12:15 EDT Christopher Toro MD HISTORICAL LAB FOR S Q LOAD Performing Organization Address City/[facility] Co de Phone Number [facility] [address] [place] [address] * (ABNORMAL) CARBAMAZEPINE (08/23/1999 12:10 EDT) Carbamazepine 1.3(L) 4.0 - 10.0 ug/ml [facility] 08/23/1999 12:1 0 EDT 08/23/1999 12:15 EDT Christopher Toro MD CHEMISTRY & BLOOD GA S ORDERABLES Performing Organization Address [facility] Co de Phone Number [facility] [address] [place] [address] * CALCIUM (08/23/1999 12:10 EDT) Calcium 9.0 8.5 - 10.5 mg/dl [facility] Albumin 3.9 3.0 - 5.5 g/dl [facility] Calculated Calcium 9.5 8.5 - 10.5 mg/dl [facility] 08/23/1999 12:1 0 EDT 08/23/1999 12:15 EDT Christopher Toro MD CHEMISTRY & BLOOD GA S ORDERABLES Performing Organization Address [facility] Co de Phone Number [facility] [address] [place] [address] * BUN (08/23/1999 12:10 EDT) BUN 16 10 - 26 mg/dl [facility] 08/23/1999 12:1 0 EDT 08/23/1999 12:15 EDT Christopher Toro MD CHEMISTRY & BLOOD GA S ORDERABLES Performing Organization Address [facility]/ZIP Co de Phone Number [facility] [address] [place] [address] documented in this encounter Visit Diagnoses Not on filedocumented in this encounter
--- OUTSIDE RECORDS SUMMARY | 2024-06-13 04:03 | XMS_ITS | Encounter Summary ---
Author Organization [facility] Address [address] [place] [address] Care Team Providers Care Secretary Specialist Name Role Phone Unavailable Primary Care Provider Unavailabl e Encounter Details Date Type Department Care Team (Late st Contact Info) Description 04/28/2007 Results Only [facility] - Maple conversion [address] [place] [address] Jeancarlos Grossman MD [facility] [address] [place] [address] Social History Tobacco Use Types Packs/Day Years Used Date Smoking Tobacco: Never Assessed Sex and Gender Information Value Date Recorded Sex Assigned at Not on file Gender Identity Not on file Sexual Orientation Not on file documented as of this encounter Plan of Treatment Not on file documented as of this encounter Procedures Procedure Name Priority Date/Time Associated Diagnosis Comments CYTOPATHOLOGY Routine 04/28/2007 0:00 EDT documented in this encounter Results * CYTOPATHOLOGY (04/28/2007 0:00 EDT) Pathology Report: CYTOPATHOLOGY REPORT Reports generated via electronic interface contain original data; however they are lacking the format of the original report. Caution should be taken when reading/interpreti ng unformatted reports. Name: ? MAYCO NEWBY ? Accession #: ? [id number] : ? 1965 (Age: 41) ??F ?Collect Date: ? 04/28/2007 Location: ? [facility] ? Receive Date: ? 04/30/2007 Provider: ?JEANCARLOS GROSSMAN MD Copy to: ? Specimen/Source: ?ThinPrep Pap Test, Cervix/Endocervix, processed on [employer] ThinPrep Imaging System, with manual evaluation Last Menstrual Period: ? 04/08/07 Other: ? HPVA - HPV testing requested if ASC-US on the current ThinPrep Pap test. ? SPECIMEN ADEQUACY ? Satisfactory for Evaluation - transformation zone component present GENERAL CATEGORIZATION ? Negative for Intraepithelial Lesion or Malignancy INTERPRETATION ? Fungal organisms present morphologically consistent with Carina species. ? Document reviewed and electronically signed by: ? TUYET Pederson(ASCP) ? Report Date: ??05/10/2007 16:31 End of Report [facility] 04/28/2007 04/30/2007 Jeancarlos Grossman MD PATHOLOGY ORDERABLES Performing Organization Address City/State/[facility] Co de Phone Number [facility] [address] [place] [address] documented in this encounter Visit Diagnoses Not on filedocumented in this encounter
--- OUTSIDE RECORDS SUMMARY | 2024-06-13 04:03 | XMS_ITS | Clinical Summary ---
Author Organization [facility] Address [address] [place] [address] Care Team Providers Care Wireless Sales Manager Name Role Phone Sara Ely MD Primary Care Provider [phone] Social History Tobacco Use Types Packs/Day Years Used Date Smoking Tobacco: Never Assessed Sex and Gender Information Value Date Recorded Sex Assigned at Not on file Gender Identity Not on file Sexual Orientation Not on file Plan of Treatment Health Maintenance Due Date Last Done Comments Hepatitis C Screen 1965 Hepatitis B Vaccine (1 of 3 - 19+ 3-dose series) 09/26 COVID-19 Vaccine ( season) 2023 Care Teams Wireless Sales Manager Relationship Specialty Start Date End Date Sara Ely MD [facility] [address] [place], [place] [address] PCP - General 09/05/15
--- OUTSIDE RECORDS SUMMARY | 2024-06-13 04:03 | XMS_ITS | Encounter Summary ---
Author Organization [facility] Address [address] [place] [address] Care Team Providers Care Film Replacement Orderer Name Role Phone Unavailable Primary Care Provider Unavailabl e Encounter Details Date Type Department Care Team (Late st Contact Info) Description 01/05/2004 Results Only [facility] - Maple conversion [address] [place] [address] Jase Martinez MD [address] [place] [address] [place] [phone] Social History Tobacco Use Types Packs/Day Years Used Date Smoking Tobacco: Never Assessed Sex and Gender Information Value Date Recorded Sex Assigned at Not on file Gender Identity Not on file Sexual Orientation Not on file documented as of this encounter Plan of Treatment Not on file documented as of this encounter Procedures Procedure Name Priority Date/Time Associated Diagnosis Comments CYTOPATHOLOGY Routine 01/05/2004 0:00 EST documented in this encounter Results * CYTOPATHOLOGY (01/05/2004 0:00 EST) Pathology Report: CYTOPATHOLOGY REPORT Reports generated via electronic interface contain original data; however they are lacking the format of the original report. Caution should be taken when reading/interpreti ng unformatted reports. Name: ? MAYCO NEWBY ? Accession #: ? [id number] : ? 1965 (Age: 38) ??F ?Collect Date: ? 01/05/2004 Location: ? [facility] ? Receive Date: ? 01/08/2004 Provider: ?JASE MARTINEZ MD Copy to: ? Specimen/Source: ?Conventional Pap Test, Cervix/Endocervix Last Menstrual Period: ? 12/30/03 Menstrual/Pregnanc y Status: ? Regular ? SPECIMEN ADEQUACY ? Satisfactory for Evaluation - transformation zone component present GENERAL CATEGORIZATION ? Negative for Intraepithelial Lesion or Malignancy ? Document reviewed and electronically signed by: ? TUYET White(ASCP) ? Report Date: ??01/11/2004 11:14 End of Report [facility] 01/05/2004 01/08/2004 Jase Martinez MD PATHOLOGY ORDERABLES [facility] [address] [place] [address] documented in this encounter Visit Diagnoses Not on filedocumented in this encounter
--- OUTSIDE RECORDS SUMMARY | 2024-06-13 04:03 | XMS_ITS | Encounter Summary ---
Author Organization [facility] Address [address] [place] [address] Care Team Providers Care Junior Software Developer Name Role Phone Unavailable Primary Care Provider Unavailabl e Encounter Details Date Type Department Care Team (Late st Contact Info) Description 05/09/2002 Results Only [facility] - Maple conversion [address] [place] [address] Jase Martinez MD [address] [place] [address] [place] [phone] Social History Tobacco Use Types Packs/Day Years Used Date Smoking Tobacco: Never Assessed Sex and Gender Information Value Date Recorded Sex Assigned at Not on file Gender Identity Not on file Sexual Orientation Not on file documented as of this encounter Plan of Treatment Not on file documented as of this encounter Procedures Procedure Name Priority Date/Time Associated Diagnosis Comments CYTOPATHOLOGY Routine 05/09/2002 0:00 EDT documented in this encounter Results * CYTOPATHOLOGY (05/09/2002 0:00 EDT) Pathology Report: CYTOPATHOLOGY REPORT Reports generated via electronic interface contain original data; however they are lacking the format of the original report. Caution should be taken when reading/interpreti ng unformatted reports. Name: ? MAYCO NEWBY ? Accession #: ? [id number] : ? 1965 (Age: 36) ??F ?Collect Date: ? 05/09/2002 Location: ? [facility] ? Receive Date: ? 05/11/2002 Provider: ?JASE MARTINEZ MD Copy to: ? Specimen/Source: ?Conventional Pap Test, Cervix/Endocervix Last Menstrual Period: ? 04/29/02 Menstrual/Pregnanc y Status: ? Irregular ? SPECIMEN ADEQUACY ? Satisfactory for Evaluation - transformation zone component present - obscuring inflammation GENERAL CATEGORIZATION ? Negative for Intraepithelial Lesion or Malignancy ? Document reviewed and electronically signed by: ? MONTSERRAT Desir(ASCP) ? Report Date: ??05/12/2002 13:35 End of Report [facility] 05/09/2002 05/11/2002 Jase Martinez MD PATHOLOGY ORDERABLES [facility] [address] [place] [address] documented in this encounter Visit Diagnoses Not on filedocumented in this encounter
--- OUTSIDE RECORDS SUMMARY | 2024-06-13 04:03 | XMS_ITS | Encounter Summary ---
Author Organization [facility] Address [address] [place] [address] Care Team Providers Care Retail Coverage Merchandiser Name Role Phone Unavailable Primary Care Provider Unavailabl e Encounter Details Date Type Department Care Team (Late st Contact Info) Description 04/21/2001 Results Only [facility] - Maple conversion [address] [place] [address] Jase Martinez MD [address] [place] [address] [place] [phone] Social History Tobacco Use Types Packs/Day Years Used Date Smoking Tobacco: Never Assessed Sex and Gender Information Value Date Recorded Sex Assigned at Not on file Gender Identity Not on file Sexual Orientation Not on file documented as of this encounter Plan of Treatment Not on file documented as of this encounter Procedures Procedure Name Priority Date/Time Associated Diagnosis Comments CYTOPATHOLOGY Routine 04/21/2001 0:00 EDT documented in this encounter Results * CYTOPATHOLOGY (04/21/2001 0:00 EDT) Pathology Report: CYTOPATHOLOGY REPORT Reports generated via electronic interface contain original data; however they are lacking the format of the original report. Caution should be taken when reading/interpreti ng unformatted reports. Name: ? MAYCO NEWBY ? Accession #: ? [id number] : ? 1965 (Age: 35) ??F ?Collect Date: ? 04/21/2001 Location: ? [facility] ? Receive Date: ? 04/26/2001 Provider: ?JASE MARTINEZ MD Copy to: ? Specimen/Source: ?Conventional Pap Test, Cervix/Endocervix Last Menstrual Period: ? 04/05/01 Menstrual/Pregnanc y Status: ? Irregular ? SPECIMEN ADEQUACY ? Satisfactory for evaluation. GENERAL CATEGORIZATION ? Within Normal Limits ? Document reviewed and electronically signed by: ? Karely Poole, ??[place](ASCP) ? Report Date: ??04/27/2001 13:38 End of Report [facility] 04/21/2001 04/26/2001 Jase Martinez MD PATHOLOGY ORDERABLES [facility] [address] [place] [address] documented in this encounter Visit Diagnoses Not on filedocumented in this encounter
--- OUTSIDE RECORDS SUMMARY | 2024-06-13 04:03 | XMS_ITS | Encounter Summary ---
Author Organization [facility] Address [address] [place] [address] Care Team Providers Care Remote Advisor Name Role Phone Unavailable Primary Care Provider Unavailabl e Encounter Details Date Type Department Care Team (Late st Contact Info) Description 11/21/2009 Orders Only [facility] - [facility] ([facility]) [address] [place], [place] [address] Jeancarlos Ely MD [facility] [address] [place], [place] [id number] Social History Tobacco Use Types Packs/Day Years Used Date Smoking Tobacco: Never Assessed Sex and Gender Information Value Date Recorded Sex Assigned at Not on file Gender Identity Not on file Sexual Orientation Not on file documented as of this encounter Plan of Treatment Not on file documented as of this encounter Procedures Procedure Name Priority Date/Time Associated Diagnosis Comments HPV DETECTION, HIGH RISK TYPES Routine 11/21/2009 14:52 EST CYTOPATHOLOGY Routine 11/21/2009 0:00 EST documented in this encounter Results * HUMAN PAPILLOMA VIRUS DNA TEST (11/21/2009 14:52 EST) Specimen Description Cervix, ThinPrep vial [facility] Result Negative for HPV types 16, 18, 31, 33, 35, 39, 45, 51, 52, 56, 58, 59, and 68. [facility] Report Status Final 11/27/2009 [facility] 11/21/2009 14:5 2 EST 11/23/2009 14:52 EST Jeancarlos Ely MD MICROBIOLOGY - GENER AL ORDERABLES [facility] [address] [address] * CYTOPATHOLOGY (11/21/2009 0:00 EST) Pathology Report: CYTOPATHOLOGY REPORT ? Reports generated via electronic interface contain original data; ? however they are lacking the format of the original report. ? Caution should be taken when reading/interpreti ng unformatted reports. ? Name: ? MCHARG, MAYCO ? Accession #: ? [id number] ? : ? 1965 (Age: 44) ??F ?Collect Date: ? 11/21/2009 ? Location: ? [facility] ? Receive Date: ? 11/22/2009 ? Provider: ?JEANCARLOS READY MD ? Copy to: ? Specimen/Source: ?Pap Test, Cervix/Endocervix, ThinPrep Imaging System ? with manual evaluation ? Last Menstrual Period: ? 12/20/09 ? Hormonal/Contracep tive Status: ? Tubal ligation ? Other: ? HPVDX - HPV testing requested regardless of diagnosis on current ThinPrep Pap ?? test. ? SPECIMEN ADEQUACY ? Satisfactory for Evaluation ? - transformation zone component present ? GENERAL CATEGORIZATION ? Negative for Intraepithelial Lesion or Malignancy ? Document reviewed and electronically signed by: ? Mello Rivas, [place](ASCP) ? Report Date: ??11/23/2009 11:40 ? End of Report ? [facility] 11/21/2009 11/22/2009 Jeancarlos Ely MD PATHOLOGY ORDERABLES Performing Organization Address City/State/[facility] Co de Phone Number [facility] [address] [place] [address] documented in this encounter Visit Diagnoses Not on filedocumented in this encounter
--- OUTSIDE RECORDS SUMMARY | 2024-06-13 04:03 | XMS_ITS | Referral Summary ---
Author Organization [facility] Address [address] [place] [address] Care Team Providers Care System Technologist Name Role Phone Sara Ely MD Primary Care Provider [phone] Social History Tobacco Use Types Packs/Day Years Used Date Smoking Tobacco: Never Assessed Sex and Gender Information Value Date Recorded Sex Assigned at Not on file Gender Identity Not on file Sexual Orientation Not on file Plan of Treatment Not on file Care Teams System Technologist Relationship Specialty Start Date End Date Sara Ely MD [facility] [address] [place], [place] [address] PCP - General 09/05/15
--- OUTSIDE RECORDS SUMMARY | 2024-06-13 04:03 | XMS_ITS | Encounter Summary ---
Author Organization [facility] Address [address] [place] [address] Care Team Providers Care Electronic Plotting System Operator Name Role Phone Unavailable Primary Care Provider Unavailabl e Encounter Details Date Type Department Care Team (Late st Contact Info) Description 10/21/1999 13:24 EST - 10/31/1999 11:59 EST Hospital Encounter [facility] [address] [place] [address] Christopher Toro MD [facility] [address] [place], [place] [address] Discharge Disposition: Left Against Medical Advice Social [...] Procedure Name Priority Date/Time Associated Diagnosis Comments CARBAMAZEPINE Routine 10/30/1999 8:30 EST URINALYSIS WITH MICROSCOPIC IF POSITIVE Routine 10/24/1999 10:10 EST DRUG SCREEN 6 Routine 10/24/1999 10:10 EST TEST, URINE Routine 10/24/1999 10:10 EST CREATININE Routine 10/22/1999 7:30 EST HEMAGRAM & DIFF Routine 10/22/1999 7:30 EST GLUCOSE, PLASMA Routine 10/22/1999 7:30 EST BUN Routine 10/22/1999 7:30 EST TSH Routine 10/22/1999 7:30 EST T4 FREE Routine 10/22/1999 7:30 EST ELECTROLYTES Routine 10/22/1999 7:30 EST documented in this encounter Results * CARBAMAZEPINE (10/30/1999 8:30 EST) Carbamazepine 4.1 4.0 - 10.0 ug/ml [facility] 10/30/1999 8:30 EST 10/30/1999 8:35 EST Christopher Toro MD CHEMISTRY & BLOOD GA S ORDERABLES Performing Organization Address [facility] de Phone Number [facility] [address] [place] [address] * TEST, URINE (10/24/1999 10:10 EST) Result-Pregnanc y Test, Ur Neg [facility] Specific [place] 1.010 [facility] 10/24/1999 10:1 0 EST 10/24/1999 10:10 EST Chirstopher Toro MD URINALYSIS ORDERABLE S Performing Organization Address [facility] de Phone Number [facility] [address] [place] [address] * (ABNORMAL) URINALYSIS (10/24/1999 10:10 EST) Color, UA Yellow [facility] Clarity, UA Clear [facility] Glucose, UA Norm NORM [facility] Bilirubin, UA Neg NEG [facility] Ketones, UA Neg NEG [facility] Specific [place], Urine 1.010 1.005 - 1.02 [facility] Blood, UA Neg NEG [facility] pH, UA 7.0 5.0 - 9.0 [facility] Protein, UA Trace(A) NEG [facility] Urobilinogen, UA Norm NORM mg/dL [facility] Nitrite, UA Neg NEG [facility] Leuk Esterase Neg NEG [facility] 10/24/1999 10:1 0 EST 10/24/1999 10:10 EST Christopher Toro MD URINALYSIS ORDERABLE S Performing Organization Address [facility] de Phone Number [facility] [address] [place] [address] * DRUG SCREEN 6 (10/24/1999 10:10 EST) Amphetamine Screen, Urine Negative drug screen reporting Suitable for medical purposes only. Will not detect all drugs within class. Cutoff = 1000 ng/ml [facility] Barbiturate Screen, Urine Negative drug screen [...] drugs within class. Cutoff = 2000 ng/ml [facility] 10/24/1999 10:1 0 EST 10/24/1999 10:10 EST Christopher Toro MD URINALYSIS ORDERABLE S Performing Organization Address [facility] de Phone Number [facility] [address] [place] [address] * TSH (10/22/1999 7:30 EST) TSH 0.95 0.35 - 5.50 uIU/ml [facility] 10/22/1999 7:30 EST 10/22/1999 7:49 EST Christopher Toro MD CHEMISTRY & BLOOD GA S ORDERABLES Performing Organization Address [facility] Co de Phone Number [facility] [address] [place] [address] * ELECTROLYTES (10/22/1999 7:30 EST) Sodium 142 136 - 145 mEq/L [facility] Potassium 4.4 3.5 - 5.0 mEq/L [facility] Chloride 107 96 - 110 mEq/L [facility] CO2 28 24 - 30 mEq/L [facility] 10/22/1999 7:30 EST 10/22/1999 7:49 EST Christopher Toro MD CHEMISTRY & BLOOD GA S ORDERABLES Performing Organization Address [facility] de Phone Number [facility] [address] [place] [address] * GLUCOSE, PLASMA (10/22/1999 7:30 EST) Glucose, Plasma 89 70 - 110 mg/dl [facility] 10/22/1999 7:30 EST 10/22/1999 7:49 EST Christopher Toro MD CHEMISTRY & BLOOD GA S ORDERABLES Performing Organization Address [facility] Co de Phone Number [facility] [address] [place] [address] * (ABNORMAL) T4 FREE (10/22/1999 7:30 EST) Free T4 0.7(L) 0.8 - 1.8 ng/dl [facility] 10/22/1999 7:30 EST 10/22/1999 7:49 EST Christopher Toro MD CHEMISTRY & BLOOD GA S ORDERABLES Performing Organization Address [facility] Co de Phone Number [facility] [address] [place] [address] * CREATININE (10/22/1999 7:30 EST) Creatinine 0.8 0.7 - 1.5 mg/dl [facility] 10/22/1999 7:30 EST 10/22/1999 7:49 EST Christopher Toro MD HISTORICAL LAB FOR S Q LOAD [facility] [address] [place] [address] * (ABNORMAL) HEMAGRAM & DIFF (10/22/1999 7:30 EST) WBC 4.02 4.0 - 12.4 K/cmm PAN [...] - 35.9 gm/dl [facility] PLT 123(L) 141 - 320 K/cmm [facility] RDW-CV 11.8 11.7 - 14.6 % [facility] % Neutrophils 50.6 45.5 - 79.7 % [facility] % Lymphocytes 36.4 15.0 - 46.8 % [facility] % Monocytes 7.9 1.8 - 12.0 % [facility] % Eosinophils 4.6 0.6 - 6.9 % [facility] % Basophils 0.5 0.2 - 1.4 % [facility] ABS Neutrophils 2.03(L) 2.20 - 8.85 K/cmm [facility] ABS Lymphs 1.46 1.09 - 3.30 K/cmm [facility] ABS Monocytes 0.32 0.1 - 0.8 K/cmm [facility] ABS Eosinophils 0.19 0.03 - 0.61 K/cmm [facility] ABS Basophils 0.02 0.01 - 0.11 K/cmm [facility] Type of Diff: Automated [facility] 10/22/1999 7:30 EST 10/22/1999 7:49 EST Christopher Toro MD HISTORICAL LAB FOR S Q LOAD Performing Organization Address City/[facility] Co de Phone Number [facility] [address] [place] [address] * BUN (10/22/1999 7:30 EST) BUN 17 10 - 26 mg/dl [facility] 10/22/1999 7:30 EST 10/22/1999 7:49 EST Christopher Toro MD CHEMISTRY & BLOOD GA S ORDERABLES Performing Organization Address [facility] Co de Phone Number [facility] [address] [place] [address] documented in this encounter Visit Diagnoses Not on filedocumented in this encounter
--- OUTSIDE RECORDS SUMMARY | 2024-06-13 04:03 | XMS_ITS | Encounter Summary ---
Author Organization [facility] Address [address] [place] [address] Care Team Providers Care Advanced Developer Name Role Phone Sara Ely MD Primary Care Provider Encounter Details Date Type Department Care Team (Late st Contact Info) Description 09/03/2021 Lab Requisition [facility] Pathology & Laboratory Medicine - [address] [address] Outr Resulting Lab, Provider Social History Tobacco Use Types Packs/Day Years Used Date Smoking Tobacco: Never Assessed Sex and Gender Information Value Date Recorded Sex Assigned at Not on file Gender Identity Not on file Sexual Orientation Not on file documented as of this encounter Plan of Treatment Not on file documented as of this encounter Procedures Procedure Name Priority Date/Time Associated Diagnosis Comments T3 FREE Routine 09/03/2021 10:23 EDT documented in this encounter Results * T3 FREE (09/03/2021 10:23 EDT) T3, Free 2.9 2.8 - 5.3 pg/mL 09/03/2021 17:10 EDT [facility] Blood VENOUS BLOOD / Unknown 09/03/2021 10:23 EDT 09/03/2021 16:26 EDT Provider Outr Resulting Lab CHEMISTRY & BLOOD GAS ORDERABLES [facility] [address] [place] [address] documented in this encounter Visit Diagnoses Not on filedocumented in this encounter Care Teams Advanced Developer Relationship Specialty Start Date End Date Sara Ely MD [facility] [address] [place] [address] PCP - General 09/05/15 documented as of this encounter
--- OUTSIDE RECORDS SUMMARY | 2024-06-13 04:03 | XMS_ITS | Encounter Summary ---
Author Organization [facility] Address [address] [place] [address] Care Team Providers Care Liaison Officer Name Role Phone Unavailable Primary Care Provider Unavailabl e Encounter Details Date Type Department Care Team (Late st Contact Info) Description 01/21/2005 Results Only [facility] - [facility] [address] [place] [address] Jase Martinez MD [address] [facility] [address] [place] [address] [place] [phone] Social History Tobacco Use Types Packs/Day Years Used Date Smoking Tobacco: Never Assessed Sex and Gender Information Value Date Recorded Sex Assigned at Not on file Gender Identity Not on file Sexual Orientation Not on file documented as of this encounter Plan of Treatment Not on file documented as of this encounter Procedures Procedure Name Priority Date/Time Associated Diagnosis Comments CYTOPATHOLOGY Routine 01/21/2005 0:00 EST documented in this encounter Results * CYTOPATHOLOGY (01/21/2005 0:00 EST) Pathology Report: CYTOPATHOLOGY REPORT Reports generated via electronic interface contain original data; however they are lacking the format of the original report. Caution should be taken when reading/interpreti ng unformatted reports. Name: ? MAYCO NEWBY ? Accession #: ? [id number] : ? 1965 (Age: 39) ??F ?Collect Date: ? 01/21/2005 Location: ? [facility] ? Receive Date: ? 01/22/2005 Provider: ?JASE MARTINEZ MD Copy to: ? Specimen/Source: ?ThinPrep Pap Test, Cervix/Endocervix Last Menstrual Period: ? 01/10/05 ? SPECIMEN ADEQUACY ? Satisfactory for Evaluation - transformation zone component present GENERAL CATEGORIZATION ? Negative for Intraepithelial Lesion or Malignancy ? Document reviewed and electronically signed by: ? Lala Young, SCT(ASCP) ? Report Date: ??01/23/2005 16:02 End of Report [facility] 01/21/2005 01/22/2005 Jase Martinez MD PATHOLOGY ORDERABLES [facility] [address] [place] [address] documented in this encounter Visit Diagnoses Not on filedocumented in this encounter
--- OUTSIDE RECORDS SUMMARY | 2024-06-13 04:04 | XMS_ITS | Data Portability ---
Author Organization MD - [facility] [place] [address] Assessment Encounter Date Assessment Date Assessment LastModified by Organization Details LastModified Time 10/15/2023 10/15/2023 Patient presente d to office today for their Medicare Annual Wellness Visit. Education was provided on healthy nutrition, including a diet rich in fruits and vegetables, minimizing simple carbohydrates, salt, and saturated fats. Encouraged regular cardiovascular exercise such as walking at least 30 minutes daily, 5 times per week. Emphasized preventive health measures and educated pt on fall prevention and community-based lifestyle interventions to help reduce health risks and promote healthy living. [email or web address] Not available 10/22/2023 20:36:33 Plan of Treatment Reminders Order Date Submit Date Provider Last Modified By Organization Details Last Modified Time Details Appointments Medicare Annual Wellness 40 2023 02:30P M Not available Not available Not available Lab lipid panel, blood - please do with February 2024 routine labs 2022 024 [email or web address] [facility] ([facility]), [address] [place] [address] [place], [address], 02/12/2024 16:37:25 CMP, serum or plasma 2022 [email or web address] [facility] ([facility]), [address] [place] [address] [place], [address], 11/05/2023 16:49:14 HbA1c (hemoglob in A1c), blood 2022 [email or web address] [facility] ([facility]), [address] [place] [address] [place], [address], 11/24/2023 09:46:49 noninvasi ve colorecta l cancer DNA + occult blood screening , QL, stool 2022 024 [email or web address] [facility] (Cologuard Orders Only), [address], [place], [address], 05/18/2024 13:32:35 vitamin D, 25-hydrox y, total, serum 2022 024 [facility] ([facility]), [address] [place] [address] [place], [address], 11/05/2023 17:40:23 Referral None recorded. Procedures removal of skin tags, multiple fibrocuta neous tags (PROC) 2023 024 [email or web address] (Registration ), [address] [place] [address] [place], [address], 11/24/2023 13:36:38 Surgeries None recorded. Imaging None recorded. Medication Orders None recorded. Patient TargetsNo targets recorded. Patient Instructions Encounter Date Encounter Id Patient Instructions Last Modified By Organization Details Last Modified Time 10/15/2023 [id number] - I will send lab orders to [facility] for second week of November. When you go there, please ask if they have orders from [facility]. - Please schedule a nurse visit for your second Shingrix vaccine at your convenience, or you can get this at your pharmacy. You got your first dose on 10/31/2021 - For bowels, can take MiraLAX powder as needed, adjusting the dose to allow for normal, formed stool about every other day. If your stools are getting harder, smaller, less frequent, add the MiraLAX, if normal, can hold the dose. Stay well hydrated - your urine should be clear and light yellow in color. - Follow up in 1 year, sooner as needed. We will plan mammogram at that time. - I am happy to do your Pap smear any time - please call to schedule. 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 ( recommended by Eduard Vaughn as pt has been stable for many years) see pt case 11/23/23 Referring Physician: Smith Morejon, Family Medicine, Encounter Date: 11/23/2023 Results Created Date Observation Date Name Description Value Unit Range Abnormal Flag LastModifiedBy Organization Detail LastModifiedTime 10/12/2010/12/2023 COMPL ETE BLOOD COUNT W/DIF F WBC 7.61 10_3/ uL 4.4-10 .8 normal Not Available [address] [place], [address] 10/12/2023 11:00:24 10/12/20 23 10/12/2023 COMPL ETE BLOOD COUNT W/DIF F RBC 4.78 10_6/ uL 3.93-5 .22 normal Not Available [address] [place], [address] 10/12/2023 11:00:24 10/12/20 23 10/12/2023 COMPL ETE BLOOD COUNT W/DIF F HGB 13.9 g/dL 11.2-1 5.7 normal Not Available [address] [place], [address] 10/12/2023 11:00:24 10/12/20 23 10/12/2023 COMPL ETE BLOOD COUNT W/DIF F HCT 42.0 % 36.0-4 6.0 normal Not Available [address] [place], [address] 10/12/2023 11:00:24 10/12/20 23 10/12/2023 COMPL ETE BLOOD COUNT W/DIF F MCV 88 fL 80-95 normal Not Available [address] [place], [address] 10/12/2023 11:00:24 10/12/20 23 10/12/2023 COMPL ETE BLOOD COUNT W/DIF F MCH 29.1 pg 27.0-3 3.0 normal Not Available [address] [place], [address] 10/12/2023 11:00:24 10/12/20 23 10/12/2023 COMPL ETE BLOOD COUNT W/DIF F MCHC 33.1 % 32.0-3 6.0 normal Not Available [address] [place], [address] 10/12/2023 11:00:24 10/12/20 23 10/12/2023 COMPL ETE BLOOD COUNT W/DIF F RDW 13.4 % 11.7-1 4.6 normal Not Available [address] [place], [address] 10/12/2023 11:00:24 10/12/20 23 10/12/2023 COMPL ETE BLOOD COUNT W/DIF F platelet count 199 10_3/ uL 130-40 0 normal Not Available [address] [place], [address] 10/12/2023 11:00:24 10/12/20 23 10/12/2023 COMPL ETE BLOOD COUNT W/DIF F MPV 12.0 fL 8.0-11 .0 high Not Available [address] [place], [address] 10/12/2023 11:00:24 10/12/20 23 10/12/2023 COMPL ETE BLOOD COUNT W/DIF F neutrophils % 67.6 Not Available [address] [place], [address] 10/12/2023 11:00:24 10/12/20 23 10/12/2023 COMPL ETE BLOOD COUNT W/DIF F lymphocytes % 25.2 Not Available [address] [place], [address] 10/12/2023 11:00:24 10/12/20 23 10/12/2023 COMPL ETE BLOOD COUNT W/DIF F monocytes % 6.7 Not Available Elmo [email or web address] [address] [place], [address] 10/12/2023 11:00:24 10/12/20 23 10/12/2023 COMPL ETE BLOOD COUNT W/DIF F eosinophils % 0.1 Not Available [address] [place], [address] 10/12/2023 11:00:24 10/12/20 23 10/12/2023 COMPL ETE BLOOD COUNT W/DIF F basophils % 0.3 Not Available Madiqueenie [email or web address] [address] [place], [address] 10/12/2023 11:00:24 10/12/20 23 10/12/2023 COMPL ETE BLOOD COUNT W/DIF F immature grans % 0.1 Not Available [address] [place], [address] 10/12/2023 11:00:24 10/12/20 23 10/12/2023 COMPL ETE BLOOD COUNT W/DIF F nucleated RBC 0.0 % 0.0-0. 3 normal Not Available [address] [place], [address] 10/12/2023 11:00:24 10/12/20 23 10/12/2023 COMPL ETE BLOOD COUNT W/DIF F absolute neutrophil count 5.14 10_3/ uL 1.2-6. 7 normal Not Available [address] [place], [address] 10/12/2023 11:00:24 10/12/20 23 10/12/2023 COMPL ETE BLOOD COUNT W/DIF F absolute lymphocyte count 1.92 10_3/ uL 1.2-3. 4 normal Not Available [address] [place], [address] 10/12/2023 11:00:24 10/12/20 23 10/12/2023 COMPL ETE BLOOD COUNT W/DIF F absolute monocyte count 0.51 10_3/ uL 0.1-0. 8 normal Not Available [address] [place], [address] 10/12/2023 11:00:24 10/12/20 23 10/12/2023 COMPL ETE BLOOD COUNT W/DIF F absolute eosinophil count 0.01 10_3/ uL 0.0-0. 7 normal Not Available [address] [place], [address] 10/12/2023 11:00:24 10/12/20 23 10/12/2023 COMPL ETE BLOOD COUNT W/DIF F absolute basophil count 0.02 10_3/ uL 0.0-0. 2 normal Not Available [address] [place], [address] 10/12/2023 11:00:24 10/15/20 23 10/15/2023 visua l acuit y* R Eye Uncorrected 20 Not Available [facility] [address] [place], [address], 10/15/2023 14:22:34 10/15/20 23 10/15/2023 visua l acuit y* L Eye Uncorrected 20 Not Available [facility] [address] [place], [address], 10/15/2023 14:22:34 11/05/19 24 11/05/2023 COMPR EHENS CHOCO METAB OLIC PANEL calcium 9.2 mg/dL 8.5-10 .1 normal Not Available [address] [place], [address] 11/05/2023 16:49:14 11/05/19 24 11/05/2023 COMPR EHENS CHOCO METAB OLIC PANEL glucose 98 mg/dL 74-106 normal Not Available [address] [place], [address] 11/05/2023 16:49:14 11/05/19 24 11/05/2023 COMPR EHENS CHOCO METAB OLIC PANEL BUN 16 mg/dL 7-18 normal Not Available [address] [place], [address] 11/05/2023 16:49:14 11/05/19 24 11/05/2023 COMPR EHENS CHOCO METAB OLIC PANEL creatinine 0.9 mg/dL 0.55-1 .02 normal Not Available [address] [place], [address] 11/05/2023 16:49:14 11/05/19 24 11/05/2023 COMPR EHENS CHOCO METAB OLIC PANEL estimated GFR 73.64 mL/min /1.73m 2 Not Available [address] [place], [address] 11/05/2023 16:49:14 11/05/19 24 11/05/2023 COMPR EHENS CHOCO METAB OLIC PANEL total protein 7.4 g/dL 6.4-8. 2 normal Not Available [address] [place], [address] 11/05/2023 16:49:14 11/05/19 24 11/05/2023 COMPR EHENS CHOCO METAB OLIC PANEL albumin 3.9 g/dL 3.4-5. 0 normal Not Available [address] [place], [address] 11/05/2023 16:49:14 11/05/19 24 11/05/2023 COMPR EHENS CHOCO METAB OLIC PANEL bilirubin, total 0.4 mg/dL 0.2-1. 0 normal Not Available [address] [place], [address] 11/05/2023 16:49:14 11/05/19 24 11/05/2023 COMPR EHENS CHOCO METAB OLIC PANEL alk phos 110 U/L 46-116 normal Not Available [address] [place], [address] 11/05/2023 16:49:14 11/05/19 24 11/05/2023 COMPR EHENS CHOCO METAB OLIC PANEL sodium 139 mmol/ L 136-14 5 normal Not Available [address] [place], [address] 11/05/2023 16:49:14 11/05/19 24 11/05/2023 COMPR EHENS CHOCO METAB OLIC PANEL potassium 4.3 mmol/ L 3.5-5. 1 normal Not Available [address] [place], [address] 11/05/2023 16:49:14 11/05/19 24 11/05/2023 COMPR EHENS CHOCO METAB OLIC PANEL chloride 105 mmol/ L 98-107 normal Not Available [address] [place], [address] 11/05/2023 16:49:14 11/05/19 24 11/05/2023 COMPR EHENS CHOCO METAB OLIC PANEL CO2 25.6 mmol/ L 21.0-3 2.0 normal Not Available [address] [place], [address] 11/05/2023 16:49:14 11/05/19 24 11/05/2023 COMPR EHENS CHOCO METAB OLIC PANEL anion gap 8.4 mmol/ L 3-11 normal Not Available [address] [place], [address] 11/05/2023 16:49:14 11/05/19 24 11/05/2023 COMPR EHENS CHOCO METAB OLIC PANEL AST 23 U/L 15-37 normal Not Available [address] [place], [address] 11/05/2023 16:49:14 11/05/19 24 11/05/2023 COMPR EHENS CHOCO METAB OLIC PANEL ALT 27 U/L 14-59 normal Not Available [address] [place], [address] 11/05/2023 16:49:14 11/05/19 24 11/05/2023 HEMOG LOBIN A1C hemoglobin A1C 5.5 % <5.7 Not Available [address] [place], [address] 11/05/2023 17:16:17 11/05/19 24 11/05/2023 VITAM IN D 25 TOTAL vitamin D 25 total 20.2 NG/mL 30-100 low Not Available [address] [place], [address] 11/05/2023 17:40:23 11/11/19 24 11/11/2023 COMPL ETE BLOOD COUNT W/DIF F WBC 6.94 10_3/ uL 4.4-10 .8 normal Not Available [address] [place], [address] 11/11/2023 11:54:00 11/11/19 24 11/11/2023 COMPL ETE BLOOD COUNT W/DIF F RBC 4.77 10_6/ uL 3.93-5 .22 normal Not Available [address] [place], [address] 11/11/2023 11:54:00 11/11/19 24 11/11/2023 COMPL ETE BLOOD COUNT W/DIF F HGB 13.4 g/dL 11.2-1 5.7 normal Not Available [address] [place], [address] 11/11/2023 11:54:00 11/11/19 24 11/11/2023 COMPL ETE BLOOD COUNT W/DIF F HCT 41.4 % 36.0-4 6.0 normal Not Available [address] [place], [address] 11/11/2023 11:54:00 11/11/19 24 11/11/2023 COMPL ETE BLOOD COUNT W/DIF F MCV 87 fL 80-95 normal Not Available [address] [place], [address] 11/11/2023 11:54:00 11/11/19 24 11/11/2023 COMPL ETE BLOOD COUNT W/DIF F MCH 28.1 pg 27.0-3 3.0 normal Not Available [address] [place], [address] 11/11/2023 11:54:00 11/11/19 24 11/11/2023 COMPL ETE BLOOD COUNT W/DIF F MCHC 32.4 % 32.0-3 6.0 normal Not Available [address] [place], [address] 11/11/2023 11:54:00 11/11/19 24 11/11/2023 COMPL ETE BLOOD COUNT W/DIF F RDW 13.3 % 11.7-1 4.6 normal Not Available [address] [place], [address] 11/11/2023 11:54:00 11/11/19 24 11/11/2023 COMPL ETE BLOOD COUNT W/DIF F platelet count 193 10_3/ uL 130-40 0 normal Not Available [address] [place], [address] 11/11/2023 11:54:00 11/11/19 24 11/11/2023 COMPL ETE BLOOD COUNT W/DIF F MPV 10.8 fL 8.0-11 .0 normal Not Available [address] [place], [address] 11/11/2023 11:54:00 11/11/19 24 11/11/2023 COMPL ETE BLOOD COUNT W/DIF F neutrophils % 63.4 Not Available [address] [facility], [address] 11/11/2023 11:54:00 11/11/19 24 11/11/2023 COMPL ETE BLOOD COUNT W/DIF F lymphocytes % 29.7 Not Available [address] [place], [address] 11/11/2023 11:54:00 11/11/19 24 11/11/2023 COMPL ETE BLOOD COUNT W/DIF F monocytes % 6.2 Not Available [address] [place], [address] 11/11/2023 11:54:00 11/11/19 24 11/11/2023 COMPL ETE BLOOD COUNT W/DIF F eosinophils % 0.0 Not Available [address] [place], [address] 11/11/2023 11:54:00 11/11/19 24 11/11/2023 COMPL ETE BLOOD COUNT W/DIF F basophils % 0.4 Not Available [address] [facility], [address] 11/11/2023 11:54:00 11/11/19 24 11/11/2023 COMPL ETE BLOOD COUNT W/DIF F immature grans % 0.3 Not Available [address] [facility] [place], [address] 11/11/2023 11:54:00 11/11/19 24 11/11/2023 COMPL ETE BLOOD COUNT W/DIF F nucleated RBC 0.0 % 0.0-0. 3 normal Not Available [address] [place], [address] 11/11/2023 11:54:00 11/11/19 24 11/11/2023 COMPL ETE BLOOD COUNT W/DIF F absolute neutrophil count 4.40 10_3/ uL 1.2-6. 7 normal Not Available [address] [place], [address] 11/11/2023 11:54:00 11/11/19 24 11/11/2023 COMPL ETE BLOOD COUNT W/DIF F absolute lymphocyte count 2.06 10_3/ uL 1.2-3. 4 normal Not Available [address] [place], [address] 11/11/2023 11:54:00 11/11/19 24 11/11/2023 COMPL ETE BLOOD COUNT W/DIF F absolute monocyte count 0.43 10_3/ uL 0.1-0. 8 normal Not Available [address] [place], [address] 11/11/2023 11:54:00 11/11/19 24 11/11/2023 COMPL ETE BLOOD COUNT W/DIF F absolute eosinophil count 0.00 10_3/ uL 0.0-0. 7 normal Not Available [address] [place], [address] 11/11/2023 11:54:00 11/11/19 24 11/11/2023 COMPL ETE BLOOD COUNT W/DIF F absolute basophil count 0.03 10_3/ uL 0.0-0. 2 normal Not Available [address] [place], [address] 11/11/2023 11:54:00 12/17/19 24 12/17/2023 COMPL ETE BLOOD COUNT W/DIF F WBC 6.94 10_3/ uL 4.4-10 .8 normal Not Available [address] [place], [address] 12/17/2023 08:42:45 12/17/19 24 12/17/2023 COMPL ETE BLOOD COUNT W/DIF F RBC 4.98 10_6/ uL 3.93-5 .22 normal Not Available [address] [place], [address] 12/17/2023 08:42:45 12/17/19 24 12/17/2023 COMPL ETE BLOOD COUNT W/DIF F HGB 13.8 g/dL 11.2-1 5.7 normal Not Available [address] [place], [address] 12/17/2023 08:42:45 12/17/19 24 12/17/2023 COMPL ETE BLOOD COUNT W/DIF F HCT 43.4 % 36.0-4 6.0 normal Not Available [address] [place], [address] 12/17/2023 08:42:45 12/17/19 24 12/17/2023 COMPL ETE BLOOD COUNT W/DIF F MCV 87 fL 80-95 normal Not Available [address] [place], [address] 12/17/2023 08:42:45 12/17/19 24 12/17/2023 COMPL ETE BLOOD COUNT W/DIF F MCH 27.7 pg 27.0-3 3.0 normal Not Available [address] [place], [address] 12/17/2023 08:42:45 12/17/19 24 12/17/2023 COMPL ETE BLOOD COUNT W/DIF F MCHC 31.8 % 32.0-3 6.0 low Not Available [address] [place], [address] 12/17/2023 08:42:45 12/17/19 24 12/17/2023 COMPL ETE BLOOD COUNT W/DIF F RDW 13.3 % 11.7-1 4.6 normal Not Available [address] [place], [address] 12/17/2023 08:42:45 12/17/19 24 12/17/2023 COMPL ETE BLOOD COUNT W/DIF F platelet count 208 10_3/ uL 130-40 0 normal Not Available [address] [place], [address] 12/17/2023 08:42:45 12/17/19 24 12/17/2023 COMPL ETE BLOOD COUNT W/DIF F MPV 10.9 fL 8.0-11 .0 normal Not Available [address] [place], [address] 12/17/2023 08:42:45 12/17/19 24 12/17/2023 COMPL ETE BLOOD COUNT W/DIF F neutrophils % 70.3 Not Available [address] [place], [address] 12/17/2023 08:42:45 12/17/19 24 12/17/2023 COMPL ETE BLOOD COUNT W/DIF F lymphocytes % 23.5 Not Available [address] [place], [address] 12/17/2023 08:42:45 12/17/19 24 12/17/2023 COMPL ETE BLOOD COUNT W/DIF F monocytes % 5.2 Not Available [address] [facility] [place], [address] 12/17/2023 08:42:45 12/17/19 24 12/17/2023 COMPL ETE BLOOD COUNT W/DIF F eosinophils % 0.1 Not Available [address] [place], [address] 12/17/2023 08:42:45 12/17/19 24 12/17/2023 COMPL ETE BLOOD COUNT W/DIF F basophils % 0.6 Not Available [address] [place], [address] 12/17/2023 08:42:45 12/17/19 24 12/17/2023 COMPL ETE BLOOD COUNT W/DIF F immature grans % 0.3 Not Available [address] [facility] [place], [address] 12/17/2023 08:42:45 12/17/19 24 12/17/2023 COMPL ETE BLOOD COUNT W/DIF F nucleated RBC 0.0 % 0.0-0. 3 normal Not Available [address] [place], [address] 12/17/2023 08:42:45 12/17/19 24 12/17/2023 COMPL ETE BLOOD COUNT W/DIF F absolute neutrophil count 4.88 10_3/ uL 1.2-6. 7 normal Not Available [address] [place], [address] 12/17/2023 08:42:45 12/17/19 24 12/17/2023 COMPL ETE BLOOD COUNT W/DIF F absolute lymphocyte count 1.63 10_3/ uL 1.2-3. 4 normal Not Available [address] [place], [address] 12/17/2023 08:42:45 12/17/19 24 12/17/2023 COMPL ETE BLOOD COUNT W/DIF F absolute monocyte count 0.36 10_3/ uL 0.1-0. 8 normal Not Available [address] [place], [address] 12/17/2023 08:42:45 12/17/19 24 12/17/2023 COMPL ETE BLOOD COUNT W/DIF F absolute eosinophil count 0.01 10_3/ uL 0.0-0. 7 normal Not Available [address] [place], [address] 12/17/2023 08:42:45 12/17/19 24 12/17/2023 COMPL ETE BLOOD COUNT W/DIF F absolute basophil count 0.04 10_3/ uL 0.0-0. 2 normal Not Available [address] [place], [address] 12/17/2023 08:42:45 01/11/20 24 01/11/2024 COMPL ETE BLOOD COUNT W/DIF F WBC 6.92 10_3/ uL 4.4-10 .8 normal Not Available [address] [place], [address] 01/11/2024 11:21:21 01/11/20 24 01/11/2024 COMPL ETE BLOOD COUNT W/DIF F RBC 4.68 10_6/ uL 3.93-5 .22 normal Not Available [address] [place], [address] 01/11/2024 11:21:21 01/11/20 24 01/11/2024 COMPL ETE BLOOD COUNT W/DIF F HGB 13.3 g/dL 11.2-1 5.7 normal Not Available [address] [place], [address] 01/11/2024 11:21:21 01/11/20 24 01/11/2024 COMPL ETE BLOOD COUNT W/DIF F HCT 41.0 % 36.0-4 6.0 normal Not Available [address] [place], [address] 01/11/2024 11:21:21 01/11/20 24 01/11/2024 COMPL ETE BLOOD COUNT W/DIF F MCV 88 fL 80-95 normal Not Available [address] [place], [address] 01/11/2024 11:21:21 01/11/20 24 01/11/2024 COMPL ETE BLOOD COUNT W/DIF F MCH 28.4 pg 27.0-3 3.0 normal Not Available [address] [place], [address] 01/11/2024 11:21:21 01/11/20 24 01/11/2024 COMPL ETE BLOOD COUNT W/DIF F MCHC 32.4 % 32.0-3 6.0 normal Not Available [address] [place], [address] 01/11/2024 11:21:21 01/11/20 24 01/11/2024 COMPL ETE BLOOD COUNT W/DIF F RDW 13.5 % 11.7-1 4.6 normal Not Available [address] [place], [address] 01/11/2024 11:21:21 01/11/20 24 01/11/2024 COMPL ETE BLOOD COUNT W/DIF F platelet count 191 10_3/ uL 130-40 0 normal Not Available [address] [place], [address] 01/11/2024 11:21:21 01/11/20 24 01/11/2024 COMPL ETE BLOOD COUNT W/DIF F MPV 11.2 fL 8.0-11 .0 high Not Available [address] [place], [address] 01/11/2024 11:21:21 01/11/20 24 01/11/2024 COMPL ETE BLOOD COUNT W/DIF F neutrophils % 71.0 Not Available [address] [place], [address] 01/11/2024 11:21:21 01/11/20 24 01/11/2024 COMPL ETE BLOOD COUNT W/DIF F lymphocytes % 22.8 Not Available [address] [place], [address] 01/11/2024 11:21:21 01/11/20 24 01/11/2024 COMPL ETE BLOOD COUNT W/DIF F monocytes % 5.5 Not Available [address] [place], [address] 01/11/2024 11:21:21 01/11/20 24 01/11/2024 COMPL ETE BLOOD COUNT W/DIF F eosinophils % 0.0 Not Available [address] [place], [address] 01/11/2024 11:21:21 01/11/20 24 01/11/2024 COMPL ETE BLOOD COUNT W/DIF F basophils % 0.3 Not Available [address] [place], [address] 01/11/2024 11:21:21 01/11/20 24 01/11/2024 COMPL ETE BLOOD COUNT W/DIF F immature grans % 0.4 Not Available [address] [place], [address] 01/11/2024 11:21:21 01/11/20 24 01/11/2024 COMPL ETE BLOOD COUNT W/DIF F nucleated RBC 0.0 % 0.0-0. 3 normal Not Available [address] [place], [address] 01/11/2024 11:21:21 01/11/20 24 01/11/2024 COMPL ETE BLOOD COUNT W/DIF F absolute neutrophil count 4.91 10_3/ uL 1.2-6. 7 normal Not Available [address] [place], [address] 01/11/2024 11:21:21 01/11/20 24 01/11/2024 COMPL ETE BLOOD COUNT W/DIF F absolute lymphocyte count 1.58 10_3/ uL 1.2-3. 4 normal Not Available [address] [place], [address] 01/11/2024 11:21:21 01/11/20 24 01/11/2024 COMPL ETE BLOOD COUNT W/DIF F absolute monocyte count 0.38 10_3/ uL 0.1-0. 8 normal Not Available [address] [place], [address] 01/11/2024 11:21:21 01/11/20 24 01/11/2024 COMPL ETE BLOOD COUNT W/DIF F absolute eosinophil count 0.00 10_3/ uL 0.0-0. 7 normal Not Available [address] [place], [id number] 01/11/2024 11:21:21 01/11/20 24 01/11/2024 COMPL ETE BLOOD COUNT W/DIF F absolute basophil count 0.02 10_3/ uL 0.0-0. 2 normal Not Available [address] [place], [id number] 01/11/2024 11:21:21 02/10/20 24 02/10/2024 COMPL ETE BLOOD COUNT W/DIF F WBC 7.25 10_3/ uL 4.4-10 .8 normal Not Available [address] [place], [id number] 02/10/2024 11:20:08 02/10/20 24 02/10/2024 COMPL ETE BLOOD COUNT W/DIF F RBC 4.95 10_6/ uL 3.93-5 .22 normal Not Available [address] [place], [id number] 02/10/2024 11:20:08 02/10/20 24 02/10/2024 COMPL ETE BLOOD COUNT W/DIF F HGB 14.1 g/dL 11.2-1 5.7 normal Not Available [address] [place], [id number] 02/10/2024 11:20:08 02/10/20 24 02/10/2024 COMPL ETE BLOOD COUNT W/DIF F HCT 42.9 % 36.0-4 6.0 normal Not Available [address] [place], [id number] 02/10/2024 11:20:08 02/10/20 24 02/10/2024 COMPL ETE BLOOD COUNT W/DIF F MCV 87 fL 80-95 normal Not Available [address] [place], [id number] 02/10/2024 11:20:08 02/10/20 24 02/10/2024 COMPL ETE BLOOD COUNT W/DIF F MCH 28.5 pg 27.0-3 3.0 normal Not Available [address] [place], [id number] 02/10/2024 11:20:08 02/10/20 24 02/10/2024 COMPL ETE BLOOD COUNT W/DIF F MCHC 32.9 % 32.0-3 6.0 normal Not Available [address] [place], [address] 02/10/2024 11:20:08 02/10/20 24 02/10/2024 COMPL ETE BLOOD COUNT W/DIF F RDW 13.3 % 11.7-1 4.6 normal Not Available [address] [place], [address] 02/10/2024 11:20:08 02/10/20 24 02/10/2024 COMPL ETE BLOOD COUNT W/DIF F platelet count 224 10_3/ uL 130-40 0 normal Not Available [address] [place], [address] 02/10/2024 11:20:08 02/10/20 24 02/10/2024 COMPL ETE BLOOD COUNT W/DIF F MPV 11.3 fL 8.0-11 .0 high Not Available [address] [place], [address] 02/10/2024 11:20:08 02/10/20 24 02/10/2024 COMPL ETE BLOOD COUNT W/DIF F neutrophils % 72.0 Not Available [address] [place], [address] 02/10/2024 11:20:08 02/10/20 24 02/10/2024 COMPL ETE BLOOD COUNT W/DIF F lymphocytes % 21.8 Not Available [address] [place], [address] 02/10/2024 11:20:08 02/10/20 24 02/10/2024 COMPL ETE BLOOD COUNT W/DIF F monocytes % 5.4 Not Available [address] [place], [address] 02/10/2024 11:20:08 02/10/20 24 02/10/2024 COMPL ETE BLOOD COUNT W/DIF F eosinophils % 0.0 Not Available [address] [place], [address] 02/10/2024 11:20:08 02/10/20 24 02/10/2024 COMPL ETE BLOOD COUNT W/DIF F basophils % 0.4 Not Available [address] [place], [address] 02/10/2024 11:20:08 02/10/20 24 02/10/2024 COMPL ETE BLOOD COUNT W/DIF F immature grans % 0.4 Not Available [address] [place], [address] 02/10/2024 11:20:08 02/10/20 24 02/10/2024 COMPL ETE BLOOD COUNT W/DIF F nucleated RBC 0.0 % 0.0-0. 3 normal Not Available [address] [place], [address] 02/10/2024 11:20:08 02/10/20 24 02/10/2024 COMPL ETE BLOOD COUNT W/DIF F absolute neutrophil count 5.22 10_3/ uL 1.2-6. 7 normal Not Available [address] [place], [address] 02/10/2024 11:20:08 02/10/20 24 02/10/2024 COMPL ETE BLOOD COUNT W/DIF F absolute lymphocyte count 1.58 10_3/ uL 1.2-3. 4 normal Not Available [address] [place], [address] 02/10/2024 11:20:08 02/10/20 24 02/10/2024 COMPL ETE BLOOD COUNT W/DIF F absolute monocyte count 0.39 10_3/ uL 0.1-0. 8 normal Not Available [address] [place], [address] 02/10/2024 11:20:08 02/10/20 24 02/10/2024 COMPL ETE BLOOD COUNT W/DIF F absolute eosinophil count 0.00 10_3/ uL 0.0-0. 7 normal Not Available [address] [place], [address] 02/10/2024 11:20:08 02/10/20 24 02/10/2024 COMPL ETE BLOOD COUNT W/DIF F absolute basophil count 0.03 10_3/ uL 0.0-0. 2 normal Not Available [address] [place], [address] 02/10/2024 11:20:08 02/10/20 24 02/10/2024 LIPID 2 cholesterol 220 mg/dL <200 high Not Available Madi[address] [place], [address] 02/10/2024 11:29:19 02/10/20 24 02/10/2024 LIPID 2 triglyceride 118 mg/dL <150 Not Available Madi [address] [place], [address] 02/10/2024 11:29:19 02/10/20 24 02/10/2024 LIPID 2 HDL cholesterol 59 mg/dL 40-60 Not Available Todd velazquez [address] [place], [address] 02/10/2024 11:29:19 02/10/20 24 02/10/2024 LIPID 2 calculated LDL 138 mg/dL <100 high Not Available Jessica sosa [address] [place], [address] 02/10/2024 11:29:19 03/10/20 24 03/10/2024 COMPL ETE BLOOD COUNT W/DIF F WBC 6.52 10_3/ uL 4.4-10 .8 normal Not Available [address] [place], [address] 03/10/2024 11:32:11 03/10/20 24 03/10/2024 COMPL ETE BLOOD COUNT W/DIF F RBC 4.93 10_6/ uL 3.93-5 .22 normal Not Available [address] [place], [address] 03/10/2024 11:32:11 03/10/20 24 03/10/2024 COMPL ETE BLOOD COUNT W/DIF F HGB 14.1 g/dL 11.2-1 5.7 normal Not Available [address] [place], [address] 03/10/2024 11:32:11 03/10/20 24 03/10/2024 COMPL ETE BLOOD COUNT W/DIF F HCT 43.4 % 36.0-4 6.0 normal Not Available [address] [place], [address] 03/10/2024 11:32:11 03/10/20 24 03/10/2024 COMPL ETE BLOOD COUNT W/DIF F MCV 88 fL 80-95 normal Not Available [address] [place], [address] 03/10/2024 11:32:11 03/10/20 24 03/10/2024 COMPL ETE BLOOD COUNT W/DIF F MCH 28.6 pg 27.0-3 3.0 normal Not Available [address] [place], [address] 03/10/2024 11:32:11 03/10/20 24 03/10/2024 COMPL ETE BLOOD COUNT W/DIF F MCHC 32.5 % 32.0-3 6.0 normal Not Available [address] [place], [address] 03/10/2024 11:32:11 03/10/20 24 03/10/2024 COMPL ETE BLOOD COUNT W/DIF F RDW 13.3 % 11.7-1 4.6 normal Not Available [address] [place], [address] 03/10/2024 11:32:11 03/10/20 24 03/10/2024 COMPL ETE BLOOD COUNT W/DIF F platelet count 189 10_3/ uL 130-40 0 normal Not Available [address] [place], [address] 03/10/2024 11:32:11 03/10/20 24 03/10/2024 COMPL ETE BLOOD COUNT W/DIF F MPV 11.1 fL 8.0-11 .0 high Not Available [address] [place], [address] 03/10/2024 11:32:11 03/10/20 24 03/10/2024 COMPL ETE BLOOD COUNT W/DIF F neutrophils % 65.1 % Not Available [address] [place], [address] 03/10/2024 11:32:11 03/10/20 24 03/10/2024 COMPL ETE BLOOD COUNT W/DIF F lymphocytes % 24.7 % Not Available [address] [place], [address] 03/10/2024 11:32:11 03/10/20 24 03/10/2024 COMPL ETE BLOOD COUNT W/DIF F monocytes % 6.0 % Not Available [address] [place], [address] 03/10/2024 11:32:11 03/10/20 24 03/10/2024 COMPL ETE BLOOD COUNT W/DIF F eosinophils % 2.6 % Not Available [address] [place], [address] 03/10/2024 11:32:11 03/10/20 24 03/10/2024 COMPL ETE BLOOD COUNT W/DIF F basophils % 0.8 % Not Available [address] [place], [address] 03/10/2024 11:32:11 03/10/20 24 03/10/2024 COMPL ETE BLOOD COUNT W/DIF F immature grans % 0.8 % Not Available [address] [place], [address] 03/10/2024 11:32:11 03/10/20 24 03/10/2024 COMPL ETE BLOOD COUNT W/DIF F nucleated RBC 0.0 % 0.0-0. 3 normal Not Available [address] [place], [address] 03/10/2024 11:32:11 03/10/20 24 03/10/2024 COMPL ETE BLOOD COUNT W/DIF F absolute neutrophil count 4.25 10_3/ uL 1.2-6. 7 normal Not Available [address] [place], [address] 03/10/2024 11:32:11 03/10/20 24 03/10/2024 COMPL ETE BLOOD COUNT W/DIF F absolute lymphocyte count 1.61 10_3/ uL 1.2-3. 4 normal Not Available [address] [place], [address] 03/10/2024 11:32:11 03/10/20 24 03/10/2024 COMPL ETE BLOOD COUNT W/DIF F absolute monocyte count 0.39 10_3/ uL 0.1-0. 8 normal Not Available [address] [place], [address] 03/10/2024 11:32:11 03/10/20 24 03/10/2024 COMPL ETE BLOOD COUNT W/DIF F absolute eosinophil count 0.17 10_3/ uL 0.0-0. 7 normal Not Available [address] [place], [address] 03/10/2024 11:32:11 03/10/20 24 03/10/2024 COMPL ETE BLOOD COUNT W/DIF F absolute basophil count 0.05 10_3/ uL 0.0-0. 2 normal Not Available [address] [place], [address] 03/10/2024 11:32:11 04/11/20 24 04/11/2024 COMPL ETE BLOOD COUNT W/DIF F WBC 7.73 10_3/ uL 4.4-10 .8 normal Not Available [address] [place], [address] 04/11/2024 16:17:51 04/11/20 24 04/11/2024 COMPL ETE BLOOD COUNT W/DIF F RBC 4.60 10_6/ uL 3.93-5 .22 normal Not Available [address] [place], [address] 04/11/2024 16:17:51 04/11/20 24 04/11/2024 COMPL ETE BLOOD COUNT W/DIF F HGB 13.0 g/dL 11.2-1 5.7 normal Not Available [address] [place], [address] 04/11/2024 16:17:51 04/11/20 24 04/11/2024 COMPL ETE BLOOD COUNT W/DIF F HCT 40.7 % 36.0-4 6.0 normal Not Available [address] [place], [address] 04/11/2024 16:17:51 04/11/20 24 04/11/2024 COMPL ETE BLOOD COUNT W/DIF F MCV 89 fL 80-95 normal Not Available [address] [place], [address] 04/11/2024 16:17:51 04/11/20 24 04/11/2024 COMPL ETE BLOOD COUNT W/DIF F MCH 28.3 pg 27.0-3 3.0 normal Not Available [address] [place], [address] 04/11/2024 16:17:51 04/11/20 24 04/11/2024 COMPL ETE BLOOD COUNT W/DIF F MCHC 31.9 % 32.0-3 6.0 low Not Available [address] [place], [address] 04/11/2024 16:17:51 04/11/20 24 04/11/2024 COMPL ETE BLOOD COUNT W/DIF F RDW 13.4 % 11.7-1 4.6 normal Not Available [address] [place], [address] 04/11/2024 16:17:51 04/11/20 24 04/11/2024 COMPL ETE BLOOD COUNT W/DIF F platelet count 196 10_3/ uL 130-40 0 normal Not Available [address] [place], [address] 04/11/2024 16:17:51 04/11/20 24 04/11/2024 COMPL ETE BLOOD COUNT W/DIF F MPV 11.6 fL 8.0-11 .0 high Not Available [address] [place], [address] 04/11/2024 16:17:51 04/11/20 24 04/11/2024 COMPL ETE BLOOD COUNT W/DIF F neutrophils % 65.1 % Not Available [address] [place], [address] 04/11/2024 16:17:51 04/11/20 24 04/11/2024 COMPL ETE BLOOD COUNT W/DIF F lymphocytes % 28.3 % Not Available [address] [place], [address] 04/11/2024 16:17:51 04/11/20 24 04/11/2024 COMPL ETE BLOOD COUNT W/DIF F monocytes % 5.7 % Not Available [address] [place], [address] 04/11/2024 16:17:51 04/11/20 24 04/11/2024 COMPL ETE BLOOD COUNT W/DIF F eosinophils % 0.1 % Not Available [address] [place], [address] 04/11/2024 16:17:51 04/11/20 24 04/11/2024 COMPL ETE BLOOD COUNT W/DIF F basophils % 0.5 % Not Available [address] [place], [address] 04/11/2024 16:17:51 04/11/20 24 04/11/2024 COMPL ETE BLOOD COUNT W/DIF F immature grans % 0.3 % Not Available [address] [place], [address] 04/11/2024 16:17:51 04/11/20 24 04/11/2024 COMPL ETE BLOOD COUNT W/DIF F nucleated RBC 0.0 % 0.0-0. 3 normal Not Available [address] [place], [address] 04/11/2024 16:17:51 04/11/20 24 04/11/2024 COMPL ETE BLOOD COUNT W/DIF F absolute neutrophil count 5.03 10_3/ uL 1.2-6. 7 normal Not Available [address] [place], [address] 04/11/2024 16:17:51 04/11/20 24 04/11/2024 COMPL ETE BLOOD COUNT W/DIF F absolute lymphocyte count 2.19 10_3/ uL 1.2-3. 4 normal Not Available [address] [place], [address] 04/11/2024 16:17:51 04/11/20 24 04/11/2024 COMPL ETE BLOOD COUNT W/DIF F absolute monocyte count 0.44 10_3/ uL 0.1-0. 8 normal Not Available [address] [place], [address] 04/11/2024 16:17:51 04/11/20 24 04/11/2024 COMPL ETE BLOOD COUNT W/DIF F absolute eosinophil count 0.01 10_3/ uL 0.0-0. 7 normal Not Available [address] [place], [address] 04/11/2024 16:17:51 04/11/20 24 04/11/2024 COMPL ETE BLOOD COUNT W/DIF F absolute basophil count 0.04 10_3/ uL 0.0-0. 2 normal Not Available [address] [place], [address] 04/11/2024 16:17:51 05/09/20 24 05/09/2024 COMPL ETE BLOOD COUNT W/DIF F WBC 5.77 10_3/ uL 4.4-10 .8 normal Not Available [address] [place], [address] 05/09/2024 12:42:42 05/09/20 24 05/09/2024 COMPL ETE BLOOD COUNT W/DIF F RBC 4.90 10_6/ uL 3.93-5 .22 normal Not Available [address] [place], [address] 05/09/2024 12:42:42 05/09/20 24 05/09/2024 COMPL ETE BLOOD COUNT W/DIF F HGB 14.2 g/dL 11.2-1 5.7 normal Not Available [address] [place], [address] 05/09/2024 12:42:42 05/09/20 24 05/09/2024 COMPL ETE BLOOD COUNT W/DIF F HCT 42.7 % 36.0-4 6.0 normal Not Available [address] [place], [address] 05/09/2024 12:42:42 05/09/20 24 05/09/2024 COMPL ETE BLOOD COUNT W/DIF F MCV 87 fL 80-95 normal Not Available [address] [place], [address] 05/09/2024 12:42:42 05/09/20 24 05/09/2024 COMPL ETE BLOOD COUNT W/DIF F MCH 29.0 pg 27.0-3 3.0 normal Not Available [address] [place], [address] 05/09/2024 12:42:42 05/09/20 24 05/09/2024 COMPL ETE BLOOD COUNT W/DIF F MCHC 33.3 % 32.0-3 6.0 normal Not Available [address] [place], [address] 05/09/2024 12:42:42 05/09/20 24 05/09/2024 COMPL ETE BLOOD COUNT W/DIF F RDW 13.4 % 11.7-1 4.6 normal Not Available [address] [place], [address] 05/09/2024 12:42:42 05/09/20 24 05/09/2024 COMPL ETE BLOOD COUNT W/DIF F platelet count 190 10_3/ uL 130-40 0 normal Not Available [address] [place], [address] 05/09/2024 12:42:42 05/09/20 24 05/09/2024 COMPL ETE BLOOD COUNT W/DIF F MPV 12.6 fL 8.0-11 .0 high Not Available [address] [place], [address] 05/09/2024 12:42:42 05/09/20 24 05/09/2024 COMPL ETE BLOOD COUNT W/DIF F neutrophils % 65.0 % Not Available [address] [place], [address] 05/09/2024 12:42:42 05/09/20 24 05/09/2024 COMPL ETE BLOOD COUNT W/DIF F lymphocytes % 26.9 % Not Available [address] [place], [address] 05/09/2024 12:42:42 05/09/20 24 05/09/2024 COMPL ETE BLOOD COUNT W/DIF F monocytes % 7.1 % Not Available [address] [place], [address] 05/09/2024 12:42:42 05/09/20 24 05/09/2024 COMPL ETE BLOOD COUNT W/DIF F eosinophils % 0.0 % Not Available [address] [place], [address] 05/09/2024 12:42:42 05/09/20 24 05/09/2024 COMPL ETE BLOOD COUNT W/DIF F basophils % 0.7 % Not Available [address] [place], [address] 05/09/2024 12:42:42 05/09/20 24 05/09/2024 COMPL ETE BLOOD COUNT W/DIF F immature grans % 0.3 % Not Available [address] [place], [address] 05/09/2024 12:42:42 05/09/20 24 05/09/2024 COMPL ETE BLOOD COUNT W/DIF F nucleated RBC 0.0 % 0.0-0. 3 normal Not Available [address] [place], [address] 05/09/2024 12:42:42 05/09/20 24 05/09/2024 COMPL ETE BLOOD COUNT W/DIF F absolute neutrophil count 3.75 10_3/ uL 1.2-6. 7 normal Not Available [address] [place], [address] 05/09/2024 12:42:42 05/09/20 24 05/09/2024 COMPL ETE BLOOD COUNT W/DIF F absolute lymphocyte count 1.55 10_3/ uL 1.2-3. 4 normal Not Available [address] [place], [address] 05/09/2024 12:42:42 05/09/20 24 05/09/2024 COMPL ETE BLOOD COUNT W/DIF F absolute monocyte count 0.41 10_3/ uL 0.1-0. 8 normal Not Available [address] [place], [address] 05/09/2024 12:42:42 05/09/20 24 05/09/2024 COMPL ETE BLOOD COUNT W/DIF F absolute eosinophil count 0.00 10_3/ uL 0.0-0. 7 normal Not Available [address] [place], [address] 05/09/2024 12:42:42 05/09/20 24 05/09/2024 COMPL ETE BLOOD COUNT W/DIF F absolute basophil count 0.04 10_3/ uL 0.0-0. 2 normal Not Available [address] [place], [address] 05/09/2024 12:42:42 05/09/20 24 05/09/2024 LIPID 2 cholesterol 222 mg/dL <200 high Not Available Elmo velasquez [address] [place], [address] 05/09/2024 13:27:47 05/09/20 24 05/09/2024 LIPID 2 triglyceride 168 mg/dL <150 high Not Available Nor michele [address] [place], [address] 05/09/2024 13:27:47 05/09/20 24 05/09/2024 LIPID 2 HDL cholesterol 48 mg/dL 40-60 Not Available Todd velazquez [place] [address] [facility] [place], [address] 05/09/2024 13:27:47 05/09/20 24 05/09/2024 LIPID 2 calculated LDL 141 mg/dL <100 high Not Available Jessica sosa [place] [address] [facility] [address] [facility] [place], [address] 05/09/2024 13:27:47 Result Notes None recorded. Problems Name Status Onset Date Resolution Date Notes Provider Name and Address Organization Details Recorded Time Prediabetes Completed 201811/06/2023 10/29/2020 - Comments only - Smith CARRERAP-AMADOU - - A1c = 5.4% today, down from 5.7% last year - Explained this is normal, has dropped below pre-diabetes level - Did encourage watering down juice, limiting soda intake, trying to get regular exercise Problem Code: R73.03; Problem Code Type: ICD-10; Removal Reason: last elevation (5.7) was 10/2019. SMITH EGAN [facility] [address], [place], [address] , [facility]. 4 10:34:05 Cough Completed 201802/22/2019 Problem Code: R05; Problem Code Type: ICD-10; SMITH EGAN [facility] [address], [place], [address] , [facility]. 4 10:28:41 Acute sinusitis Completed 201802/25/2019 Problem Code: J01.90; Problem Code Type: ICD-10; Not Available [facility] 3 04:16:56 Therapeutic drug monitoring assay Active 2019 Problem Code: Z51.81; Problem Code Type: ICD-10; Not Available [facility] 3 04:16:56 Screening mammography Active 202010/31/2021 - Comments only - Smith Morejon [facility] - - Due for mammogram 11/28/21; order sent to [facility] today Problem Code: Z12.31; Problem Code Type: ICD-10; Not Available [facility] 3 04:16:56 High enzyme level in serum Active 2020 Problem Code: R74.8; Problem Code Type: ICD-10; Not Available [facility] 3 04:16:56 Screening for osteoporosis Active 202010/31/2021 - Comments only - Smith Morejon [facility] - - Given post-menopaus al status, elevated alkaline phosphatase, and mother with osteoporosis, will order DEXA to be done at [facility] - Rx high-dose Vit D 50,000IU, 1 po q week x 12 weeks sent to [facility] - Will await DEXA results and recommend calcium supplementati on as indicated Problem Code: Z13.820; Problem Code Type: ICD-10; Not Available [facility] 3 04:16:56 Vitamin D deficiency Active 202010/31/2021 - Comments only - Smith Morejon [facility] - - Per 09/2021 labs = Rx high-dose vit D Rx x 12 weeks sent, as above, will switch to 1000-2000IU/d after completion of high dose Problem Code: E55.9; Problem Code Type: ICD-10; Not Available [facility] 3 04:16:56 Cough Completed 202111/06/2023 Problem Code: R05.8; Problem Code Type: ICD-10; Removal Reason: resolved SMITH EGAN, [facility] [address], [place], [address] , [facility]. 4 10:28:41 COVID-19 Completed 202111/06/2023 Problem Code: U07.1; Problem Code Type: ICD-10; Removal Reason: resolved SMITH DELMERDANIEJANICE-Brynn EGAN, [facility] [address], [place], [address] , [facility] 4 10:28:49 Cellulitis of face Completed 202211/06/2023 Problem Code: L03.211; Problem Code Type: ICD-10; Removal Reason: resolved SMITH DELMERFARIDA EGAN, [facility]AD[facility]-BC [address], [place], [address] , [facility] 4 10:28:28 Irritable bowel syndrome Active 200510/29/2020 - Comments only - Smith Morejon [facility] - - Stable, per pt report - Did encourage fresh fruits and vegetables, whole grains for dietary fiber, adequate hydration Problem Code: K58.9; Problem Code Type: ICD-10; SMITH EGAN, [facility] [address], [place], [address] , [facility] 4 10:29:07 Mood disorder Active 200510/31/2021 - Comments only - Smith Morejon [facility] - - Under regular care at [facility]; pt is very happy with her provider Dr Coronado, does not feel the need for therapy at this time - Encouraged her to call us or [facility] should she note any worsening of mood or other concerns - Continue Clozaril and Benztropine as prescribed by [facility] - Dr Coronado is checking [facility] monthly Problem Code: F39; Problem Code Type: ICD-10; SMITH APARICIO-Brynn EGAN, TRAD[facility]-BC [address], [place], [address] , [facility] 10:29:19 Hyperlipidemi a Active 200510/31/2021 - Comments only - Smith Morejon [facility] - - 10 year ASCVD risk = 2.5%; discussed this with pt - Did recommend reducing saturated fats and gave handout Problem Code: E78.5; Problem Code Type: ICD-10; SMITH EGAN, [facility]BC [address], [place], [address] , [facility] 4 10:29:13 Nervous system and sense organ diseases Active 2002 Not Available [facility] 3 04:16:57 Adult health examination Active 201710/29/2020 - Comments only - Smith Morejon [facility] - - Given IFOB today for colon CA screening, as colonoscopy at [facility] 5-6y ago may not have been completed (pt states she woke up during it; no report on file). Pt understands IFOB is an annual screening, and positive result would mean colonoscopy recommended for follow-up. - Due for mammogram 11/2021 - Pap due 2022 - Has Shingrix Rx, wants to postpone until COVID restrictions lifted. Problem Code: Z00.00; Problem Code Type: ICD-10; Not Available [facility] 3 04:16:57 Menopause present Active 201710/29/2020 - Improved - Smith Morejon [facility] - - Very occasional hot flashes now; she will let us know if they are problematic. - No vaginal bleeding; advised her to let us know if that shouyld occur. Problem Code: N95.1; Problem Code Type: ICD-10; Not Available [facility] 3 04:16:57 Deviated nasal septum Completed 200406/23/2018 Problem Code: J34.2; Problem Code Type: ICD-10; Not Available [facility] 3 04:16:57 Gastroesophag eal reflux disease without esophagitis Completed 200510/28/2019 Problem Code: K21.9; Problem Code Type: ICD-10; Not Available [facility] 3 04:16:59 Sialolithiasi s Completed 200706/23/2018 Problem Code: K11.5; Problem Code Type: ICD-10; Not Available [facility] 3 04:17:01 Hyperglycemia Completed 201807/29/2023 Problem Code: R73.9; Problem Code Type: ICD-10; Not Available [facility] 3 04:17:01 Problem Notes None recorded. Procedures Surgical History Date Name Laterality Status Provider Name and Address Organization Details Recorded Time 07/26/2018 Date of Last Pap Smear completed KARSTEN Recinos, [facility] 10/15/2023 14:07:58 Imaging Results None recorded. Procedure Notes None recorded. Medical Equipment None Reported. Allergies Allergen ID Allergen Name Allergen Category Reaction Reaction Severity Criticality Documentation Date Start Date Code Code System Note Provider Name and Address Organization Details Recorded Time 12823 Haldol medicatio n rash moderate Not available 09/11/20232017 06299 9 RxNorm rash Not Available [facility] 3 16:14:53 84529 acetamino phen / oxycodone medicatio n Not available Not available Not available 09/11/20232017 82105 3 RxNorm Not Available [facility] 3 16:14:53 41609 Demerol medicatio n Not available Not available Not available 09/11/20232017 52024 1 RxNorm Aller gyCod e: '0005 [id number] 63'; Aller gyNam e: 'KATHY ROL'; Aller gyCon ceptT ype: 'NDC' ; Not Available [facility] 3 16:14:53 53984 Biaxin medicatio n Not available Not available Not available 09/11/20232017 13331 9 RxNorm Aller gyCod e: '[id number] 02'; Aller gyNam e: 'BIAX IN'; Aller gyCon ceptT ype: 'NDC' ; Not Available [facility] 3 16:14:53 09241 codeine medicatio n rash Not available [facility] 10/15/2023 2670 RxNorm KARSTEN Lang, [facility] 3 13:17:48 Medications Name Sig Start Date Stop Date Status Note LastModified by Organization Details LastModified Time Clozaril 25 mg tablet 350mg - Take 1 by mouth daily 2003 active Not Available Not Available Not Avai lable clozapine 100 mg tablet TAKE THREE TABLETS BY MOUTH EVERY EVENING AT BEDTIME active Not Available Not Available No t Available Provigil 100 mg tablet Take 1 by mouth daily 06/21 completed Not Available Not Available Not Available amoxicillin 875 mg tablet take 1 tab by mouth twice daily 02/22 completed Not Available Not Available Not Available benztropine 1 mg tablet TAKE ONE TABLET BY MOUTH AT BEDTIME active Not Available Not Available No t Available niacin 500 mg tablet Take 1 tablet by mouth twice daily. 06/21 completed Not Available Not Available Not Available ergocalcife rol (vitamin D2) 1,250 mcg (50,000 unit) capsule TAKE ONE CAPSULE BY MOUTH ONCE WEEKLY DIRECTED active Not Available Not Available No t Available doxycycline hyclate 100 mg tablet 1 tablet by mouth twice a day 12/13 completed Not Available Not Available Not Available clozapine 50 mg tablet TAKE ONE TABLET BY MOUTH AT BEDTIME active Not Available Not Available No t Available Stool Softener 100mg Take 2 tablets by mouth daily. 06/21 completed Not Available Not Available Not Available cholecalcif micki (vitamin D3) 1,250 mcg (50,000 unit) capsule TAKE ONE CAPSULE BY MOUTH ONCE WEEKLY 11/13 completed Not Available Not Available Not Available Shingrix (PF) 50 mcg/0.5 mL intramuscul ar suspension, kit One injection IM now; repeat x one in 2-6 months 12/04 completed Not Available Not Available Not Available Vitals Date Recorded Body height Body mass index (BMI) Body weight Heart rate Respiratory rate Systolic blood pressure Diastolic blood pressure Provider Name and Address Organization Details Last Updated DateTime 3 161.29 cm 35.3 kg/m2 99603.1 g 80 /min 16 /min 110 mm[Hg] 60 mm[Hg] Lala sosa LPN MD - [facility]. 3 13:22:05 Date Recorded Body height Body mass index (BMI) Body weight Heart rate Systolic blood pressure Diastolic blood pressure Provider Name and Address Organization Details Last Updated DateTime 4 161.29 cm 34.7 kg/m2 62320.8 8 g 64 /min 108 mm[Hg] 72 mm[Hg] Lala sosa LPN [facility] 4 11:35:23 Date Recorded Body height Body mass index (BMI) Body weight Body temperature Oxygen saturation Oxygen saturation in Arterial blood by Pulse oximetry Heart rate Respiratory rate Systolic blood pressure Diastolic blood pressure Provider Name and Address Organization Details Last Updated DateTime 4 161.29 cm 35.2 kg/m2 12805.2 2 g 96.8 [degF] 97 % 97 % 88 /min 20 /min 102 mm[Hg] 66 mm[Hg] Morena Cortes [facility] 4 10:27:12 Social History Question Answer Notes LastModified by Organizat ion Details LastModified Time Tobacco Smoking Status Former Smoker Lala Edwards LPN [facility] 10/15/2023 13:23:18 Do You Have An Advance Directive? Yes [email or web address] Information n ot available 10/15/2023 Is Blood Transfusion Acceptable In An Emergency? No [email or web address] Information not available 10/15/2023 What Is Your Code Status? DNR jhiegiyilzf28 Information not available 10/15/2023 What Type Of Diet Are You Following? REGULAR zlgfbzyzvyv20 Information n ot available 10/15/2023 How Many Days Of Moderate To Strenuous Exercise, Like A Brisk Walk, Did You Do In The Last 7 Days? 0 fsdpzcbqryd42 Information not available 10/15/2023 How Many Times Per Week Do You Exercise? 1-2 Times Per Week xobxhhnojjk89 Information not available 10/15/2023 When Did You Quit Smoking? 16+yearssincel astcigarette yikawvmwaxo78 Information not available 10/15/2023 Would You Say That, In General, Your Health Is Excellent mpcvvlrsqyr87 Information not available 10/15/2023 How Often Does Anyone, Including Family, Physically Hurt You? Never hhanivgknzm26 Information not available 10/15/2023 How Often Does Anyone, Including Family, Insult Or Talk Down To You? Never sgyduxljfaq32 Information no t available 10/15/2023 How Often Does Anyone, Including Family, Threaten You With Harm? Never etwbhjcsgwx39 Information not available 10/15/2023 How Often Does Anyone, Including Family, Scream Or Curse At You? Never htcdyrltvdd37 Information not available 10/15/2023 Within The Past 12 Months, You Worried That Your Food Would Run Out Before You Got Money To Buy More. Never True sqrcllicvix20 Information n ot available 10/15/2023 Within The Past 12 Months, The Food You Bought Just Didn't Last And You Didn't Have Money To Get More. Never True vsqaekasplt22 Information n ot available 10/15/2023 How Hard Is It For You To Pay For The Very Basics Like Food, Housing, Medical Care, And Heating? Would You Say It Is: Not Hard At All izwielixqmq28 Information not available 10/15/2023 In The Past 12 Months, Has Lack Of Reliable Transportation Kept You From Medical Appointments, Meetings, Work Or From Getting Things Needed For Daily Living? No tpldxoxzojy81 Information not available 10/15/2023 What Is Your Housing Situation Today? I Have Housing. ckjvnixljjq85 Information not available 10/15/2023 How Often In The Past Year Have You Used Marijuana (including Smoking, Vaping, Dabbing, Or Edibles)? Never rglfbizhciv93 Information not available 10/15/2023 How Often In The Past Year Have You Used Prescription Medications That Were Not Prescribed To You? Never bhouvigqrsd32 Information n ot available 10/15/2023 How Often In The Past Year Have You Taken Your Own Prescription Medication More Than The Way It Was Prescribed Or For Different Reasons Than Its Intended Purpose? Never rvhcujpntns48 Information no t available 10/15/2023 How Often In The Past Year Have You Used Other Drugs (for Example, Heroin, Cocaine, Meth, Salvia, Inhalants)? Never vijasheghof95 Information not available 10/15/2023 Have You Ever Used IV Drugs? No ptukuppgvpa14 Information not available 10/15/2023 What Matters Most To You? Staying Healthy sbuqrjklcbt88 Information not available 10/15/2023 During The Past Four Weeks Has Your Physical And Emotional Health Limited Your Social Activities With Family And Friends, Neighbors, Or Groups? Not At All hkjqeflfhkd65 Information not available 10/15/2023 During The Past Four Weeks, Was Someone Available To Help You If You Needed And Wanted Help? (For Example, If You [place] Very Nervous, Lonely, Or Blue; Got Sick And Had To Stay In Bed; Needed Someone To Talk To; Needed Help With Daily Chores; Or Needed Help Just Taking Care Of Yourself.) Yes- As Much As I Wanted gmniipuirny36 Information not available 10/15/2023 During The Past Four Weeks, What Was The Hardest Physical Activity You Could Do For At Least 2 Minutes? Moderate kyrqrgxkrvn69 Information not available 10/15/2023 Can You Get To Places Out Of Walking Distance Without Help? (For Example, Can You Travel Alone On Buses Or Taxis, Or Drive Your Own Car?) Yes qdoalzbhoov22 Information not available 10/15/2023 Can You Go Shopping For Groceries Or Clothes Without Someone? s Help? Yes pvfwrwzdoki04 Information not available 10/15/2023 Can You Prepare Your Own Meals? Yes Information not available 10/15/2023 Can You Do Your Housework Without Help? Yes hubawkqsajh47 Information not available 10/15/2023 Because Of Any Health Problems, Do You Need The Help Of Another Person With Your Personal Care Needs Such As Eating, Bathing, Dressing, Or Getting Around The House? No lwzehidwbpt54 Information not available 10/15/2023 Can You Handle Your Own Money Without Help? Yes qnfvzqcsude21 Information not available 10/15/2023 Are You Having Difficulties Driving Your Car? No jqbyiwvekiu30 Information no t available 10/15/2023 Do You Always Fasten Your Seat Belt When You Are In A Car? Yes- Usually zxteqwsncwd07 Information not available 10/15/2023 How Often During The Past Four Weeks Have You Been Bothered By Any Of The Following Problems? Falling Or Dizzy When Standing Up? Never Information not available 10/15/2023 Trouble Eating Well? Never jdbwaummcoc83 Information not available 10/15/2023 Teeth Or Denture Problems? Never Information not available 10/15/2023 Problems Using The Telephone? Never roubsiukwfi04 Information not available 10/15/2023 Tiredness Or Fatigue? Never nibvebofrzg37 Information not available 10/15/2023 Have You Had 2 Or More Falls Or Sustained An Injury With A Fall In The Last Year? No zlgachznase08 Information no t available 10/15/2023 Do You Have Difficulty With Walking Or Balance? No ggezwiebdgg91 Information not available 10/15/2023 Do You Currently Use A Hearing Device? No foucnrhtjhr56 Information not available 10/15/2023 Do You Currently Have Any Trouble With Your Vision? No zwolbdxksnp89 Information no t available 10/15/2023 Do You Exercise For About 20 Minutes Three Or More Days A Week? No- I Usually Do Not Exercise Much xdujbkuugvo21 Information not available 10/15/2023 Are There Any Safety Concerns In Your Home (see Attached CDC Pamphlet)? No mwgluzuqkla31 Information not available 10/15/2023 How Often Do You Have Trouble Taking Medicines The Way You Have Been Told To Take Them? I Always Take Them As Prescribed xghcjhlyypt47 Information not available 10/15/2023 How Confident Are You That You Can Control And Manage Most Of Your Health Problems? Very Confident llfnzebkrmn68 Information not available 10/15/2023 Do You Currently Have Any Difficulty With Your Hearing? No rxkmvflgakt51 Information not available 10/15/2023 Do You Have A Medical Power Of Marketing Representative? Yes ikgrpjlkxtx70 Information not available 10/15/2023 What Was The Date Of Your Most Recent Tobacco Screening? 10/15/2023 gyvrxytuiah67 Information not available 10/15/2023 What Is Your Current Pack Years? 20-29packyears aygrsmdkbku01 Information not available 10/15/2023 Are You Sexually Active? No roxjxidyslk61 Information not available 10/15/2023 At What Age Did You Start Smoking Tobacco? 13 Information not available 10/15/2023 Has Tobacco Cessation Counseling Been Provided? No Information not available 10/15/2023 How Many Years Have You Smoked Tobacco? 25 zyzzewilyku47 Information not available 10/15/2023 Do You Or Have You Ever Used Any Other Forms Of Tobacco Or Nicotine? No Information not available 10/15/2023 Sex: Female Functional Status Question Answer Note LastModified by Organizat ion Details LastModified Time What is your exercise level? Occasional iwkfimzheep19 Information not available 10/15/2023 Mental Status None recorded. Family History Relationship Description Onset Age of this Age Resolved Age Notes Notes:*Problem: Maternal unc le testicular CA, other CA MGM - d. 84, [place] MGF - d. 1989 at age 88, [place] Father - 1930; was adopted, no genetic information; living at [facility], Parkinson's Mother - b. 1936; osteoporosis, HLD, stroke 2019, lives alone with her cat Simi Sister - b. 1960; Breast CA dx'd age 55 Medical History No medical history recorded. Gynecological History Statement/Question Response Abnormal Pap N Date of Last Pap Smear 07/26/2018 Obstetrics History GPAL:G 0 P 0 0 0 0 Immunizations Vaccine Type Date Status Provider Name and Address Organization Details Recorded Time zoster recombinant 11/05/2023 completed [facility] APARICIO-DANIELLA, TRADER- [address], [place], [address], [facility] 11/05/2023 12:15:12 Td (adult), 2 Lf tetanus toxoid, preservative free, adsorbed 12/20/2018 completed Not Available [facility] 09/11/2023 05:34:40 Tdap 04/29/2007 completed Not Available [facility] 05:34:40 Td(adult) unspecified formulation 05/04/2006 completed Not Available [facility] 09/11/2023 05:34:41 Influenza, split virus, quadrivalent, PF 10/28/2019 completed Not Available [facility] 09/11/2023 05:34:41 Influenza, split virus, quadrivalent, preservative 12/20/2018 completed Not Available [facility] 09/11/2023 05:34:41 zoster recombinant 10/31/2021 completed Not Available [facility] 09/11/2023 05:34:41 COVID-19, mRNA, LNP-S, PF, 100 mcg/0.5mL dose or 50 mcg/0.25mL dose 02/19/2021 completed Not Available [facility] 09/11/20 05:34:42 COVID-19, mRNA, LNP-S, PF, 100 mcg/0.5mL dose or 50 mcg/0.25mL dose 03/19/2021 completed Not Available [facility] 09/11/20 05:34:42 COVID-19, mRNA, LNP-S, PF, 100 mcg/0.5mL dose or 50 mcg/0.25mL dose 10/31/2021 completed Not Available [facility] 09/11/20 05:34:42 influenza, unspecified formulation 07/24/2020 completed Not Available [facility] 09/11/2023 05:34:43 influenza, unspecified formulation 09/02/2021 completed Not Available [facility] 09/11/2023 05:34:43 COVID-19, mRNA, LNP-S, PF, ajay-sucrose, 30 mcg/0.3 mL 10/15/2023 completed [place] [address], [place], [address], [facility] 10/22/2023 20:29:04 Influenza, split virus, quadrivalent, PF 10/15/2023 [facility]/15/[facility]23 14:22:07 Past Encounters Encounter ID Performer Location Encounter Start Date Encounter Closed Date Diagnosis/Indication Diagnosis SNOMED-CT Code [id number] [place], [address] [address] 10/15/2023 12:34:13 10/15/2023 14:37:31 Adult health examination 259918149 Screening for cardiovascular system disease 600930410 Screening for malignant neoplasm of colon 952486812 Screening mammography 24 111178 Active or passive immunization 695945708 Multiple s kin tags on neck 501340187 [id number] [place], [address] [address] 11/05/2023 11:06:26 11/05/2023 12:05:48 Multiple skin tags on neck 566859596 Active or passive immunization 027299305 Prediabetes 510028407 Vitamin D deficiency 347 17864 Hyperlipidemia 62190368 [id number] MARIO INGRAM MD [address] [address] 11/13/2023 10:19:05 11/13/2023 11:32:54 Multiple skin tags on neck 044533881 Health Concerns Section Related Observation LastModified by Organization Detai ls LastModified Time None Recorded Concern Status LastModified by Organization Details LastModified Time None Recorded Advance Directives Directive Y: Payers Encounter Date Sequence Insurance Name Policy Number Policy [place] Covered Member ID [place] Member ID Guarantor Name 10/15/2023 1 [place] [employer] Aubree McHarg [id number] Aubree McHarg 10/15/2023 2 [place] [facility] [id number] Aubree McHarg [id number] Aubree McHarg 11/05/2023 1 [place] Aubree McHarg [id number] Aubree McHarg 11/05/2023 2 [place] [id number] Aubree McHarg [id number] Aubree McHarg 11/13/2023 1 [place] Aubree McHarg [id number] Aubree McHarg 11/13/2023 2 [place] [id number] Aubree McHarg [id number] Aubree McHarg Notes Date Note Type Note Provider Name and Address Organization Details Recorded Time 10/15/2023 text/html HPI Notes: Medic are Annual Wellness Visit Reported by patient. Diet and Nutrition: follows recommended diet Fracture Risk: no recent explained fracture; no sudden unexplained fractures; DEXA 2020 showed normal bone density Physical Activity: does not exercise on a regular basis; discussed weightbearing activities; discussed exercise habits Depression Risk: never feels sad, empty, or tearful; no loss of interest in activities; no significant changes in weight; no sleep disturbances or insomnia; no agitation; no loss of energy; no feelings of worthlessness or guilt; no thoughts of suicide; history of mood disorders; Bipolar diagnosis, followed by [facility] and stable on meds x many years. Orientation: oriented to person, place, time Concentration and Memory: no decreased concentrating ability; no memory lapses or loss; does not forget words Speech/Motor difficulties: no speech difficulties; no difficulty expressing formulated concepts; no difficulty with fine manipulative tasks; no difficulty writing/copying; no slowed reaction time; does not knock things over when trying to pick them up Notes: Independent with ADLs [address], [place], [address], [facility] 10/22/2023 20:42:46 11/05/2023 text/html HPI Notes: Aubree returns today for skin tag removal. She has not had her routine screening labs drawn yet through [facility], and agrees to proceed with lab draw here for routine screening labs discussed at Annual Wellness Visit last month. She declines CRC screening and Pap at this time. [address], [place], [address], [facility]. 11/05/2023 12:26:44 11/13/2023 text/html HPI Notes: Aubree returns today for skin tag removal. MD [address], [place], [address], [facility]. 11/24/2023 13:36:41 OBGyn Episode No OBEpisode recorded.
[2024-06-13 11:41] LABS: Abs Immature Grans 0.02 10^3/uL (0.0-0.06); Absolute Basophil Count 0.03 10^3/uL (0.0-0.2); Absolute Lymphocyte Count 1.39 10^3/uL (1.2-3.4); Absolute Neutrophil Count 4.22 10^3/uL (1.2-6.7); Basophils % 0.5 %; HCT 40.9 % (36.0-46.0); HGB 13.6 g/dL (11.2-15.7); Immature Grans % 0.3 %; Lymphocytes % 23.7 %; MCH 29.1 pg (27.0-33.0); MCHC 33.3 % (32.0-36.0); MCV 87 fL (80-95); MPV 11.8 fL (8.0-11.0); Monocytes % 3.4 %; Neutrophils % 72.1 %; Platelet Count 190 10^3/uL (130-400); RBC 4.68 10^6/uL (3.93-5.22); RDW 13.5 % (11.7-14.6); RDW-SD 43.3 fL; WBC 5.86 10^3/uL (4.4-10.8)
== END 2024-06-13 03:45 | disposition home or self-care (01) ==
PROVIDERS: PCP Family Medicine; Visit Provider Nurse Practitioner Family
DX: Z79.899 Other long term (current) drug therapy (principal)
CPT/HCPCS: 36415; 85025

== ENCOUNTER 2024-07-12 02:29 | Outpatient (CLI) | payer MEDICARE, BC, SELFPAY ==
[2024-07-12 14:22] LABS: Abs Immature Grans 0.02 10^3/uL (0.0-0.06); Absolute Basophil Count 0.03 10^3/uL (0.0-0.2); Absolute Eosinophil Count 0.01 10^3/uL (0.0-0.7); Absolute Lymphocyte Count 2.02 10^3/uL (1.2-3.4); Absolute Monocyte Count 0.42 10^3/uL (0.1-0.8); Basophils % 0.4 %; Eosinophils % 0.1 %; HCT 41.9 % (36.0-46.0); HGB 13.5 g/dL (11.2-15.7); Immature Grans % 0.3 %; Lymphocytes % 25.3 %; MCH 28.4 pg (27.0-33.0); MCHC 32.2 % (32.0-36.0); MCV 88 fL (80-95); MPV 11.2 fL (8.0-11.0); Monocytes % 5.3 %; Neutrophils % 68.6 %; Platelet Count 223 10^3/uL (130-400); RBC 4.75 10^6/uL (3.93-5.22); RDW 13.5 % (11.7-14.6); RDW-SD 43.8 fL
== END 2024-07-12 02:30 | disposition home or self-care (01) ==
PROVIDERS: PCP Family Medicine; Visit Provider Nurse Practitioner Family
DX: Z79.899 Other long term (current) drug therapy (principal)
CPT/HCPCS: 36415; 85025

== ENCOUNTER 2024-08-11 03:14 | Outpatient (CLI) | payer MEDICARE, BC, SELFPAY ==
[2024-08-11 15:33] LABS: Abs Immature Grans 0.02 10^3/uL (0.0-0.06); Absolute Basophil Count 0.03 10^3/uL (0.0-0.2); Absolute Eosinophil Count 0.01 10^3/uL (0.0-0.7); Absolute Lymphocyte Count 1.98 10^3/uL (1.2-3.4); Absolute Neutrophil Count 6.09 10^3/uL (1.2-6.7); Basophils % 0.4 %; Eosinophils % 0.1 %; HGB 13.6 g/dL (11.2-15.7); Immature Grans % 0.2 %; Lymphocytes % 23.2 %; MCH 28.3 pg (27.0-33.0); MCHC 32.4 % (32.0-36.0); MCV 87 fL (80-95); MPV 11.9 fL (8.0-11.0); Monocytes % 4.7 %; Neutrophils % 71.4 %; Platelet Count 220 10^3/uL (130-400); RBC 4.81 10^6/uL (3.93-5.22); RDW 13.4 % (11.7-14.6); RDW-SD 42.7 fL; WBC 8.53 10^3/uL (4.4-10.8)
== END 2024-08-11 03:15 | disposition home or self-care (01) ==
PROVIDERS: PCP Family Medicine; Visit Provider Nurse Practitioner Family
DX: Z79.899 Other long term (current) drug therapy (principal)
CPT/HCPCS: 36415; 85025

== ENCOUNTER 2024-09-13 04:52 | Outpatient (CLI) | payer MEDICARE, BC, SELFPAY ==
[2024-09-13 11:17] LABS: Abs Immature Grans 0.02 10^3/uL (0.0-0.06); Absolute Basophil Count 0.04 10^3/uL (0.0-0.2); Absolute Eosinophil Count 0.01 10^3/uL (0.0-0.7); Absolute Monocyte Count 0.39 10^3/uL (0.1-0.8); Absolute Neutrophil Count 5.04 10^3/uL (1.2-6.7); Basophils % 0.5 %; Eosinophils % 0.1 %; HCT 40.6 % (36.0-46.0); HGB 13.4 g/dL (11.2-15.7); Immature Grans % 0.3 %; Lymphocytes % 24.7 %; MCH 28.9 pg (27.0-33.0); MCV 88 fL (80-95); MPV 10.9 fL (8.0-11.0); Monocytes % 5.3 %; Neutrophils % 69.1 %; Platelet Count 207 10^3/uL (130-400); RBC 4.63 10^6/uL (3.93-5.22); RDW 13.6 % (11.7-14.6); RDW-SD 43.4 fL
== END 2024-09-13 04:53 | disposition home or self-care (01) ==
PROVIDERS: Nurse Practitioner Psychiatric/Mental Health; PCP Family Medicine; Visit Provider Nurse Practitioner Family
DX: Z79.899 Other long term (current) drug therapy (principal)
CPT/HCPCS: 36415; 85025

== ENCOUNTER 2024-10-11 02:22 | Outpatient (CLI) | payer MEDICARE, BC, SELFPAY ==
[2024-10-11 11:47] LABS: Abs Immature Grans 0.01 10^3/uL (0.0-0.06); Absolute Basophil Count 0.03 10^3/uL (0.0-0.2); Absolute Eosinophil Count 0.01 10^3/uL (0.0-0.7); Absolute Lymphocyte Count 1.78 10^3/uL (1.2-3.4); Absolute Monocyte Count 0.42 10^3/uL (0.1-0.8); Absolute Neutrophil Count 4.78 10^3/uL (1.2-6.7); Basophils % 0.4 %; Eosinophils % 0.1 %; HCT 42.5 % (36.0-46.0); HGB 13.9 g/dL (11.2-15.7); Immature Grans % 0.1 %; Lymphocytes % 25.3 %; MCH 28.8 pg (27.0-33.0); MCHC 32.7 % (32.0-36.0); MCV 88 fL (80-95); MPV 10.9 fL (8.0-11.0); Neutrophils % 68.1 %; Platelet Count 198 10^3/uL (130-400); RBC 4.82 10^6/uL (3.93-5.22); RDW 13.2 % (11.7-14.6); RDW-SD 42.5 fL; WBC 7.03 10^3/uL (4.4-10.8)
== END 2024-10-11 02:23 | disposition home or self-care (01) ==
PROVIDERS: PCP Family Medicine; Visit Provider Nurse Practitioner Family
DX: Z79.899 Other long term (current) drug therapy (principal)
CPT/HCPCS: 36415; 85025

== ENCOUNTER 2024-11-11 01:01 | Outpatient (CLI) | payer MEDICARE, BC, SELFPAY ==
--- OUTSIDE RECORDS SUMMARY | 2024-11-11 01:12 | XMS_ITS | Encounter Summary ---
Author Organization [facility] Address [address] [place] [address] Care Team Providers Care Fiberglass Dowel Drawing Operator Name Role Phone Sara Ely MD Primary Care Provider Encounter Details Date Type Department Care Team (Late st Contact Info) Description 07/26/2018 Results Only [facility] [phone] Krysta Yan, [facility] [address] [place] [address] [place] [address] Social History Tobacco Use Types Packs/Day Years Used Date Smoking Tobacco: Never Assessed Comments Unknown Sex and Gender Information Value Date Recorded Sex Assigned at Not on file Legal Sex Female 18:06 EST Gender Identity Not on file Sexual Orientation [...] ? MAYCO NEWBY ? Accession #: ? [id number] ? : ? 1965 (Age: 52) ??F ?Collect Date: ? 07/26/2018 ? Location: ? [facility] ? Receive Date: ? 07/27/2018 ? Provider: KRYSTA YAN ORGANIZATIONAL DEVELOPMENT CONSULTANT Copy to: ANGI BIRD PAC ? Final [...] types 16,18,31,33,35, 39,45,51,52,56,58, 59,66, and 68 by mortgage analyst mediated amplification. Comments Document reviewed and electronically signed by: ? System Interface ? Report date: 08/02/2018 By the signature above, the attending physician certifies that he/she has personally conducted a gross and/or microscopic examination of the described specimens and rendered or confirmed the above diagnosis. End of Report [facility] 07/26/2018 07/27/2018 us Krysta Yan ORGANIZATIONAL DEVELOPMENT CONSULTANT PATHOLOGY ORDERABLES Final R esult [facility] [address] [place] [address] documented in this encounter Visit Diagnoses Not on filedocumented in this encounter Care Teams Fiberglass Dowel Drawing Operator Relationship Specialty Start Date End Date Sara Ely MD [facility] [address] [place] [address] PCP - General 09/05/15 documented as of this encounter
--- OUTSIDE RECORDS SUMMARY | 2024-11-11 01:12 | XMS_ITS | Encounter Summary ---
Author Organization [facility] Address [address] [place] [address] Care Team Providers Care Cashier Courtesy Booth Name Role Phone Unavailable Primary Care Provider Unavailabl e Encounter Details Date Type Department Care Team (Late st Contact Info) Description 05/09/2002 Results Only [facility] - [facility] [address] [place] [address] Jase Martinez MD [address] [place] [address] [place] [phone] Social History Tobacco Use Types Packs/Day [...] ? MAYCO NEWBY ? Accession #: ? [id number] : ? 1965 (Age: 36) ??F ?Collect [...] End of Report [facility] 05/09/2002 05/11/2002 us Jase Martinez MD PATHOLOGY ORDERABLES Final Resu lt [facility] [address] [place] [address] documented in this encounter Visit Diagnoses Not on filedocumented in this encounter
--- OUTSIDE RECORDS SUMMARY | 2024-11-11 01:12 | XMS_ITS | Encounter Summary ---
Author Organization [facility] Address [address] [place] [address] Care Team Providers Care Seamless Tube Roller Name Role Phone Unavailable Primary Care Provider Unavailabl e Encounter Details Date Type Department Care Team (Late st Contact Info) Description 04/27/2000 Results Only [facility] - [facility] [address] [place] [address] Jase Martinez MD [address] [facility] [address] [place] [address] [place] [phone] Social History Tobacco Use Types Packs/Day [...] ? MAYCO NEWBY ? Accession #: ? [id number] : ? 1965 (Age: 34) ??F ?Collect Date: ? 04/27/2000 Location: ? [facility] ? Receive Date: ? 04/28/2000 Provider: ?JASE MARTINZE MD Copy to: ? Specimen/Source: ?Conventional Pap [...] End of Report [facility] 04/27/2000 04/28/2000 us Jase Martinez MD PATHOLOGY ORDERABLES Final Resu lt [facility] [address] [place] [address] documented in this encounter Visit Diagnoses Not on filedocumented in this encounter
--- OUTSIDE RECORDS SUMMARY | 2024-11-11 01:12 | XMS_ITS | Referral Summary ---
Author Organization [facility] Address [address] [place] [address] Care Team Providers Care Forestry Patrolman Name Role Phone Sara Ely MD Primary Care Provider [phone] Social History Tobacco Use Types Packs/Day Years Used Date Smoking Tobacco: Never Assessed Comments Unknown Sex and Gender Information Value Date Recorded Sex Assigned at Not on file Legal Sex Female 18:06 EST Gender Identity Not on file Sexual Orientation Not on file Plan of Treatment Not on file Care Teams Forestry Patrolman Relationship Specialty Start Date End Date Sara Ely MD [facility] [address] [place], [place] [address] PCP - General 09/05/15
--- OUTSIDE RECORDS SUMMARY | 2024-11-11 01:12 | XMS_ITS | Encounter Summary ---
Author Organization [facility] Address [address] [place] [address] Care Team Providers Care Wool Merchant Name Role Phone Sara Ely MD Primary Care Provider [phone] Encounter Details Date Type Department Care Team (Late st Contact Info) Description 09/03/2021 Lab Requisition [facility] Pathology & Laboratory Medicine - [address] [address] Outr Resulting Lab, Provider Social History Tobacco [...] 2.8 - 5.3 pg/mL 09/03/2021 17:10 EDT [facility] Blood VENOUS BLOOD / Unknown 09/03/2021 10:23 EDT 09/03/2021 16:26 EDT us Provider Outr Resulting Lab CHEMISTRY & BLOOD GA S ORDERABLES Final Result [facility] [address] [place] [address] documented in this encounter Visit Diagnoses Not on filedocumented in this encounter Care Teams Wool Merchant Relationship Specialty Start Date End Date Sara Ely MD [facility] [address] [place] [address] PCP - General 09/05/15 documented as of this encounter
--- OUTSIDE RECORDS SUMMARY | 2024-11-11 01:12 | XMS_ITS | Encounter Summary ---
Author Organization [facility] Address [address] [place] [address] Care Team Providers Care Instructor Adjunct Pharmacy Technician Name Role Phone Unavailable Primary Care Provider Unavailabl e Encounter Details Date Type Department Care Team (Late st Contact Info) Description 04/21/2001 Results Only [facility] - Maple conversion [address] [place] [address] Jase Martinez MD [address] [facility] [address] [place] [address] [place] [phone] Social History Tobacco Use Types Packs/Day [...] ? MAYCO NEWBY ? Accession #: ? [id number] : ? 1965 (Age: 35) ??F ?Collect [...] Date: ??04/27/2001 13:38 End of Report [facility] 04/21/2001 04/26/2001 us Jase Martinez MD PATHOLOGY ORDERABLES Final Resu lt [facility] [address] [place] [address] documented in this encounter Visit Diagnoses Not on filedocumented in this encounter
--- OUTSIDE RECORDS SUMMARY | 2024-11-11 01:12 | XMS_ITS | Encounter Summary ---
Author Organization [facility] Address [address] [place] [address] Care Team Providers Care Life Skills Coordinator Name Role Phone Unavailable Primary Care Provider Unavailabl e Encounter Details Date Type Department Care Team (Late st Contact Info) Description 11/21/2009 Orders Only [facility] Laboratory Services - [facility] ([facility] [place]) [address], [place] [id number] Jeancarlos Ely MD [facility] [address] [place], [place] [phone] Social History Tobacco Use Types Packs/Day Years [...] 11/21/2009 14:5 2 EST 11/23/2009 14:52 EST us Jeancarlos Ely MD MICROBIOLOGY - GENERAL ORDERABLE S Final Result [facility] [address] [place] [address] * CYTOPATHOLOGY (11/21/2009 0:00 EST) Pathology Report: CYTOPATHOLOGY REPORT ? Reports generated via electronic interface contain original data; ? however they are lacking the format of the original report. ? Caution should be taken when reading/interpreti ng unformatted reports. ? Name: ? MCHARG, MAYCO ? Accession #: ? [id number] ? : ? 1965 (Age: 44) ??F [...] Report ? [facility] 11/21/2009 11/22/2009 us Jeancarlos Ely MD PATHOLOGY ORDERABLES Final Resul t [facility] [address] [place] [address] documented in this encounter Visit Diagnoses Not on filedocumented in this encounter
--- OUTSIDE RECORDS SUMMARY | 2024-11-11 01:12 | XMS_ITS | Clinical Summary ---
Author Organization [facility] Address [address] [place] [address] Care Team Providers Care Spice Blender Name Role Phone Sara Ely MD Primary Care Provider [phone] Social History Tobacco Use Types Packs/Day Years [...] 3-dose series) 09/26 COVID-19 Vaccine ( season) 2024 Care Teams Spice Blender Relationship Specialty Start Date End Date Sara Ely MD [facility] [address] [place], [place] [phone] PCP - General 09/05/15
--- OUTSIDE RECORDS SUMMARY | 2024-11-11 01:12 | XMS_ITS | Encounter Summary ---
Author Organization [facility] Address [address] [place] [address] Care Team Providers Care Processing Operator Name Role Phone Unavailable Primary Care Provider Unavailabl e Encounter Details Date Type Department Care Team (Late st Contact Info) Description 01/21/2005 Results Only [facility] [address] [place] [address] Jase Martinez MD [address] [place] [address] [place] [phone] Social History Tobacco Use Types Packs/Day [...] ? MAYCO NEWBY ? Accession #: ? [id number] : ? 1965 (Age: 39) ??F ?Collect [...] End of Report [facility] 01/21/2005 01/22/2005 us Jase Martinez MD PATHOLOGY ORDERABLES Final Resu lt [facility] [address] [place] [address] documented in this encounter Visit Diagnoses Not on filedocumented in this encounter
--- OUTSIDE RECORDS SUMMARY | 2024-11-11 01:12 | XMS_ITS | Encounter Summary ---
Author Organization [facility] Address [address] [place] [address] Care Team Providers Care General Office Clerk Name Role Phone Unavailable Primary Care Provider Unavailabl e Encounter Details Date Type Department Care Team (Late st Contact Info) Description 01/05/2004 Results Only [facility] - [facility] [address] [place] [address] Jase Martinez MD [address] [place] [address] [place] [phone] Social History Tobacco Use Types Packs/Day [...] End of Report [facility] 01/05/2004 01/08/2004 us Jase Martinez MD PATHOLOGY ORDERABLES Final Resu lt [facility] [address] [place] [address] documented in this encounter Visit Diagnoses Not on filedocumented in this encounter
--- OUTSIDE RECORDS SUMMARY | 2024-11-11 01:12 | XMS_ITS | Encounter Summary ---
Author Organization [facility] Address [address] [place] [address] Care Team Providers Care Child Development Director Name Role Phone Unavailable Primary Care Provider Unavailabl e Encounter Details Date Type Department Care Team (Late st Contact Info) Description 03/20/2006 Results Only [facility] - [facility] [address] [place] [address] Ross Arce, DO [address] [facility] [address] [place], [place] [id number] Social History Tobacco Use Types Packs/Day Years [...] ? MAYCO NEWBY ? Accession #: ? [id number] ? : ? 1965 (Age: 40) ??F [...] bowel habits. Gross Description: ? Received in [facility]'s labelled [place] and 1. Bx ascending colon is an irregular piece of soft tissue measuring 0.3 x 0.2 x 0.2 cm, which is entirely submitted as (A). Received in [facility]'s labelled [place] and 2. Bx transverse colon is a 0.3 x 0.3 x 0.2 cm fragment of soft tissue, which is entirely submitted as (B). Received in [facility]'s labelled [place] and 3. Bx sigmoid are three fragments of soft tissue ranging in size from 0.3 x 0.2 x 0.2 cm to less than 0.1 cm in all dimensions. ??They are entirely submitted as (C). Received in [facility]'s labelled [place] and 4. Bx rectum is a 0.3 x 0.3 x 0.3 cm fragment of soft tissue, which is entirely submitted as (D). ??(Stephy White)/minal End of Report [facility] 03/20/2006 03/20/2006 15: 29 EDT us Ross Arce DO PATHOLOGY ORDERABLES Fi nal Result [facility] [address] [place] [address] documented in this encounter Visit Diagnoses Not on filedocumented in this encounter
--- OUTSIDE RECORDS SUMMARY | 2024-11-11 01:12 | XMS_ITS | Encounter Summary ---
Author Organization [facility] Address [address] [place] [address] Care Team Providers Care Billiard Table Repairer Name Role Phone Unavailable Primary Care Provider Unavailabl e Encounter Details Date Type Department Care Team (Late st Contact Info) Description 04/28/2007 Results Only [facility] - [facility] [address] [place] [address] Jeancarlos Grossman MD [facility] [address] [place] [address] Social History Tobacco Use Types Packs/Day Years [...] ? MAYCO NEWBY ? Accession #: ? [id number] : ? 1965 (Age: 41) ??F ?Collect Date: ? 04/28/2007 Location: ? [facility] ? Receive Date: ? 04/30/2007 Provider: ?JEANCARLOS GROSSMAN MD Copy to: ? Specimen/Source: ?ThinPrep Pap Test, Cervix/Endocervix, processed on [facility] ThinPrep Imaging System, with manual evaluation Last [...] End of Report [facility] 04/28/2007 04/30/2007 us Jeancarlos Grossman MD PATHOLOGY ORDERABLES Final Resul t Performing Organization Address City/State/[facility] Co de Phone Number [facility] [address] [place] [address] documented in this encounter Visit Diagnoses Not on filedocumented in this encounter
--- OUTSIDE RECORDS SUMMARY | 2024-11-11 01:13 | XMS_ITS | Data Portability ---
Author Organization [place] - [facility], [facility] Address Oumar Rivera [facility] [place] [address] Care Team Providers Care Clammer Name Role Phone SMITH DENSON Primary Care Provider Unav ailable [facility] Dentist Assessment Encounter Date Assessment Date Assessment LastModified [...] healthy living. [email or web address] Not available 10/22/2023 20:36:33 10/17/2024 10/17/2024 Patient presente d to office today for [...] reduce health risks and promote healthy living. Personalized prevention plan (PPP) completed and reviewed with patient. Patient was given written copy of PPP at conclusion of visit, detailing prior screening and 5-10 year future screening plan including: screenings for breast cancer and colorectal cancer, immunizations, and other age appropriate screenings consistent with USPSTF and ACIP guidelines Not available 10/11/2024 14:03:08 Plan of Treatment Reminders Order Date Submit Date Provider Last Modified By Organization Details Last Modified Time Details Appointments Follow Up 30 2024 01:30P M Smith Avelar Not available Not available Not available Medica re Annual Wellne ss 40 2024 01:00P M Smith Avelar Not available Not available Not available Lab lipid panel, blood - please do with February 2024 rout[facility] 2022 024 [email or web address] [facility] ([facility]), [address] [place] [address] [place], [address], 02/12/2024 16:37:25 CMP, serum or plasma 2022 024 [facility] ([facility]), [address] [place] [address] [place], [address], 11/05/2023 16:49:14 HbA1c (hemog lobin A1c), blood 2022 024 [email or web address] [facility] ([facility]), [address] [place] [address] [place], [address], 11/24/2023 09:46:49 noninv asive colore ctal cancer DNA + occult blood screen ing, QL, stool 2022 024 [email or web address] (Cologuard Orders Only), [address], [address], [place], [address], 05/18/2024 13:32:35 vitami n D, 25-hyd anupama, total, serum 2022 024 [facility] ([facility]), [address] [place] [address] [place], [address], 11/05/2023 17:40:23 Referral None record ed. Procedures remova l of skin tags, multip le fibroc utaneo us tags (PROC) 2023 024 [email or web address] [facility] (Registration ), [address] [place] [address] [place], [address], 11/24/2023 13:36:38 Surgeries None record ed. Imaging None record ed. Medication Orders Vitami n D2 1,250 mcg (50,00 0 unit) capsul e 2023 024 [email or web address] [facility], [address] [place], [address], 10/19/2024 09:40:08 clozap ine 100 mg tablet 2023 024 [email or web address] [facility], [address] [place], [address], 10/19/2024 09:40:08 clozap ine 50 mg tablet 2023 024 [email or web address] [facility], [address] [place], [address], 10/19/2024 09:40:08 Patient TargetsNo targets recorded. Patient Instructions Encounter Date Encounter Id Patient Instructions Last Modified By Organization Details Last Modified Time 10/15/2023 [id number] - I will send lab orders to [facility] for second week of November. When you go there, please ask if they have orders from [facility]. - Please schedule a nurse visit for [...] schedule. [email or web address] Not available 10/15/2023 14:14:05 11/05/2023 [id number] skin tag removal: care instructions [email or web address] Not available 11/05/2023 12:42:13 10/17/2024 [id number] Discussed and explained advance directives such as standard forms to the {{patient caregi kirk patient and caregiver}}. Face to face discussion lasted for a duration of ___ minutes. Not available 10/11/2024 14:03:08 Reason for Referral None Reported. Results Created Date Observation Date Name Description Value Unit Range Abnormal Flag Note LastModifiedBy Organization Detail LastModifiedTime 10/21/2024 COLOG UARD cologuard result Cancel led - Order d not applic able Not Available [facility] (Cologuard Orders Only) [address], [place], [address], 10/21/2024 08:57:32 10/12/2010/12/2023 COMPL ETE BLOOD COUNT W/DIF F WBC 7.61 10_3/ uL 4.4-10 .8 normal Not Available [address] [place], [address] 10/12/2023 11:00:24 10/12/20 23 10/12/2023 COMPL ETE BLOOD COUNT W/DIF F RBC 4.78 10_6/ uL 3.93-5 .22 normal Not Available [address] [place], [address] 10/12/2023 11:00:24 10/12/20 23 10/12/2023 COMPL ETE BLOOD COUNT W/DIF F HGB 13.9 g/dL 11.2-1 5.7 normal Not Available [address] [place], [address] 10/12/2023 11:00:24 10/12/20 23 10/12/2023 COMPL ETE BLOOD COUNT W/DIF F HCT 42.0 % 36.0-4 6.0 normal Not Available [address] [place], [address] 10/12/2023 11:00:24 10/12/20 23 10/12/2023 COMPL ETE BLOOD COUNT W/DIF F MCV 88 fL 80-95 normal Not Available Todd [address] [place], [address] 10/12/2023 11:00:24 10/12/20 23 10/12/2023 COMPL ETE BLOOD COUNT W/DIF F MCH 29.1 pg 27.0-3 3.0 normal Not Available [address] [place], [address] 10/12/2023 11:00:24 10/12/20 23 10/12/2023 COMPL ETE BLOOD COUNT W/DIF F MCHC 33.1 % 32.0-3 6.0 normal Not Available [address] [place], [address] 10/12/2023 11:00:24 10/12/20 23 10/12/2023 COMPL ETE BLOOD COUNT W/DIF F RDW 13.4 % 11.7-1 4.6 normal Not Available [address] [place], [address] 10/12/2023 11:00:24 10/12/20 23 10/12/2023 COMPL ETE BLOOD COUNT W/DIF F platelet count 199 10_3/ uL 130-40 0 normal Not Available [address] [place], [address] 10/12/2023 11:00:24 10/12/20 23 10/12/2023 COMPL ETE BLOOD COUNT W/DIF F MPV 12.0 fL 8.0-11 .0 high Not Available [address] [place], [address] 10/12/2023 11:00:24 10/12/20 23 10/12/2023 COMPL ETE BLOOD COUNT W/DIF F neutrophils % 67.6 Not Available [address] [place], [address] 10/12/2023 11:00:24 10/12/20 23 10/12/2023 COMPL ETE BLOOD COUNT W/DIF F lymphocytes % 25.2 Not Available [address] [place], [address] 10/12/2023 11:00:24 10/12/20 23 10/12/2023 COMPL ETE BLOOD COUNT W/DIF F monocytes % 6.7 Not Available [address] [place], [address] 10/12/2023 11:00:24 10/12/20 23 10/12/2023 COMPL ETE BLOOD COUNT W/DIF F eosinophils % 0.1 Not Available [address] [place], [address] 10/12/2023 11:00:24 10/12/20 23 10/12/2023 COMPL ETE BLOOD COUNT W/DIF F basophils % 0.3 Not Available [address] [place], [address] 10/12/2023 11:00:24 10/12/20 23 10/12/2023 COMPL ETE BLOOD COUNT W/DIF F immature grans % 0.1 Not Available [address] [place], [address] 10/12/2023 11:00:24 10/12/20 23 10/12/2023 COMPL ETE BLOOD COUNT W/DIF F nucleated RBC 0.0 % 0.0-0. 3 normal Not Available [address] [place], [address] 10/12/2023 11:00:24 10/12/20 23 10/12/2023 COMPL ETE BLOOD COUNT W/DIF F absolute neutrophil count 5.14 10_3/ uL 1.2-6. 7 normal Not Available [address] [place], [address] 10/12/2023 11:00:24 10/12/20 23 10/12/2023 COMPL ETE BLOOD COUNT W/DIF F absolute lymphocyte count 1.92 10_3/ uL 1.2-3. 4 normal Not Available [address] [place], [address] 10/12/2023 11:00:24 10/12/20 23 10/12/2023 COMPL ETE BLOOD COUNT W/DIF F absolute monocyte count 0.51 10_3/ uL 0.1-0. 8 normal Not Available [address] [place], [address] 10/12/2023 11:00:24 10/12/20 23 10/12/2023 COMPL ETE BLOOD COUNT W/DIF F absolute eosinophil count 0.01 10_3/ uL 0.0-0. 7 normal Not Available [address] [place], [address] 10/12/2023 11:00:24 10/12/20 23 10/12/2023 COMPL ETE BLOOD COUNT W/DIF F absolute basophil count 0.02 10_3/ uL 0.0-0. 2 normal Not Available [address] [place], [address] 10/12/2023 11:00:24 10/15/20 23 10/15/2023 visua l acuit y* R Eye Uncorrected 20 Not Available [address], [address], 10/15/2023 14:22:34 10/15/20 23 10/15/2023 visua l acuit y* L Eye Uncorrected 20 Not Available [address], [address], 10/15/2023 14:22:34 11/05/19 24 11/05/2023 COMPR EHENS CHOCO METAB OLIC PANEL calcium 9.2 mg/dL 8.5-10 .1 normal Not Available [address] [place], [address] 11/05/2023 16:49:14 11/05/19 24 11/05/2023 COMPR EHENS CHOCO METAB OLIC PANEL glucose 98 mg/dL 74-106 normal Not Available Todd velazquez [address] [place], [address] 11/05/2023 16:49:14 11/05/19 24 11/05/2023 COMPR EHENS CHOCO METAB OLIC PANEL BUN 16 mg/dL 7-18 normal Not Available Todd velazquez [address] [place], [address] 11/05/2023 16:49:14 11/05/19 24 11/05/2023 COMPR EHENS CHOCO METAB OLIC PANEL creatinine 0.9 mg/dL 0.55-1 .02 normal Not Available [address] [place], [address] 11/05/2023 16:49:14 11/05/19 24 11/05/2023 COMPR EHENS CHOCO METAB OLIC PANEL estimated GFR 73.64 mL/min /1.73m 2 The eGFR is calcu lated from a serum creat inine using the CKD-E PI 2020 equat ion. Other varia bles requi red for the equat ion are gende r and age; this equat ion does not inclu de a race coeff icien t. This equat ion has simil ar overa ll perfo rmanc e to previ ous equat ions excep t value s may diffe r, in parti cular , in patie nts with highe r value s of eGFR and young er-ag ed adult s. Not Available [address] [place], [address] 11/05/2023 16:49:14 11/05/19 24 11/05/2023 COMPR EHENS CHOCO METAB OLIC PANEL total protein 7.4 g/dL 6.4-8. 2 normal Not Available [address] [place], [address] 11/05/2023 16:49:14 11/05/19 24 11/05/2023 COMPR EHENS CHOCO METAB OLIC PANEL albumin 3.9 g/dL 3.4-5. 0 normal Not Available [address] [place], [address] 11/05/2023 16:49:14 11/05/19 24 11/05/2023 COMPR EHENS CHOCO METAB OLIC PANEL bilirubin, total 0.4 mg/dL 0.2-1. 0 normal Not Available [address] [place], [address] 11/05/2023 16:49:14 11/05/19 24 11/05/2023 COMPR EHENS CHOCO METAB OLIC PANEL alk phos 110 U/L 46-116 normal Not Available [address] [place], [address] 11/05/2023 16:49:14 11/05/19 24 11/05/2023 COMPR EHENS CHOCO METAB OLIC PANEL sodium 139 mmol/ L 136-14 5 normal Not Available [address] [place], [address] 11/05/2023 16:49:14 11/05/19 24 11/05/2023 COMPR EHENS CHOCO METAB OLIC PANEL potassium 4.3 mmol/ L 3.5-5. 1 normal Not Available [address] [place], [address] 11/05/2023 16:49:14 11/05/19 24 11/05/2023 COMPR EHENS CHOCO METAB OLIC PANEL chloride 105 mmol/ L 98-107 normal Not Available [address] [place], [address] 11/05/2023 16:49:14 11/05/19 24 11/05/2023 COMPR EHENS CHOCO METAB OLIC PANEL CO2 25.6 mmol/ L 21.0-3 2.0 normal Not Available [address] [place], [address] 11/05/2023 16:49:14 11/05/19 24 11/05/2023 COMPR EHENS CHOCO METAB OLIC PANEL anion gap 8.4 mmol/ L 3-11 normal Not Available [address] [place], [address] 11/05/2023 16:49:14 11/05/19 24 11/05/2023 COMPR EHENS CHOCO METAB OLIC PANEL AST 23 U/L 15-37 normal Not Available Todd velazquez [address] [place], [address] 11/05/2023 16:49:14 11/05/19 24 11/05/2023 COMPR EHENS CHOCO METAB OLIC PANEL ALT 27 U/L 14-59 normal Not Available Todd velazquez [address] [place], [address] 11/05/2023 16:49:14 11/05/19 24 11/05/2023 HEMOG LOBIN A1C hemoglobin A1C 5.5 % <5.7 Refer ence Range s <5.7 Verito l 5.7-6 .4% Predi abete s 6.5% or great er Diagn ostic for diabe elaine (if confi rmed) Refer ences : 1. Ameri can Diabe elaine Assoc iatio n. Clas sific ation and Diagn osis of Diabe elaine. Diabe elaine Care 2018; 2(Sup pleme nt 1):S1 3-s28 . Not Available [address] [place], [address] 11/05/2023 17:16:17 11/05/19 24 11/05/2023 VITAM IN D 25 TOTAL vitamin D 25 total 20.2 NG/mL 30-100 low Refer ence Guide lines : Defic ient: <10 ng/ml Insuf ficie nt: 10-30 ng/ml Suffi cient : 30-10 0 ng/ml Toxic : >100 ng/ml Not Available [address] [place], [address] 11/05/2023 17:40:23 11/11/19 24 11/11/2023 COMPL ETE BLOOD COUNT W/DIF F WBC 6.94 10_3/ uL 4.4-10 .8 normal Not Available [address] [place], [address] 11/11/2023 11:54:00 11/11/19 24 11/11/2023 COMPL ETE BLOOD COUNT W/DIF F RBC 4.77 10_6/ uL 3.93-5 .22 normal Not Available [address] [place], [address] 11/11/2023 11:54:00 11/11/19 24 11/11/2023 COMPL ETE BLOOD COUNT W/DIF F HGB 13.4 g/dL 11.2-1 5.7 normal Not Available [address] [place], [address] 11/11/2023 11:54:00 11/11/19 24 11/11/2023 COMPL ETE BLOOD COUNT W/DIF F HCT 41.4 % 36.0-4 6.0 normal Not Available [address] [place], [address] 11/11/2023 11:54:00 11/11/19 24 11/11/2023 COMPL ETE BLOOD COUNT W/DIF F MCV 87 fL 80-95 normal Not Available [address], [address] 11/11/2023 11:54:00 11/11/19 24 11/11/2023 COMPL ETE BLOOD COUNT W/DIF F MCH 28.1 pg 27.0-3 3.0 normal Not Available [address] [place], [address] 11/11/2023 11:54:00 11/11/19 24 11/11/2023 COMPL ETE BLOOD COUNT W/DIF F MCHC 32.4 % 32.0-3 6.0 normal Not Available [address] [place], [address] 11/11/2023 11:54:00 11/11/19 24 11/11/2023 COMPL ETE BLOOD COUNT W/DIF F RDW 13.3 % 11.7-1 4.6 normal Not Available [address] [place], [address] 11/11/2023 11:54:00 11/11/19 24 11/11/2023 COMPL ETE BLOOD COUNT W/DIF F platelet count 193 10_3/ uL 130-40 0 normal Not Available [address] [place], [address] 11/11/2023 11:54:00 11/11/19 24 11/11/2023 COMPL ETE BLOOD COUNT W/DIF F MPV 10.8 fL 8.0-11 .0 normal Not Available [address] [place], [address] 11/11/2023 11:54:00 11/11/19 24 11/11/2023 COMPL ETE BLOOD COUNT W/DIF F neutrophils % 63.4 Not Available [facility] [address] [place], [address] 11/11/2023 11:54:00 11/11/19 24 11/11/2023 COMPL ETE BLOOD COUNT W/DIF F lymphocytes % 29.7 Not Available [place] [facility] [address] [place], [address] 11/11/2023 11:54:00 11/11/19 24 11/11/2023 COMPL ETE BLOOD COUNT W/DIF F monocytes % 6.2 Not Available [address] [place], [address] 11/11/2023 11:54:00 11/11/19 24 11/11/2023 COMPL ETE BLOOD COUNT W/DIF F eosinophils % 0.0 Not Available [address] [place], [address] 11/11/2023 11:54:00 11/11/19 24 11/11/2023 COMPL ETE BLOOD COUNT W/DIF F basophils % 0.4 Not Available [address] [place], [address] 11/11/2023 11:54:00 11/11/19 24 11/11/2023 COMPL ETE BLOOD COUNT W/DIF F immature grans % 0.3 Not Available [address] [place], [address] 11/11/2023 11:54:00 11/11/19 24 11/11/2023 COMPL ETE BLOOD COUNT W/DIF F nucleated RBC 0.0 % 0.0-0. 3 normal Not Available [address] [place], [address] 11/11/2023 11:54:00 11/11/19 24 11/11/2023 COMPL ETE BLOOD COUNT W/DIF F absolute neutrophil count 4.40 10_3/ uL 1.2-6. 7 normal Not Available [address] [place], [address] 11/11/2023 11:54:00 11/11/19 24 11/11/2023 COMPL ETE BLOOD COUNT W/DIF F absolute lymphocyte count 2.06 10_3/ uL 1.2-3. 4 normal Not Available [address] [place], [address] 11/11/2023 11:54:00 11/11/19 24 11/11/2023 COMPL ETE BLOOD COUNT W/DIF F absolute monocyte count 0.43 10_3/ uL 0.1-0. 8 normal Not Available [address] [place], [address] 11/11/2023 11:54:00 11/11/19 24 11/11/2023 COMPL ETE BLOOD COUNT W/DIF F absolute eosinophil count 0.00 10_3/ uL 0.0-0. 7 normal Not Available [address] [place], [address] 11/11/2023 11:54:00 11/11/19 24 11/11/2023 COMPL ETE BLOOD COUNT W/DIF F absolute basophil count 0.03 10_3/ uL 0.0-0. 2 normal Not Available [address] [place], [address] 11/11/2023 11:54:00 12/17/19 24 12/17/2023 COMPL ETE BLOOD COUNT W/DIF F WBC 6.94 10_3/ uL 4.4-10 .8 normal Not Available [address] [place], [address] 12/17/2023 08:42:45 12/17/19 24 12/17/2023 COMPL ETE BLOOD COUNT W/DIF F RBC 4.98 10_6/ uL 3.93-5 .22 normal Not Available [address] [place], [address] 12/17/2023 08:42:45 12/17/19 24 12/17/2023 COMPL ETE BLOOD COUNT W/DIF F HGB 13.8 g/dL 11.2-1 5.7 normal Not Available [address] [place], [address] 12/17/2023 08:42:45 12/17/19 24 12/17/2023 COMPL ETE BLOOD COUNT W/DIF F HCT 43.4 % 36.0-4 6.0 normal Not Available [address] [place], [address] 12/17/2023 08:42:45 12/17/19 24 12/17/2023 COMPL ETE BLOOD COUNT W/DIF F MCV 87 fL 80-95 normal Not Available Todd velazquez [address] [place], [address] 12/17/2023 08:42:45 12/17/19 24 12/17/2023 COMPL ETE BLOOD COUNT W/DIF F MCH 27.7 pg 27.0-3 3.0 normal Not Available [address] [place], [address] 12/17/2023 08:42:45 12/17/19 24 12/17/2023 COMPL ETE BLOOD COUNT W/DIF F MCHC 31.8 % 32.0-3 6.0 low Not Available [address] [place], [address] 12/17/2023 08:42:45 12/17/19 24 12/17/2023 COMPL ETE BLOOD COUNT W/DIF F RDW 13.3 % 11.7-1 4.6 normal Not Available [address] [place], [address] 12/17/2023 08:42:45 12/17/19 24 12/17/2023 COMPL ETE BLOOD COUNT W/DIF F platelet count 208 10_3/ uL 130-40 0 normal Not Available [address] [place], [address] 12/17/2023 08:42:45 12/17/19 24 12/17/2023 COMPL ETE BLOOD COUNT W/DIF F MPV 10.9 fL 8.0-11 .0 normal Not Available [address] [place], [address] 12/17/2023 08:42:45 12/17/19 24 12/17/2023 COMPL ETE BLOOD COUNT W/DIF F neutrophils % 70.3 Not Available [address] [place], [address] 12/17/2023 08:42:45 12/17/19 24 12/17/2023 COMPL ETE BLOOD COUNT W/DIF F lymphocytes % 23.5 Not Available [address] [place], [address] 12/17/2023 08:42:45 12/17/19 24 12/17/2023 COMPL ETE BLOOD COUNT W/DIF F monocytes % 5.2 Not Available [address] [place], [address] 12/17/2023 08:42:45 12/17/19 24 12/17/2023 COMPL ETE BLOOD COUNT W/DIF F eosinophils % 0.1 Not Available [address] [place], [address] 12/17/2023 08:42:45 12/17/19 24 12/17/2023 COMPL ETE BLOOD COUNT W/DIF F basophils % 0.6 Not Available [address] [place], [address] 12/17/2023 08:42:45 12/17/19 24 12/17/2023 COMPL ETE BLOOD COUNT W/DIF F immature grans % 0.3 Not Available [address] [place], [address] 12/17/2023 08:42:45 12/17/19 24 12/17/2023 COMPL ETE BLOOD COUNT W/DIF F nucleated RBC 0.0 % 0.0-0. 3 normal Not Available [address] [place], [address] 12/17/2023 08:42:45 12/17/19 24 12/17/2023 COMPL ETE BLOOD COUNT W/DIF F absolute neutrophil count 4.88 10_3/ uL 1.2-6. 7 normal Not Available [address] [place], [address] 12/17/2023 08:42:45 12/17/19 24 12/17/2023 COMPL ETE BLOOD COUNT W/DIF F absolute lymphocyte count 1.63 10_3/ uL 1.2-3. 4 normal Not Available [address] [place], [address] 12/17/2023 08:42:45 12/17/19 24 12/17/2023 COMPL ETE BLOOD COUNT W/DIF F absolute monocyte count 0.36 10_3/ uL 0.1-0. 8 normal Not Available [address] [place], [address] 12/17/2023 08:42:45 12/17/19 24 12/17/2023 COMPL ETE BLOOD COUNT W/DIF F absolute eosinophil count 0.01 10_3/ uL 0.0-0. 7 normal Not Available [address] [place], [address] 12/17/2023 08:42:45 12/17/19 24 12/17/2023 COMPL ETE BLOOD COUNT W/DIF F absolute basophil count 0.04 10_3/ uL 0.0-0. 2 normal Not Available [address] [place], [address] 12/17/2023 08:42:45 01/11/20 24 01/11/2024 COMPL ETE BLOOD COUNT W/DIF F WBC 6.92 10_3/ uL 4.4-10 .8 normal Not Available [address] [place], [address] 01/11/2024 11:21:21 01/11/20 24 01/11/2024 COMPL ETE BLOOD COUNT W/DIF F RBC 4.68 10_6/ uL 3.93-5 .22 normal Not Available [address] [place], [address] 01/11/2024 11:21:21 01/11/20 24 01/11/2024 COMPL ETE BLOOD COUNT W/DIF F HGB 13.3 g/dL 11.2-1 5.7 normal Not Available [address] [place], [address] 01/11/2024 11:21:21 01/11/20 24 01/11/2024 COMPL ETE BLOOD COUNT W/DIF F HCT 41.0 % 36.0-4 6.0 normal Not Available [address] [place], [address] 01/11/2024 11:21:21 01/11/20 24 01/11/2024 COMPL ETE BLOOD COUNT W/DIF F MCV 88 fL 80-95 normal Not Available [address] [place], [address] 01/11/2024 11:21:21 03/11/01/11/2024 COMPL ETE BLOOD COUNT W/DIF F MCH 28.4 pg 27.0-3 3.0 normal Not Available [address] [place], [address] 01/11/2024 11:21:21 01/11/20 24 01/11/2024 COMPL ETE BLOOD COUNT W/DIF F MCHC 32.4 % 32.0-3 6.0 normal Not Available [address] [place], [address] 01/11/2024 11:21:21 01/11/20 24 01/11/2024 COMPL ETE BLOOD COUNT W/DIF F RDW 13.5 % 11.7-1 4.6 normal Not Available [address] [place], [address] 01/11/2024 11:21:21 01/11/20 24 01/11/2024 COMPL ETE BLOOD COUNT W/DIF F platelet count 191 10_3/ uL 130-40 0 normal Not Available [address] [place], [address] 01/11/2024 11:21:21 01/11/20 24 01/11/2024 COMPL ETE BLOOD COUNT W/DIF F MPV 11.2 fL 8.0-11 .0 high Not Available [address] [place], [address] 01/11/2024 11:21:21 01/11/20 24 01/11/2024 COMPL ETE BLOOD COUNT W/DIF F neutrophils % 71.0 Not Available [address] [place], [address] 01/11/2024 11:21:21 01/11/20 24 01/11/2024 COMPL ETE BLOOD COUNT W/DIF F lymphocytes % 22.8 Not Available [address], [address] 01/11/2024 11:21:21 01/11/20 24 01/11/2024 COMPL ETE BLOOD COUNT W/DIF F monocytes % 5.5 Not Available [address], [address] 01/11/2024 11:21:21 01/11/20 24 01/11/2024 COMPL ETE BLOOD COUNT W/DIF F eosinophils % 0.0 Not Available [address] [place], [address] 01/11/2024 11:21:21 01/11/20 24 01/11/2024 COMPL ETE BLOOD COUNT W/DIF F basophils % 0.3 Not Available [address], [address] 01/11/2024 11:21:21 01/11/20 24 01/11/2024 COMPL ETE BLOOD COUNT W/DIF F immature grans % 0.4 Not Available [address] [place], [address] 01/11/2024 11:21:21 01/11/20 24 01/11/2024 COMPL ETE BLOOD COUNT W/DIF F nucleated RBC 0.0 % 0.0-0. 3 normal Not Available [address] [place], [address] 01/11/2024 11:21:21 01/11/20 24 01/11/2024 COMPL ETE BLOOD COUNT W/DIF F absolute neutrophil count 4.91 10_3/ uL 1.2-6. 7 normal Not Available [address] [place], [address] 01/11/2024 11:21:21 01/11/20 24 01/11/2024 COMPL ETE BLOOD COUNT W/DIF F absolute lymphocyte count 1.58 10_3/ uL 1.2-3. 4 normal Not Available [address] [place], [address] 01/11/2024 11:21:21 01/11/20 24 01/11/2024 COMPL ETE BLOOD COUNT W/DIF F absolute monocyte count 0.38 10_3/ uL 0.1-0. 8 normal Not Available [address] [place], [address] 01/11/2024 11:21:21 01/11/20 24 01/11/2024 COMPL ETE BLOOD COUNT W/DIF F absolute eosinophil count 0.00 10_3/ uL 0.0-0. 7 normal Not Available [address] [place], [address] 01/11/2024 11:21:21 01/11/20 24 01/11/2024 COMPL ETE BLOOD COUNT W/DIF F absolute basophil count 0.02 10_3/ uL 0.0-0. 2 normal Not Available [address] [place], [address] 01/11/2024 11:21:21 02/10/20 24 02/10/2024 COMPL ETE BLOOD COUNT W/DIF F WBC 7.25 10_3/ uL 4.4-10 .8 normal Not Available [address] [place], [address] 02/10/2024 11:20:08 02/10/20 24 02/10/2024 COMPL ETE BLOOD COUNT W/DIF F RBC 4.95 10_6/ uL 3.93-5 .22 normal Not Available [address] [place], [address] 02/10/2024 11:20:08 02/10/20 24 02/10/2024 COMPL ETE BLOOD COUNT W/DIF F HGB 14.1 g/dL 11.2-1 5.7 normal Not Available [address] [place], [address] 02/10/2024 11:20:08 02/10/20 24 02/10/2024 COMPL ETE BLOOD COUNT W/DIF F HCT 42.9 % 36.0-4 6.0 normal Not Available [address] [place], [address] 02/10/2024 11:20:08 02/10/20 24 02/10/2024 COMPL ETE BLOOD COUNT W/DIF F MCV 87 fL 80-95 normal Not Available [address], [address] 02/10/2024 11:20:08 02/10/20 24 02/10/2024 COMPL ETE BLOOD COUNT W/DIF F MCH 28.5 pg 27.0-3 3.0 normal Not Available [address] [place], [address] 02/10/2024 11:20:08 02/10/20 24 02/10/2024 COMPL ETE BLOOD COUNT W/DIF F MCHC 32.9 % 32.0-3 6.0 normal Not Available [address] [place], [address] 02/10/2024 11:20:08 02/10/20 24 02/10/2024 COMPL ETE BLOOD COUNT W/DIF F RDW 13.3 % 11.7-1 4.6 normal Not Available [address] [place], [address] 02/10/2024 11:20:08 02/10/20 24 02/10/2024 COMPL ETE BLOOD COUNT W/DIF F platelet count 224 10_3/ uL 130-40 0 normal Not Available [address] [place], [address] 02/10/2024 11:20:08 02/10/20 24 02/10/2024 COMPL ETE BLOOD COUNT W/DIF F MPV 11.3 fL 8.0-11 .0 high Not Available [address] [place], [address] 02/10/2024 11:20:08 02/10/20 24 02/10/2024 COMPL ETE BLOOD COUNT W/DIF F neutrophils % 72.0 Not Available [address] [place], [address] 02/10/2024 11:20:08 02/10/20 24 02/10/2024 COMPL ETE BLOOD COUNT W/DIF F lymphocytes % 21.8 Not Available [address] [place], [address] 02/10/2024 11:20:08 02/10/20 24 02/10/2024 COMPL ETE BLOOD COUNT W/DIF F monocytes % 5.4 Not Available [address] [place], [address] 02/10/2024 11:20:08 02/10/20 24 02/10/2024 COMPL ETE BLOOD COUNT W/DIF F eosinophils % 0.0 Not Available [address], [address] 02/10/2024 11:20:08 02/10/20 24 02/10/2024 COMPL ETE BLOOD COUNT W/DIF F basophils % 0.4 Not Available [address] [place], [address] 02/10/2024 11:20:08 02/10/20 24 02/10/2024 COMPL ETE BLOOD COUNT W/DIF F immature grans % 0.4 Not Available [address] [place], [address] 02/10/2024 11:20:08 02/10/20 24 02/10/2024 COMPL ETE BLOOD COUNT W/DIF F nucleated RBC 0.0 % 0.0-0. 3 normal Not Available [address] [place], [address] 02/10/2024 11:20:08 02/10/20 24 02/10/2024 COMPL ETE BLOOD COUNT W/DIF F absolute neutrophil count 5.22 10_3/ uL 1.2-6. 7 normal Not Available [address] [place], [address] 02/10/2024 11:20:08 02/10/20 24 02/10/2024 COMPL ETE BLOOD COUNT W/DIF F absolute lymphocyte count 1.58 10_3/ uL 1.2-3. 4 normal Not Available [address] [place], [address] 02/10/2024 11:20:08 02/10/20 24 02/10/2024 COMPL ETE BLOOD COUNT W/DIF F absolute monocyte count 0.39 10_3/ uL 0.1-0. 8 normal Not Available [address] [place], [address] 02/10/2024 11:20:08 02/10/20 24 02/10/2024 COMPL ETE BLOOD COUNT W/DIF F absolute eosinophil count 0.00 10_3/ uL 0.0-0. 7 normal Not Available [address] [place], [address] 02/10/2024 11:20:08 02/10/20 24 02/10/2024 COMPL ETE BLOOD COUNT W/DIF F absolute basophil count 0.03 10_3/ uL 0.0-0. 2 normal Not Available [address] [place], [address] 02/10/2024 11:20:08 02/10/20 24 02/10/2024 LIPID 2 cholesterol 220 mg/dL <200 high Not Available [address] [place], [address] 02/10/2024 11:29:19 02/10/20 24 02/10/2024 LIPID 2 triglyceride 118 mg/dL <150 Not Available [address] [place], [address] 02/10/2024 11:29:19 02/10/20 24 02/10/2024 LIPID 2 HDL cholesterol 59 mg/dL 40-60 Not Available [address] [place], [address] 02/10/2024 11:29:19 02/10/20 24 02/10/2024 LIPID 2 calculated LDL 138 mg/dL <100 high Natio nal Renetta stero l Educa tion Progr am (NCEP -ATPI II) class ifica tions : Renetta stero l <200 mg/dL Angelina able Renetta stero l 200-2 39 mg/dL Borde [place]line High Renetta stero l >or=2 40 mg/dL High HDL <40 mg/dL Low HDL >or=6 0 mg/dL High LDL <100 mg/dL Optim al LDL 100-1 29 mg/dL Near Optim al/Ab ove Optim al LDL 130-1 59 mg/dL Borde rline High LDL 160-1 89 mg/dL High LDL >or=1 90 mg/dL Very High *The above refer ence range is for adult s 18 years or older . Not Available [address] [place], [address] 02/10/2024 11:29:19 03/10/20 24 03/10/2024 COMPL ETE BLOOD COUNT W/DIF F WBC 6.52 10_3/ uL 4.4-10 .8 normal Not Available [address] [place], [address] 03/10/2024 11:32:11 03/10/20 24 03/10/2024 COMPL ETE BLOOD COUNT W/DIF F RBC 4.93 10_6/ uL 3.93-5 .22 normal Not Available [address] [place], [address] 03/10/2024 11:32:11 03/10/20 24 03/10/2024 COMPL ETE BLOOD COUNT W/DIF F HGB 14.1 g/dL 11.2-1 5.7 normal Not Available [address] [place], [address] 03/10/2024 11:32:11 03/10/20 24 03/10/2024 COMPL ETE BLOOD COUNT W/DIF F HCT 43.4 % 36.0-4 6.0 normal Not Available [address] [place], [address] 03/10/2024 11:32:11 03/10/20 24 03/10/2024 COMPL ETE BLOOD COUNT W/DIF F MCV 88 fL 80-95 normal Not Available [address] [place], [address] 03/10/2024 11:32:11 03/10/20 24 03/10/2024 COMPL ETE BLOOD COUNT W/DIF F MCH 28.6 pg 27.0-3 3.0 normal Not Available [address] [place], [address] 03/10/2024 11:32:11 03/10/20 24 03/10/2024 COMPL ETE BLOOD COUNT W/DIF F MCHC 32.5 % 32.0-3 6.0 normal Not Available [address] [place], [address] 03/10/2024 11:32:11 03/10/20 24 03/10/2024 COMPL ETE BLOOD COUNT W/DIF F RDW 13.3 % 11.7-1 4.6 normal Not Available [address] [place], [address] 03/10/2024 11:32:11 03/10/20 24 03/10/2024 COMPL ETE BLOOD COUNT W/DIF F platelet count 189 10_3/ uL 130-40 0 normal Not Available [address] [place], [address] 03/10/2024 11:32:11 03/10/20 24 03/10/2024 COMPL ETE BLOOD COUNT W/DIF F MPV 11.1 fL 8.0-11 .0 high Not Available [address] [place], [address] 03/10/2024 11:32:11 03/10/20 24 03/10/2024 COMPL ETE BLOOD COUNT W/DIF F neutrophils % 65.1 % Not Available [address] [place], [address] 03/10/2024 11:32:11 03/10/20 24 03/10/2024 COMPL ETE BLOOD COUNT W/DIF F lymphocytes % 24.7 % Not Available [address], [address] 03/10/2024 11:32:11 03/10/20 24 03/10/2024 COMPL ETE BLOOD COUNT W/DIF F monocytes % 6.0 % Not Available [address] [place], [address] 03/10/2024 11:32:11 03/10/20 24 03/10/2024 COMPL ETE BLOOD COUNT W/DIF F eosinophils % 2.6 % Not Available [address], [address] 03/10/2024 11:32:11 03/10/20 24 03/10/2024 COMPL ETE BLOOD COUNT W/DIF F basophils % 0.8 % Not Available [address] [place], [address] 03/10/2024 11:32:11 03/10/20 24 03/10/2024 COMPL ETE BLOOD COUNT W/DIF F immature grans % 0.8 % Not Available [facility] [address] [place], [address] 03/10/2024 11:32:11 03/10/20 24 03/10/2024 COMPL ETE BLOOD COUNT W/DIF F nucleated RBC 0.0 % 0.0-0. 3 normal Not Available [address] [place], [address] 03/10/2024 11:32:11 03/10/20 24 03/10/2024 COMPL ETE BLOOD COUNT W/DIF F absolute neutrophil count 4.25 10_3/ uL 1.2-6. 7 normal Not Available [address] [place], [address] 03/10/2024 11:32:11 03/10/20 24 03/10/2024 COMPL ETE BLOOD COUNT W/DIF F absolute lymphocyte count 1.61 10_3/ uL 1.2-3. 4 normal Not Available [address] [place], [address] 03/10/2024 11:32:11 03/10/20 24 03/10/2024 COMPL ETE BLOOD COUNT W/DIF F absolute monocyte count 0.39 10_3/ uL 0.1-0. 8 normal Not Available [address] [place], [address] 03/10/2024 11:32:11 03/10/20 24 03/10/2024 COMPL ETE BLOOD COUNT W/DIF F absolute eosinophil count 0.17 10_3/ uL 0.0-0. 7 normal Not Available [address] [place], [address] 03/10/2024 11:32:11 03/10/20 24 03/10/2024 COMPL ETE BLOOD COUNT W/DIF F absolute basophil count 0.05 10_3/ uL 0.0-0. 2 normal Not Available [address] [place], [address] 03/10/2024 11:32:11 04/11/20 24 04/11/2024 COMPL ETE BLOOD COUNT W/DIF F WBC 7.73 10_3/ uL 4.4-10 .8 normal Not Available [address] [place], [address] 04/11/2024 16:17:51 04/11/20 24 04/11/2024 COMPL ETE BLOOD COUNT W/DIF F RBC 4.60 10_6/ uL 3.93-5 .22 normal Not Available [address] [place], [address] 04/11/2024 16:17:51 04/11/20 24 04/11/2024 COMPL ETE BLOOD COUNT W/DIF F HGB 13.0 g/dL 11.2-1 5.7 normal Not Available [address] [place], [address] 04/11/2024 16:17:51 04/11/20 24 04/11/2024 COMPL ETE BLOOD COUNT W/DIF F HCT 40.7 % 36.0-4 6.0 normal Not Available [address] [place], [address] 04/11/2024 16:17:51 04/11/20 24 04/11/2024 COMPL ETE BLOOD COUNT W/DIF F MCV 89 fL 80-95 normal Not Available [address], [address] 04/11/2024 16:17:51 04/11/20 24 04/11/2024 COMPL ETE BLOOD COUNT W/DIF F MCH 28.3 pg 27.0-3 3.0 normal Not Available [address] [place], [address] 04/11/2024 16:17:51 04/11/20 24 04/11/2024 COMPL ETE BLOOD COUNT W/DIF F MCHC 31.9 % 32.0-3 6.0 low Not Available [address] [place], [address] 04/11/2024 16:17:51 04/11/20 24 04/11/2024 COMPL ETE BLOOD COUNT W/DIF F RDW 13.4 % 11.7-1 4.6 normal Not Available [address] [place], [address] 04/11/2024 16:17:51 04/11/20 24 04/11/2024 COMPL ETE BLOOD COUNT W/DIF F platelet count 196 10_3/ uL 130-40 0 normal Not Available [address] [place], [address] 04/11/2024 16:17:51 04/11/20 24 04/11/2024 COMPL ETE BLOOD COUNT W/DIF F MPV 11.6 fL 8.0-11 .0 high Not Available [address] [place], [address] 04/11/2024 16:17:51 04/11/20 24 04/11/2024 COMPL ETE BLOOD COUNT W/DIF F neutrophils % 65.1 % Not Available [address] [place], [address] 04/11/2024 16:17:51 04/11/20 24 04/11/2024 COMPL ETE BLOOD COUNT W/DIF F lymphocytes % 28.3 % Not Available [address] [place], [address] 04/11/2024 16:17:51 04/11/20 24 04/11/2024 COMPL ETE BLOOD COUNT W/DIF F monocytes % 5.7 % Not Available [address] [place], [address] 04/11/2024 16:17:51 04/11/20 24 04/11/2024 COMPL ETE BLOOD COUNT W/DIF F eosinophils % 0.1 % Not Available [address] [place], [address] 04/11/2024 16:17:51 04/11/20 24 04/11/2024 COMPL ETE BLOOD COUNT W/DIF F basophils % 0.5 % Not Available [address] [place], [address] 04/11/2024 16:17:51 04/11/20 24 04/11/2024 COMPL ETE BLOOD COUNT W/DIF F immature grans % 0.3 % Not Available [address] [place], [address] 04/11/2024 16:17:51 04/11/20 24 04/11/2024 COMPL ETE BLOOD COUNT W/DIF F nucleated RBC 0.0 % 0.0-0. 3 normal Not Available [address] [place], [address] 04/11/2024 16:17:51 04/11/20 24 04/11/2024 COMPL ETE BLOOD COUNT W/DIF F absolute neutrophil count 5.03 10_3/ uL 1.2-6. 7 normal Not Available [address] [place], [address] 04/11/2024 16:17:51 04/11/20 24 04/11/2024 COMPL ETE BLOOD COUNT W/DIF F absolute lymphocyte count 2.19 10_3/ uL 1.2-3. 4 normal Not Available [address] [place], [address] 04/11/2024 16:17:51 04/11/20 24 04/11/2024 COMPL ETE BLOOD COUNT W/DIF F absolute monocyte count 0.44 10_3/ uL 0.1-0. 8 normal Not Available [address] [place], [address] 04/11/2024 16:17:51 04/11/20 24 04/11/2024 COMPL ETE BLOOD COUNT W/DIF F absolute eosinophil count 0.01 10_3/ uL 0.0-0. 7 normal Not Available [address] [place], [address] 04/11/2024 16:17:51 04/11/20 24 04/11/2024 COMPL ETE BLOOD COUNT W/DIF F absolute basophil count 0.04 10_3/ uL 0.0-0. 2 normal Not Available [address] [place], [address] 04/11/2024 16:17:51 05/09/20 24 05/09/2024 COMPL ETE BLOOD COUNT W/DIF F WBC 5.77 10_3/ uL 4.4-10 .8 normal Not Available [address] [place], [address] 05/09/2024 12:42:42 05/09/20 24 05/09/2024 COMPL ETE BLOOD COUNT W/DIF F RBC 4.90 10_6/ uL 3.93-5 .22 normal Not Available [address] [place], [address] 05/09/2024 12:42:42 05/09/20 24 05/09/2024 COMPL ETE BLOOD COUNT W/DIF F HGB 14.2 g/dL 11.2-1 5.7 normal Not Available [address] [place], [address] 05/09/2024 12:42:42 05/09/20 24 05/09/2024 COMPL ETE BLOOD COUNT W/DIF F HCT 42.7 % 36.0-4 6.0 normal Not Available [address] [place], [address] 05/09/2024 12:42:42 05/09/20 24 05/09/2024 COMPL ETE BLOOD COUNT W/DIF F MCV 87 fL 80-95 normal Not Available Todd [address] [place], [address] 05/09/2024 12:42:42 05/09/20 24 05/09/2024 COMPL ETE BLOOD COUNT W/DIF F MCH 29.0 pg 27.0-3 3.0 normal Not Available [address] [place], [address] 05/09/2024 12:42:42 05/09/20 24 05/09/2024 COMPL ETE BLOOD COUNT W/DIF F MCHC 33.3 % 32.0-3 6.0 normal Not Available [address] [place], [address] 05/09/2024 12:42:42 05/09/20 24 05/09/2024 COMPL ETE BLOOD COUNT W/DIF F RDW 13.4 % 11.7-1 4.6 normal Not Available [address] [place], [address] 05/09/2024 12:42:42 05/09/20 24 05/09/2024 COMPL ETE BLOOD COUNT W/DIF F platelet count 190 10_3/ uL 130-40 0 normal Not Available [address] [place], [address] 05/09/2024 12:42:42 05/09/2005/09/2024 COMPL ETE BLOOD COUNT W/DIF F MPV 12.6 fL 8.0-11 .0 high Not Available [address] [place], [address] 05/09/2024 12:42:42 05/09/20 24 05/09/2024 COMPL ETE BLOOD COUNT W/DIF F neutrophils % 65.0 % Not Available [address] [place], [address] 05/09/2024 12:42:42 05/09/20 24 05/09/2024 COMPL ETE BLOOD COUNT W/DIF F lymphocytes % 26.9 % Not Available [address] [place], [address] 05/09/2024 12:42:42 05/09/20 24 05/09/2024 COMPL ETE BLOOD COUNT W/DIF F monocytes % 7.1 % Not Available [address] [place], [address] 05/09/2024 12:42:42 05/09/20 24 05/09/2024 COMPL ETE BLOOD COUNT W/DIF F eosinophils % 0.0 % Not Available [address] [place], [address] 05/09/2024 12:42:42 05/09/20 24 05/09/2024 COMPL ETE BLOOD COUNT W/DIF F basophils % 0.7 % Not Available [address] [place], [address] 05/09/2024 12:42:42 05/09/20 24 05/09/2024 COMPL ETE BLOOD COUNT W/DIF F immature grans % 0.3 % Not Available [address] [place], [address] 05/09/2024 12:42:42 05/09/20 24 05/09/2024 COMPL ETE BLOOD COUNT W/DIF F nucleated RBC 0.0 % 0.0-0. 3 normal Not Available [address] [place], [address] 05/09/2024 12:42:42 05/09/20 24 05/09/2024 COMPL ETE BLOOD COUNT W/DIF F absolute neutrophil count 3.75 10_3/ uL 1.2-6. 7 normal Not Available [address] [place], [address] 05/09/2024 12:42:42 05/09/20 24 05/09/2024 COMPL ETE BLOOD COUNT W/DIF F absolute lymphocyte count 1.55 10_3/ uL 1.2-3. 4 normal Not Available [address] [place], [address] 05/09/2024 12:42:42 05/09/20 24 05/09/2024 COMPL ETE BLOOD COUNT W/DIF F absolute monocyte count 0.41 10_3/ uL 0.1-0. 8 normal Not Available [address] [place], [address] 05/09/2024 12:42:42 05/09/20 24 05/09/2024 COMPL ETE BLOOD COUNT W/DIF F absolute eosinophil count 0.00 10_3/ uL 0.0-0. 7 normal Not Available [address] [place], [address] 05/09/2024 12:42:42 05/09/20 24 05/09/2024 COMPL ETE BLOOD COUNT W/DIF F absolute basophil count 0.04 10_3/ uL 0.0-0. 2 normal Not Available [address] [place], [address] 05/09/2024 12:42:42 05/09/20 24 05/09/2024 LIPID 2 cholesterol 222 mg/dL <200 high Not Available [address] [place], [address] 05/09/2024 13:27:47 05/09/20 24 05/09/2024 LIPID 2 triglyceride 168 mg/dL <150 high Not Available [address] [place], [address] 05/09/2024 13:27:47 05/09/20 24 05/09/2024 LIPID 2 HDL cholesterol 48 mg/dL 40-60 Not Available Elmo velasquez [address] [place], [address] 05/09/2024 13:27:47 05/09/20 24 05/09/2024 LIPID 2 calculated LDL 141 mg/dL <100 high Natio nal Renetta stero l Educa tion Progr am (NCEP -ATPI II) class ifica tions : Renetta stero l <200 mg/dL Angelina able Renetta stero l 200-2 39 mg/dL Borde rline High Renetta stero l >or=2 40 mg/dL High HDL <40 mg/dL Low HDL >or=6 0 mg/dL High LDL <100 mg/dL Optim al LDL 100-1 29 mg/dL Near Optim al/Ab ove Optim al LDL 130-1 59 mg/dL Bor[place]line High LDL 160-1 89 mg/dL High LDL >or=1 90 mg/dL Very High *The above refer ence range is for adult s 18 years or older . Not Available [address] [place], [address] 05/09/2024 13:27:47 06/13/2006/13/2024 COMPL ETE BLOOD COUNT W/DIF F WBC 5.86 10_3/ uL 4.4-10 .8 normal Not Available [address] [place], [address] 06/13/2024 11:52:13 06/13/2006/13/2024 COMPL ETE BLOOD COUNT W/DIF F RBC 4.68 10_6/ uL 3.93-5 .22 normal Not Available [address] [place], [address] 06/13/2024 11:52:13 06/13/2006/13/2024 COMPL ETE BLOOD COUNT W/DIF F HGB 13.6 g/dL 11.2-1 5.7 normal Not Available [address] [place], [address] 06/13/2024 11:52:13 06/13/20 24 06/13/2024 COMPL ETE BLOOD COUNT W/DIF F HCT 40.9 % 36.0-4 6.0 normal Not Available [address] [place], [address] 06/13/2024 11:52:13 06/13/20 24 06/13/2024 COMPL ETE BLOOD COUNT W/DIF F MCV 87 fL 80-95 normal Not Available Todd velazquez [address] [place], [address] 06/13/2024 11:52:13 06/13/20 24 06/13/2024 COMPL ETE BLOOD COUNT W/DIF F MCH 29.1 pg 27.0-3 3.0 normal Not Available [address] [place], [address] 06/13/2024 11:52:13 06/13/20 24 06/13/2024 COMPL ETE BLOOD COUNT W/DIF F MCHC 33.3 % 32.0-3 6.0 normal Not Available [address] [place], [address] 06/13/2024 11:52:13 06/13/20 24 06/13/2024 COMPL ETE BLOOD COUNT W/DIF F RDW 13.5 % 11.7-1 4.6 normal Not Available [address] [place], [address] 06/13/2024 11:52:13 06/13/20 24 06/13/2024 COMPL ETE BLOOD COUNT W/DIF F platelet count 190 10_3/ uL 130-40 0 normal Not Available [address] [place], [address] 06/13/2024 11:52:13 06/13/20 24 06/13/2024 COMPL ETE BLOOD COUNT W/DIF F MPV 11.8 fL 8.0-11 .0 high Not Available [address] [place], [address] 06/13/2024 11:52:13 06/13/20 24 06/13/2024 COMPL ETE BLOOD COUNT W/DIF F neutrophils % 72.1 % Not Available [address] [place], [address] 06/13/2024 11:52:13 06/13/20 24 06/13/2024 COMPL ETE BLOOD COUNT W/DIF F lymphocytes % 23.7 % Not Available [address] [place], [address] 06/13/2024 11:52:13 06/13/20 24 06/13/2024 COMPL ETE BLOOD COUNT W/DIF F monocytes % 3.4 % Not Available [address] [place], [address] 06/13/2024 11:52:13 06/13/20 24 06/13/2024 COMPL ETE BLOOD COUNT W/DIF F eosinophils % 0.0 % Not Available [address] [place], [address] 06/13/2024 11:52:13 06/13/20 24 06/13/2024 COMPL ETE BLOOD COUNT W/DIF F basophils % 0.5 % Not Available [address] [place], [address] 06/13/2024 11:52:13 06/13/20 24 06/13/2024 COMPL ETE BLOOD COUNT W/DIF F immature grans % 0.3 % Not Available [address] [place], [address] 06/13/2024 11:52:13 06/13/20 24 06/13/2024 COMPL ETE BLOOD COUNT W/DIF F nucleated RBC 0.0 % 0.0-0. 3 normal Not Available [address] [place], [address] 06/13/2024 11:52:13 06/13/20 24 06/13/2024 COMPL ETE BLOOD COUNT W/DIF F absolute neutrophil count 4.22 10_3/ uL 1.2-6. 7 normal Not Available [address] [place], [address] 06/13/2024 11:52:13 06/13/20 24 06/13/2024 COMPL ETE BLOOD COUNT W/DIF F absolute lymphocyte count 1.39 10_3/ uL 1.2-3. 4 normal Not Available [address] [place], [address] 06/13/2024 11:52:13 06/13/20 24 06/13/2024 COMPL ETE BLOOD COUNT W/DIF F absolute monocyte count 0.20 10_3/ uL 0.1-0. 8 normal Not Available [address] [place], [address] 06/13/2024 11:52:13 06/13/20 24 06/13/2024 COMPL ETE BLOOD COUNT W/DIF F absolute eosinophil count 0.00 10_3/ uL 0.0-0. 7 normal Not Available [address] [place], [address] 06/13/2024 11:52:13 06/13/20 24 06/13/2024 COMPL ETE BLOOD COUNT W/DIF F absolute basophil count 0.03 10_3/ uL 0.0-0. 2 normal Not Available [address] [place], [address] 06/13/2024 11:52:13 07/12/2007/12/2024 COMPL ETE BLOOD COUNT W/DIF F WBC 8.00 10_3/ uL 4.4-10 .8 normal Not Available [address] [place], [address] 07/12/2024 14:24:55 07/12/2007/12/2024 COMPL ETE BLOOD COUNT W/DIF F RBC 4.75 10_6/ uL 3.93-5 .22 normal Not Available [address] [place], [address] 07/12/2024 14:24:55 07/12/2007/12/2024 COMPL ETE BLOOD COUNT W/DIF F HGB 13.5 g/dL 11.2-1 5.7 normal Not Available [address] [place], [address] 07/12/2024 14:24:55 07/12/20 24 07/12/2024 COMPL ETE BLOOD COUNT W/DIF F HCT 41.9 % 36.0-4 6.0 normal Not Available [address] [place], [address] 07/12/2024 14:24:55 07/12/2007/12/2024 COMPL ETE BLOOD COUNT W/DIF F MCV 88 fL 80-95 normal Not Available Todd [address] [place], [address] 07/12/2024 14:24:55 07/12/20 24 07/12/2024 COMPL ETE BLOOD COUNT W/DIF F MCH 28.4 pg 27.0-3 3.0 normal Not Available [address] [place], [address] 07/12/2024 14:24:55 07/12/2007/12/2024 COMPL ETE BLOOD COUNT W/DIF F MCHC 32.2 % 32.0-3 6.0 normal Not Available [address] [place], [address] 07/12/2024 14:24:55 07/12/20 24 07/12/2024 COMPL ETE BLOOD COUNT W/DIF F RDW 13.5 % 11.7-1 4.6 normal Not Available [address] [place], [address] 07/12/2024 14:24:55 07/12/20 24 07/12/2024 COMPL ETE BLOOD COUNT W/DIF F platelet count 223 10_3/ uL 130-40 0 normal Not Available [address] [place], [address] 07/12/2024 14:24:55 07/12/2007/12/2024 COMPL ETE BLOOD COUNT W/DIF F MPV 11.2 fL 8.0-11 .0 high Not Available [address] [place], [address] 07/12/2024 14:24:55 07/12/20 24 07/12/2024 COMPL ETE BLOOD COUNT W/DIF F neutrophils % 68.6 % Not Available Neel griffith [address] [place], [address] 07/12/2024 14:24:55 07/12/20 24 07/12/2024 COMPL ETE BLOOD COUNT W/DIF F lymphocytes % 25.3 % Not Available [address] [place], [address] 07/12/2024 14:24:55 07/12/20 24 07/12/2024 COMPL ETE BLOOD COUNT W/DIF F monocytes % 5.3 % Not Available [address] [place], [address] 07/12/2024 14:24:55 07/12/20 24 07/12/2024 COMPL ETE BLOOD COUNT W/DIF F eosinophils % 0.1 % Not Available [address] [place], [address] 07/12/2024 14:24:55 07/12/20 24 07/12/2024 COMPL ETE BLOOD COUNT W/DIF F basophils % 0.4 % Not Available [address] [place], [address] 07/12/2024 14:24:55 07/12/20 24 07/12/2024 COMPL ETE BLOOD COUNT W/DIF F immature grans % 0.3 % Not Available [address] [place], [address] 07/12/2024 14:24:55 07/12/20 24 07/12/2024 COMPL ETE BLOOD COUNT W/DIF F nucleated RBC 0.0 % 0.0-0. 3 normal Not Available [address] [place], [address] 07/12/2024 14:24:55 07/12/20 24 07/12/2024 COMPL ETE BLOOD COUNT W/DIF F absolute neutrophil count 5.50 10_3/ uL 1.2-6. 7 normal Not Available [address] [place], [address] 07/12/2024 14:24:55 07/12/20 24 07/12/2024 COMPL ETE BLOOD COUNT W/DIF F absolute lymphocyte count 2.02 10_3/ uL 1.2-3. 4 normal Not Available [address] [place], [address] 07/12/2024 14:24:55 07/12/20 24 07/12/2024 COMPL ETE BLOOD COUNT W/DIF F absolute monocyte count 0.42 10_3/ uL 0.1-0. 8 normal Not Available [address] [place], [address] 07/12/2024 14:24:55 07/12/20 24 07/12/2024 COMPL ETE BLOOD COUNT W/DIF F absolute eosinophil count 0.01 10_3/ uL 0.0-0. 7 normal Not Available [address] [place], [address] 07/12/2024 14:24:55 07/12/20 24 07/12/2024 COMPL ETE BLOOD COUNT W/DIF F absolute basophil count 0.03 10_3/ uL 0.0-0. 2 normal Not Available [address] [place], [address] 07/12/2024 14:24:55 08/11/20 24 08/11/2024 COMPL ETE BLOOD COUNT W/DIF F WBC 8.53 10_3/ uL 4.4-10 .8 normal Not Available [address] [place], [address] 08/11/2024 15:41:12 08/11/20 24 08/11/2024 COMPL ETE BLOOD COUNT W/DIF F RBC 4.81 10_6/ uL 3.93-5 .22 normal Not Available [address] [place], [address] 08/11/2024 15:41:12 08/11/20 24 08/11/2024 COMPL ETE BLOOD COUNT W/DIF F HGB 13.6 g/dL 11.2-1 5.7 normal Not Available [address] [place], [address] 08/11/2024 15:41:12 08/11/20 24 08/11/2024 COMPL ETE BLOOD COUNT W/DIF F HCT 42.0 % 36.0-4 6.0 normal Not Available [address] [place], [address] 08/11/2024 15:41:12 08/11/2008/11/2024 COMPL ETE BLOOD COUNT W/DIF F MCV 87 fL 80-95 normal Not Available Todd [address] [place], [address] 08/11/2024 15:41:12 08/11/2008/11/2024 COMPL ETE BLOOD COUNT W/DIF F MCH 28.3 pg 27.0-3 3.0 normal Not Available [address] [place], [address] 08/11/2024 15:41:12 08/11/2008/11/2024 COMPL ETE BLOOD COUNT W/DIF F MCHC 32.4 % 32.0-3 6.0 normal Not Available [address] [place], [address] 08/11/2024 15:41:12 08/11/2008/11/2024 COMPL ETE BLOOD COUNT W/DIF F RDW 13.4 % 11.7-1 4.6 normal Not Available [address] [place], [address] 08/11/2024 15:41:12 08/11/2008/11/2024 COMPL ETE BLOOD COUNT W/DIF F platelet count 220 10_3/ uL 130-40 0 normal Not Available [address] [place], [address] 08/11/2024 15:41:12 08/11/2008/11/2024 COMPL ETE BLOOD COUNT W/DIF F MPV 11.9 fL 8.0-11 .0 high Not Available [address] [place], [address] 08/11/2024 15:41:12 08/11/2008/11/2024 COMPL ETE BLOOD COUNT W/DIF F neutrophils % 71.4 % Not Available Neel [address] [place], [address] 08/11/2024 15:41:12 10/10/20 24 08/11/2024 COMPL ETE BLOOD COUNT W/DIF F lymphocytes % 23.2 % Not Available [address] [place], [address] 08/11/2024 15:41:12 08/11/2008/11/2024 COMPL ETE BLOOD COUNT W/DIF F monocytes % 4.7 % Not Available [address] [place], [address] 08/11/2024 15:41:12 08/11/2008/11/2024 COMPL ETE BLOOD COUNT W/DIF F eosinophils % 0.1 % Not Available [address] [place], [address] 08/11/2024 15:41:12 08/11/2008/11/2024 COMPL ETE BLOOD COUNT W/DIF F basophils % 0.4 % Not Available [address] [place], [address] 08/11/2024 15:41:12 08/11/2008/11/2024 COMPL ETE BLOOD COUNT W/DIF F immature grans % 0.2 % Not Available [address] [place], [address] 08/11/2024 15:41:12 08/11/2008/11/2024 COMPL ETE BLOOD COUNT W/DIF F nucleated RBC 0.0 % 0.0-0. 3 normal Not Available [address] [place], [address] 08/11/2024 15:41:12 08/11/2008/11/2024 COMPL ETE BLOOD COUNT W/DIF F absolute neutrophil count 6.09 10_3/ uL 1.2-6. 7 normal Not Available [address] [place], [address] 08/11/2024 15:41:12 08/11/20 24 08/11/2024 COMPL ETE BLOOD COUNT W/DIF F absolute lymphocyte count 1.98 10_3/ uL 1.2-3. 4 normal Not Available [address] [place], [address] 08/11/2024 15:41:12 08/11/20 24 08/11/2024 COMPL ETE BLOOD COUNT W/DIF F absolute monocyte count 0.40 10_3/ uL 0.1-0. 8 normal Not Available [address] [place], [address] 08/11/2024 15:41:12 08/11/20 24 08/11/2024 COMPL ETE BLOOD COUNT W/DIF F absolute eosinophil count 0.01 10_3/ uL 0.0-0. 7 normal Not Available [address] [place], [address] 08/11/2024 15:41:12 08/11/20 24 08/11/2024 COMPL ETE BLOOD COUNT W/DIF F absolute basophil count 0.03 10_3/ uL 0.0-0. 2 normal Not Available [address] [place], [address] 08/11/2024 15:41:12 09/13/2009/13/2024 COMPL ETE BLOOD COUNT W/DIF F WBC 7.30 10_3/ uL 4.4-10 .8 normal Not Available [address] [place], [address] 09/13/2024 11:21:11 09/13/2009/13/2024 COMPL ETE BLOOD COUNT W/DIF F RBC 4.63 10_6/ uL 3.93-5 .22 normal Not Available [address] [place], [address] 09/13/2024 11:21:11 09/13/20 24 09/13/2024 COMPL ETE BLOOD COUNT W/DIF F HGB 13.4 g/dL 11.2-1 5.7 normal Not Available [address] [place], [address] 09/13/2024 11:21:11 09/13/20 24 09/13/2024 COMPL ETE BLOOD COUNT W/DIF F HCT 40.6 % 36.0-4 6.0 normal Not Available [address] [place], [address] 09/13/2024 11:21:11 09/13/20 24 09/13/2024 COMPL ETE BLOOD COUNT W/DIF F MCV 88 fL 80-95 normal Not Available [address] [place], [address] 09/13/2024 11:21:11 09/13/20 24 09/13/2024 COMPL ETE BLOOD COUNT W/DIF F MCH 28.9 pg 27.0-3 3.0 normal Not Available [address] [place], [address] 09/13/2024 11:21:11 09/13/20 24 09/13/2024 COMPL ETE BLOOD COUNT W/DIF F MCHC 33.0 % 32.0-3 6.0 normal Not Available [address] [place], [address] 09/13/2024 11:21:11 09/13/20 24 09/13/2024 COMPL ETE BLOOD COUNT W/DIF F RDW 13.6 % 11.7-1 4.6 normal Not Available [address] [place], [address] 09/13/2024 11:21:11 09/13/20 24 09/13/2024 COMPL ETE BLOOD COUNT W/DIF F platelet count 207 10_3/ uL 130-40 0 normal Not Available [address] [place], [address] 09/13/2024 11:21:11 09/13/20 24 09/13/2024 COMPL ETE BLOOD COUNT W/DIF F MPV 10.9 fL 8.0-11 .0 normal Not Available [address] [place], [address] 09/13/2024 11:21:11 09/13/20 24 09/13/2024 COMPL ETE BLOOD COUNT W/DIF F neutrophils % 69.1 % Not Available [address] [place], [address] 09/13/2024 11:21:11 09/13/20 24 09/13/2024 COMPL ETE BLOOD COUNT W/DIF F lymphocytes % 24.7 % Not Available [address] [place], [address] 09/13/2024 11:21:11 09/13/20 24 09/13/2024 COMPL ETE BLOOD COUNT W/DIF F monocytes % 5.3 % Not Available [address] [place], [address] 09/13/2024 11:21:11 09/13/20 24 09/13/2024 COMPL ETE BLOOD COUNT W/DIF F eosinophils % 0.1 % Not Available [address] [place], [address] 09/13/2024 11:21:11 09/13/20 24 09/13/2024 COMPL ETE BLOOD COUNT W/DIF F basophils % 0.5 % Not Available [address] [place], [address] 09/13/2024 11:21:11 09/13/20 24 09/13/2024 COMPL ETE BLOOD COUNT W/DIF F immature grans % 0.3 % Not Available [address] [place], [address] 09/13/2024 11:21:11 09/13/20 24 09/13/2024 COMPL ETE BLOOD COUNT W/DIF F nucleated RBC 0.0 % 0.0-0. 3 normal Not Available [address] [place], [address] 09/13/2024 11:21:11 09/13/20 24 09/13/2024 COMPL ETE BLOOD COUNT W/DIF F absolute neutrophil count 5.04 10_3/ uL 1.2-6. 7 normal Not Available [address] [place], [address] 09/13/2024 11:21:11 09/13/20 24 09/13/2024 COMPL ETE BLOOD COUNT W/DIF F absolute lymphocyte count 1.80 10_3/ uL 1.2-3. 4 normal Not Available [address] [place], [address] 09/13/2024 11:21:11 09/13/20 24 09/13/2024 COMPL ETE BLOOD COUNT W/DIF F absolute monocyte count 0.39 10_3/ uL 0.1-0. 8 normal Not Available [address] [place], [address] 09/13/2024 11:21:11 09/13/20 24 09/13/2024 COMPL ETE BLOOD COUNT W/DIF F absolute eosinophil count 0.01 10_3/ uL 0.0-0. 7 normal Not Available [address] [place], [address] 09/13/2024 11:21:11 09/13/20 24 09/13/2024 COMPL ETE BLOOD COUNT W/DIF F absolute basophil count 0.04 10_3/ uL 0.0-0. 2 normal Not Available [address] [place], [address] 09/13/2024 11:21:11 10/11/20 24 10/11/2024 COMPL ETE BLOOD COUNT W/DIF F WBC 7.03 10_3/ uL 4.4-10 .8 normal Not Available [address] [place], [address] 10/11/2024 11:54:31 10/11/20 24 10/11/2024 COMPL ETE BLOOD COUNT W/DIF F RBC 4.82 10_6/ uL 3.93-5 .22 normal Not Available [address] [place], [address] 10/11/2024 11:54:31 10/11/20 24 10/11/2024 COMPL ETE BLOOD COUNT W/DIF F HGB 13.9 g/dL 11.2-1 5.7 normal Not Available [address] [place], [address] 10/11/2024 11:54:31 10/11/20 24 10/11/2024 COMPL ETE BLOOD COUNT W/DIF F HCT 42.5 % 36.0-4 6.0 normal Not Available [address] [place], [address] 10/11/2024 11:54:31 10/11/20 24 10/11/2024 COMPL ETE BLOOD COUNT W/DIF F MCV 88 fL 80-95 normal Not Available [address] [place], [address] 10/11/2024 11:54:31 10/11/2010/11/2024 COMPL ETE BLOOD COUNT W/DIF F MCH 28.8 pg 27.0-3 3.0 normal Not Available [address] [place], [address] 10/11/2024 11:54:31 10/11/2010/11/2024 COMPL ETE BLOOD COUNT W/DIF F MCHC 32.7 % 32.0-3 6.0 normal Not Available [address] [place], [address] 10/11/2024 11:54:31 10/11/2010/11/2024 COMPL ETE BLOOD COUNT W/DIF F RDW 13.2 % 11.7-1 4.6 normal Not Available [address] [place], [address] 10/11/2024 11:54:31 10/11/2010/11/2024 COMPL ETE BLOOD COUNT W/DIF F platelet count 198 10_3/ uL 130-40 0 normal Not Available [address] [place], [address] 10/11/2024 11:54:31 10/11/2010/11/2024 COMPL ETE BLOOD COUNT W/DIF F MPV 10.9 fL 8.0-11 .0 normal Not Available [address] [place], [address] 10/11/2024 11:54:31 10/11/2010/11/2024 COMPL ETE BLOOD COUNT W/DIF F neutrophils % 68.1 % Not Available [place] [address] [place], [address] 10/11/2024 11:54:31 10/11/2010/11/2024 COMPL ETE BLOOD COUNT W/DIF F lymphocytes % 25.3 % Not Available [place] [address] [place], [address] 10/11/2024 11:54:31 10/11/20 10/11/2024 COMPL ETE BLOOD COUNT W/DIF F monocytes % 6.0 % Not Available [address] [place], [address] 10/11/2024 11:54:31 10/11/20 24 10/11/2024 COMPL ETE BLOOD COUNT W/DIF F eosinophils % 0.1 % Not Available [address] [place], [address] 10/11/2024 11:54:31 10/11/2010/11/2024 COMPL ETE BLOOD COUNT W/DIF F basophils % 0.4 % Not Available [address] [place], [address] 10/11/2024 11:54:31 10/11/2010/11/2024 COMPL ETE BLOOD COUNT W/DIF F immature grans % 0.1 % Not Available [address] [place], [address] 10/11/2024 11:54:31 10/11/2010/11/2024 COMPL ETE BLOOD COUNT W/DIF F nucleated RBC 0.0 % 0.0-0. 3 normal Not Available [address] [place], [address] 10/11/2024 11:54:31 10/11/20 24 10/11/2024 COMPL ETE BLOOD COUNT W/DIF F absolute neutrophil count 4.78 10_3/ uL 1.2-6. 7 normal Not Available [address] [place], [address] 10/11/2024 11:54:31 10/11/20 24 10/11/2024 COMPL ETE BLOOD COUNT W/DIF F absolute lymphocyte count 1.78 10_3/ uL 1.2-3. 4 normal Not Available [address] [place], [address] 10/11/2024 11:54:31 10/11/20 24 10/11/2024 COMPL ETE BLOOD COUNT W/DIF F absolute monocyte count 0.42 10_3/ uL 0.1-0. 8 normal Not Available [address] [place], [address] 10/11/2024 11:54:31 10/11/20 24 10/11/2024 COMPL ETE BLOOD COUNT W/DIF F absolute eosinophil count 0.01 10_3/ uL 0.0-0. 7 normal Not Available [address] [place], [address] 10/11/2024 11:54:31 10/11/20 24 10/11/2024 COMPL ETE BLOOD COUNT W/DIF F absolute basophil count 0.03 10_3/ uL 0.0-0. 2 normal Not Available [address] [place], [address] 10/11/2024 11:54:31 07/17/20 24 10/07/2022 imagi ng/di agnos tic resul t No observ ation record ed. [email or web address] Not Available 07/17 21:23:55 07/17/20 24 02/13/2022 bone densi ty No observ ation record ed. [email or web address] Not Available 07/17 21:25:34 07/17/20 24 11/28/2019 MAMMO , scree yadira No observ ation record ed. [email or web address] Not Available 07/17 21:25:36 Result Notes None recorded. Problems Name Problem SNOMED Code Status Onset Date Resolution Date Notes Provider Name and Address Organization Details Recorded Time Prediabe elaine 896133872 Completed 201811/06/2023 10/29/20 20 - Comments only - Smith CARRERAP-BC - - A1c = 5.4% today, down from 5.7% last year - Explaine d this is normal, has dropped below pre-diab etes level - Did encourag e watering down juice, limiting soda intake, trying to get regular exercise Problem Code: R73.03; Problem Code Type: ICD-10; Removal Reason: last elevatio n (5.7) was 10/2019. SMITH EGAN GAGGERMAN-BC [address], [place], [address] , [facility] 4 10:34:05 Cough 20639116 Completed 201802/22/2019 Problem Code: R05; Problem Code Type: ICD-10; SMITH EGAN GAGGERMAN-BC [address], [place], [address] , [facility] 4 10:28:41 Acute sinusiti s 64435724 Completed 201802/25/2019 Problem Code: J01.90; Problem Code Type: ICD-10; Not Available [facility] 3 04:16:56 Therapeu tic drug monitori ng assay 17687496 Active 2019 CBCD monthly at [facility] for clozapin e SMITH EGAN, GAGGERMAN-BC [address], [place], [address] , [facility] 4 13:03:37 Screenin g mammogra phy Active 202010/31/20 21 - Comments only - Smith Cárdenas GAGGERMAN-BC - - Due for mammogra m 11/28/21; order sent to [facility] today Problem Code: Z12.31; Problem Code Type: ICD-10; Not Available [facility] 3 04:16:56 High enzyme level in serum 804590042 Active 2020 Problem Code: R74.8; Problem Code Type: ICD-10; Not Available [facility] 3 04:16:56 Screenin g for osteopor osis Active 202010/31/20 21 - Comments only - Smith Cárdenas GAGGERMAN-BC - - Given post-men opausal status, elevated alkaline phosphat ase, and mother with osteopor osis, will order DEXA to be done at [facility] - Rx high-dos e Vit D 50,000IU , 1 po q week x 12 weeks sent to [facility] - Will await DEXA results and recommen d calcium suppleme ntation as indicate d Problem Code: Z13.820; Problem Code Type: ICD-10; Not Available [facility] 3 04:16:56 Vitamin D deficien cy 09221400 Active 202010/31/20 21 - Comments only - Smith PATE - - Per 09/2021 labs = Rx high-dos e vit D Rx x 12 weeks sent, as above, will switch to 1000-200 0IU/d after completi on of high dose Problem Code: E55.9; Problem Code Type: ICD-10; Not Available [facility] 3 04:16:56 Cough 82440448 Completed 202111/06/2023 Problem Code: R05.8; Problem Code Type: ICD-10; Removal Reason: resolved ZACHERY PIRES-AMADOU [address], [place], [place], [address] [place] [address] , [facility] 4 10:28:41 COVID-19 031121249 Completed 202111/06/2023 Problem Code: U07.1; Problem Code Type: ICD-10; Removal Reason: resolved ZACHERY PIRES-AMADOU [address], [place], [place], [address] [place] [address] , [facility] 4 10:28:49 Cellulit is of face 185865297 Completed 202211/06/2023 Problem Code: L03.211; Problem Code Type: ICD-10; Removal Reason: resolved ZACHERY PIRES-AMADOU [address], [place], [place], [address] [place] [address] , [facility] 4 10:28:28 Irritabl e bowel syndrome 77486654 Active 200510/29/20 20 - Comments only - Smith BINGHAM-AMADOU - - Stable, per pt report - Did encourag e fresh fruits and vegetabl es, whole grains for dietary fiber, adequate hydratio n Problem Code: K58.9; Problem Code Type: ICD-10; SMITH EGAN GAGGERMAN-AMADOU [address], [place], [address] , [facility] 4 10:29:07 Mood disorder 24404270 Active 200510/31/20 21 - Comments only - Smith BINGHAM-AMADOU - - Under regular care at [facility]; pt is very happy with her provider Dr Coronado, does not feel the need for therapy at this time - Encourag ed her to call us or [facility] should she note any worsenin g of mood or other concerns - Continue Clozaril and Benztrop ine as prescrib ed by [facility] - Dr Coronado is checking cbc monthly Problem Code: F39; Problem Code Type: ICD-10; DEANDRE PIRESP-AMADOU [address], [place], [address] , [facility] 4 10:29:19 Hyperlip idemia 25983554 Active 200510/31/20 21 - Comments only - Smith CARRERAP-BC - - 10 year ASCVD risk = 2.5%; discusse d this with pt - Did recommen d reducing saturate d fats and gave handout Problem Code: E78.5; Problem Code Type: ICD-10; SMITH EGAN GAGGERMAN-BC [address], [place], [address] , [facility] 4 10:29:13 Nervous system and sense organ diseases 693255964 Active 2002 Not Available [facility] 3 04:16:57 Adult health examinat ion Active 201710/29/20 20 - Comments only - Smith Cárdenas GAGGERMAN-BC - - Given IFOB today for colon CA screenin g, as colonosc opy at [facility] 5-6y ago may not have been complete d (pt states she woke up during it; no report on file). Pt understa nds IFOB is an annual screenin g, and positive result would mean colonosc opy recommen ded for follow-u p. - Due for mammogra m 11/2021 - Pap due 2022 - Has Shingrix Rx, wants to postpone until COVID restrict ions lifted. Problem Code: Z00.00; Problem Code Type: ICD-10; Not Available [facility] 3 04:16:57 Menmaynor chacon present 257104795 Active 201710/29/20 20 - Improved - Smith Capps -[facility]- - - Very occasion al hot flashes now; she will let us know if they are problema tic. - No vaginal bleeding ; advised her to let us know if that shouyld occur. Problem Code: N95.1; Problem Code Type: ICD-10; Not Available [facility] 3 04:16:57 Deviated nasal septum 136266098 Completed 200406/23/2018 Problem Code: J34.2; Problem Code Type: ICD-10; Not Available [facility] 3 04:16:57 Gastroes ophageal reflux disease without esophagi tis 543270715 Completed 200510/28/2019 Problem Code: K21.9; Problem Code Type: ICD-10; Not Available [facility] 3 04:16:59 Sialolit hiasis 26952360 Completed 200706/23/2018 Problem Code: K11.5; Problem Code Type: ICD-10; Not Available [facility] 3 04:17:01 Hypergly cemia 32505558 Completed 201807/29/2023 Problem Code: R73.9; Problem Code Type: ICD-10; Not Available [facility] 3 04:17:01 Problem Notes None recorded. Procedures Surgical History Date Name Laterality Status Provider Name and Address Organization Details Recorded Time 07/26/2018 Date of Last Pap Smear completed Lala Edwards LPN [place] - [facility] 10/15/2023 14:07:58 Imaging Results Imaging Date Name Status LastModified by Kelly posey Details LastModified Time 10/07/2022 imaging/diagno stic result completed [email or web address] Information not available 07/17/2024 21:23:55 02/13/2022 bone density completed Information not available 07/17/2024 21:25:34 11/28/2019 MAMMO, screening completed Information not available 07/17/2024 21:25:36 Procedure Notes None recorded. Medical Equipment None Reported. Allergies Allergen ID Allergen Name Allergen Category Reaction Reaction Severity Criticality Documentation Date Start Date Code Code System Note Provider Name and Address Organization Details Recorded Time 33459 Haldol medicatio n rash moderate Not available 09/11/20232017 13822 9 RxNorm rash Not Available [facility] 3 16:14:53 64493 acetamino phen / oxycodone medicatio n Not available Not available Not available 09/11/20232017 39903 3 RxNorm Not Available [facility] 3 16:14:53 64442 Demerol medicatio n Not available Not available Not available 09/11/20232017 95726 1 RxNorm Aller gyCod e: '0005 30018 63'; Aller gyNam e: 'KATHY ROL'; Aller gyCon ceptT ype: 'NDC' ; Not Available [facility] 3 16:14:53 30578 Biaxin medicatio n Not available Not available Not available 09/11/20232017 31283 9 RxNorm Aller gyCod e: '0044 95260 02'; Aller gyNam e: 'BIAX IN'; Aller gyCon ceptT ype: 'NDC' ; Not Available [facility] 3 16:14:53 58921 codeine medicatio n rash Not available [facility] 10/15/2023 2670 RxNorm Lala sosa LPN null, [place] - [facility]. 3 13:17:48 Medications Name Sig Start Date Stop Date Status Note LastModified by Organization Details LastModified Time Clozaril 25 mg tablet 350mg - Take 1 by mouth daily 2003 active Not Available Not Available Not Avai lable clozapine 100 mg tablet Take 3 tablets every day by oral route at bedtime. active Not Available Not Available No t [...] (vitamin D2) 1,250 mcg (50,000 unit) capsule Take 1 capsule every week by oral route as directed. active Not Available Not Available No t Available doxycycline hyclate 100 mg tablet 1 tablet by mouth twice a day 12/13 completed Not Available Not Available Not Available clozapine 50 mg tablet Take 1 tablet every day by oral route at bedtime. 2023 active Not Available Not Available Not Avai lable Stool Softener 100mg Take 2 tablets by [...] Updated DateTime 3 161.29 cm 35.3 kg/m2 23682.1 g 80 /min 16 /min 110 mm[Hg] 60 mm[Hg] Lala sosa LPN [facility] 3 13:22:05 Date Recorded Body height Body mass index (BMI) Body weight Heart rate Systolic blood pressure Diastolic blood pressure Provider Name and Address Organization Details Last Updated DateTime 4 161.29 cm 34.7 kg/m2 41623.8 8 g 64 /min 108 mm[Hg] 72 mm[Hg] Lala sosa LPN [facility] 4 11:35:23 Date Recorded Body height Body mass index (BMI) Body weight Body temperature Oxygen saturation Oxygen saturation in Arterial blood by Pulse oximetry Heart rate Respiratory rate Systolic blood pressure Diastolic blood pressure Provider Name and Address Organization Details Last Updated DateTime 4 161.29 cm 35.2 kg/m2 89731.2 2 g 96.8 [degF] 97 % 97 % 88 /min 20 /min 102 mm[Hg] 66 mm[Hg] Morena Cortes [facility] 4 10:27:12 Date Recorded Body height Oxygen saturation Oxygen saturation in Arterial blood by Pulse oximetry Heart rate Systolic blood pressure Diastolic blood pressure Provider Name and Address Organization Details Last Updated DateTime 4 161.29 cm 97 % 97 % 87 /min 122 mm[Hg] 74 mm[Hg] Dotty Lindoons [facility] 4 14:33:28 Social History Question Answer Notes LastModified by Organizat ion Details LastModified Time Tobacco Smoking Status Former Smoker KARSTEN Recinos, [facility] 10/15/2023 13:23:18 Do You Have An Advance Directive? Yes [email or web address] Information n ot available 10/15/2023 Is Blood Transfusion Acceptable In An Emergency? No [email or web address] Information not available 10/15/2023 What Is Your Code Status? DNR [email or web address] Information not available 10/15/2023 What Type Of Diet Are You Following? REGULAR [email or web address] Information n ot available 10/15/2023 How Many Days Of Moderate To Strenuous Exercise, Like A Brisk Walk, Did You Do In The Last 7 Days? 0 [email or web address] Information not available 10/15/2023 How Many Times Per Week Do You Exercise? 1-2 Times Per Week [email or web address] Information not available 10/15/2023 When Did You Quit Smoking? 16+yearssincel heldercistevie [email or web address] Information not available 10/15/2023 Date Of Most Recent HSA 10/17/2024 [email or web address] Information not available 10/17/2024 Would You Say That, In General, Your Health Is Very Good [email or web address] Information not available 10/17/2024 How Often Does Anyone, Including Family, Physically Hurt You? Never zhudpntjcdo69 Information not available 10/15/2023 How Often Does Anyone, Including Family, Insult Or Talk Down To You? Never uiywkdlusqn48 Information no t available 10/15/2023 How Often Does Anyone, Including Family, Threaten You With Harm? Never xoklenqunxw56 Information not available 10/15/2023 How Often Does Anyone, Including Family, Scream Or Curse At You? Never peixkzgbckk60 Information not available 10/15/2023 Within The Past 12 Months, You Worried That Your Food Would Run Out Before You Got Money To Buy More. Never True jnytmjduqnn68 Information n ot available 10/15/2023 Within The Past 12 Months, The Food You Bought Just Didn't Last And You Didn't Have Money To Get More. Never True vtmfbtxpwut25 Information n ot available 10/15/2023 How Hard Is It For You To Pay For The Very Basics Like Food, Housing, Medical Care, And Heating? Would You Say It Is: Not Hard At All waxzkaxqtqq50 Information not available 10/15/2023 In The Past 12 Months, Has Lack Of Reliable Transportation Kept You From Medical Appointments, Meetings, Work Or From Getting Things Needed For Daily Living? No gvwyrmvdnkg81 Information not available 10/15/2023 What Is Your Housing Situation Today? I Have Housing. erxrirxuzul94 Information not available 10/15/2023 How Often In The Past Year Have You Used Marijuana (including Smoking, Vaping, Dabbing, Or Edibles)? Never xdmyvpyzcbt89 Information not available 10/15/2023 How Often In The Past Year Have You Used Prescription Medications That Were Not Prescribed To You? Never dedbfamvjvg74 Information n ot available 10/15/2023 How Often In The Past Year Have You Taken Your Own Prescription Medication More Than The Way It Was Prescribed Or For Different Reasons Than Its Intended Purpose? Never wzoguvwohks86 Information no t available 10/15/2023 How Often In The Past Year Have You Used Other Drugs (for Example, Heroin, Cocaine, Meth, Salvia, Inhalants)? Never lsvktqvexzx20 Information not available 10/15/2023 Have You Ever Used IV Drugs? No trhxturoisx65 Information not available 10/15/2023 During The Past Four Weeks Has Your Physical And Emotional Health Limited Your Social Activities With Family And Friends, Neighbors, Or Groups? Not At All iizkfyhawry00 Information not available 10/15/2023 During The Past Four Weeks, Was Someone Available To Help You If You Needed And Wanted Help? (For Example, If You [place] Very Nervous, Lonely, Or Blue; Got Sick And Had To Stay In Bed; Needed Someone To Talk To; Needed Help With Daily Chores; Or Needed Help Just Taking Care Of Yourself.) Yes- As Much As I Wanted qqsoiubxvxk08 Information not available 10/15/2023 During The Past Four Weeks, What Was The Hardest Physical Activity You Could Do For At Least 2 Minutes? Moderate vfmrcokfnum33 Information not available 10/15/2023 Can You Get To Places Out Of Walking Distance Without Help? (For Example, Can You Travel Alone On Buses Or Taxis, Or Drive Your Own Car?) Yes imtdavtqkse31 Information not available 10/15/2023 Can You Go Shopping For Groceries Or Clothes Without Someone? s Help? Yes Information not available 10/15/2023 Can You Prepare Your Own Meals? Yes kmcbbycyuhy13 Information not available 10/15/2023 Can You Do Your Housework Without Help? Yes aisxfwbovms69 Information not available 10/15/2023 Because Of Any Health Problems, Do You Need The Help Of Another Person With Your Personal Care Needs Such As Eating, Bathing, Dressing, Or Getting Around The House? No bqhhpgzwakn91 Information not available 10/15/2023 Can You Handle Your Own Money Without Help? Yes ubxxkhkjxiu23 Information not available 10/15/2023 Are You Having Difficulties Driving Your Car? No Information no t available 10/15/2023 Do You Always Fasten Your Seat Belt When You Are In A Car? Yes- Usually qbcjcfraibb48 Information not available 10/15/2023 How Often During The Past Four Weeks Have You Been Bothered By Any Of The Following Problems? Falling Or Dizzy When Standing Up? Sometimes yiiexu36 Information not available 10/17/2024 Sexual Problems? Never zhyomm13 Informat ion not available 10/17/2024 Trouble Eating Well? Never eyxingzjlpr47 Information not available 10/15/2023 Teeth Or Denture Problems? Never mitciwvffqt17 Information not available 10/15/2023 Problems Using The Telephone? Never cnxeyiskqjy88 Information not available 10/15/2023 Tiredness Or Fatigue? Never beapzbhlkxt24 Information not available 10/15/2023 Have You Had 2 Or More Falls Or Sustained An Injury With A Fall In The Last Year? No lbecnyqdshq15 Information no t available 10/15/2023 Do You Have Difficulty With Walking Or Balance? No nwofcamsrws72 Information not available 10/15/2023 Do You Currently Use A Hearing Device? No epkzvgjabus10 Information not available 10/15/2023 Do You Currently Have Any Trouble With Your Vision? No pyoysxqodgs05 Information no t available 10/15/2023 Do You Exercise For About 20 Minutes Three Or More Days A Week? No- I Usually Do Not Exercise Much ppqcnkawsvn84 Information not available 10/15/2023 Are There Any Safety Concerns In Your Home (see Attached CDC Pamphlet)? No akgslwayjyb08 Information not available 10/15/2023 How Often Do You Have Trouble Taking Medicines The Way You Have Been Told To Take Them? I Always Take Them As Prescribed snbfueemlbp65 Information not available 10/15/2023 How Confident Are You That You Can Control And Manage Most Of Your Health Problems? Very Confident bjxczigkcky99 Information not available 10/15/2023 Do You Currently Have Any Difficulty With Your Hearing? 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 Yes cllzpoiajjf17 Information not available 10/15/2023 What Was The Date Of Your Most Recent Tobacco Screening? 10/17/2024 Information not available 10/17/2024 What Is Your Current Pack Years? 20-29packyears wvxxxujzgrn29 Information not available 10/15/2023 Are You Sexually Active? No Information not available 10/15/2023 At What Age Did You Start Smoking Tobacco? 13 avqvymjflnb96 Information not available 10/15/2023 Has Tobacco Cessation Counseling Been Provided? No skoqudndnha83 Information not available 10/15/2023 How Many Years Have You Smoked Tobacco? 25 raymbuilgdp88 Information not available 10/15/2023 Do You Or Have You Ever Used Any Other Forms Of Tobacco Or Nicotine? No rkcmbakxnht23 Information not available 10/15/2023 Sex: Female Functional Status Question Answer Note LastModified by Organizat ion Details LastModified Time What is your exercise level? Occasional icnfpypegkq42 Information not available 10/15/2023 Mental Status None recorded. Family History Relationship Description Onset Age of this Age Resolved Age Notes LastModified by Organization Details LastModified Time Sister Malignant tumor of breast gmenapacedrew Not available 14:53:21 Notes:*Problem: Maternal unc le testicular CA, other CA MGM - d. 84, [place] MGF - d. 1989 at age 88, [place] Father - 1930; was adopted, no genetic information; living at [facility], Parkinson's Mother - b. 1936; osteoporosis, HLD, stroke 2019, lives alone with her cat Simi Sister - b. 1960; Breast CA dx'd age 55 Medical History No medical history recorded. Gynecological History Statement/Question Response Abnormal Pap N Date of Last Pap Smear 07/26/2018 Obstetrics History GPAL:G 0 P 0 0 0 0 Immunizations Vaccine Type Date Status Note Provider Nam oswaldo and Address Organization Details Recorded Time zoster recombinant 4 completed SMITH DENSON, GAGGERMAN- [address], [place], [address], [facility] 11/05/2023 12:15:12 Td (adult), 2 Lf tetanus toxoid, preservative free, adsorbed 9 completed Not Available [facility] 09/11/2023 05:34:40 Tdap 7 completed Not Available [facility] 09/11/2023 05:34:40 Td(adult) unspecified formulation 6 completed Not Available [facility] 09/11/2023 05:34:41 Influenza, split virus, quadrivalent, PF 9 completed Not Available [facility] 09/11/2023 05:34:41 Influenza, split virus, quadrivalent, preservative 9 completed Not Available [facility] 09/11/2023 05:34:41 zoster recombinant 1 completed Not Available [facility] 09/11/2023 05:34:41 COVID-19, mRNA, LNP-S, PF, 100 mcg/0.5mL dose or 50 mcg/0.25mL dose 1 completed Not Available [facility] 09/11/2023 05:34:42 COVID-19, mRNA, LNP-S, PF, 100 mcg/0.5mL dose or 50 mcg/0.25mL dose 1 completed Not Available [facility] 09/11/2023 05:34:42 COVID-19, mRNA, LNP-S, PF, 100 mcg/0.5mL dose or 50 mcg/0.25mL dose 1 completed Not Available [facility] 09/11/2023 05:34:42 influenza, unspecified formulation 0 completed Not Available [facility] 09/11/2023 05:34:43 influenza, unspecified formulation 1 completed Not Available [facility] 09/11/2023 05:34:43 Pneumococcal conjugate PCV20, polysaccharide [id number] conjugate, adjuvant, PF [address], [facility] [address], [facility] 10/23/2024 22:52:31 COVID-19, mRNA, LNP-S, PF, ajay-sucrose, 30 mcg/0.3 mL [address], [facility] [address], [facility] 10/23/2024 22:52:31 Influenza, split virus, trivalent, PF 5 completed Lala Edwards LPN null, [facility] 11/08/2024 13:32:22 COVID-19, mRNA, LNP-S, PF, ajay-sucrose, 30 mcg/0.3 mL [address], [facility] [address], [facility] 10/22/2023 20:29:04 Influenza, split virus, quadrivalent, PF 3 completed Lala Edwards, RN [facility]. 10/15/2023 14:22:07 Past Encounters Encounter ID Performer Location Encounter Start Date Encounter Closed Date Diagnosis/Indication Diagnosis SNOMED-CT Code Diagnosis ICD10 Code Diagnosis Note [id number] SMITH DOWELLFARIDA [address]AN[address] [address] 10/15/2023 12:34:13 10/15/2023 14:37:31 Adult health examination 371409241 Z00.00 Screening for cardiovascular system disease 951461101 Z13.6 Screening for malignant neoplasm of colon 623735638 Z12.11 Screening mammography 24 550942 Z12.31 Last mammogram was 11/28/2019, BI RADS 1; declines breast exam or referral for mammogram this year, states will plan to do next year. Does regular SBE. Active or passive immunization 695875932 Z23 will come back at another time for shingrix Multiple s kin tags on neck 412594599 L91.8 One <1mm on L side of neck, one 2mm with >1mm area of attachment to underlying skin on R neck. They are catching on things and bothering her. She will schedule OV for removal (will have Dr Ingram available to assist with larger one if needed. [id number] SMITH EGAN, [address] [address] 11/05/2023 11:06:26 11/05/2023 12:05:48 Multiple skin tags on neck 589105279 L91.8 Pt consents to removal of two skin tags, one on L side of neck, on in R upper chest. Skin tag on L neck with <1mm pedunculum . Area cleaned with alcohol swab, topical anesthetic spray applied and adequate anesthesia confirmed. Base of tag snipped with small sterile scissors. Pt tolerated this well. Very minimal bleeding controlled with pressure, bandage applied, after care instructio ns reviewed.T ag on R upper chest 2-3mm across, with 2mm x <1mm linear base. After consultati on with Dr Ingram, who examined area, pt agreed to LN treatment for this lesion, in hopes that tag will eventually fall off. Holding body of skin tag with tweezers, applied LN to both sides of base for 2 freeze-eleonora w cycles, which pt tolerated very well. Reviewed after care instructio ns, call with any questions or concerns. Active or passive immunization 898296185 Z23 Shingrix #2 given today. Prediabetes 023243853 R7 3.03 A1c drawn today Vitamin D deficiency 347 14546 E55.9 vit D 25-OH drawn today Hyperlipidemia 85932937 E78.5 Lipid panel and CMP drawn today [id number] MARIO INGRAM MD [address] [address] 11/13/2023 10:19:05 11/13/2023 11:32:54 Multiple skin tags on neck 224799935 L91.8 Residual skin tag on rt lower neck area remains intact, some mild surroundin g erythema related to freeze attempt last wee. Amenable to excising with iris scissorsAr ea prepped with chlorhepta dine and Etoh. 1% xylocaine with epi used as analgesia, 1cc. Lesion snipped at base, into dermis, with iris scissors, pressure applied. Bleeding minimized and sterile bandaid applied. Reviewed s/s of infection. Keep covered and dry for 24 - 48hr. [id number] SMITH EGAN, GAGGERMAN-AMADOU [facility] [address] [place] [address] 10/17/2024 14:18:34 10/17/2024 15:20:51 Adult health examination 175420658 Z00.00 Normal exam today. Her last Pap was 07/26/2018, NILM, neg HPV; We discussed rationale for regular cervical cancer screening, and she declines any further screenings . She will return in 6 months for CC F/U Screening for malignant neoplasm of colon 192207427 Z12.11 We reviewed rationale and options for CRC screening, and she declines all CRC screening. Screening mammography 24 510290 Z12.31 Normal breast exam today. We reviewed the rationale for regular mammograms for breast cancer screening; she declines mammograms . Screening for osteoporosis 821702926 Z78.0 DEXA 02/13/2022 showed normal bone density Mood disorder 45607893 F 38 She continues with monthly blood draws at [facility] or [facility]. ANC 10/11/24 = 4780 and clozapine REMS was completed. Vitamin D deficiency 347 65663 E55.9 =20.2 11/05/2023; she did not take the prescribed high dose vitamin D; Rx resent today. Active or passive immunization 015278950 Z23 [id number] Lala Edwards LPN [facility] [address] [place] [address] 11/08/2024 12:42:34 11/08/2024 13:30:23 Active or passive immunization 018524243 Z23 Health Concerns Section Related Observation LastModified by Organization Detai ls LastModified Time None Recorded Concern Status LastModified by Organization Details LastModified Time None Recorded Advance Directives Directive Y: Payers Encounter Date Sequence Insurance Name Policy Number Policy [place] Covered Member ID [place] Member ID Guarantor Name 10/15/2023 1 [place] [employer] Aubree McHarg [id number] Aubree McHarg 10/15/2023 2 [place] [facility] [id number] Aubree McHarg [id number] Aubree McHarg 11/05/2023 1 [place] Aubree McHarg [id number] Aubree McHarg 11/05/2023 2 [place] [facility] [id number] Aubree McHarg [id number] Aubree McHarg 11/13/2023 1 [place] [employer] [place] Aubree McHarg [id number] Aubree McHarg 11/13/2023 2 [place] [facility] [id number] Aubree McHarg [id number] Aubree McHarg 10/17/2024 1 [place] Aubree McHarg [id number] Aubree McHarg 10/17/2024 2 [place] [facility] [id number] Aubree McHarg [id number] Aubree McHarg 11/08/2024 1 [place] Aubree McHarg [id number] Aubree McHarg 11/08/2024 2 [place] [facility] [id number] [facility] [id number] [facility] Notes Date Note Type Note Provider Name and Address Organization Details Recorded Time 10/15/2023 text/html Medicare Annual Wellness VisitReported bypatient.Diet and Nutrition:follows recommended diet Fracture Risk:no recent explained fracture; no sudden unexplained fractures; DEXA 2020 showed normal bone density Physical Activity:does not exercise on a regular basis; discussed weightbearing activities; discussed exercise habits Depression Risk:never feels sad, empty, or tearful; no loss of interest in activities; no significant changes in weight; no sleep disturbances or insomnia; no agitation; no loss of energy; no feelings of worthlessness or guilt; no thoughts of suicide;history of mood disorders; Bipolar diagnosis, followed by [facility] and stable on meds x many years. Orientation:oriented to person, place, time Concentration and Memory:no decreased concentrating ability; no memory lapses or loss; does not forget words Speech/Motor difficulties:no speech difficulties; no difficulty expressing formulated concepts; no difficulty with fine manipulative tasks; no difficulty writing/copying; no slowed reaction time; does not knock things over when trying to pick them upNotes:Independent with ADLs SMITH DENSON [facility] [address], [place], [address], [facility] 10/22/2023 20:42:46 11/05/2023 text/html Aubree returns to day for skin tag removal. She has not had her routine screening labs drawn yet through [facility], and agrees to proceed with lab draw here for routine screening labs discussed at Annual Wellness Visit last month. She declines CRC screening and Pap at this time. SMITH DENSON GAGGERMAN- [address], [place], [address], [facility] 11/05/2023 12:26:44 11/13/2023 text/html Aubree returns to day for skin tag removal. MD [address], [place], [address], [facility]. 11/24/2023 13:36:41 10/17/2024 text/html Medicare Annual Wellness VisitReported bypatient.Notes:see self-assessment; no concernsMedicare Wellness Visit pain and opiate assessmentReported bypatient.Context:patyoswaldo roberta taking medication for chronic pain: No SMITH DENSON , GAGGERMAN- [address], [place], [address], [facility]. 10/23/2024 23:02:36 OBGyn Episode No OBEpisode recorded.
--- OUTSIDE RECORDS SUMMARY | 2024-11-11 01:13 | XMS_ITS | Encounter Summary ---
Author Organization [facility] Address [address] [place] [address] Care Team Providers Care Wrapper Stitcher Name Role Phone Unavailable Primary Care Provider Unavailabl e Encounter Details Date Type Department Care Team (Late st Contact Info) Description 10/21/1999 13:24 EST - 10/31/1999 11:59 EST Hospital Encounter [facility] [address] [place] [address] Christopher Toro MD [facility] [address] [place], [place] [address] Discharge Disposition: Left Against Medical Advice Social [...] EST Christopher Toro MD CHEMISTRY & BLOOD GAS ORDERABLES Final Result Performing Organization Address [facility] de Phone Number [facility] [address] [place] [address] * TEST, URINE (10/24/1999 10:10 EST) Result-Pregnanc y Test, Ur Neg [facility] Specific Vevay 1.010 [facility] 10/24/1999 10:1 0 EST 10/24/1999 10:10 EST Christopher Toro MD URINALYSIS ORDERABLES Final Resu lt Performing Organization Address [facility] de Phone Number [facility] [address] [place] [address] * (ABNORMAL) URINALYSIS (10/24/1999 10:10 EST) Color, UA Yellow [facility] Clarity, UA Clear [facility] Glucose, UA Norm NORM [facility] Bilirubin, UA Neg NEG [facility] Ketones, UA Neg NEG [facility] Specific Vevay, Urine 1.010 1.005 - 1.02 [facility] Blood, UA Neg NEG [facility] pH, UA 7.0 5.0 - 9.0 [facility] Protein, UA Trace(A) NEG [facility] Urobilinogen, UA Norm NORM mg/dL [facility] Nitrite, UA Neg NEG [facility] Leuk Esterase Neg NEG [facility] 10/24/1999 10:1 0 EST 10/24/1999 10:10 EST Christopher Toro MD URINALYSIS ORDERABLES Final Resu lt Performing Organization Address [facility] de Phone Number [facility] [address] [place] [address] * DRUG SCREEN 6 (10/24/1999 10:10 EST) Amphetamine Screen, Urine Negative drug screen reporting Suitable for medical purposes only. Will not detect all drugs within class. Cutoff = 1000 ng/ml [facility] Barbiturate Screen, Urine Negative drug screen reporting Suitable for medical purposes only. Will not detect all drugs within class. Cutoff = 200 ng/ml [facility] Benzodiazepine Screen, Urine Negative drug screen reporting Suitable for medical purposes only. Will not detect all drugs within class. Cutoff = 200 ng/ml [facility] Cannabinoid Scrn, Ur Negative drug screen reporting Suitable for medical purposes only. Will not detect all drugs within class. Cutoff = 50 ng/ml [facility] Cocaine Metabolites, Ur Negative drug screen reporting Suitable for medical purposes only. Will not detect all drugs within class. Cutoff = 300 ng/ml [facility] Opiate Scrn, Ur Negative drug screen reporting Suitable for medical purposes only. Will not detect all drugs within class. Cutoff = 2000 ng/ml [facility] 10/24/1999 10:1 0 EST 10/24/1999 10:10 EST Christopher Toro MD URINALYSIS ORDERABLES Final Resu lt Performing Organization Address [facility] Co de Phone Number [facility] [address] [place] [address] * TSH (10/22/1999 7:30 EST) TSH 0.95 0.35 - 5.50 uIU/ml [facility] 10/22/1999 7:30 EST 10/22/1999 7:49 EST Christopher Toro MD CHEMISTRY & BLOOD GAS ORDERABLES Final Result Performing Organization Address [facility] de Phone Number [facility] [address] [place] [address] * ELECTROLYTES (10/22/1999 7:30 EST) Pathologist [facility] Sodium 142 136 - 145 mEq/L [facility] Potassium 4.4 3.5 - 5.0 mEq/L [facility] Chloride 107 96 - 110 mEq/L [facility] CO2 28 24 - 30 mEq/L [facility] 10/22/1999 7:30 EST 10/22/1999 7:49 EST Christopher Toro MD CHEMISTRY & BLOOD GAS ORDERABLES Final Result Performing Organization Address [facility] de Phone Number [facility] [address] [place] [address] * GLUCOSE, PLASMA (10/22/1999 7:30 EST) Pathologist [facility] Glucose, Plasma 89 70 - 110 mg/dl [facility] 10/22/1999 7:30 EST 10/22/1999 7:49 EST Christopher Toro MD CHEMISTRY & BLOOD GAS ORDERABLES Final Result Performing Organization Address [facility] de Phone Number [facility] [address] [place] [address] * (ABNORMAL) T4 FREE (10/22/1999 7:30 EST) Free T4 0.7(L) 0.8 - 1.8 ng/dl [facility] 10/22/1999 7:30 EST 10/22/1999 7:49 EST Christopher Toro MD CHEMISTRY & BLOOD GAS ORDERABLES Final Result [facility] [address] [place] [address] * CREATININE (10/22/1999 7:30 EST) Creatinine 0.8 0.7 - 1.5 mg/dl [facility] 10/22/1999 7:30 EST 10/22/1999 7:49 EST Christopher Toro MD HISTORICAL LAB FOR SQ LOAD Final Result Performing Organization Address City/[facility]/ZIP Co de Phone Number [facility] [address] [place] [address] * (ABNORMAL) HEMAGRAM & DIFF (10/22/1999 7:30 [...] ABS Monocytes 0.32 0.1 - 0.8 K/cmm [facility] ABS Eosinophils 0.19 0.03 - 0.61 K/cmm [facility] ABS Basophils 0.02 0.01 - 0.11 K/cmm [facility] Type of Diff: Automated [facility] 10/22/1999 7:30 EST 10/22/1999 7:49 EST us Christopher Toro MD HISTORICAL LAB FOR SQ LOAD Final Result Performing Organization Address [facility] Co de Phone Number [facility] [address] [place] [address] * BUN (10/22/1999 7:30 EST) BUN 17 10 - 26 mg/dl [facility] 10/22/1999 7:30 EST 10/22/1999 7:49 EST us Christopher Toro MD CHEMISTRY & BLOOD GAS ORDERABLES Final Result Performing Organization Address City/[facility] Co de Phone Number [facility] [address] [place] [address] documented in this encounter Visit Diagnoses Not on filedocumented in this encounter
--- OUTSIDE RECORDS SUMMARY | 2024-11-11 01:13 | XMS_ITS | Encounter Summary ---
Author Organization [facility] Address [address] [place] [address] Care Team Providers Care Dumpman Name Role Phone Unavailable Primary Care Provider Unavailabl e Encounter Details Date Type Department Care Team (Late st Contact Info) Description 08/22/1999 19:34 EDT - 09/19/1999 11:59 EST Hospital Encounter [facility] [address] [place] [address] Christopher Toro MD [facility] [address] [place], [place] [id number] Discharge Disposition: Left Against Medical Advice Social [...] LAB 09/13/1999 7:35 EST 09/13/1999 7:43 EST us Christopher Toro MD HISTORICAL LAB FOR SQ LOAD Final Result [facility] [address] [place] [address] * CARBAMAZEPINE (09/13/1999 7:35 EST) Pathologist [facility] Carbamazepine 5.9 4.0 - 10.0 ug/ml [facility] 09/13/1999 7:35 EST 09/13/1999 7:43 EST us Christopher Toro MD CHEMISTRY & BLOOD GAS ORDERABLES Final Result Performing Organization Address City/[facility]/ZIP Co de Phone Number [facility] [address] [place] [address] * BACTERIAL CULTURE, URINE (08/27/1999 15:00 EDT) Specimen Description Urine [facility] Result 10,000 to 100,000 CFU/ml ESCHERICHIA COLI Less than 10,000 CFU/ml Mixed gram positive growth [facility] Report Status Final [id number] [facility] 08/27/1999 15:0 0 EDT [...] <=0.5 Susceptible Christopher Toro MD MICROBIOLOGY - GENERAL ORDERABLE S Final Result Performing Organization Address [facility] de Phone Number [facility] [address] [place] [address] * TEST, URINE (08/27/1999 15:00 EDT) Result-Pregnanc y Test, Ur Neg [facility] Specific [place] 1.015 [facility] 08/27/1999 15:0 0 EDT 08/27/1999 20:50 EDT Christopher Toro MD URINALYSIS ORDERABLES Final Resu lt Performing Organization Address [facility] de Phone Number [facility] [address] [place] [address] * URINALYSIS (08/27/1999 15:00 EDT) Color, UA Yellow [facility] Clarity, UA Hazy [facility] Glucose, UA Norm NORM [facility] Bilirubin, UA Neg NEG [facility] Ketones, UA Neg NEG [facility] Specific [place], Urine 1.015 1.005 - 1.02 [facility] Blood, UA Neg NEG [facility] pH, UA 7.0 5.0 - 9.0 [facility] Protein, UA Neg NEG [facility] Urobilinogen, UA Norm NORM mg/dL [facility] Nitrite, UA Neg NEG [facility] Leuk Esterase Neg NEG [facility] 08/27/1999 15:0 0 EDT 08/27/1999 20:50 EDT Christopher Toro MD URINALYSIS ORDERABLES Final Resu lt [facility] [address] [place] [address] * DRUG SCREEN 6 (08/27/1999 15:00 EDT) [...] 08/27/1999 15:0 0 EDT 08/27/1999 20:50 EDT us Christopher Toro MD URINALYSIS ORDERABLES Final Resu lt Performing Organization Address [facility] Co de Phone Number [facility] [address] [place] [address] * TSH (08/23/1999 12:10 EDT) TSH 0.78 0.35 - 5.50 uIU/ml [facility] 08/23/1999 12:1 0 EDT 08/23/1999 12:15 EDT us Christopher Toro MD CHEMISTRY & BLOOD GAS ORDERABLES Final Result Performing Organization Address [facility] de Phone Number [facility] [address] [place] [address] * MAGNESIUM (08/23/1999 12:10 EDT) Magnesium 1.7 1.4 - 2.3 meq/L [facility] 08/23/1999 12:1 0 EDT 08/23/1999 12:15 EDT us Christopher Toro MD CHEMISTRY & BLOOD GAS ORDERABLES Final Result Performing Organization Address [facility] de Phone Number [facility] [address] [place] [address] * ELECTROLYTES (08/23/1999 12:10 EDT) Sodium 144 136 - 145 mEq/L [facility] Potassium 4.2 3.5 - 5.0 mEq/L [facility] Chloride 107 96 - 110 mEq/L [facility] CO2 29 24 - 30 mEq/L [facility] 08/23/1999 12:1 0 EDT 08/23/1999 12:15 EDT us Christopher Toro MD CHEMISTRY & BLOOD GAS ORDERABLES Final Result Performing Organization Address [facility] Co de Phone Number [facility] [address] [place] [address] * LIVER FUNCTION TESTS (08/23/1999 12:10 EDT) Albumin 3.9 3.0 - 5.5 g/dl [facility] Total Alkaline Phosphatase 56 38 - 126 U/L [facility] ALT 48 15 - 75 U/L [facility] AST 29 8 - 50 U/L [facility] Unconjugated Bilirubin 0.1 0.1 - 1.1 mg/dl [facility] Conjugated Bilirubin 0.0 0.0 - 0.3 mg/dl [facility] Bilirubin, Total 0.4 0.2 - 1.3 mg/dl [facility] 08/23/1999 12:1 0 EDT 08/23/1999 12:15 EDT Christopher Toro MD CHEMISTRY & BLOOD GAS ORDERABLES Final Result Performing Organization Address [facility] de Phone Number [facility] [address] [place] [address] * (ABNORMAL) GLUCOSE, PLASMA (08/23/1999 12:10 EDT) Glucose, Plasma 59(L) 70 - 110 mg/dl [facility] 08/23/1999 12:1 0 EDT 08/23/1999 12:15 EDT Christopher Toro MD CHEMISTRY & BLOOD GAS ORDERABLES Final Result Performing Organization Address [facility] de Phone Number [facility] [address] [place] [address] * T4 FREE (08/23/1999 12:10 EDT) Free T4 1.3 0.8 - 1.8 ng/dl [facility] 08/23/1999 12:1 0 EDT 08/23/1999 12:15 EDT Christopher Toro MD CHEMISTRY & BLOOD GAS ORDERABLES Final Result Performing Organization Address [facility] de Phone Number [facility] [address] [place] [address] * CREATININE (08/23/1999 12:10 EDT) Creatinine 0.8 0.7 - 1.5 mg/dl [facility] 08/23/1999 12:1 0 EDT 08/23/1999 12:15 EDT us Christopher Toro MD HISTORICAL LAB FOR SQ LOAD Final Result [facility] [address] [place] [address] * (ABNORMAL) HEMAGRAM & DIFF (08/23/1999 12:10 [...] [facility] Type of Diff: Automated [facility] 08/23/1999 12:1 0 EDT 08/23/1999 12:15 EDT Christopher Toro MD HISTORICAL LAB FOR SQ LOAD Final Result Performing Organization Address [facility] Co de Phone Number [facility] [address] [place] [address] * (ABNORMAL) CARBAMAZEPINE (08/23/1999 12:10 EDT) Carbamazepine 1.3(L) 4.0 - 10.0 ug/ml [facility] 08/23/1999 12:1 0 EDT 08/23/1999 12:15 EDT Christopher Toro MD CHEMISTRY & BLOOD GAS ORDERABLES Final Result Performing Organization Address [facility] de Phone Number [facility] [address] [place] [address] * CALCIUM (08/23/1999 12:10 EDT) Calcium 9.0 8.5 - 10.5 mg/dl [facility] Albumin 3.9 3.0 - 5.5 g/dl [facility] Calculated Calcium 9.5 8.5 - 10.5 mg/dl [facility] 08/23/1999 12:1 0 EDT 08/23/1999 12:15 EDT Christopher Toro MD CHEMISTRY & BLOOD GAS ORDERABLES Final Result Performing Organization Address [facility] de Phone Number [facility] [address] [place] [address] * BUN (08/23/1999 12:10 EDT) BUN 16 10 - 26 mg/dl [facility] 08/23/1999 12:1 0 EDT 08/23/1999 12:15 EDT us Christopher Toro MD CHEMISTRY & BLOOD GAS ORDERABLES Final Result Performing Organization Address City/State/[facility] Co de Phone Number [facility] [place] [phone] documented in this encounter Visit Diagnoses Not on filedocumented in this encounter
--- OUTSIDE RECORDS SUMMARY | 2024-11-11 01:13 | XMS_ITS | Continuity of Care Document ---
Author Organization [place] - [facility] Address [address] [place] [address] Care Team Providers Care Facing Baster Jumpbasting Name Role Phone SMITH DENSON Primary Care Provider Unav ailable [facility] Dentist Assessment No assessment recorded. Plan of Treatment Reminders Order Date Submit Date Provider Last Modified By Organization Details Last Modified Time Details Appointments Follow Up 30 2024 01:30P M Smith Avelar Not available Not available Not available Medicare Annual Wellness 40 2024 01:00P M Smith Avelar Not available Not available Not available Lab None recorded. Referral None recorded. Procedures None recorded. Surgeries None recorded. Imaging None recorded. Medication Orders None recorded. Patient TargetsNo targets recorded. Patient InstructionsNo instructions recorded. Reason for Referral None Reported. Problems Name Problem SNOMED Code Status Onset Date Resolution Date Notes Provider Name and Address Organization Details Recorded Time Prediabe elaine [id number] Completed 201811/06/2023 10/29/20 20 - Comments only - Smith Cárdenas [employer]-BC - - A1c = 5.4% today, down from 5.7% last year - Explaine d this is normal, has dropped below pre-diab etes level - Did encourag e watering down juice, limiting soda intake, trying to get regular exercise Problem Code: R73.03; Problem Code Type: ICD-10; Removal Reason: last elevatio n (5.7) was 10/2019. SMITH EGAN, RFID SPECIALIST-BC [address], [place], [address] , [facility] 4 10:34:05 Cough [id number] Completed 201802/22/2019 Problem Code: R05; Problem Code Type: ICD-10; SMITH EGAN [facility] [address], [place], [address] , [facility] 4 10:28:41 Acute sinusiti s 59482840 Completed 201802/25/2019 Problem Code: J01.90; Problem Code Type: ICD-10; Not Available [facility] 3 04:16:56 Therapeu tic drug monitori ng assay 21497828 Active [address] [facility] for clozapin e SMITH EGAN [facility] [address], [place], [address] , [facility] 4 13:03:37 Screenin g mammogra phy Active 202010/31/20 21 - Comments only - Smith Cárdenas [facility] - - Due for mammogra m 11/28/21; order sent to [facility] today Problem Code: Z12.31; Problem Code Type: ICD-10; Not Available [facility] 3 04:16:56 High enzyme level in serum 620751493 Active 2020 Problem Code: R74.8; Problem Code Type: ICD-10; Not Available [facility] 3 04:16:56 Screenin g for osteopor osis Active 202010/31/20 21 - Comments only - Smith Cárdenas [facility]- - - Given post-men opausal status, elevated alkaline phosphat ase, and mother with osteopor osis, will order DEXA to be done at [facility] - Rx high-dos e Vit D 50,000IU , 1 po q week x 12 weeks sent to [facility] - Will await DEXA results and recommen d calcium suppleme ntation as indicate d Problem Code: Z13.820; Problem Code Type: ICD-10; Not Available [facility] 3 04:16:56 Vitamin D deficien cy 46257717 Active 202010/31/20 21 - Comments only - Smith Cárdenas [employer] SPECIALIST-BC - - Per 09/2021 labs = Rx high-dos e vit D Rx x 12 weeks sent, as above, will switch to 1000-200 0IU/d after completi on of high dose Problem Code: E55.9; Problem Code Type: ICD-10; Not Available [facility] 3 04:16:56 Cough 87992950 Completed 202111/06/2023 Problem Code: R05.8; Problem Code Type: ICD-10; Removal Reason: resolved SMITH BOTELLOCE-D JIGNESH, RFID SPECIALIST-BC [address], [place], [address] , [facility] 4 10:28:41 COVID-19 347569119 Completed 202111/06/2023 Problem Code: U07.1; Problem Code Type: ICD-10; Removal Reason: resolved SMITH BOTELLOCE-D JIGNESH, RFID SPECIALIST-BC [address], [place], [address] , [facility] 4 10:28:49 Cellulit is of face 075725565 Completed 202211/06/2023 Problem Code: L03.211; Problem Code Type: ICD-10; Removal Reason: resolved SMITH DOWELLAPACE-D JIGNESH [employer] SPECIALIST-BC [address], [place], [address] , [facility] 4 10:28:28 Irritabl e bowel syndrome 08873512 Active 200510/29/20 20 - Comments only - Smith Cárdenas [facility] - - Stable, per pt report - Did encourag e fresh fruits and vegetabl es, whole grains for dietary fiber, adequate hydratio n Problem Code: K58.9; Problem Code Type: ICD-10; SMITH DOWELLAPACE-D JIGNESH [employer] SPECIALIST-BC [address], [place], [address] , [facility] 4 10:29:07 Mood disorder 31304937 Active 200510/31/20 21 - Comments only - Smith CARRERAP- - - Under regular care at [facility]; pt is very happy with her provider Dr Coronado, does not feel the need for therapy at this time - Encourag ed her to call us or [facility] should she note any worsenin g of mood or other concerns - Continue Clozaril and Benztrop ine as prescrib ed by [facility] - Dr Coronado is checking cbc monthly Problem Code: F39; Problem Code Type: ICD-10; SMITH EGAN, RFID SPECIALIST-BC [address], [place], [address] , [facility] 4 10:29:19 Hyperlip idemia 14984707 Active 200510/31/20 21 - Comments only - Smith Cárdenas [facility] - - 10 year ASCVD risk = 2.5%; discusse d this with pt - Did recommen d reducing saturate d fats and gave handout Problem Code: E78.5; Problem Code Type: ICD-10; SMITH EGAN, RFID SPECIALIST-BC [address], [place], [address] , [facility] 4 10:29:13 Nervous system and sense organ diseases 802331047 Active 2002 Not Available [facility] 3 04:16:57 Adult health examinat ion Active 201710/29/20 20 - Comments only - Smith Cárdenas [facility] - - Given IFOB today for colon CA screenin g, as colonosc opy at [facility] 5-6y ago may not have been [...] Z00.00; Problem Code Type: ICD-10; Not Available [facility] 3 04:16:57 Menmaynor chacon present 215852708 Active 201710/29/20 20 - Ryan - Smith Capps -Valentino [facility]- - - Very occasion al hot flashes now; she will let us know if they are problema tic. - No vaginal bleeding ; advised her to let us know if that shouyld occur. Problem Code: N95.1; Problem Code Type: ICD-10; Not Available [facility] 3 04:16:57 Deviated nasal septum 846801867 Completed 200406/23/2018 Problem Code: J34.2; Problem Code Type: ICD-10; Not Available [facility] 3 04:16:57 Gastroes ophageal reflux disease without esophagi tis 233056389 Completed 200510/28/2019 Problem Code: K21.9; Problem Code Type: ICD-10; Not Available [facility] 3 04:16:59 Sialolit hiasis 59765231 Completed 200706/23/2018 Problem Code: K11.5; Problem Code Type: ICD-10; Not Available [facility] 3 04:17:01 Hypergly cemia 45123893 Completed 201807/29/2023 Problem Code: R73.9; Problem Code Type: ICD-10; Not Available [facility] 3 04:17:01 Problem Notes None recorded. Procedures Surgical History Date Name Laterality Status Provider Name and Address Organization Details Recorded Time 07/26/2018 Date of Last Pap Smear completed Lala Edwards LPN [facility] 10/15/2023 14:07:58 Imaging Results None recorded. Procedure Notes None recorded. Medical Equipment None Reported. Allergies Allergen ID Allergen Name Allergen Category Reaction Reaction Severity Criticality Documentation Date Start Date Code Code System Note Provider Name and Address Organization Details Recorded Time 71042 Haldol medicatio n rash moderate Not available 09/11/20232017 37188 9 RxNorm rash Not Available [facility] 3 16:14:53 40350 acetamino phen / oxycodone medicatio n Not available Not available Not available 09/11/20232017 64690 3 RxNorm Not Available [facility] 3 16:14:53 00748 Demerol medicatio n Not available Not available Not available 09/11/20232017 48902 1 RxNorm Aller gyCod e: '0005 80634 63'; Aller gyNam e: 'KATHY ROL'; Aller gyCon ceptT ype: 'NDC' ; Not Available [facility] 3 16:14:53 84990 Biaxin medicatio n Not available Not available Not available 09/11/20232017 65616 9 RxNorm Aller gyCod e: '0044 84358 02'; Aller gyNam e: 'BIAX IN'; Aller gyCon ceptT ype: 'NDC' ; Not Available [facility] 3 16:14:53 55779 codeine medicatio n rash Not available [facility] 10/15/2023 2670 RxNorm Lala sosa, DIELECTRIC TESTING MACHINE OPERATOR null, [place] [facility] 3 13:17:48 Medications Name Sig Start [...] Not Available Not Available Not Available Vitals None Recorded Social History Question Answer Notes LastModified by Organizat ion Details LastModified Time Tobacco Smoking Status Former Smoker Lala Edwards LPN [facility], [place] - [facility]. 10/15/2023 13:23:18 Do You Have An Advance Directive? Yes gbxxpzaexqe17 Information n ot available 10/15/2023 Is Blood Transfusion Acceptable In An Emergency? No eefiozkuqeg09 Information not available 10/15/2023 What Is Your Code Status? DNR dhzahaodyaa19 Information not available 10/15/2023 What Type Of Diet Are You Following? REGULAR rypyrrqappe92 Information n ot available 10/15/2023 How Many Days Of Moderate To Strenuous Exercise, Like A Brisk Walk, Did You Do In The Last 7 Days? 0 whwsnezhlxz29 Information not available 10/15/2023 How Many Times Per Week Do You Exercise? 1-2 Times Per Week dvxiymcisvm46 Information not available 10/15/2023 When Did You Quit Smoking? 16+yearssincel astcistevie actweupkzmq54 Information not available 10/15/2023 Date Of Most Recent HSA 10/17/2024 hlpauk34 Information not available 10/17/2024 Would You Say That, In General, Your Health Is Very Good yqrffy83 Information not available 10/17/2024 How Often Does Anyone, Including Family, Physically Hurt You? Never oxpowjjdtfg99 Information not available 10/15/2023 How Often Does Anyone, Including Family, Insult Or Talk Down To You? Never iontqirrvsh67 Information no t available 10/15/2023 How Often Does Anyone, Including Family, Threaten You With Harm? Never Information not available 10/15/2023 How Often Does Anyone, Including Family, Scream Or Curse At You? Never plgzigogrjm27 Information not available 10/15/2023 Within The Past 12 Months, You Worried That Your Food Would Run Out Before You Got Money To Buy More. Never True rlfazeguajm97 Information n ot available 10/15/2023 Within The Past 12 Months, The Food You Bought Just Didn't Last And You Didn't Have Money To Get More. Never True fzdzlbdmyve50 Information n ot available 10/15/2023 How Hard Is It For You To Pay For The Very Basics Like Food, Housing, Medical Care, And Heating? Would You Say It Is: Not Hard At All zgjrcgnfavp52 Information not available 10/15/2023 In The Past 12 Months, Has Lack Of Reliable Transportation Kept You From Medical Appointments, Meetings, Work Or From Getting Things Needed For Daily Living? No snvagueaxqv11 Information not available 10/15/2023 What Is Your Housing Situation Today? I Have Housing. Information not available 10/15/2023 How Often In The Past Year Have You Used Marijuana (including Smoking, Vaping, Dabbing, Or Edibles)? Never lghmpovtzmp69 Information not available 10/15/2023 How Often In The Past Year Have You Used Prescription Medications That Were Not Prescribed To You? Never vyoraymttrx26 Information n ot available 10/15/2023 How Often In The Past Year Have You Taken Your Own Prescription Medication More Than The Way It Was Prescribed Or For Different Reasons Than Its Intended Purpose? Never isvrseytojo19 Information no t available 10/15/2023 How Often In The Past Year Have You Used Other Drugs (for Example, Heroin, Cocaine, Meth, Salvia, Inhalants)? Never pyepfojkipy40 Information not available 10/15/2023 Have You Ever Used IV Drugs? No dyjhwqknjvs74 Information not available 10/15/2023 During The Past Four Weeks Has Your Physical And Emotional Health Limited Your Social Activities With Family And Friends, Neighbors, Or Groups? Not At All wzffjvilwxd99 Information not available 10/15/2023 During The Past Four Weeks, Was Someone Available To Help You If You Needed And Wanted Help? (For Example, If You [place] Very Nervous, Lonely, Or Blue; Got Sick And Had To Stay In Bed; Needed Someone To Talk To; Needed Help With Daily Chores; Or Needed Help Just Taking Care Of Yourself.) Yes- As Much As I Wanted zrysbzxtqpa54 Information not available 10/15/2023 During The Past Four Weeks, What Was The Hardest Physical Activity You Could Do For At Least 2 Minutes? Moderate obqccjkbhju05 Information not available 10/15/2023 Can You Get To Places Out Of Walking Distance Without Help? (For Example, Can You Travel Alone On Buses Or Taxis, Or Drive Your Own Car?) Yes parehqvequk32 Information not available 10/15/2023 Can You Go Shopping For Groceries Or Clothes Without Someone? s Help? Yes ourjxtezydn66 Information not available 10/15/2023 Can You Prepare Your Own Meals? Yes bubrkytijqa45 Information not available 10/15/2023 Can You Do Your Housework Without Help? Yes ieauisxzyqs55 Information not available 10/15/2023 Because Of Any Health Problems, Do You Need The Help Of Another Person With Your Personal Care Needs Such As Eating, Bathing, Dressing, Or Getting Around The House? No njqfwxydvuk47 Information not available 10/15/2023 Can You Handle Your Own Money Without Help? Yes tcfzixsxplv59 Information not available 10/15/2023 Are You Having Difficulties Driving Your Car? No dkhbmuteqsf97 Information no t available 10/15/2023 Do You Always Fasten Your Seat Belt When You Are In A Car? Yes- Usually lyxjthykhoz43 Information not available 10/15/2023 How Often During The Past Four Weeks Have You Been Bothered By Any Of The Following Problems? Falling Or Dizzy When Standing Up? Sometimes Information not available 10/17/2024 Sexual Problems? Never stogac39 Informat ion not available 10/17/2024 Trouble Eating Well? Never qadtlzmfqpy98 Information not available 10/15/2023 Teeth Or Denture Problems? Never qebuwnsaxoo54 Information not available 10/15/2023 Problems Using The Telephone? Never rvmtjimmngb30 Information not available 10/15/2023 Tiredness Or Fatigue? Never xjkaaheozid21 Information not available 10/15/2023 Have You Had 2 Or More Falls Or Sustained An Injury With A Fall In The Last Year? No uzbaibgtfkv66 Information no t available 10/15/2023 Do You Have Difficulty With Walking Or Balance? No kxwxyvxqdwy67 Information not available 10/15/2023 Do You Currently Use A Hearing Device? No tqbghdjmaxe93 Information not available 10/15/2023 Do You Currently Have Any Trouble With Your Vision? No uprdxummecl54 Information no t available 10/15/2023 Do You Exercise For About 20 Minutes Three Or More Days A Week? No- I Usually Do Not Exercise Much iysgseydjcd18 Information not available 10/15/2023 Are There Any Safety Concerns In Your Home (see Attached CDC Pamphlet)? No Information not available 10/15/2023 How Often Do You Have Trouble Taking Medicines The Way You Have Been Told To Take Them? I Always Take Them As Prescribed qxbnitoqkkt41 Information not available 10/15/2023 How Confident Are You That You Can Control And Manage Most Of Your Health Problems? Very Confident yjfzevocnem21 Information not available 10/15/2023 Do You Currently Have Any Difficulty With Your Hearing? No rzgukyvbntn69 Information not available 10/15/2023 Do You Have A Medical Power Of Mine Inspector? Yes sgoxlopblfj82 Information not available 10/15/2023 What Was The Date Of Your Most Recent Tobacco Screening? 10/17/2024 bykfxx98 Information not available 10/17/2024 What Is Your Current Pack Years? 20-29packyears bonbiicejfb03 Information not available 10/15/2023 Are You Sexually Active? No cyheazdxuun71 Information not available 10/15/2023 At What Age Did You Start Smoking Tobacco? 13 ysbaxqoxaot11 Information not available 10/15/2023 Has Tobacco Cessation Counseling Been Provided? No scxyrhgyvds87 Information not available 10/15/2023 How Many Years Have You Smoked Tobacco? 25 Information not available 10/15/2023 Do You Or Have You Ever Used Any Other Forms Of Tobacco Or Nicotine? No qnazuodzhjv37 Information not available 10/15/2023 Sex: Female Functional Status Question Answer Note LastModified by Organizat ion Details LastModified Time What is your exercise level? Occasional tzsonqpfklc12 Information not available 10/15/2023 Mental Status None recorded. Family History Relationship Description Onset Age of this Age Resolved Age Notes LastModified by Organization Details LastModified Time Sister Malignant tumor of breast gmenapacedrew Not available 14:53:21 Notes:*Problem: Maternal unc le testicular CA, other [place] MGM - d. 84, [place] MGF - d. 1989 at age 88, [place] Father - 1930; was adopted, no genetic information; living at [facility], Parkinson's Mother - b. 1936; osteoporosis, HLD, stroke 2019, lives alone with her cat Simi Sister - b. 1960; Breast CA dx'd age 55 Medical History No medical history recorded. Gynecological History Statement/Question Response Abnormal Pap N Date of Last Pap Smear 07/26/2018 Obstetrics History GPAL:G 0 P 0 0 0 0 Immunizations Vaccine Type Date Status Note Provider Nam e and Address Organization Details Recorded Time zoster recombinant 4 completed SMITH DENSON, RFID SPECIALIST- [address], [place], [address], [facility] 11/05/2023 12:15:12 Td (adult), 2 Lf tetanus toxoid, preservative free, adsorbed 9 completed Not Available [facility] 09/11/2023 05:34:40 Tdap 7 completed Not Available [facility] 09/11/2023 05:34:40 Td(adult) unspecified formulation 6 completed Not Available [facility] 09/11/2023 05:34:41 Influenza, split virus, quadrivalent, PF 9 completed Not Available [facility] 09/11/2023 05:34:41 Influenza, split virus, quadrivalent, preservative 9 completed Not Available [facility] 09/11/2023 05:34:41 zoster recombinant 1 completed Not Available [facility] 09/11/2023 05:34:41 COVID-19, mRNA, LNP-S, PF, 100 mcg/0.5mL dose or 50 mcg/0.25mL dose 1 completed Not Available [facility] 09/11/2023 05:34:42 COVID-19, mRNA, LNP-S, PF, 100 mcg/0.5mL dose or 50 mcg/0.25mL dose 1 completed Not Available [facility] 09/11/2023 05:34:42 COVID-19, mRNA, LNP-S, PF, 100 mcg/0.5mL dose or 50 mcg/0.25mL dose 1 completed Not Available [facility] 09/11/2023 05:34:42 influenza, unspecified formulation 0 completed Not Available [facility] 09/11/2023 05:34:43 influenza, unspecified formulation 1 completed Not Available [facility] 09/11/2023 05:34:43 Pneumococcal conjugate PCV20, polysaccharide TLD470 conjugate, adjuvant, PF 4 completed ZACHERY FLORES-AMADOU [address], [place] [id number], [facility] 10/23/2024 22:52:31 COVID-19, mRNA, LNP-S, PF, ajay-sucrose, 30 mcg/0.3 mL [address], [place] [id number] 10/23/2024 22:52:31 Influenza, split virus, trivalent, PF 5 completed KARSTEN Recinos, [facility] 11/08/2024 13:32:22 COVID-19, mRNA, LNP-S, PF, ajay-sucrose, 30 mcg/0.3 mL [address], [facility] [id number] 10/22/2023 20:29:04 Influenza, split virus, quadrivalent, PF 3 completed KARSTEN Recinos, [facility] 10/15/2023 14:22:07 Past Encounters Encounter ID Performer Location Encounter Start Date Encounter Closed Date Diagnosis/Indication Diagnosis SNOMED-CT Code Diagnosis ICD10 Code Diagnosis Note [id number] SMITH ZACHERY BUENROSTRO-[address] [address] 10/17/2024 14:18:34 10/17/2024 15:20:51 Adult health examination [id number] Z00.00 Normal exam today. Her last Pap was 07/26/2018, NILM, neg HPV; We discussed rationale for regular cervical cancer screening, and she declines any further screenings . She will return in 6 months for CC F/U Screening for malignant neoplasm of colon 855816857 Z12.11 We reviewed rationale and options for CRC screening, and she declines all CRC screening. Screening mammography 24 719910 Z12.31 Normal breast exam today. We reviewed the rationale for regular mammograms for breast cancer screening; she declines mammograms . Screening for osteoporosis 087415888 Z78.0 DEXA 02/13/2022 showed normal bone density Mood disorder 23772828 F 39 She continues with monthly blood draws at [facility] or [facility]. ANC 10/11/24 = 4780 and clozapine REMS was completed. Vitamin D deficiency 347 16879 E55.9 =20.2 11/05/2023; she did not take the prescribed high dose vitamin D; Rx resent today. Active or passive immunization 629110548 Z23 [id number] Lala Edwards LPN [address] [address] 11/08/2024 12:42:34 11/08/2024 13:30:23 Active or passive immunization 739066562 Z23 Health Concerns Section Related Observation LastModified by Organization Detai ls LastModified Time None Recorded Concern Status LastModified by Organization Details LastModified Time None Recorded Payers Encounter Date Sequence Insurance Name Policy Number Policy [place] Covered Member ID [place] Member ID Guarantor Name 11/08/2024 1 [place] [employer] Aubree Katz [id number] Aubree Katz 11/08/2024 2 [place] [facility] [id number] Aubree Katz [id number] Aubree McHarg OBGyn Episode No OBEpisode recorded.
--- OUTSIDE RECORDS SUMMARY | 2024-11-11 01:13 | XMS_ITS | Continuity of Care Document ---
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 Name Role Phone SMITH DENSON Primary Care Provider Penelope ceja Chris [facility] Dentist Assessment Encounter Date Assessment Date Assessment LastModified by Organization Details LastModified Time 10/17/2024 10/17/2024 Patient presente d to office [...] screenings consistent with USPSTF and ACIP guidelines [email or web address] Not available 10/11/2024 14:03:08 Plan of Treatment Reminders Order Date Submit Date Provider Last Modified By Organization Details Last Modified Time Details Appointments Follow Up 30 2024 01:30P M Smith Avelar Not available Not available Not available Medica re Annual Wellne ss 40 2024 01:00P M Smith Avelar Not available Not available Not available Lab None record ed. Referral None record ed. Procedures None record ed. Surgeries None record ed. Imaging None record ed. Medication Orders Vitami n D2 1,250 mcg (50,00 0 unit) capsul e 2023 024 [email or web address] [facility], [address] [place], [address], 10/19/2024 09:40:08 clozap ine 100 mg tablet 2023 024 [email or web address] [facility], [address] [place], [address], 10/19/2024 09:40:08 clozap ine 50 mg tablet 2023 024 [email or web address] [facility], [address] [place], [address], 10/19/2024 09:40:08 Patient TargetsNo targets recorded. Patient Instructions Encounter Date Encounter Id Patient Instructions Last Modified By Organization Details Last Modified Time 10/17/2024 [id number] Discussed and explained advance directives such as standard forms to the {{patient caregiv er patient and caregiver}}. Face to face discussion lasted for a duration of ___ minutes. [email or web address] Not available 10/11/2024 14:03:08 Reason for Referral None Reported. Problems Name Problem SNOMED Code Status Onset Date Resolution Date Notes Provider Name and Address Organization Details Recorded Time Prediabe elaine [id number] Completed 201811/06/2023 10/29/20 20 - Comments only - Smith BINGHAM-AMADOU - - A1c = 5.4% today, down from 5.7% last year - Explaine d this is normal, has dropped below pre-diab etes level - Did encourag e watering down juice, limiting soda intake, trying to get regular exercise Problem Code: R73.03; Problem Code Type: ICD-10; Removal Reason: last elevatio n (5.7) was 10/2019. SMITH EGAN, DIRECTOR OF PRODUCT MARKETING-AMADOU [address], [place], [address] , [facility]. 4 10:34:05 Cough 39417572 Completed 201802/22/2019 Problem Code: R05; Problem Code Type: ICD-10; SMITH EGAN DIRECTOR OF PRODUCT MARKETING-BC [address], [place], [address] , [place] - [facility] 4 10:28:41 Acute sinusiti s [id number] Completed 201802/25/2019 Problem Code: J01.90; Problem Code Type: ICD-10; Not Available [facility] 3 04:16:56 Therapeu tic drug monitori ng assay 93705567 Active 2019 [facility]CD monthly at [facility] for clozapin e SMITH MENAPACE-D REW, DIRECTOR OF PRODUCT MARKETING-BC [address], [place], [address] , [facility] 4 13:03:37 Screenin g mammogra phy Active 202010/31/20 21 - Comments only - Smith Abclotildece -Valentino DIRECTOR OF PRODUCT MARKETING-BC - - Due for mammogra m 11/28/21; order sent to [facility] today Problem Code: Z12.31; Problem Code Type: ICD-10; Not Available [facility] 3 04:16:56 High enzyme level in serum 798970383 Active 2020 Problem Code: R74.8; Problem Code Type: ICD-10; Not Available [facility] 3 04:16:56 Screenin g for osteopor osis Active 202010/31/20 21 - Comments only - Smith Abclotildece -Valentino DIRECTOR OF PRODUCT MARKETING-BC - - Given post-men opausal status, elevated alkaline phosphat ase, and mother with osteopor osis, will order DEXA to be done at [facility] - Rx high-dos e Vit D 50,000IU , 1 po q week x 12 weeks sent to [facility] - Will await DEXA results and recommen d calcium suppleme ntation as indicate d Problem Code: Z13.820; Problem Code Type: ICD-10; Not Available [facility] 3 04:16:56 Vitamin D deficien cy 11370155 Active 202010/31/20 21 - Comments only - Smith Abclotildece -Valentino DIRECTOR OF PRODUCT MARKETING-BC - - Per 09/2021 labs = Rx high-dos e vit D Rx x 12 weeks sent, as above, will switch to 1000-200 0IU/d after completi on of high dose Problem Code: E55.9; Problem Code Type: ICD-10; Not Available [facility] 3 04:16:56 Cough 23189337 Completed 202111/06/2023 Problem Code: R05.8; Problem Code Type: ICD-10; Removal Reason: resolved SMITH EGAN [facility] [address], [place], [address] , [facility] 4 10:28:41 COVID-19 948993850 Completed 202111/06/2023 Problem Code: U07.1; Problem Code Type: ICD-10; Removal Reason: resolved SMITH EGAN [facility] [address], [place], [address] , [facility] 4 10:28:49 Cellulit is of face 084882505 Completed 202211/06/2023 Problem Code: L03.211; Problem Code Type: ICD-10; Removal Reason: resolved [facility] [address] [place], [address] , [facility] 4 10:28:28 Irritabl e bowel syndrome 97841675 Active 200510/29/20 20 - Comments only - Smith Cárdenas [facility] - - Stable, per pt report - Did encourag e fresh fruits and vegetabl es, whole grains for dietary fiber, adequate hydratio n Problem Code: K58.9; Problem Code Type: ICD-10; SMITH EGAN [facility] [address], [place], [address] , [facility] 4 10:29:07 Mood disorder 40100604 Active 200510/31/20 21 - Comments only - Smith Cárdenas [facility] - - Under regular care at [facility]; pt is very happy with her provider Dr Coronado, does not feel the need for therapy at this time - Encourag ed her to call us or [facility] should she note any worsenin g of mood or other concerns - Continue Clozaril and Benztrop ine as prescrib ed by [facility] - Dr Coronado is checking cbc monthly Problem Code: F39; Problem Code Type: ICD-10; SMITH EGAN, [facility] [address], [place], [address] , [facility] 4 10:29:19 Hyperlip idemia 39973586 Active 200510/31/20 21 - Comments only - Smith Cárdenas [facility] - - 10 year ASCVD risk = 2.5%; discusse d this with pt - Did recommen d reducing saturate d fats and gave handout Problem Code: E78.5; Problem Code Type: ICD-10; SMITH EGAN, [facility]- [address], [place], [address] , [facility] 4 10:29:13 Nervous system and sense organ diseases 682806649 Active 2002 Not Available [facility] 3 04:16:57 Adult health examinat ion Active 201710/29/20 20 - Comments only - Smith Cárdenas [facility] - - Given IFOB today for colon CA screenin g, as colonosc opy at [facility] 5-6y ago may not have been [...] Z00.00; Problem Code Type: ICD-10; Not Available [facility] 3 04:16:57 Menopaus e present 232651403 Active 201710/29/20 20 - Improved - Smith Capps -Valentino [facility]- - - Very occasion al hot flashes now; she will let us know if they are problema tic. - No vaginal bleeding ; advised her to let us know if that shouyld occur. Problem Code: N95.1; Problem Code Type: ICD-10; Not Available [facility] 3 04:16:57 Deviated nasal septum 058183333 Completed 200406/23/2018 Problem Code: J34.2; Problem Code Type: ICD-10; Not Available [facility] 3 04:16:57 Gastroes ophageal reflux disease without esophagi tis 909732513 Completed 200510/28/2019 Problem Code: K21.9; Problem Code Type: ICD-10; Not Available [facility] 3 04:16:59 Sialolit hiasis 32012524 Completed 200706/23/2018 Problem Code: K11.5; Problem Code Type: ICD-10; Not Available [facility] 3 04:17:01 Hypergly cemia 34773452 Completed 201807/29/2023 Problem Code: R73.9; Problem Code Type: ICD-10; Not Available [facility] hospital 3 04:17:01 Problem Notes None recorded. Procedures Surgical History Date Name Laterality Status Provider Name and Address Organization Details Recorded Time 07/26/2018 Date of Last Pap Smear completed Lala Edwards LPN [facility] 10/15/2023 14:07:58 Imaging Results None recorded. Procedure Notes None recorded. Medical Equipment None Reported. Allergies Allergen ID Allergen Name Allergen Category Reaction Reaction Severity Criticality Documentation Date Start Date Code Code System Note Provider Name and Address Organization Details Recorded Time 00455 Haldol medicatio n rash moderate Not available 09/11/20232017 40228 9 RxNorm rash Not Available [facility] 3 16:14:53 69241 acetamino phen / oxycodone medicatio n Not available Not available Not available 09/11/20232017 75295 3 RxNorm Not Available [facility] 3 16:14:53 92994 Demerol medicatio n Not available Not available Not available 09/11/20232017 78586 1 RxNorm Aller gyCod e: '0005 20623 63'; Aller gyNam e: 'KATHY ROL'; Aller gyCon ceptT ype: 'NDC' ; Not Available [facility] 3 16:14:53 13203 Biaxin medicatio n Not available Not available Not available 09/11/20232017 96629 9 RxNorm Aller gyCod e: '0044 55300 02'; Aller gyNam e: 'BIAX [place]'; Aller gyCon ceptT ype: 'NDC' ; Not Available [facility] 3 16:14:53 50422 codeine medicatio n rash Not available [facility] 10/15/2023 2670 RxNorm Lala sosa LPN [facility], [place] - [facility]. 3 13:17:48 Medications [...] Not Available Vitals Date Recorded Body height Oxygen saturation Oxygen saturation in Arterial blood by Pulse oximetry Heart rate Systolic blood pressure Diastolic blood pressure Provider Name and Address Organization Details Last Updated DateTime 4 161.29 cm 97 % 97 % 87 /min 122 mm[Hg] 74 mm[Hg] Dotty Hooper [facility] 4 14:33:28 Social History Question Answer Notes LastModified by Organizat ion Details LastModified Time Tobacco Smoking Status Former Smoker KARSTEN Recinos, [facility] 10/15/2023 13:23:18 Do You Have An Advance Directive? Yes [email or web address] Information n ot available 10/15/2023 Is Blood Transfusion Acceptable In An Emergency? No khvqfekjlec07 Information not available 10/15/2023 What Is Your Code Status? DNR ocbnxobzalr04 Information not available 10/15/2023 What Type Of Diet Are You Following? REGULAR cmdeljxlfqe20 Information n ot available 10/15/2023 How Many Days Of Moderate To Strenuous Exercise, Like A Brisk Walk, Did You Do In The Last 7 Days? 0 bftiqtfddwz68 Information not available 10/15/2023 How Many Times Per Week Do You Exercise? 1-2 Times Per Week hxhidktywun33 Information not available 10/15/2023 When Did You Quit Smoking? 16+yearssincel astcigarette hqwezvhkuzj67 Information not available 10/15/2023 Date Of Most Recent HSA 10/17/2024 Information not available 10/17/2024 Would You Say That, In General, Your Health Is Very Good [email or web address] Information not available 10/17/2024 How Often Does Anyone, Including Family, Physically Hurt You? Never ijjblxkqdug56 Information not available 10/15/2023 How Often Does Anyone, Including Family, Insult Or Talk Down To You? Never efhazlfqsun36 Information no t available 10/15/2023 How Often Does Anyone, Including Family, Threaten You With Harm? Never dyhjsamltlg51 Information not available 10/15/2023 How Often Does Anyone, Including Family, Scream Or Curse At You? Never yqixxeduuug78 Information not available 10/15/2023 Within The Past 12 Months, You Worried That Your Food Would Run Out Before You Got Money To Buy More. Never True ieszpejfzlk71 Information n ot available 10/15/2023 Within The Past 12 Months, The Food You Bought Just Didn't Last And You Didn't Have Money To Get More. Never True abbepyefweo69 Information n ot available 10/15/2023 How Hard Is It For You To Pay For The Very Basics Like Food, Housing, Medical Care, And Heating? Would You Say It Is: Not Hard At All ehfyjrafbvc40 Information not available 10/15/2023 In The Past 12 Months, Has Lack Of Reliable Transportation Kept You From Medical Appointments, Meetings, Work Or From Getting Things Needed For Daily Living? No kyuzlhwgyxo47 Information not available 10/15/2023 What Is Your Housing Situation Today? I Have Housing. idbtynyhxrm86 Information not available 10/15/2023 How Often In The Past Year Have You Used Marijuana (including Smoking, Vaping, Dabbing, Or Edibles)? Never Information not available 10/15/2023 How Often In The Past Year Have You Used Prescription Medications That Were Not Prescribed To You? Never ezcqgnmbexz32 Information n ot available 10/15/2023 How Often In The Past Year Have You Taken Your Own Prescription Medication More Than The Way It Was Prescribed Or For Different Reasons Than Its Intended Purpose? Never qqpiuumzjsg54 Information no t available 10/15/2023 How Often In The Past Year Have You Used Other Drugs (for Example, Heroin, Cocaine, Meth, Salvia, Inhalants)? Never arvwxbnqcrj67 Information not available 10/15/2023 Have You Ever Used IV Drugs? No zoxoqjrqsvl55 Information not available 10/15/2023 During The Past Four Weeks Has Your Physical And Emotional Health Limited Your Social Activities With Family And Friends, Neighbors, Or Groups? Not At All tozbkzoszlh46 Information not available 10/15/2023 During The Past Four Weeks, Was Someone Available To Help You If You Needed And Wanted Help? (For Example, If You [place] Very Nervous, Lonely, Or Blue; Got Sick And Had To Stay In Bed; Needed Someone To Talk To; Needed Help With Daily Chores; Or Needed Help Just Taking Care Of Yourself.) Yes- As Much As I Wanted gyiwysadoiu82 Information not available 10/15/2023 During The Past Four Weeks, What Was The Hardest Physical Activity You Could Do For At Least 2 Minutes? Moderate qglmjqutdrj26 Information not available 10/15/2023 Can You Get To Places Out Of Walking Distance Without Help? (For Example, Can You Travel Alone On Buses Or Taxis, Or Drive Your Own Car?) Yes wpefikikxok28 Information not available 10/15/2023 Can You Go Shopping For Groceries Or Clothes Without Someone? s Help? Yes tkazjxshssw24 Information not available 10/15/2023 Can You Prepare Your Own Meals? Yes qnlhszdtkdi22 Information not available 10/15/2023 Can You Do Your Housework Without Help? Yes phepmsrqcjp81 Information not available 10/15/2023 Because Of Any Health Problems, Do You Need The Help Of Another Person With Your Personal Care Needs Such As Eating, Bathing, Dressing, Or Getting Around The House? No wnwwahtrrpu18 Information not available 10/15/2023 Can You Handle Your Own Money Without Help? Yes igyayzkxioi95 Information not available 10/15/2023 Are You Having Difficulties Driving Your Car? No eahtosyvprh65 Information no t available 10/15/2023 Do You Always Fasten Your Seat Belt When You Are In A Car? Yes- Usually wuzbdugmljs07 Information not available 10/15/2023 How Often During The Past Four Weeks Have You Been Bothered By Any Of The Following Problems? Falling Or Dizzy When Standing Up? Sometimes gtsokj06 Information not available 10/17/2024 Sexual Problems? Never Informat ion not available 10/17/2024 Trouble Eating Well? Never oqowiqtjusf23 Information not available 10/15/2023 Teeth Or Denture Problems? Never cthisbfyykk95 Information not available 10/15/2023 Problems Using The Telephone? Never nuioodzwihr13 Information not available 10/15/2023 Tiredness Or Fatigue? Never Information not available 10/15/2023 Have You Had 2 Or More Falls Or Sustained An Injury With A Fall In The Last Year? No cjnczcumswn71 Information no t available 10/15/2023 Do You Have Difficulty With Walking Or Balance? No Information not available 10/15/2023 Do You Currently Use A Hearing Device? No yhhpbuzbdvy18 Information not available 10/15/2023 Do You Currently Have Any Trouble With Your Vision? No mxjtjguckaf59 Information no t available 10/15/2023 Do You Exercise For About 20 Minutes Three Or More Days A Week? No- I Usually Do Not Exercise Much liebahcyccl76 Information not available 10/15/2023 Are There Any Safety Concerns In Your Home (see Attached CDC Pamphlet)? No yusqwrgqucj50 Information not available 10/15/2023 How Often Do You Have Trouble Taking Medicines The Way You Have Been Told To Take Them? I Always Take Them As Prescribed Information not available 10/15/2023 How Confident Are You That You Can Control And Manage Most Of Your Health Problems? Very Confident auybmmmscks17 Information not available 10/15/2023 Do You Currently Have Any Difficulty With Your Hearing? No fpwsufmwfyk61 Information not available 10/15/2023 Do You Have A Medical Power Of Door Clamper? Yes watpncndhdt69 Information not available 10/15/2023 What Was The Date Of Your Most Recent Tobacco Screening? 10/17/2024 orpfba05 Information not available 10/17/2024 What Is Your Current Pack Years? 20-29packyears guwfcfrceer93 Information not available 10/15/2023 Are You Sexually Active? No jtoeqftxnub76 Information not available 10/15/2023 At What Age Did You Start Smoking Tobacco? 13 qegcpwfynap97 Information not available 10/15/2023 Has Tobacco Cessation Counseling Been Provided? No umvmayhhswx16 Information not available 10/15/2023 How Many Years Have You Smoked Tobacco? 25 soypkdgdzxc06 Information not available 10/15/2023 Do You Or Have You Ever Used Any Other Forms Of Tobacco Or Nicotine? No fiybuhpznyh81 Information not available 10/15/2023 Sex: Female Functional Status Question Answer Note LastModified by Organizat ion Details LastModified Time What is your exercise level? Occasional uauvbfmwamn95 Information not available 10/15/2023 Mental Status None recorded. Family History Relationship Description Onset Age of this Age Resolved Age Notes LastModified by Organization Details LastModified Time Sister Malignant tumor of breast [email or web address] Not available 14:53:21 Notes:*Problem: Maternal unc le testicular CA, other CA MGM - d. 84, [place] MGF - d. 1989 at age 88, [place] Father - 1930; was adopted, no genetic information; living at [facility][1], Parkinson's Mother - b. 1936; osteoporosis, HLD, [...] Recorded Time zoster recombinant 4 completed SMITH CAPPS-VALENTINO, [facility]- [address], [place], [address], [facility] 11/05/2023 12:15:12 Td (adult), 2 Lf tetanus toxoid, preservative free, adsorbed 9 completed Not Available [facility] 09/11/2023 05:34:40 Tdap 7 completed Not Available [facility] 09/11/2023 05:34:40 Td(adult) unspecified formulation 6 completed Not Available [facility] 09/11/2023 05:34:41 Influenza, split virus, quadrivalent, PF 9 completed Not Available [facility] 09/11/2023 05:34:41 Influenza, split virus, quadrivalent, preservative 9 completed Not Available [facility] 09/11/2023 05:34:41 zoster recombinant 1 completed Not Available [facility] 09/11/2023 05:34:41 COVID-19, mRNA, LNP-S, PF, 100 mcg/0.5mL dose or 50 mcg/0.25mL dose 1 completed Not Available [facility] 09/11/2023 05:34:42 COVID-19, mRNA, LNP-S, PF, 100 mcg/0.5mL dose or 50 mcg/0.25mL dose 1 completed Not Available [facility] 09/11/2023 05:34:42 COVID-19, mRNA, LNP-S, PF, 100 mcg/0.5mL dose or 50 mcg/0.25mL dose 1 completed Not Available [facility] 09/11/2023 05:34:42 influenza, unspecified formulation 0 completed Not Available [facility] 09/11/2023 05:34:43 influenza, unspecified formulation 1 completed Not Available [facility] 09/11/2023 05:34:43 Pneumococcal conjugate PCV20, polysaccharide [id number] conjugate, adjuvant, PF 4 completed ZACHERY FLORES-AMADOU [address] [place], [address], [facility] 10/23/2024 22:52:31 COVID-19, mRNA, LNP-S, PF, ajay-sucrose, 30 mcg/0.3 mL [address] [place], [address], [facility] 10/23/2024 22:52:31 Influenza, split virus, trivalent, PF 5 completed KARSTEN Recinos, [facility] 11/08/2024 13:32:22 COVID-19, mRNA, LNP-S, PF, ajay-sucrose, 30 mcg/0.3 mL 3 completed DE[address] [place], [address], [facility] 10/22/2023 20:29:04 Influenza, split virus, quadrivalent, PF 3 completed KARSTEN Recinos, [facility] 10/15/2023 14:22:07 Past Encounters Encounter ID Performer Location Encounter Start Date Encounter Closed Date Diagnosis/Indication Diagnosis SNOMED-CT Code Diagnosis ICD10 Code Diagnosis Note [id number] SMITH EGAN, DIRECTOR OF PRODUCT MARKETING-[facility] [address] [place] [address] 10/17/2024 14:18:34 10/17/2024 15:20:51 Adult health examination 936006757 Z00.00 Normal exam today. Her last Pap was 07/26/2018, NILM, neg HPV; We discussed rationale for regular cervical cancer screening, and she declines any further screenings . She will return in 6 months for CC F/U Screening for malignant neoplasm of colon 572240147 Z12.11 We reviewed rationale and options for CRC screening, and she declines all CRC screening. Screening mammography 24 688717 Z12.31 Normal breast exam today. We reviewed the rationale for regular mammograms for breast cancer screening; she declines mammograms . Screening for osteoporosis 801816416 Z78.0 DEXA 02/13/2022 showed normal bone density Mood disorder 87272390 F 39 She continues with monthly blood draws at [facility] or [facility]. ANC 10/11/24 = 4780 and clozapine REMS was completed. Vitamin D deficiency 347 91762 E55.9 =20.2 11/05/2023; she did not take the prescribed high dose vitamin D; Rx resent today. Active or passive immunization 774474414 Z23 Health Concerns Section Related Observation LastModified by Organization Detai ls LastModified Time None Recorded Concern Status LastModified by Organization Details LastModified Time None Recorded Payers Encounter Date Sequence Insurance Name Policy Number Policy [place] Covered Member ID [place] Member ID Guarantor Name 10/17/2024 1 [place] [employer] Aubree Caroarg [id number] Aubree Caroarg 10/17/2024 2 [place] [facility] [id number] Aubree Caroarg [id number] Aubree Katz Notes Date Note Type Note Provider Name and Address Organization Details Recorded Time 10/17/2024 text/html Medicare Annual Wellness VisitReported bypatient.Notes:see self-assessment; no concernsMedicare Wellness Visit pain and opiate assessmentReported bypatient.Context:arianna granados taking medication for chronic pain: No SMITH CAPPS-VALENTINO , DIRECTOR OF PRODUCT MARKETING- [address], [place], [address], [facility] 10/23/2024 23:02:36 OBGyn Episode No OBEpisode recorded.
--- OUTSIDE RECORDS SUMMARY | 2024-11-11 01:13 | XMS_ITS | Encounter Summary ---
Author Organization [facility] Address [address] [place] [address] Care Team Providers Care Personalized Living Manager Nurse Name Role Phone Unavailable Primary Care Provider Unavailabl e Encounter Details Date Type Department Care Team (Late st Contact Info) Description 09/21/1999 16:56 EST - 10/01/1999 11:59 EST Hospital Encounter [facility] [address] [place] [address] Christopher Toro MD [facility] [address] [place], [place] [id number] Discharge Disposition: Home or Self Care Social [...] Test, Ur Neg [facility] Specific [place] 1.020 [facility] 1999 19:3 0 EST 1999 19:31 EST Christopher Toro MD URINALYSIS ORDERABLES Final Resu lt Performing Organization Address [facility] [place] de Phone Number [facility] [address] [place] [address] * DRUG SCREEN 6 (1999 19:30 EST) [...] 1999 19:3 0 EST 1999 19:31 EST us Christopher Toro MD URINALYSIS ORDERABLES Final Resu lt Performing Organization Address [facility] Co de Phone Number [facility] [address] [place] [address] * (ABNORMAL) ELECTROLYTES (09/22/1999 11:23 EST) Sodium 140 136 - 145 mEq/L [facility] Potassium 3.9 3.5 - 5.0 mEq/L [facility] Chloride 107 96 - 110 mEq/L [facility] CO2 22(L) 24 - 30 mEq/L [facility] 09/22/1999 11:2 3 EST 09/22/1999 12:01 EST Christopher Toro MD CHEMISTRY & BLOOD GAS ORDERABLES Final Result [facility] [address] [place] [address] * GLUCOSE, PLASMA (09/22/1999 11:23 EST) Glucose, Plasma 109 70 - 110 mg/dl [facility] 09/22/1999 11:2 3 EST 09/22/1999 12:01 EST Christopher Toro MD CHEMISTRY & BLOOD GAS ORDERABLES Final Result Performing Organization Address City/[facility]/ZIP Co de Phone Number [facility] [address] [place] [address] * CREATININE (09/22/1999 11:23 EST) Creatinine 0.7 0.7 - 1.5 mg/dl [facility] 09/22/1999 11:2 3 EST 09/22/1999 12:01 EST Christopher Toro MD HISTORICAL LAB FOR SQ LOAD Final Result [facility] [address] [place] [id number] * HEMAGRAM & DIFF (09/22/1999 11:23 EST) WBC 4.37 4.0 - 12.4 K/cmm [facility] RBC 4.37 3.86 - 5.04 M/cmm [facility] Hemoglobin 13.7 11.6 - 15.2 gm/dl [facility] HCT 40.7 34.9 - 44.4 % [facility] MCV 93 81 - 98 fl [facility] MCH 31.4 26.7 - 33.3 pg [facility] MCHC 33.7 32.1 - 35.9 gm/dl [facility] PLT 188 141 - 320 K/cmm [facility] RDW-CV 13.1 11.7 - 14.6 % [facility] % Neutrophils 62.3 45.5 - 79.7 % [facility] % Lymphocytes 30.0 15.0 - 46.8 % [facility] % Monocytes 6.3 1.8 - 12.0 % [facility] % Eosinophils 0.9 0.6 - 6.9 % [facility] % Basophils 0.5 0.2 - 1.4 % [facility] ABS Neutrophils 2.73 2.20 - 8.85 K/cmm [facility] ABS Lymphs 1.31 1.09 - 3.30 K/cmm [facility] ABS Monocytes 0.27 0.1 - 0.8 K/cmm [facility] ABS Eosinophils 0.04 0.03 - 0.61 K/cmm [facility] ABS Basophils 0.02 0.01 - 0.11 K/cmm [facility] Type of Diff: Automated [facility] 09/22/1999 11:2 3 EST 09/22/1999 12:01 EST Christopher Toro MD HISTORICAL LAB FOR SQ LOAD Final Result Performing Organization Address City/State/[facility] Co de Phone Number [facility] [address] [place] [address] * BUN (09/22/1999 11:23 EST) BUN 18 10 - 26 mg/dl [facility] 09/22/1999 11:2 3 EST 09/22/1999 12:01 EST Christopher Toro MD CHEMISTRY & BLOOD GAS ORDERABLES Final Result [facility] [address] [place] [address] documented in this encounter Visit Diagnoses Not on filedocumented in this encounter
[2024-11-11 11:03] LABS: Abs Immature Grans 0.03 10^3/uL (0.0-0.06); Absolute Basophil Count 0.03 10^3/uL (0.0-0.2); Absolute Lymphocyte Count 1.44 10^3/uL (1.2-3.4); Absolute Monocyte Count 0.48 10^3/uL (0.1-0.8); Absolute Neutrophil Count 4.66 10^3/uL (1.2-6.7); Basophils % 0.5 %; HCT 40.9 % (36.0-46.0); HGB 13.4 g/dL (11.2-15.7); Immature Grans % 0.5 %; Lymphocytes % 21.7 %; MCH 28.3 pg (27.0-33.0); MCHC 32.8 % (32.0-36.0); MCV 87 fL (80-95); MPV 11.1 fL (8.0-11.0); Monocytes % 7.2 %; Neutrophils % 70.1 %; Platelet Count 197 10^3/uL (130-400); RBC 4.73 10^6/uL (3.93-5.22); RDW 13.2 % (11.7-14.6); RDW-SD 41.2 fL; WBC 6.64 10^3/uL (4.4-10.8)
== END 2024-11-11 01:02 | disposition home or self-care (01) ==
PROVIDERS: PCP Family Medicine; Visit Provider Nurse Practitioner Family
DX: Z79.899 Other long term (current) drug therapy (principal)
CPT/HCPCS: 36415; 85025

== ENCOUNTER 2024-12-13 03:20 | Outpatient (CLI) | payer MEDICARE, BC, SELFPAY ==
[2024-12-13 10:56] LABS: Abs Immature Grans 0.02 10^3/uL (0.0-0.06); Absolute Basophil Count 0.03 10^3/uL (0.0-0.2); Absolute Eosinophil Count 0.04 10^3/uL (0.0-0.7); Absolute Lymphocyte Count 1.56 10^3/uL (1.2-3.4); Absolute Monocyte Count 0.46 10^3/uL (0.1-0.8); Absolute Neutrophil Count 5.24 10^3/uL (1.2-6.7); Basophils % 0.4 %; Eosinophils % 0.5 %; HCT 42.6 % (36.0-46.0); HGB 13.8 g/dL (11.2-15.7); Immature Grans % 0.3 %; Lymphocytes % 21.2 %; MCH 28.1 pg (27.0-33.0); MCHC 32.4 % (32.0-36.0); MCV 87 fL (80-95); MPV 10.9 fL (8.0-11.0); Monocytes % 6.3 %; Neutrophils % 71.3 %; Platelet Count 215 10^3/uL (130-400); RBC 4.91 10^6/uL (3.93-5.22); RDW 13.7 % (11.7-14.6); RDW-SD 44.2 fL; WBC 7.35 10^3/uL (4.4-10.8)
== END 2024-12-13 03:21 | disposition home or self-care (01) ==
PROVIDERS: PCP Family Medicine; Visit Provider Nurse Practitioner Family
DX: Z79.899 Other long term (current) drug therapy (principal)
CPT/HCPCS: 36415; 85025

== ENCOUNTER 2025-01-09 04:16 | Outpatient (CLI) | payer MEDICARE, BC, SELFPAY ==
[2025-01-09 12:30] LABS: Abs Immature Grans 0.03 10^3/uL (0.0-0.06); Absolute Basophil Count 0.03 10^3/uL (0.0-0.2); Absolute Eosinophil Count 0.01 10^3/uL (0.0-0.7); Absolute Monocyte Count 0.44 10^3/uL (0.1-0.8); Absolute Neutrophil Count 4.94 10^3/uL (1.2-6.7); Basophils % 0.4 %; Eosinophils % 0.1 %; HCT 43.3 % (36.0-46.0); HGB 13.9 g/dL (11.2-15.7); Immature Grans % 0.4 %; Lymphocytes % 24.8 %; MCH 28.5 pg (27.0-33.0); MCHC 32.1 % (32.0-36.0); MCV 89 fL (80-95); MPV 10.7 fL (8.0-11.0); Monocytes % 6.1 %; Neutrophils % 68.2 %; Platelet Count 206 10^3/uL (130-400); RBC 4.88 10^6/uL (3.93-5.22); RDW 13.6 % (11.7-14.6); RDW-SD 44.7 fL; WBC 7.25 10^3/uL (4.4-10.8)
== END 2025-01-09 04:17 | disposition home or self-care (01) ==
PROVIDERS: PCP Family Medicine; Visit Provider Nurse Practitioner Family
DX: Z79.899 Other long term (current) drug therapy (principal)
CPT/HCPCS: 36415; 85025

== ENCOUNTER 2025-02-09 02:22 | Outpatient (CLI) | payer MEDICARE, BC, SELFPAY ==
[2025-02-09 12:19] LABS: HCT 42.5 % (36.0-46.0); HGB 13.6 g/dL (11.2-15.7); MCH 28.3 pg (27.0-33.0); MCV 89 fL (80-95); MPV 10.8 fL (8.0-11.0); Platelet Count 193 10^3/uL (130-400); RDW 13.5 % (11.7-14.6); RDW-SD 43.9 fL; WBC 7.12 10^3/uL (4.4-10.8)
[2025-02-09 15:54] LABS: Abs Immature Grans 0.03 10^3/uL (0.0-0.06); Absolute Basophil Count 0.04 10^3/uL (0.0-0.2); Absolute Lymphocyte Count 1.54 10^3/uL (1.2-3.4); Absolute Monocyte Count 0.36 10^3/uL (0.1-0.8); Absolute Neutrophil Count 5.14 10^3/uL (1.2-6.7); Basophils % 0.6 %; Immature Grans % 0.4 %; Lymphocytes % 21.7 %; Monocytes % 5.1 %; Neutrophils % 72.2 %
== END 2025-02-09 02:23 | disposition home or self-care (01) ==
LOC: LBO 02:22
PROVIDERS: Nurse Practitioner Family; PCP Family Medicine; Visit Provider Family Medicine
DX: Z51.81 Encounter for therapeutic drug level monitoring (principal)
CPT/HCPCS: 36415; 85027; 85025

== ENCOUNTER 2025-03-10 01:21 | Outpatient (CLI) | payer MEDICARE, BC, SELFPAY ==
[2025-03-10 13:16] LABS: Abs Immature Grans 0.02 10^3/uL (0.0-0.06); Absolute Basophil Count 0.03 10^3/uL (0.0-0.2); Absolute Eosinophil Count 0.01 10^3/uL (0.0-0.7); Absolute Lymphocyte Count 1.59 10^3/uL (1.2-3.4); Absolute Monocyte Count 0.26 10^3/uL (0.1-0.8); Absolute Neutrophil Count 5.24 10^3/uL (1.2-6.7); Basophils % 0.4 %; Eosinophils % 0.1 %; HCT 42.4 % (36.0-46.0); HGB 13.8 g/dL (11.2-15.7); Immature Grans % 0.3 %; Lymphocytes % 22.2 %; MCH 28.3 pg (27.0-33.0); MCHC 32.5 % (32.0-36.0); MCV 87 fL (80-95); MPV 12.1 fL (8.0-11.0); Monocytes % 3.6 %; Neutrophils % 73.4 %; Platelet Count 211 10^3/uL (130-400); RBC 4.87 10^6/uL (3.93-5.22); RDW-SD 44.8 fL; WBC 7.15 10^3/uL (4.4-10.8)
== END 2025-03-10 01:22 | disposition home or self-care (01) ==
PROVIDERS: PCP Family Medicine; Visit Provider Nurse Practitioner Family
DX: Z51.81 Encounter for therapeutic drug level monitoring (principal)
CPT/HCPCS: 36415; 85025

== ENCOUNTER 2025-04-10 02:33 | Outpatient (CLI) | payer MEDICARE, BC, SELFPAY ==
[2025-04-10 12:29] LABS: Abs Immature Grans 0.01 10^3/uL (0.0-0.06); Absolute Basophil Count 0.04 10^3/uL (0.0-0.2); Absolute Eosinophil Count 0.01 10^3/uL (0.0-0.7); Absolute Lymphocyte Count 1.78 10^3/uL (1.2-3.4); Absolute Monocyte Count 0.39 10^3/uL (0.1-0.8); Absolute Neutrophil Count 4.28 10^3/uL (1.2-6.7); Basophils % 0.6 %; Eosinophils % 0.2 %; HCT 42.1 % (36.0-46.0); HGB 13.8 g/dL (11.2-15.7); Immature Grans % 0.2 %; Lymphocytes % 27.3 %; MCH 28.8 pg (27.0-33.0); MCHC 32.8 % (32.0-36.0); MCV 88 fL (80-95); MPV 11.1 fL (8.0-11.0); Neutrophils % 65.7 %; Platelet Count 213 10^3/uL (130-400); RDW 13.7 % (11.7-14.6); RDW-SD 43.9 fL; WBC 6.51 10^3/uL (4.4-10.8)
== END 2025-04-10 02:34 | disposition home or self-care (01) ==
PROVIDERS: PCP Family Medicine; Visit Provider Nurse Practitioner Family
DX: Z51.81 Encounter for therapeutic drug level monitoring (principal)
CPT/HCPCS: 36415; 85025

== ENCOUNTER 2025-04-17 18:21 | Outpatient (REF) | payer MEDICARE, BC, SELFPAY ==
[2025-04-17 18:23] LABS: Hemoglobin A1C 5.6 % (<5.7)
[2025-04-17 18:38] LABS: ALT 30 U/L (14-59); AST 19 U/L (15-37); Alkaline Phosphatase 115 U/L (46-116); Anion Gap 9.9 mmol/L (3-11); BUN 14 mg/dL (7-18); Bilirubin, Total 0.3 mg/dL (0.2-1.0); CO2 29.1 mmol/L (21.0-32.0); CREATININE 1.1 mg/dL (0.55-1.02); Calcium 8.8 mg/dL (8.5-10.1); Calculated LDL 128 mg/dL (<100); Chloride 105 mmol/L (98-107); Cholesterol 222 mg/dL (<200); Estimated GFR 57.52 (mL/min/1.73m2); Glucose 95 mg/dL (74-106); HDL Cholesterol 44 mg/dL (>or=50); Potassium 3.7 mmol/L (3.5-5.1); Sodium 144 mmol/L (136-145); Triglyceride 253 mg/dL (<150); Vitamin D 25 Total 20 ng/mL (30-100)
== END 2025-04-17 18:22 | disposition home or self-care (01) ==
LOC: NCHCN 18:21
PROVIDERS: PCP Family Medicine; Visit Provider Nurse Practitioner Family
DX: E78.5 Hyperlipidemia, unspecified (principal); E55.9 Vitamin D deficiency, unspecified
CPT/HCPCS: 80053; 80061; 82306; 83036

== ENCOUNTER 2025-05-15 03:12 | Outpatient (CLI) | payer MEDICARE, BC, SELFPAY ==
[2025-05-15 12:57] LABS: Abs Immature Grans 0.01 10^3/uL (0.0-0.06); HCT 42.8 % (36.0-46.0); HGB 13.7 g/dL (11.2-15.7); Immature Grans % 0.2 %; MCH 28.1 pg (27.0-33.0); MCHC 32.0 % (32.0-36.0); MCV 88 fL (80-95); MPV 11.7 fL (8.0-11.0); Platelet Count 184 10^3/uL (130-400); RBC 4.87 10^6/uL (3.93-5.22); RDW 13.6 % (11.7-14.6); RDW-SD 44.1 fL; WBC 6.64 10^3/uL (4.4-10.8)
== END 2025-05-15 03:13 | disposition home or self-care (01) ==
LOC: LBO 03:12
PROVIDERS: PCP Family Medicine; Visit Provider Nurse Practitioner Family
DX: Z51.81 Encounter for therapeutic drug level monitoring (principal)
CPT/HCPCS: 36415; 85025

== ENCOUNTER 2025-06-13 03:32 | Outpatient (CLI) | payer MEDICARE, BC, SELFPAY ==
[2025-06-13 11:26] LABS: Abs Immature Grans 0.02 10^3/uL (0.0-0.06); HCT 41.1 % (36.0-46.0); HGB 13.7 g/dL (11.2-15.7); Immature Grans % 0.3 %; MCH 29.2 pg (27.0-33.0); MCHC 33.3 % (32.0-36.0); MCV 88 fL (80-95); MPV 11.5 fL (8.0-11.0); Platelet Count 197 10^3/uL (130-400); RBC 4.69 10^6/uL (3.93-5.22); RDW 13.3 % (11.7-14.6); RDW-SD 42.7 fL; WBC 7.11 10^3/uL (4.4-10.8)
== END 2025-06-13 03:33 | disposition home or self-care (01) ==
LOC: LBO 03:32
PROVIDERS: PCP Family Medicine; Visit Provider Nurse Practitioner Family
DX: Z51.81 Encounter for therapeutic drug level monitoring (principal)
CPT/HCPCS: 36415; 85025

== ENCOUNTER 2025-07-12 04:22 | Outpatient (CLI) | payer MEDICARE, BC, SELFPAY ==
[2025-07-12 14:23] LABS: Abs Immature Grans 0.02 10^3/uL (0.0-0.06); HCT 40.6 % (36.0-46.0); HGB 13.3 g/dL (11.2-15.7); Immature Grans % 0.2 %; MCH 28.2 pg (27.0-33.0); MCHC 32.8 % (32.0-36.0); MCV 86 fL (80-95); MPV 11.5 fL (8.0-11.0); Platelet Count 212 10^3/uL (130-400); RBC 4.71 10^6/uL (3.93-5.22); RDW 13.2 % (11.7-14.6); RDW-SD 41.6 fL; WBC 8.49 10^3/uL (4.4-10.8)
== END 2025-07-12 04:23 | disposition home or self-care (01) ==
LOC: LBO 04:22
PROVIDERS: PCP Family Medicine; Visit Provider Nurse Practitioner Family
DX: Z51.81 Encounter for therapeutic drug level monitoring (principal)
CPT/HCPCS: 36415; 85025

== ENCOUNTER 2025-08-14 03:26 | Outpatient (CLI) | payer MEDICARE, BC, SELFPAY ==
[2025-08-14 11:42] LABS: Abs Immature Grans 0.02 10^3/uL (0.0-0.06); HCT 41.7 % (36.0-46.0); HGB 13.4 g/dL (11.2-15.7); Immature Grans % 0.3 %; MCH 28.0 pg (27.0-33.0); MCHC 32.1 % (32.0-36.0); MCV 87 fL (80-95); MPV 11.2 fL (8.0-11.0); Platelet Count 198 10^3/uL (130-400); RBC 4.78 10^6/uL (3.93-5.22); RDW 13.4 % (11.7-14.6); RDW-SD 43.1 fL; WBC 6.79 10^3/uL (4.4-10.8)
== END 2025-08-14 03:27 | disposition home or self-care (01) ==
PROVIDERS: PCP Family Medicine; Visit Provider Nurse Practitioner Family
DX: Z51.81 Encounter for therapeutic drug level monitoring (principal)
CPT/HCPCS: 36415; 85025

== ENCOUNTER 2025-09-11 03:36 | Outpatient (CLI) | payer MEDICARE, BC, SELFPAY ==
[2025-09-11 13:34] LABS: Abs Immature Grans 0.02 10^3/uL (0.0-0.06); HCT 41.5 % (36.0-46.0); HGB 13.8 g/dL (11.2-15.7); Immature Grans % 0.2 %; MCH 29.1 pg (27.0-33.0); MCHC 33.3 % (32.0-36.0); MCV 88 fL (80-95); MPV 11.4 fL (8.0-11.0); Platelet Count 209 10^3/uL (130-400); RBC 4.74 10^6/uL (3.93-5.22); RDW 13.5 % (11.7-14.6); RDW-SD 43.5 fL; WBC 8.34 10^3/uL (4.4-10.8)
== END 2025-09-11 03:37 | disposition home or self-care (01) ==
PROVIDERS: PCP Family Medicine; Visit Provider Nurse Practitioner Family
DX: Z79.899 Other long term (current) drug therapy (principal)
CPT/HCPCS: 36415; 85025

== ENCOUNTER 2025-10-12 01:40 | Outpatient (CLI) | payer MEDICARE, BC, SELFPAY ==
[2025-10-12 13:04] LABS: Abs Immature Grans 0.03 10^3/uL (0.0-0.06); HCT 41.1 % (36.0-46.0); HGB 13.5 g/dL (11.2-15.7); Immature Grans % 0.4 %; MCH 29.2 pg (27.0-33.0); MCHC 32.8 % (32.0-36.0); MCV 89 fL (80-95); MPV 11.5 fL (8.0-11.0); Platelet Count 192 10^3/uL (130-400); RBC 4.63 10^6/uL (3.93-5.22); RDW 13.7 % (11.7-14.6); RDW-SD 44.4 fL; WBC 7.44 10^3/uL (4.4-10.8)
== END 2025-10-12 01:41 | disposition home or self-care (01) ==
PROVIDERS: PCP Family Medicine; Visit Provider Nurse Practitioner Family
DX: Z51.81 Encounter for therapeutic drug level monitoring (principal)
CPT/HCPCS: 85025